=== PATIENT | female | born 1935 | race Caucasian/White ===

== ENCOUNTER 2017-04-06 21:21 | Observation (INO) ==
[2017-04-06] MEDS ORDERED: *HR* HYDROcodone/Acet 5/325 mg TABLET PO ONE (21:41)
--- NOTE | 2017-04-06 21:45 | Emergency Department Note ---
Disposition Clinical Impression: Ankle fracture Qualifiers: Encounter type: initial encounter Fracture type: closed Laterality: left Qualified Code(s): S82.892A - Other fracture of left lower leg, initial encounter for closed fracture Disposition: Admitted As Inpatient Condition: Fair Time of Disposition: 22:38 Lower Extremity Injury HPI - General Chief Complaint: ED Extremity Injury, Lower Stated Complaint: Fall, L ankle pain Time Seen by Provider: 04/06/17 21:32 Source: patient Limitations: no limitations Nursing Notes Reviewed: Yes Vital Signs Reviewed: Yes - History of Present Illness HPI Narrative: Alert and oriented nontoxic-appearing 81-year-old female presents for evaluation of a left ankle injury sustained just prior to arrival status post fall. The patient states that he was walking to the kitchen and she went with a glass of water. She states that she turned around she "must have lost my balance and fell". She states that she is supposed to use a cane for assistance while ambulating, however she does not always, as "it really limits what I can do". The patient states that she has a left upper extremity deficit from a "stroke" from several years ago. She states that she was walking back from the kitchen with a glass of water in her right and when she lost her balance and fell. The patient states that she is unsteady on her feet at baseline. She denies any prodromal symptoms or events leading up to this fall. Specifically, she denies any dizziness, headache, lightheadedness, visual disturbances, chest pain, shortness of breath, or palpitations. Lanes of pain is well localized to the medial aspect of the left ankle. She denies hitting her head, any loss of consciousness, or any other injuries sustained from this fall. Pt Subjective Complaint: ankle injury Injury location: Left ankle Onset (ago): Just [employer] Mechanism of Injury: fall Context: walking Place: home Pain Severity: moderate Pain Scale: 6 Improves with: immobilization Worsens with: weight bearing, movement, palpation Associated symptoms: Reports: unable to bear weight - Related Data Home Medications Medication Instructions Recorded Confirmed Acetaminophen [Tylenol] 500 mg PO Q6HR 04/07/17 04/07/17 Allopurinol [Zyloprim] 300 mg PO DAILY 04/07/17 04/07/17 Atorvastatin [Lipitor] 10 mg PO DAILY 04/07/17 04/07/17 Docusate [Colace] 100 mg PO DAILY 04/07/17 04/07/17 Esomeprazole Magnesium [Nexium] 40 mg PO PRN PRN 04/07/17 04/07/17 Fluticasone Propionate Nasal 1 spray NS DAILY 04/07/17 04/07/17 [Flonase] Lisinopril-HCTZ 20-12.5 [Prinzide 1 tab PO BID 04/07/17 04/07/17 20-12.5] [place]-3/Dha/Epa/Fish Oil [Fish Oil 1,000 mg PO DAILY 04/07/17 04/07/17 1,000 mg Softgel] Oxybutynin Chloride [Ditropan Xl] 10 mg PO TID 04/07/17 04/07/17 Ropinirole HCl [Requip] 0.5 mg PO HS 04/07/17 04/07/17 metFORMIN [Glucophage] 500 mg PO BIDWM 04/07/17 04/07/17 Allergies Allergy/AdvReac Type Severity Reaction Status Date / Time Amoxicillin [From Augmentin] Allergy Rash Verified 04/06/17 21:31 cephalexin [From Keflex] Allergy Rash Verified 04/06/17 21:31 clavulanic acid Allergy Rash Verified 04/06/17 21:31 [From Augmentin] diphenhydramine Allergy unsure Verified 04/06/17 21:31 [From Benadryl] meperidine [From Demerol] Allergy unsure Verified 04/06/17 21:31 phenytoin [From Dilantin] Allergy unsure Verified 04/06/17 21:31 All systems ED: reviewed and negative except as stated. Constitutional: Denies: fever, chills, weakness, weight change Eyes: Denies: eye pain, eye discharge, vision change ENT ED: Denies: ear pain, throat pain, dental pain, hearing loss, epistaxis, congestion, dysphagia Cardiovascular: Denies: chest pain, palpitations, dyspnea on exertion, edema, syncope Respiratory: Denies: cough, dyspnea, wheezes, hemoptysis, stridor Gastrointestinal: Denies: abdominal pain, nausea, vomiting, diarrhea, constipation, hematemesis, melena, hematochezia Genitourinary: Denies: dysuria, frequency, hematuria, discharge Musculoskeletal: Reports: as per HPI, arthralgia (Left ankle pain). Denies: back pain, neck pain, myalgia Integumentary: Denies: rash, abrasion, lesions Neurological: Denies: headache, weakness, numbness, paresthesias, confusion, abnormal gait, vertigo Psychiatric: Denies: anxiety, depression, suicidal thoughts, homicidal thoughts , auditory hallucinations, visual hallucinations Endocrine: Denies: fatigue Hematological/Lymphatic: Denies: easy bleeding, easy bruising Allergic/Immunologic: Denies: facial swelling, urticaria Past Medical History - Past Medical History Attestation: Yes The following information was validated with the patient. Source: patient, nursing notes reviewed Medical history: Reports: diabetes, GERD, hyperlipidemia, hypertension, other Psychiatric history: Reports: no psych history - Social History Smoking Status: Never smoker Alcohol use: Reports: rarely Drug use: Reports: none Physical Exam - General Limitations: no limitations General appearance: alert - Head Head exam: atraumatic, normocephalic, normal inspection - Eye Eye exam: Present: normal appearance, PERRL, EOMI. Absent: nystagmus - ENT ENT exam: mucous membranes moist - Neck Neck exam: Present: normal inspection, full ROM, trachea midline - Chest Chest inspection: Present: normal inspection, symmetric chest wall rise - Respiratory Respiratory exam: Present: normal lung sounds bilaterally. Absent: respiratory distress, wheezes, stridor, accessory muscle use, prolonged expiratory phase - Cardiovascular Cardiovascular exam: Present: regular rate, normal rhythm, normal heart sounds - Abdominal Exam Abdominal exam: Present: soft, Non-Tender, normal bowel sounds. Absent: tenderness, distention, guarding, rebound, rigidity, trauma, mass - Expanded Lower Extremity Exam Hip/Pelvis exam: Present: normal inspection, full ROM, pelvis stable. Absent: external rotation, internal rotation, shortening Upper leg exam: Present: normal inspection, full ROM Knee exam: Present: normal inspection, full ROM. Absent: tenderness Lower leg exam: Present: normal inspection, full ROM. Absent: tenderness Ankle exam: Present: tenderness (Tenderness to palpation over the area of the medial malleolus, left ankle). Absent: full ROM (Range of motion limited by pain, left ankle), swelling (No appreciable swelling), abrasion, laceration, ecchymosis (No appreciable ecchymosis), deformity, crepitus, dislocation, erythema, tenderness over talofibular lig Foot/toe exam: Present: normal inspection, full ROM. Absent: tenderness, calcaneal tenderness, tenderness at base of 5th metatarsal Neurovascular/Tendon exam: Present: normal capillary refill, normal 2-point discrimination. Absent: pulse deficit, motor deficit, sensory deficit, tendon deficit, extremity cold to touch Gait: not tested/not observed - Back Exam Back exam: Present: normal inspection, full ROM. Absent: tenderness, vertebral tenderness - Neurological Exam Neurological exam: Present: alert, oriented X3 - Psychiatric Psychiatric exam: Present: normal affect, normal mood - Skin Skin exam: Present: warm, dry, intact, normal color Course Course Narrative: 1030: I spoke with Dr. Bradford, orthopedist c consultant. I have discussed with Dr. Bradford the patient's radiology results as well as her inability to bear weight on the affected extremity. The patient would be unable to ambulate with either crutches or a walker at home due to her previous left-sided deficits. Dr. Bradford is agreeable to having the patient admitted to the hospitalist service and he will consult in the morning. 1035: I spoke with Dr. Casillas of the hospitalist service who has accepted the patient for admission to the hospital. Vital Signs Temperature 98.4 F 04/06/17 21:23 Pulse Rate 75 04/06/17 21:23 Respiratory Rate 16 04/06/17 21:23 Blood Pressure 160/90 04/06/17 21:23 O2 Sat by Pulse Oximetry 97 04/06/17 21:23 Temperature 98.5 F 04/10/17 07:27 Pulse Rate 72 04/10/17 07:27 Respiratory Rate 18 04/10/17 07:27 Blood Pressure 111/67 04/10/17 07:27 O2 Sat by Pulse Oximetry 94 04/10/17 07:27 Oxygen Delivery Oxygen Delivery Room Air Extremity Injury, Lower - Medical Records Medical records reviewed: Yes I reviewed the patient's medical records. - Lab Data Result diagrams: 04/07/17 04:58 04/07/17 04:58 - Radiology Data Radiology results reviewed: Yes I reviewed the patient's radiology results. - EKG Data EKG attestation: Yes I reviewed and interpreted this EKG. EKG results narrative: EKG reviewed by Dr. Paul as well. EKG shows a sinus rhythm at a rate of 69 bpm. No ectopy noted. No STEMI. Attestation Statement - Attestation Attestation: I personally interviewed and examined this patient and my medical decision- making was reviewed with the IBETH, Eulalio Rivero. I agree with the documented findings , disposition and treatment plan as described except to the extent set forth below. Pt is a pleasant 81-year-old white female, who has chronic left-sided deficit status post CVA, who sustained a mechanical fall tonight just prior to arrival with subsequent left ankle injury. Patient having pain to the left ankle and left foot with associated soft tissue swelling. Patient's neurovascularly intact no obvious deformity. Patient denies any other injuries related to the fall. She denies any loss of consciousness no neck or back pain no chest or abdominal pain no hip or pelvic pain. Patient awake aware GCS 15 on arrival and in no acute distress. I agree with patient's physical exam findings as documented. EKG was normal sinus with no acute ST-T wave changes appreciated. Patient's plain film imaging demonstrates a minimally displaced bimalleolar left ankle fracture. Patient's neurovascularly intact and skin overlying area is closed. Splint is being placed in the left lower extremity. Patient with difficulty ambulating or performing ADLs secondary to left upper extremity weakness as well as her lower extremity injury. I feel patient would benefit from hospitalization and orthopedic consult. Case was discussed with Dr. blount who is on for orthopedics and agreed to consult to see the patient patient will be admitted to the hospitalist service. Patient remains hemodynamically stable at this time in no acute distress.
[2017-04-06 23:29] LABS: Basophils % 0.9 %; Eosinophils # 0.1 K/mcL (0.0-0.6); Hematocrit 39.9 % (35.3-44.9); Hemoglobin 13.3 g/dL (11.5-15.4); Immature Granulocytes % 0.4 % (0-4); Lymphocytes # 1.6 K/mcL (0.6-4.6); Lymphocytes % 33.7 %; Mean Corpuscular HGB Conc 33.3 g/dL (31.6-35.5); Mean Corpuscular Hemoglobin 32.4 pg (28.0-33.3); Mean Corpuscular Volume 97.3 fL (83.0-100.0); Mean Platelet Volume 9.6 fL (9.4-12.4); Monocytes # 0.6 K/mcL (0.0-1.3); Neutrophils # 2.3 K/mcL (1.6-8.9); Platelet Count 190 K/mcL (140-400); Red Cell Distribution Width 13.8 % (11.5-14.5)
[2017-04-06 23:35] LABS: INR 0.9; Prothrombin Time 9.9 Seconds (9.4-12.1)
[2017-04-06 23:37] LABS: Activated Partial Thrombo Time 28.1 Seconds (26.0-36.0); BUN/Creatinine Ratio 26 (6-26); Blood Urea Nitrogen 23 mg/dL (7-20); Calcium 9.9 mg/dL (8.6-10.8); Carbon Dioxide 26 mEq/L (19-29); Chloride 103 mEq/L (98-109); Glucose 104 mg/dL (70-99); Osmolality,Calculated 290 (280-300); Potassium 4.3 mEq/L (3.5-4.5); Sodium 138 mEq/L (136-145); eGFR For African Americans > 60 (> 60); eGFR For Non-African Americans > 60 (> 60)
[2017-04-07] MEDS ORDERED: Ondansetron 4 MG/2 ML VIAL IVP PRN (03:24)
[2017-04-07] MEDS ORDERED: Naloxone 0.4 MG/ML INJ IVP PRN (03:24)
[2017-04-07] MEDS ORDERED: *HR* Dextrose 50 % in Water (Syg) 50 ML SYRINGE IVP PRN (03:29)
[2017-04-07] MEDS ORDERED: Dextrose Gel 15 GM PO PRN ×2 (03:29)
[2017-04-07] MEDS ORDERED: D5% in Water 1,000 ML IVC PRN (03:29)
[2017-04-07] MEDS ORDERED: 0.9 % Sodium Chloride 1,000 ML IVC SCH (03:30)
--- NOTE | 2017-04-07 03:37 | Internal Med History&Physical ---
Date of Encounter: 04/07/17 Time of Encounter: 02:50 Assessment and Plan (1) Ankle fracture Current visit: Yes Status: Acute 1. Pain control. 2. Consult Orthopedics for guidance and possible surgery. 3. Patient will likely need inpatient rehab given her left sided hemiparesis. Qualifiers: Encounter type: initial encounter Fracture type: closed Laterality: left Qualified Code(s): S82.892A - Other fracture of left lower leg, initial encounter for closed fracture (2) Type 2 diabetes mellitus Current visit: Yes Status: Chronic 1. Hold Metformin. 2. Will use SSI while in the hospital. Qualifiers: Diabetes mellitus complication status: without complication Diabetes mellitus oil heaterman insulin use: without oil heaterman use Qualified Code(s): E11.9 - Type 2 diabetes mellitus without complications (3) Hypertension Current visit: Yes Status: Chronic 1. Continue home meds as appropriate. 2. Monitor BP and adjust meds as necessary. Qualifiers: Hypertension type: essential hypertension Qualified Code(s): I10 - Essential (primary) hypertension (4) DVT prophylaxis Current visit: Yes Status: Acute 1. Heparin SQ. Internal Medicine - H&P: HPI Chief complaint: s/p fall; ankle fracture Admitted From: Emergency Dept Plans for Post Hospital Care: Home History of present illness: Ms. Chong is a 81 year old female who presents to the ER tonight after sustaining an ankle fracture at home. She was walking in her kitchen, and she was obtaining a glass of water to return to her bedroom when she slipped and fell sustaining injury to her left ankle. She had no syncope or near syncope. She denies any chest pain, palpitations, lightheadedness, or dizziness. She describes a mechanical fall. She was unable to get herself up and/or bear weight on her own. She therefore came to ER with her family's help where she was diagnosed with a fracture of her left ankle. She was subsequently admitted to the hospitalist service with a consult to orthopedics. Upon my assessment of the patient, she is sleeping but easily arousable. She reiterates the above history. She has had some mild pain since then but, overall, she feels stable. 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 She can ambulate and use her left arm to some degree, however. She does have some difficulty with her foot drop and foot drag. Nonetheless, she does ambulate without the use of walker. Now with her ankle fracture, ambulation will be extremely difficult, and she will need ongoing therapy and possible surgical intervention. Past Med Surg Social Fam HX - Past Medical History Attestation: Yes The following information was validated with the patient. Source: patient Medical history: arthritis, CVA (after complications of a myelogram), diabetes, GERD, hyperlipidemia, hypertension Psychiatric history: no psych history - Past Surgical History Surgical History: cholecystectomy, FALGUNI/BSO - Social History Smoking Status: Never smoker Smokeless Tobacco Status: No Alcohol use: rarely Drug use: none Current living situation: Home, With Family Activity Level: Independent ambulation - Family History Mother Living Status: Hx Family Cardiac Disorders: No Father Living Status: Internal Medicine - H&P: Meds Acetaminophen [Tylenol] 500 mg PO Q6HR 04/07/17 [History] Allopurinol [Zyloprim] 300 mg PO DAILY 04/07/17 [History] Atorvastatin [Lipitor] 10 mg PO DAILY 04/07/17 [History] Esomeprazole Magnesium [Nexium] 40 mg PO PRN PRN 04/07/17 [History] Lisinopril-HCTZ 20-12.5 [Prinzide 20-12.5] 1 each PO BID 04/07/17 [History] Oxybutynin [Ditropan] 5 mg PO TID 04/07/17 [History] metFORMIN [Glucophage] 500 mg PO BIDWM 04/07/17 [History] Allergies Amoxicillin [From Augmentin] Allergy (Verified 04/06/17 21:31) Rash cephalexin [From Keflex] Allergy (Verified 04/06/17 21:31) Rash clavulanic acid [From Augmentin] Allergy (Verified 04/06/17 21:31) Rash diphenhydramine [From Benadryl] Allergy (Verified 04/06/17 21:31) unsure meperidine [From Demerol] Allergy (Verified 04/06/17 21:31) unsure phenytoin [From Dilantin] Allergy (Verified 04/06/17 21:31) unsure - Constitutional Constitutional: falls, no chills, no fever(s) - EENT Eyes: no blurry vision, no change in vision Ears: no ear pain, no tinnitus Nose, mouth and throat: no nasal congestion, no sinus pressure, no sore throat - Cardiovascular Cardiovascular ROS IM: no chest pain, no dyspnea, no dyspnea on exertion, no lightheadedness, no palpitations, no syncope - Respiratory Respiratory: no cough, no dyspnea, no hemoptysis, no dyspnea on exertion - Gastrointestinal Gastrointestinal: no abdominal pain, no diarrhea, no hematemesis, no hematochezia, no melena, no nausea, no vomiting - Genitourinary Genitourinary: no dysuria, no flank pain, no hematuria - Musculoskeletal Musculoskeletal ROS IM: arthralgias, back pain - Integumentary Integumentary IM: no rash - Neurological Neurological ROS: no dizziness, no focal weakness (left arm and leg since her stroke 20+ years ago), no vertigo - Psychiatric Psychiatric: no anxiety, no depression - Endocrine Endocrine IM: no polydipsia, no polyuria - Hematologic/Lymphatic Hematologic/Lymphatic: no easy bruising - Allergic/Immunologic Allergic/Immunologic: no wheezing, no GI upset with certain foods - Constitutional Vitals: Temp Pulse Resp BP Pulse Ox 99.2 F 76 18 169/80 97 04/06/17 23:55 04/06/17 23:55 04/06/17 23:55 04/06/17 23:55 04/06/17 23:55 General appearance: Present: cooperative, A&O X 3, pleasant, no acute distress - Head Head exam: Present: atraumatic, normal inspection - Eye Eye exam: Present: EOMI, normal appearance, PERRL. Absent: scleral icterus Pupils: Present: normal accommodation - ENT ENT exam: Present: mucous membranes moist, normal exam - Neck Neck exam general surgery: Present: full ROM, supple. Absent: tenderness - Respiratory Respiratory exam: Present: CTAB. Absent: chest wall tenderness, rales, rhonchi , wheezes - Cardiovascular Cardiovascular exam: Present: RRR, +S1, +S2. Absent: diastolic murmur, systolic murmur - GI/Abdominal GI/Abdominal exam: Present: normal bowel sounds, soft. Absent: hepatomegaly, mass, splenomegaly, tenderness - Extremities Exam Extremities exam: Present: full ROM, tenderness (left ankle), warm, radial pulses palpable and symetrical. Absent: calf tenderness, pedal edema - Back Exam Back exam: Absent: CVA tenderness (L), CVA tenderness (R) - Neurological Exam Neurological exam: Present: alert, CN II-XII intact, oriented X3, reflexes normal. Absent: strengths equal and symetr throughout (left side weaker than right) - Psychiatric Psychiatric exam: Present: normal affect, normal mood - Skin Skin exam: Present: dry, warm. Absent: rash Internal Med - H&P Results - Labs CBC & Chem 7: 04/06/17 23:15 04/06/17 23:15 Labs: Short CBC 04/06/17 Range/Units 23:15 WBC 4.7 (4.3-11.1) K/mcL Hgb 13.3 (11.5-15.4) g/dL Hct 39.9 (35.3-44.9) % Plt Count 190 (140-400) K/mcL Neutrophils # 2.3 (1.6-8.9) K/mcL BMP 04/06/17 23:15 Sodium 138 Potassium 4.3 Chloride 103 Carbon Dioxide 26 BUN 23 H Creatinine 0.88 Glucose 104 H Calcium 9.9 - EKG Data -: EKG Interpreted by Myself EKG shows normal: sinus rhythm - EKG Data Prior EKG available for review: no EKG comments: 04/07/17 03:44 NSR; low voltage, otherwise negative
[2017-04-07] MEDS: *HR* HYDROcodone/Acet 5/325 mg TABLET PO PRN ×2 (03:57→11:35)
[2017-04-07] MEDS: *HR* Heparin 5,000 UNIT/ML VIAL SQ SCH ×2 (05:34→19:50)
[2017-04-07 05:37] LABS: Basophils # 0.1 K/mcL (0.0-0.2); Basophils % 0.7 %; Eosinophils # 0.2 K/mcL (0.0-0.6); Hematocrit 36.3 % (35.3-44.9); Hemoglobin 12.2 g/dL (11.5-15.4); Immature Granulocytes % 0.3 % (0-4); Lymphocytes # 2.6 K/mcL (0.6-4.6); Lymphocytes % 37.4 %; Mean Corpuscular HGB Conc 33.6 g/dL (31.6-35.5); Mean Corpuscular Hemoglobin 32.4 pg (28.0-33.3); Mean Corpuscular Volume 96.5 fL (83.0-100.0); Mean Platelet Volume 9.7 fL (9.4-12.4); Monocytes # 0.8 K/mcL (0.0-1.3); Monocytes % 11.8 %; Neutrophils # 3.3 K/mcL (1.6-8.9); Platelet Count 196 K/mcL (140-400); Red Blood Count 3.76 M/mcL (3.82-4.97); Red Cell Distribution Width 13.7 % (11.5-14.5); Segmented Neutrophils % 46.8 %
[2017-04-07 05:48] LABS: Alanine Aminotransferase 10 Units/L (0-55); Albumin 3.3 g/dL (3.5-5.0); Albumin/Globulin Ratio 1.1 (1.1-2.2); Alkaline Phosphatase 57 Units/L (38-126); Aspartate Amino Transferase 12 Units/L (5-34); BUN/Creatinine Ratio 26 (6-26); Bilirubin,Total 0.4 mg/dL (0.2-1.2); Blood Urea Nitrogen 20 mg/dL (7-20); Calcium 9.4 mg/dL (8.6-10.8); Carbon Dioxide 22 mEq/L (19-29); Chloride 106 mEq/L (98-109); Globulin 2.9 g/dL (2.4-3.5); Glucose 113 mg/dL (70-99); Magnesium 1.6 mg/dL (1.6-2.6); Osmolality,Calculated 289 (280-300); Sodium 138 mEq/L (136-145); Total Protein 6.2 g/dL (6.0-8.3); eGFR For African Americans > 60 (> 60); eGFR For Non-African Americans > 60 (> 60)
[2017-04-07] MEDS: Insulin LISPRO 300 UNITS/3 ML VIAL SQ SCH ×3 (07:50→17:18)
--- NOTE | 2017-04-07 08:49 | Orthopedic Consult Note ---
Date of Encounter: 04/07/17 Time of Encounter: 08:47 Assessment and Plan (1) Ankle fracture Current Visit: Yes Status: Acute Plan is for non-operative treatment of non-displaced medial distal tibia fractures. XRAYS reviewed and plan discussed with and patient. Patient in agreement with plan. 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 Recommending PT/OT. She wishes to go home with home health, and she does have help at home. Will f/up with sports medicine in outpatient clinic. Appts faxed to [facility]. Qualifiers: Encounter type: initial encounter Fracture type: closed Laterality: left Qualified Code(s): S82.892A - Other fracture of left lower leg, initial encounter for closed fracture (2) Type 2 diabetes mellitus Current Visit: Yes Status: Chronic Qualifiers: Diabetes mellitus complication status: without complication Diabetes mellitus golf manager insulin use: without halfway use Qualified Code(s): E11.9 - Type 2 diabetes mellitus without complications (3) Hypertension Current Visit: Yes Status: Chronic Qualifiers: Hypertension type: essential hypertension Qualified Code(s): I10 - Essential (primary) hypertension History of Present Illness Chief complaint: Fall 04/06/17 HPI: Ms. Chong is a 81 year old female, presented to the ER 04/06/17, after a mechanical fall at home. She has difficulty with ambulation secondary to left sided hemiparesis, but does not use a walker. She was walking in her kitchen, and she was when she slipped and fell sustaining injury to her left ankle. She had no syncope or near syncope. She denies any chest pain, palpitations, lightheadedness, or dizziness. She was unable to get herself up and/or bear weight on her own. She therefore came to ER with her family's help where she was diagnosed with a fracture of her left ankle. Patient is A&O x 3. Pain controlled with pain medication. She does have some difficulty with her foot drop and foot drag. She is in a posterior splint and BRAYAN wrap. Pain controlled in splinting. Ankle motion increases her pain along with attempted WB. She denies N/T, that is more than her chronic hemiparesis. She admits to slight radiation to the fibular head. Pain 6/10 with rest. ROM limited, minimal swelling noted. Ankle XRAYS:FINDINGS: Osteopenia which somewhat limits evaluation. Minimally displaced medial malleolar and distal fibular fractures. Soft tissue edema. XR/XR ankle complete min 3V LT IMPRESSION: Distal tibial and fibular fractures. FOOT XRAY FINDINGS: Mild narrowing of IP joints. No erosion. Mild 1st MTP degenerative changes. Diffuse soft tissue swelling. No acute fracture within the foot. XR/XR foot 3V LT IMPRESSION: Mild soft tissue swelling. Past Med Surg Social Fam HX - Past Medical History Medical history: arthritis, CVA (after complications of a myelogram), diabetes, GERD, hyperlipidemia, hypertension Psychiatric history: no psych history - Past Surgical History Surgical History: cholecystectomy, FALGUNI/BSO - Social History Smoking Status: Never smoker Smokeless Tobacco Status: No Alcohol use: rarely Drug use: none - Family History Mother Living Status: Hx Family Cardiac Disorders: No Father Living Status: Medications and Allergies Acetaminophen [Tylenol] 500 mg PO Q6HR 04/07/17 [History] Allopurinol [Zyloprim] 300 mg PO DAILY 04/07/17 [History] Atorvastatin [Lipitor] 10 mg PO DAILY 04/07/17 [History] Docusate [Colace] 100 mg PO DAILY 04/07/17 [History] Esomeprazole Magnesium [Nexium] 40 mg PO PRN PRN 04/07/17 [History] Fluticasone Propionate Nasal [Flonase] 1 spray NS DAILY 04/07/17 [History] Lisinopril-HCTZ 20-12.5 [Prinzide 20-12.5] 1 tab PO BID 04/07/17 [History] [place]-3/Dha/Epa/Fish Oil [Fish Oil 1,000 mg Softgel] 1,000 mg PO DAILY 04/07/17 [History] Oxybutynin Chloride [Ditropan Xl] 10 mg PO TID 04/07/17 [History] Ropinirole HCl [Requip] 0.5 mg PO HS 04/07/17 [History] metFORMIN [Glucophage] 500 mg PO BIDWM 04/07/17 [History] Allergies Amoxicillin [From Augmentin] Allergy (Verified 04/06/17 21:31) Rash cephalexin [From Keflex] Allergy (Verified 04/06/17 21:31) Rash clavulanic acid [From Augmentin] Allergy (Verified 04/06/17 21:31) Rash diphenhydramine [From Benadryl] Allergy (Verified 04/06/17 21:31) unsure meperidine [From Demerol] Allergy (Verified 04/06/17 21:31) unsure phenytoin [From Dilantin] Allergy (Verified 04/06/17 21:31) unsure All Systems Reviewed: A 10-system review of systems was performed and is negative for pertinent findings except as documented above in the HPI. - Constitutional Constitutional: as per HPI - Cardiovascular Cardiovascular: as per HPI, no chest pain, no syncope - Respiratory Respiratory: as per HPI, no cough - Musculoskeletal Musculoskeletal: as per HPI, abnormal gait, limited range of motion, muscle weakness, radiating pain into limb, no joint swelling, no numbness Physical Exam - Constitutional Vitals: Temp Pulse Resp BP Pulse Ox 98.4 F 84 16 119/72 93 04/07/17 06:57 04/07/17 06:57 04/07/17 06:57 04/07/17 06:57 04/07/17 06:57 - Fracture left ankle Appearance: normal Compartments: soft Distal extremity neurovascularly intact: Yes Proximal joint involvement: No Distal joint involvement: No Other injury: nerve injury: no Results - Labs Result Diagrams: 04/07/17 04:58 04/07/17 04:58 Labs: Abnormal lab results RBC 3.76 M/mcL (3.82-4.97) L 04/07/17 04:58 Glucose 113 mg/dL (70-99) H 04/07/17 04:58 POC Glucose 112 (58-89) H 04/07/17 03:55 Albumin 3.3 g/dL (3.5-5.0) L 04/07/17 04:58 H & H 04/06/17 04/07/17 Range/Units 23:15 04:58 Hgb 13.3 12.2 (11.5-15.4) g/dL Hct 39.9 36.3 (35.3-44.9) % All other labs normal. - Diagnostic results Ankle/Foot x-ray: report reviewed, image reviewed Consult Discharge Plan - Plan Referrals: Dary Claire CNP [Primary Care Provider] -
[2017-04-07] MEDS ORDERED: Lisinopril 20 MG TABLET PO SCH (09:00)
--- NOTE | 2017-04-07 16:50 | Internal Med Progress Note ---
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 Current Visit: Yes Status: Chronic Assessment and plan: chronic left hemiparesis which may limit her ambulation with left ankle fx PT / OT working with her cont home med ASA, Statin (3) Type 2 diabetes mellitus Current Visit: Yes Status: Chronic Assessment and plan: Stable BS cont home meds + ISS Qualifiers: Diabetes mellitus complication status: without complication Diabetes mellitus petroleum terminal plant operator insulin use: without alf use Qualified Code(s): E11.9 - Type 2 diabetes mellitus without complications (4) Hypertension Current Visit: Yes Status: Chronic Assessment and plan: stable with home med Lisinopril Qualifiers: Hypertension type: essential hypertension Qualified Code(s): I10 - Essential (primary) hypertension (5) DVT prophylaxis Current Visit: Yes Status: Acute Assessment and plan: on SQ heparin - Subjective Interval history: Ms. Chong is a 81 y/o F with h/o CVA chronic left residual paralysis admitted with non dispalced left ankle fracture developed with a ground level fall. Pt stated when she was walking back from kitchen to bedroom , her egs gave up and fell on her left leg. She denied any syncope / loss of consciousness. Pt stated her pain tis tolerable with current meds, especially after wearing CAM boot - Constitutional Vitals: Temp Pulse Resp BP Pulse Ox 97.7 F 64 16 122/66 96 04/07/17 15:56 04/07/17 15:56 04/07/17 15:56 04/07/17 15:56 04/07/17 15:56 General appearance: Present: cooperative, A&O X 3, pleasant, no acute distress - Respiratory Respiratory exam: Present: CTAB. Absent: accessory muscle use, rales, rhonchi, wheezes - Cardiovascular Cardiovascular exam: Present: RRR, +S1, +S2. Absent: diastolic murmur, gallop, rubs, systolic murmur - GI/Abdominal GI/Abdominal exam: Present: soft. Absent: diminished bowel sounds, tenderness - Extremities Exam Extremities exam: Absent: calf tenderness, pedal edema, tenderness Additional comments: CAM walker boot placed on.. Mild left ankle swelling noticed. Neuro vascularly intact. Able to wiggle her Left toes - Neurological Exam Neurological exam: Present: alert, oriented X3 Additional comments: chronic stable left residual paralysis - Psychiatric Psychiatric exam: Present: normal affect, normal mood Internal Medicine: Result - Labs CBC & Chem 7: 04/07/17 04:58 04/07/17 04:58 Labs: Short CBC 04/06/17 04/07/17 Range/Units 23:15 04:58 WBC 4.7 7.0 (4.3-11.1) K/mcL Hgb 13.3 12.2 (11.5-15.4) g/dL Hct 39.9 36.3 (35.3-44.9) % Plt Count 190 196 (140-400) K/mcL Neutrophils # 2.3 3.3 (1.6-8.9) K/mcL BMP 04/06/17 04/07/17 23:15 04:58 Sodium 138 138 Potassium 4.3 4.0 Chloride 103 106 Carbon Dioxide 26 22 BUN 23 H 20 Creatinine 0.88 0.78 Glucose 104 H 113 H Calcium 9.9 9.4 Liver Function 04/07/17 Range/Units 04:58 Total Bilirubin 0.4 (0.2-1.2) mg/dL AST 12 (5-34) Units/L ALT 10 (0-55) Units/L Alkaline Phosphatase 57 (38-126) Units/L Albumin 3.3 L (3.5-5.0) g/dL - ABG Interpretation ABG results: PT/INR, D-dimer PT 9.9 Seconds (9.4-12.1) 04/06/17 23:15 - Impressions Impressions Chest X-Ray 04/07/17 03:24 IMPRESSION: No acute process, however, the lung bases are obscured by overlapping soft tissue and bone from the left arm and hand. D/ / Sp Means MD / Sp Means MD Interpreting Provider: Sp Means MD Consult Discharge Plan - Plan Referrals: Dary Claire CNP [Primary Care Provider] -
[2017-04-07] MEDS: Lisinopril 20 MG TABLET PO SCH (19:51)
[2017-04-08] MEDS: Acetaminophen 325 MG TABLET PO PRN ×2 (00:30→11:56)
[2017-04-08] MEDS: *HR* Heparin 5,000 UNIT/ML VIAL SQ SCH ×2 (06:10→18:31)
--- NOTE | 2017-04-08 06:18 | Electrocardiograph Report ---
[place] [id number] Test Date: 2017-04-06 Pat Name: China Chong Department: 102 Room: [facility] Gender: F Quality Assurance Assessor: : 1935 Requested By: Clayton Rivero Order Number: [id number] Reading MD: Manas Peck MD Measurements Intervals [place] Rate: 69 P: 49 NV: 142 QRS: -2 QRSD: 81 T: 3 QT: 364 QTc: 382 Interpretive Statements SINUS RHYTHM LOW QRS VOLTAGE IN PRECORDIAL LEADS BASELINE ARTIFACT Electronically Signed On 04-08-2017 6:16:24 EDT by Manas Peck MD
[2017-04-08] MEDS: Insulin LISPRO 300 UNITS/3 ML VIAL SQ SCH ×3 (07:50→17:30)
--- NOTE | 2017-04-08 16:20 | Internal Med Progress Note ---
Date of Encounter: 04/08/17 Time of Encounter: 08:15 - Assessment and plan (1) Ankle fracture Current Visit: Yes Status: Acute Assessment and plan: Conservative management with Cam Walker boot and physical therapy. Patient has been evaluated by physical therapy and recommended placement to skilled rehabilitation. industrial workers has been consulted to make arrangements for safe discharge plan for the patient. Qualifiers: Encounter type: initial encounter Fracture type: closed Laterality: left Qualified Code(s): S82.892A - Other fracture of left lower leg, initial encounter for closed fracture (2) Type 2 diabetes mellitus Current Visit: Yes Status: Chronic Assessment and plan: Blood sugars are well controlled. Continue sliding scale insulin. Qualifiers: Diabetes mellitus complication status: without complication Diabetes mellitus custodial insulin use: without rat exterminator use Qualified Code(s): E11.9 - Type 2 diabetes mellitus without complications (3) Hypertension Current Visit: Yes Status: Chronic Assessment and plan: Blood pressure has been well controlled. 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 Complains of pain in left ankle and restless legs. No fever chills or nausea or vomiting. Tolerating diet well. Pain in left leg is improving after the patient had Cam Walker boot placed - Constitutional Vitals: Temp Pulse Resp BP Pulse Ox 98.1 F 71 16 121/67 99 04/08/17 14:29 04/08/17 14:29 04/08/17 14:29 04/08/17 14:29 04/08/17 14:29 General appearance: Present: cooperative, A&O X 3, pleasant, no acute distress - Neck Neck exam general surgery: Present: supple, trachea midline. Absent: lymphadenopathy - Respiratory Respiratory exam: Present: CTAB. Absent: accessory muscle use, rales, rhonchi, wheezes - Cardiovascular Cardiovascular exam: Present: RRR, +S1, +S2. Absent: diastolic murmur, gallop, rubs, systolic murmur - GI/Abdominal GI/Abdominal exam: Present: normal bowel sounds, soft, no peritoneal signs. Absent: distended, tenderness - Extremities Exam Extremities exam: Present: warm, radial pulses palpable and symetrical. Absent : calf tenderness, cyanotic, pedal edema Additional comments: Left ankle in Cam Walker boot - Neurological Exam Neurological exam: Present: alert, oriented X3, no focal deficits. Absent: facial droop, speech deficit Additional comments: Left-sided hemiparesis - Skin Skin exam: Present: dry, intact Internal Medicine: Result - Labs CBC & Chem 7: 04/07/17 04:58 04/07/17 04:58 - ABG Interpretation ABG results: PT/INR, D-dimer PT 9.9 Seconds (9.4-12.1) 04/06/17 23:15 Consult Discharge Plan - Plan Referrals: Dary Claire, SECURITY COORDINATOR [Primary Care Provider] -
[2017-04-08] MEDS: rOPINIRole 0.25 MG TABLET PO SCH (20:29)
[2017-04-08] MEDS: Lisinopril 20 MG TABLET PO SCH (20:30)
[2017-04-09] MEDS: *HR* Heparin 5,000 UNIT/ML VIAL SQ SCH ×2 (06:04→18:29)
[2017-04-09] MEDS: Insulin LISPRO 300 UNITS/3 ML VIAL SQ SCH ×3 (08:05→16:42)
--- NOTE | 2017-04-09 17:27 | Internal Med Progress Note ---
Date of Encounter: 04/09/17 Time of Encounter: 08:10 - Assessment and plan (1) Ankle fracture Current Visit: Yes Status: Acute Assessment and plan: Continue supportive care and physical therapy. Patient may need placement to skilled rehabilitation per physical therapy evaluation. ornamental iron worker apprentice looking into placement for the patient. Qualifiers: Encounter type: initial encounter Fracture type: closed Laterality: left Qualified Code(s): S82.892A - Other fracture of left lower leg, initial encounter for closed fracture (2) Type 2 diabetes mellitus Current Visit: Yes Status: Chronic Assessment and plan: Blood sugars are mostly well controlled. Continue current sliding scale insulin. 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 (6) Restless leg syndrome Current Visit: Yes Status: Chronic Assessment and plan: Improved. Continue ropinirole - Subjective Interval history: Patient is doing well overall. Working with physical therapy. Has some pain in left leg after she has been sitting up for a while. Symptoms of restless legs syndrome are improving after she was placed back on ropinirole - Constitutional Vitals: Temp Pulse Resp BP Pulse Ox 98.6 F 74 16 107/68 96 04/09/17 16:09 04/09/17 16:09 04/09/17 16:09 04/09/17 16:09 04/09/17 16:09 General appearance: Present: cooperative, A&O X 3, pleasant, no acute distress, answers questions appropriately - Respiratory Respiratory exam: Present: CTAB. Absent: accessory muscle use, rales, rhonchi, wheezes - Cardiovascular Cardiovascular exam: Present: RRR, +S1, +S2. Absent: diastolic murmur, gallop, rubs, systolic murmur - Extremities Exam Extremities exam: Present: warm, radial pulses palpable and symetrical. Absent : calf tenderness, cyanotic, pedal edema Additional comments: Left lower extremity in cam walker boot Internal Medicine: Result - Labs CBC & Chem 7: 04/07/17 04:58 04/07/17 04:58 - ABG Interpretation ABG results: PT/INR, D-dimer PT 9.9 Seconds (9.4-12.1) 04/06/17 23:15 Consult Discharge Plan - Plan Referrals: Dary Claire, INFRASTRUCTURE SOFTWARE ENGINEER [Primary Care Provider] -
[2017-04-09] MEDS: Lisinopril 20 MG TABLET PO SCH (20:07)
[2017-04-09] MEDS: rOPINIRole 0.25 MG TABLET PO SCH (20:11)
[2017-04-10] MEDS: Acetaminophen 325 MG TABLET PO PRN (01:14)
[2017-04-10] MEDS: *HR* Heparin 5,000 UNIT/ML VIAL SQ SCH ×2 (06:42→17:49)
[2017-04-10] MEDS: Insulin LISPRO 300 UNITS/3 ML VIAL SQ SCH ×3 (08:13→16:23)
[2017-04-10] MEDS: hydroCHLOROthiazide 25 MG TABLET PO SCH (08:35)
--- NOTE | 2017-04-10 11:50 | Orthopedics Progress Note ---
Date of Encounter: 04/10/17 Time of Encounter: 12:30 - Assessment and Plan (1) Ankle fracture Current Visit: Yes Status: Acute Plan is for non-operative treatment of non-displaced medial distal tibia fractures. XRAYS reviewed and plan discussed with and patient. Patient in agreement with plan. CAM walker boot, WBAT, with the use of a walker or cane due to her silvia-paresis to her left side. Recommending PT/OT. ECF PLACEMENT Will f/up with sports medicine in outpatient clinic. Appts fax[facility] to [facility]. Qualifiers: Encounter type: initial encounter Fracture type: closed Laterality: left Qualified Code(s): S82.892A - Other fracture of left lower leg, initial encounter for closed fracture (2) Type 2 diabetes mellitus Current Visit: Yes Status: Chronic Qualifiers: Diabetes mellitus complication status: without complication Diabetes mellitus custodial insulin use: without petroleum terminal plant operator use Qualified Code(s): E11.9 - Type 2 diabetes mellitus without complications (3) Hypertension Current Visit: Yes Status: Chronic Qualifiers: Hypertension type: essential hypertension Qualified Code(s): I10 - Essential (primary) hypertension Subjective Principal diagnosis: LEFT ANKLE FRACTURE Interval history: Patient is doing well overall. Working with physical therapy. Has some pain in left leg after she has been sitting up for a while. Symptoms of restless legs syndrome are improving after she was placed back on ropinirol CONTINUES IN BOOT, WBAT AWAITING AUTH TO FOR FACILITY DUE TO HEMIPARALYSIS F/UP SPORTS MED NEXT WEEK Objective Vital signs: Vital Signs Temp Pulse Resp BP Pulse Ox 04/10/17 11:22 112/71 04/10/17 11:14 98.1 F 66 16 89/58 94 04/10/17 07:27 98.5 F 72 18 111/67 94 04/09/17 23:25 98.4 F 68 14 137/62 96 04/09/17 20:06 97.9 F 85 18 109/59 97 04/09/17 16:09 98.6 F 74 16 107/68 96 Intake and Output 04/09/17 04/10/17 04/10/17 23:59 07:59 15:59 Intake Total 250 / 250 500 / 500 240 / 240 Output Total 300 / 300 475 / 475 Balance -50 / -50 25 / 25 240 / 240 Intake: Oral 250 / 250 500 / 500 240 / 240 Output: Urine 300 / 300 475 / 475 Other: Meal Breakfast Percent of Meal Consumed 100% Blood Glucose* 182 109 109 - Labs CBC & BMP: 04/07/17 04:58 04/07/17 04:58 Labs: Abnormal lab results RBC 3.76 M/mcL (3.82-4.97) L 04/07/17 04:58 Glucose 113 mg/dL (70-99) H 04/07/17 04:58 POC Glucose 109 (58-89) H 04/10/17 11:16 Albumin 3.3 g/dL (3.5-5.0) L 04/07/17 04:58 Consult Discharge Plan - Plan Referrals: Dary Claire, PARK WORKER [Primary Care Provider] -
--- NOTE | 2017-04-10 13:32 | Internal Med Progress Note ---
Date of Encounter: 04/10/17 Time of Encounter: 09:50 - Assessment and plan (1) Ankle fracture Current Visit: Yes Status: Acute Assessment and plan: Continue supportive care and physical therapy. Patient still in hospital as public health social worker looking into a safe discharge plan for the patient. DVT prophylaxis with subcutaneous heparin. Qualifiers: Encounter type: initial encounter Fracture type: closed Laterality: left Qualified Code(s): S82.892A - Other fracture of left lower leg, initial encounter for closed fracture (2) Type 2 diabetes mellitus Current Visit: Yes Status: Chronic Assessment and plan: Blood sugars remained well controlled Qualifiers: Diabetes mellitus complication status: without complication Diabetes mellitus jail insulin use: without local company intermodal truck driver use Qualified Code(s): E11.9 - Type 2 diabetes mellitus without complications (3) Hypertension Current Visit: Yes Status: Chronic Assessment and plan: Well-controlled Qualifiers: Hypertension type: essential hypertension Qualified Code(s): I10 - Essential (primary) hypertension (4) DVT prophylaxis Current Visit: Yes Status: Acute (5) 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 Has some pain in left leg as she had worked with physical therapy. Pain control with Tylenol. No other complaints at this time. - Constitutional Vitals: Temp Pulse Resp BP Pulse Ox 98.1 F 66 16 112/71 94 04/10/17 11:14 04/10/17 11:14 04/10/17 11:14 04/10/17 11:22 04/10/17 11:14 General appearance: Present: cooperative, A&O X 3, pleasant, no acute distress, answers questions appropriately - Respiratory Respiratory exam: Present: CTAB. Absent: accessory muscle use, rales, rhonchi, wheezes - Cardiovascular Cardiovascular exam: Present: RRR, +S1, +S2. Absent: diastolic murmur, gallop, rubs, systolic murmur - GI/Abdominal GI/Abdominal exam: Present: normal bowel sounds, soft, no peritoneal signs. Absent: distended, tenderness - Extremities Exam Extremities exam: Present: warm, radial pulses palpable and symetrical. Absent : calf tenderness, cyanotic, pedal edema Additional comments: Left lower extremity in Cam Walker boot - Neurological Exam Neurological exam: Present: alert, oriented X3, no focal deficits. Absent: facial droop, speech deficit - Skin Skin exam: Present: dry, intact Internal Medicine: Result - Labs CBC & Chem 7: 04/07/17 04:58 04/07/17 04:58 - ABG Interpretation ABG results: PT/INR, D-dimer PT 9.9 Seconds (9.4-12.1) 04/06/17 23:15 Consult Discharge Plan - Plan Referrals: Dary Claire CNP [Primary Care Provider] -
[2017-04-10] MEDS: Lisinopril 20 MG TABLET PO SCH (20:48)
[2017-04-10] MEDS: rOPINIRole 0.25 MG TABLET PO SCH (20:54)
[2017-04-11] MEDS: *HR* Heparin 5,000 UNIT/ML VIAL SQ SCH ×2 (05:20→18:20)
[2017-04-11] MEDS: Insulin LISPRO 300 UNITS/3 ML VIAL SQ SCH ×3 (07:32→16:17)
[2017-04-11] MEDS: hydroCHLOROthiazide 25 MG TABLET PO SCH (10:03)
[2017-04-11] MEDS: Acetaminophen 325 MG TABLET PO PRN ×2 (10:06→23:44)
--- NOTE | 2017-04-11 17:20 | Internal Med Progress Note ---
Date of Encounter: 04/11/17 Time of Encounter: 07:50 - Assessment and plan (1) Ankle fracture Current Visit: Yes Status: Acute Assessment and plan: Continue conservative management. Continue physical therapy. Patient will most likely be discharged tomorrow with home health as patient is going [place] live with her family. Qualifiers: Encounter type: initial encounter Fracture type: closed Laterality: left Qualified Code(s): S82.892A - Other fracture of left lower leg, initial encounter for closed fracture (2) Type 2 diabetes mellitus Current Visit: Yes Status: Chronic Assessment and plan: Continue monitoring blood sugars. 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 Plan to discharge patient on aspirin 325 mg twice daily for 2 weeks. - Subjective Interval history: Patient is awake and alert. No new complaints at this time. Continues to work with physical therapy. Pain well controlled and left lower extremity. - Constitutional Vitals: Temp Pulse Resp BP Pulse Ox 98.5 F 77 14 119/72 95 04/11/17 11:30 04/11/17 11:30 04/11/17 11:30 04/11/17 11:30 04/11/17 11:30 General appearance: Present: cooperative, A&O X 3, pleasant, no acute distress, answers questions appropriately - Neck Neck exam general surgery: Present: supple, trachea midline. Absent: lymphadenopathy - Respiratory Respiratory exam: Present: CTAB. Absent: accessory muscle use, rales, rhonchi, wheezes - Cardiovascular Cardiovascular exam: Present: RRR, +S1, +S2. Absent: diastolic murmur, gallop, rubs, systolic murmur - GI/Abdominal GI/Abdominal exam: Present: normal bowel sounds, soft, no peritoneal signs. Absent: distended, tenderness - Extremities Exam Extremities exam: Present: warm, radial pulses palpable and symetrical. Absent : calf tenderness, cyanotic, pedal edema Additional comments: Left lower extremity in CAM walker boot Internal Medicine: Result - Labs CBC & Chem 7: 04/07/17 04:58 04/07/17 04:58 - ABG Interpretation ABG results: PT/INR, D-dimer PT 9.9 Seconds (9.4-12.1) 04/06/17 23:15 Consult Discharge Plan - Plan Referrals: Dary Claire, MICHELLE [Primary Care Provider] - Elvis Reddy MD [Non-Partnered Physician] - 04/15/17 10:40 am
[2017-04-11] MEDS: Lisinopril 20 MG TABLET PO SCH (20:45)
[2017-04-11] MEDS: rOPINIRole 0.25 MG TABLET PO SCH (20:46)
[2017-04-12] MEDS: *HR* Heparin 5,000 UNIT/ML VIAL SQ SCH (06:10)
[2017-04-12] MEDS: Insulin LISPRO 300 UNITS/3 ML VIAL SQ SCH ×2 (07:44→12:01)
[2017-04-12] MEDS: hydroCHLOROthiazide 25 MG TABLET PO SCH (07:48)
--- NOTE | 2017-04-12 14:41 | Discharge Summary ---
Date of Encounter: 04/12/17 Time of Encounter: 14:36 - Discharge Diagnosis (1) Ankle fracture Priority: Primary Status: Acute Qualifiers: Encounter type: initial encounter Fracture type: closed Laterality: left Qualified Code(s): S82.892A - Other fracture of left lower leg, initial encounter for closed fracture (2) Type 2 diabetes mellitus Priority: Secondary Status: Chronic Qualifiers: Diabetes mellitus complication status: without complication Diabetes mellitus termite technician insulin use: without termite technician use Qualified Code(s): E11.9 - Type 2 diabetes mellitus without complications (3) Hypertension Priority: Secondary Status: Chronic Qualifiers: Hypertension type: essential hypertension Qualified Code(s): I10 - Essential (primary) hypertension (4) DVT prophylaxis Priority: Secondary Status: Acute - Discharge Medications Prescriptions: HYDROcodone/Acet 5/325 mg [[place] 5-325 mg] 1 tab PO Q8HR PRN #12 tab PRN Reason: Moderate Pain (4-6) Home Medications: Acetaminophen [Tylenol] 500 mg PO Q6HR 04/07/17 [History] Allopurinol [Zyloprim] 300 mg PO DAILY 04/07/17 [History] Atorvastatin [Lipitor] 10 mg PO DAILY 04/07/17 [History] Docusate [Colace] 100 mg PO DAILY 04/07/17 [History] Esomeprazole Magnesium [Nexium] 40 mg PO PRN PRN 04/07/17 [History] Fluticasone Propionate Nasal [Flonase] 1 spray NS DAILY 04/07/17 [History] Lisinopril-HCTZ 20-12.5 [Prinzide 20-12.5] 1 tab PO BID 04/07/17 [History] [place]-3/Dha/Epa/Fish Oil [Fish Oil 1,000 mg Softgel] 1,000 mg PO DAILY 04/07/17 [History] Oxybutynin Chloride [Ditropan Xl] 10 mg PO TID 04/07/17 [History] Ropinirole HCl [Requip] 0.5 mg PO HS 04/07/17 [History] metFORMIN [Glucophage] 500 mg PO BIDWM 04/07/17 [History] Acetaminophen [Tylenol] 650 mg PO Q6HR PRN tab 04/12/17 [Rx] Docusate [Colace] 100 mg PO BID PRN 04/12/17 [Rx] HYDROcodone/Acet 5/325 mg [[place] 5-325 mg] 1 tab PO Q8HR PRN #12 tab 04/12/17 [ Rx] Allergies/Adverse Reactions: Allergies Amoxicillin [From Augmentin] Allergy (Verified 04/06/17 21:31) Rash cephalexin [From Keflex] Allergy (Verified 04/06/17 21:31) Rash clavulanic acid [From Augmentin] Allergy (Verified 04/06/17 21:31) Rash diphenhydramine [From Benadryl] Allergy (Verified 04/06/17 21:31) unsure meperidine [From Demerol] Allergy (Verified 04/06/17 21:31) unsure phenytoin [From Dilantin] Allergy (Verified 04/06/17 21:31) unsure Date of admission: 04/06/17 22:46 Primary care physician: Dary Claire Consults: 04/07/17 03:27 Consult to Physician [CONS] Routine Consulting Provider: Balbir Bradford Reason for Consult: ankle fracture Call Completed: No 04/07/17 09:09 Consult to Physical Therapy [CONS] Routine Comment: Evaluate, develop and implement POC Reason for Consult: nonweight bearing left leg walking boot OT [Consult to Occupational Therapy] [CONS] Routine Comment: Evaluate, develop and implement POC Reason for Consult: nonweight bearing left leg walking boot 04/07/17 09:10 Consult to Account Executive Metalworking [CONS] Routine Reason for SW Consult: home health Discharging clinician: Tiffany Parra Anticipated date of discharge: 04/12/17 - Patient Status Disposition: Home, Self-Care Condition: Fair Overall status at discharge: patient is progressing back to baseline - Discharge Instructions Follow Up With: Dary Claire CNP [Primary Care Provider] - Elvis Reddy MD [Non-Partnered Physician] - 04/15/17 10:40 am - Diet and Activity Activity: ambulate only with your walker Diet: advance to your usual diet Hospital course: Ms. Chong is a 81 year old female who presents to the ER tonight after sustaining an ankle fracture at home. She was walking in her kitchen, and she was obtaining a glass of water to return to her bedroom when she slipped and fell sustaining injury to her left ankle. She had no syncope or near syncope. She denies any chest pain, palpitations, lightheadedness, or dizziness. She describes a mechanical fall. She was seen by Dr. Tam for orthopedic consult. She is suggested to have nonoperative conservative treatment and a boot has been provided as well as a walker and some medication. She can be discharged home and follow with her family doctor and orthopedic surgery as outpatient. - Time Spent with Patient Total time spent providing and/or coordinating discharge services: - Constitutional Vitals: Temp Pulse Resp BP Pulse Ox 98.0 F 89 16 126/64 97 04/12/17 10:47 04/12/17 10:47 04/12/17 10:47 04/12/17 10:47 04/12/17 10:47 General appearance: Present: cooperative, A&O X 3, pleasant, no acute distress, answers questions appropriately - Head Head exam: Present: atraumatic, normocephalic - Eye Eye exam: Present: PERRL, conjuntiva pink, sclera anicteric Pupils: Present: PERRL - Neck Neck exam general surgery: Present: supple, trachea midline. Absent: lymphadenopathy - Respiratory Respiratory exam: Present: CTAB. Absent: accessory muscle use, rales, rhonchi, wheezes - Cardiovascular Cardiovascular exam: Present: RRR, +S1, +S2. Absent: diastolic murmur, gallop, rubs, systolic murmur - GI/Abdominal GI/Abdominal exam: Present: normal bowel sounds, soft, no peritoneal signs. Absent: distended, tenderness - Extremities Exam Extremities exam: Present: warm, radial pulses palpable and symetrical. Absent : calf tenderness, cyanotic, pedal edema - Neurological Exam Neurological exam: Present: CN II-XII intact, oriented X3, no focal deficits. Absent: pronater drift, facial droop, speech deficit - Skin Skin exam: Present: dry, intact
[2017-04-12 16:41] VITALS: BP 129/68
== END 2017-04-12 17:00 | disposition home or self-care (01) ==
LOC: EMEROO 21:21 → 3NENU 21:21 → SUATTDRO 22:46 → 3NENU 23:32
PROVIDERS: ADMIT Internal Medicine; ATTEND Internal Medicine

== ENCOUNTER 2017-09-22 10:43 | Inpatient (IN) ==
--- NOTE | 2017-09-22 11:19 | Emergency Department Note ---
Disposition Clinical Impression: UTI (urinary tract infection) Qualifiers: Urinary tract infection type: acute cystitis Hematuria presence: without hematuria Qualified Code(s): N30.00 - Acute cystitis without hematuria Nausea & vomiting Qualifiers: Vomiting type: unspecified Vomiting Intractability: non-intractable Qualified Code(s): R11.2 - Nausea with vomiting, unspecified Disposition: Admitted As Inpatient Condition: Fair Referrals: Dary Claire CNP [Primary Care Provider] - Forms: ED Satisfaction Letter Time of Disposition: 14:11 Nausea/Vomiting/Diarrhea HPI - General Chief complaint: ED Nausea/Vomiting/Diarrhea Stated complaint: Fever N/V/D Time Seen by Provider: 09/22/17 11:01 Source: patient, family Mode of arrival: ambulatory Limitations: no limitations Nursing Notes Reviewed: Yes Vital Signs Reviewed: Yes - History of Present Illness HPI Narrative: 82-year-old female who's had a cough congestion chills vomiting and diarrhea for the last couple of days. 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 Description of emesis: food contents Description of Diarrhea: water Associated Abdominal Pain: No Improves with: nothing Worsens with: nonthing Associated symptoms: Reports: cough, fever/chills - Related Data Home Medications Medication Instructions Recorded Confirmed Acetaminophen [Tylenol] 500 mg PO Q6HR 04/07/17 04/07/17 Allopurinol [Zyloprim] 300 mg PO DAILY 04/07/17 04/07/17 Atorvastatin [Lipitor] 10 mg PO DAILY 04/07/17 04/07/17 Docusate [Colace] 100 mg PO DAILY 04/07/17 04/07/17 Esomeprazole Magnesium [Nexium] 40 mg PO PRN PRN 04/07/17 04/07/17 Fluticasone Propionate Nasal 1 spray NS DAILY 04/07/17 04/07/17 [Flonase] Lisinopril-HCTZ 20-12.5 [Prinzide 1 tab PO BID 04/07/17 04/07/17 20-12.5] [place]-3/Dha/Epa/Fish Oil [Fish Oil 1,000 mg PO DAILY 04/07/17 04/07/17 1,000 mg Softgel] Oxybutynin Chloride [Ditropan Xl] 10 mg PO TID 04/07/17 04/07/17 Ropinirole HCl [Requip] 0.5 mg PO HS 04/07/17 04/07/17 metFORMIN [Glucophage] 500 mg PO BIDWM 04/07/17 04/07/17 Previous Rx's Medication Instructions Recorded Acetaminophen [Tylenol] 650 mg PO Q6HR PRN tab 04/12/17 Docusate [Colace] 100 mg PO BID PRN 04/12/17 HYDROcodone/Acet 5/325 mg [[place] 1 tab PO Q8HR PRN #12 tab 04/12/17 5-325 mg] Allergies Allergy/AdvReac Type Severity Reaction Status Date / Time Amoxicillin [From Augmentin] Allergy Rash Verified 09/22/17 10:44 cephalexin [From Keflex] Allergy Rash Verified 09/22/17 10:44 clavulanic acid Allergy Rash Verified 09/22/17 10:44 [From Augmentin] diphenhydramine Allergy unsure Verified 09/22/17 10:44 [From Benadryl] meperidine [From Demerol] Allergy unsure Verified 09/22/17 10:44 phenytoin [From Dilantin] Allergy unsure Verified 09/22/17 10:44 All systems ED: reviewed and negative except as stated. Constitutional: Reports: fever, chills. Denies: weakness, weight change Eyes: Denies: eye pain, eye discharge, vision change ENT ED: Denies: ear pain, throat pain, dental pain, hearing loss, epistaxis, congestion, dysphagia Cardiovascular: Denies: chest pain, palpitations, dyspnea on exertion, edema, syncope Respiratory: Denies: cough, dyspnea, wheezes, hemoptysis, stridor Gastrointestinal: Reports: nausea, vomiting, diarrhea. Denies: abdominal pain, constipation, hematemesis, melena, hematochezia Genitourinary: Denies: dysuria, frequency, hematuria, discharge Musculoskeletal: Denies: back pain, neck pain, arthralgia, myalgia Integumentary: Denies: rash, abrasion, lesions Neurological: Denies: headache, weakness, numbness, paresthesias, confusion, abnormal gait, vertigo Psychiatric: Denies: anxiety, depression, suicidal thoughts, homicidal thoughts , auditory hallucinations, visual hallucinations Endocrine: Denies: fatigue Hematological/Lymphatic: Denies: easy bleeding, easy bruising Allergic/Immunologic: Denies: facial swelling, urticaria Past Medical History - Past Medical History Medical history: Reports: diabetes, GERD, hyperlipidemia, hypertension, other Surgical history: Reports: cholecystectomy, FALGUNI/BSO Psychiatric history: Reports: no psych history BIOFUELS RESEARCH SCIENTIST history: Reports: no BIOFUELS RESEARCH SCIENTIST history - Social History Smoking Status: Never smoker Smokeless Tobacco Status: No Alcohol use: Reports: rarely Drug use: Reports: none Physical Exam - General Limitations: no limitations General appearance: alert, in no apparent distress - Head Head exam: atraumatic, normocephalic, normal inspection - Eye Eye exam: Present: normal appearance, PERRL, EOMI - ENT ENT exam: normal exam, normal oropharynx, mucous membranes moist - Neck Neck exam: Present: normal inspection, full ROM, trachea midline - Chest Chest inspection: Present: normal inspection, symmetric chest wall rise - Respiratory Respiratory exam: Present: normal lung sounds bilaterally - Cardiovascular Cardiovascular exam: Present: regular rate, normal rhythm, normal heart sounds - Abdominal Exam Abdominal exam: Present: soft, Non-Tender. Absent: tenderness, distention, guarding, rebound, rigidity - Extremities Exam Extremities exam: Present: normal inspection, full ROM. Absent: tenderness, pedal edema - Expanded Lower Extremity Exam Neurovascular/Tendon exam: Absent: motor deficit, sensory deficit, tendon deficit Gait: observed and normal - Back Exam Back exam: Present: normal inspection, full ROM. Absent: tenderness - Neurological Exam Neurological exam: Present: alert, oriented X3 - Psychiatric Psychiatric exam: Present: normal affect, normal mood - Skin Skin exam: Present: warm, dry, intact, normal color Course - Reevaluation(s) Reevaluation #1: *2 year old with N,V. Found to have UTI, admit. Time: 14:10 - Consultations Consultation #1: Discussed with Dr. Mtz, admit. Time: 14:10 Vital Signs Temperature 98.3 F 09/22/17 10:44 Pulse Rate 81 09/22/17 10:44 Respiratory Rate 14 09/22/17 10:44 Blood Pressure 204/94 09/22/17 10:44 O2 Sat by Pulse Oximetry 97 09/22/17 10:44 Temperature 98.3 F 09/22/17 10:44 Pulse Rate 67 09/22/17 13:56 Respiratory Rate 18 09/22/17 13:56 Blood Pressure 154/80 09/22/17 13:56 O2 Sat by Pulse Oximetry 97 09/22/17 13:56 Oxygen Delivery Oxygen Delivery Nasal Cannula Nausea/Vomiting/Diarrhea - Lab Data Result diagrams: 09/22/17 11:21 09/22/17 11:21 Lab Results 09/22/17 09/22/17 09/22/17 Range/Units 11:21 11:21 11:21 WBC 9.2 (4.3-11.1) K/mcL RBC 3.98 (3.82-4.97) M/mcL Hgb 13.2 (11.5-15.4) g/dL Hct 40.4 (35.3-44.9) % MCV 101.5 H (83.0-100.0) fL MCH 33.2 (28.0-33.3) pg MCHC 32.7 (31.6-35.5) g/dL RDW 13.6 (11.5-14.5) % Plt Count 263 (140-400) K/mcL MPV 9.1 L (9.4-12.4) fL Immature Gran % 0.4 (0-4) % Seg Neutrophils % 72.0 % Lymphocytes % 18.4 % Monocytes % 7.1 % Eosinophils % 1.6 % Basophils % 0.5 % Neutrophils # 6.6 (1.6-8.9) K/mcL Lymphocytes # 1.7 (0.6-4.6) K/mcL Monocytes # 0.7 (0.0-1.3) K/mcL Eosinophils # 0.2 (0.0-0.6) K/mcL Basophils # 0.1 (0.0-0.2) K/mcL Immature Plt Fraction 1.4 (1.1-6.1) % Sodium 133 L (136-145) mEq/L Potassium 4.1 (3.5-5.1) mEq/L Chloride 102 (98-107) mEq/L Carbon Dioxide 24 (23-29) mEq/L BUN 13 (8-23) mg/dL Creatinine 0.72 (0.60-1.20) mg/dL Est GFR ( Amer) > 60 (> 60) Est GFR (Non-Af Amer) > 60 (> 60) BUN/Creatinine Ratio 18 (6-26) Glucose 109 H (70-105) mg/dL Calculated Osmolality 277 L (280-300) Lactic Acid 2.0 (0.5-2.2) mmol/L Calcium 10.1 (8.6-10.3) mg/dL Urine Color (Yellow) Urine Clarity (Clear) Urine pH (5.0-8.0) pH Units Ur Specific [place] (1.010-1.025) Urine Protein (Neg-Trace) mg/dL Urine Glucose (UA) (Normal) mg/dL Urine Ketones (Negative) mg/dL Urine Blood (Negative) Urine Nitrite (Negative) Urine Bilirubin (Negative) Urine Urobilinogen (Normal) mg/dL Ur Leukocyte Esterase (Negative) Urine Microscopic RBC (0-3) per hpf Urine Microscopic WBC (0-3) per hpf Ur Squamous Epith Cells (None-Few) per lpf Urine Bacteria (None-Few) per hpf Hyaline Casts (None-Few) per lpf Ur Culture Indicated? (NO) 09/22/17 Range/Units 11:50 WBC (4.3-11.1) K/mcL RBC (3.82-4.97) M/mcL Hgb (11.5-15.4) g/dL Hct (35.3-44.9) % MCV (83.0-100.0) fL MCH (28.0-33.3) pg MCHC (31.6-35.5) g/dL RDW (11.5-14.5) % Plt Count (140-400) K/mcL MPV (9.4-12.4) fL Immature Gran % (0-4) % Seg Neutrophils % % Lymphocytes % % Monocytes % % Eosinophils % % Basophils % % Neutrophils # (1.6-8.9) K/mcL Lymphocytes # (0.6-4.6) K/mcL Monocytes # (0.0-1.3) K/mcL Eosinophils # (0.0-0.6) K/mcL Basophils # (0.0-0.2) K/mcL Immature Plt Fraction (1.1-6.1) % Sodium (136-145) mEq/L Potassium (3.5-5.1) mEq/L Chloride (98-107) mEq/L Carbon Dioxide (23-29) mEq/L BUN (8-23) mg/dL Creatinine (0.60-1.20) mg/dL Est GFR ( Amer) (> 60) Est GFR (Non-Af Amer) (> 60) BUN/Creatinine Ratio (6-26) Glucose (70-105) mg/dL Calculated Osmolality (280-300) Lactic Acid (0.5-2.2) mmol/L Calcium (8.6-10.3) mg/dL Urine Color Yellow (Yellow) Urine Clarity Cloudy A (Clear) Urine pH 7.0 (5.0-8.0) pH Units Ur Specific [place] 1.016 (1.010-1.025) Urine Protein Negative (Neg-Trace) mg/dL Urine Glucose (UA) Normal (Normal) mg/dL Urine Ketones Negative (Negative) mg/dL Urine Blood Small H (Negative) Urine Nitrite Negative (Negative) Urine Bilirubin Negative (Negative) Urine Urobilinogen Normal (Normal) mg/dL Ur Leukocyte Esterase Large H (Negative) Urine Microscopic RBC 3-5 H (0-3) per hpf Urine Microscopic WBC TNTC H (0-3) per hpf Ur Squamous Epith Cells None Seen (None-Few) per lpf Urine Bacteria None Seen (None-Few) per hpf Hyaline Casts None Seen (None-Few) per lpf Ur Culture Indicated? YES A (NO)
[2017-09-22 11:31] LABS: Basophils # 0.1 K/mcL (0.0-0.2); Basophils % 0.5 %; Eosinophils # 0.2 K/mcL (0.0-0.6); Eosinophils % 1.6 %; Hematocrit 40.4 % (35.3-44.9); Hemoglobin 13.2 g/dL (11.5-15.4); Immature Granulocytes % 0.4 % (0-4); Immature Platelets 1.4 % (1.1-6.1); Lymphocytes # 1.7 K/mcL (0.6-4.6); Lymphocytes % 18.4 %; Mean Corpuscular HGB Conc 32.7 g/dL (31.6-35.5); Mean Corpuscular Hemoglobin 33.2 pg (28.0-33.3); Mean Corpuscular Volume 101.5 fL (83.0-100.0); Mean Platelet Volume 9.1 fL (9.4-12.4); Monocytes # 0.7 K/mcL (0.0-1.3); Monocytes % 7.1 %; Neutrophils # 6.6 K/mcL (1.6-8.9); Platelet Count 263 K/mcL (140-400); Red Blood Count 3.98 M/mcL (3.82-4.97); Red Cell Distribution Width 13.6 % (11.5-14.5)
[2017-09-22 11:45] LABS: BUN/Creatinine Ratio 18 (6-26); Blood Urea Nitrogen 13 mg/dL (8-23); Calcium 10.1 mg/dL (8.6-10.3); Carbon Dioxide 24 mEq/L (23-29); Chloride 102 mEq/L (98-107); Glucose 109 mg/dL (70-105); Osmolality,Calculated 277 (280-300); Potassium 4.1 mEq/L (3.5-5.1); Sodium 133 mEq/L (136-145); eGFR For African Americans > 60 (> 60); eGFR For Non-African Americans > 60 (> 60)
[2017-09-22 11:57] LABS: Bilirubin,Urine Negative (Negative); Blood,Urine Small (Negative); Clarity,Urine Cloudy (Clear); Color,Urine Yellow (Yellow); Glucose,Urine (UA) Normal (Normal); Ketones,Urine Negative (Negative); Leukocyte Esterase,Urine Large (Negative); Nitrite,Urine Negative (Negative); Protein,Urine Negative (Neg-Trace); Specific Gravity,Urine 1.016 (1.010-1.025); Urobilinogen,Urine Normal (Normal)
[2017-09-22 11:59] LABS: Bacteria,Urine None Seen per hpf (None-Few); Hyaline Casts,Urine None Seen per lpf (None-Few); Squamous Epithelial Cell,Urine None Seen per lpf (None-Few); WBC,Urine TNTC per hpf (0-3)
[2017-09-22] MEDS ORDERED: Levofloxacin 500 MG/100 ML 500 MG/100 ML BAG IVPB ONE (12:19)
--- NOTE | 2017-09-22 14:47 | Internal Med History&Physical ---
Date of Encounter: 10/17/17 Time of Encounter: 14:45 Assessment and Plan (1) Nausea & vomiting Status: Resolved Most likely 2/2 UTI, starting antiemetic, pain meds and hydration with isotonic fluids Qualifiers: Vomiting type: unspecified Vomiting Intractability: non-intractable Qualified Code(s): R11.2 - Nausea with vomiting, unspecified (2) UTI (urinary tract infection) Status: Acute UA is suggestive of UTI, we will start emperic Abs, obtain Urine Cx adjust Abs accordingly. Qualifiers: Urinary tract infection type: acute cystitis Hematuria presence: without hematuria Qualified Code(s): N30.00 - Acute cystitis without hematuria (3) Type 2 diabetes mellitus Status: Chronic Home meds, accu- check with coverage Qualifiers: Diabetes mellitus complication status: without complication Diabetes mellitus longterm insulin use: with longterm use Qualified Code(s): E11.9 - Type 2 diabetes mellitus without complications; Z79.4 - terminologist (current) use of insulin; Z79.4 - terminologist (current) use of insulin; Z79.4 - terminologist ( current) use of insulin; Z79.4 - terminologist (current) use of insulin (4) Hypertension Status: Chronic We will cont home meds Qualifiers: Hypertension type: essential hypertension Qualified Code(s): I10 - Essential (primary) hypertension (5) Restless leg syndrome Status: Chronic Cont meds (6) 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 Chong is a 82 year old female who presented with persistent Nausea with vomiting, and subjective fevers the patient was evaluated by the ER staff and her workup revealed a urinalysis suggestive of UTI, the patient was admitted for further evaluation and management. Past Med Surg Social Fam HX - Past Medical History Medical history: diabetes, GERD, hyperlipidemia, hypertension, other Psychiatric history: no psych history - Past Surgical History Surgical History: cholecystectomy, FALGUNI/BSO - Social History Smoking Status: Never smoker Smokeless Tobacco Status: No Alcohol use: rarely Drug use: none - Family History Mother Living Status: Hx Family Cardiac Disorders: No Father Living Status: Internal Medicine - H&P: Meds Acetaminophen [Tylenol] 500 mg PO Q6HR PRN 04/07/17 [History] Allopurinol [Zyloprim] 300 mg PO DAILY 04/07/17 [History] Atorvastatin [Lipitor] 10 mg PO HS 04/07/17 [History] Esomeprazole Magnesium [Nexium] 40 mg PO DAILY 04/07/17 [History] Ropinirole HCl [Requip] 1 mg PO HS 04/07/17 [History] metFORMIN [Glucophage] 500 mg PO BIDWM 04/07/17 [History] Lisinopril [Zestril] 20 mg PO DAILY 09/22/17 [History] Oxybutynin [Ditropan] 5 mg PO TID 09/22/17 [History] Phenazopyridine [Pyridium] 100 mg PO TID #12 tablet 09/24/17 [Rx] levoFLOXacin [Levaquin] 250 mg PO DAILY #2 tablet 09/24/17 [Rx] 3 Allergy/AdvReac Type Severity Reaction Status Date / Time Amoxicillin [From Augmentin] Allergy Rash Verified 09/22/17 10:44 cephalexin [From Keflex] Allergy Rash Verified 09/22/17 10:44 clavulanic acid Allergy Rash Verified 09/22/17 10:44 [From Augmentin] diphenhydramine Allergy unsure Verified 09/22/17 10:44 [From Benadryl] meperidine [From Demerol] Allergy unsure Verified 09/22/17 10:44 phenytoin [From Dilantin] Allergy unsure Verified 09/22/17 10:44 All Systems PM: A 10-system review of systems was performed and is negative for pertinent findings except as documented above in the HPI. - Constitutional Constitutional: no chills, no fever(s), no night sweats - Cardiovascular Cardiovascular ROS IM: no chest pain, no diaphoresis, no dyspnea, no lightheadedness, no palpitations, no syncope - Respiratory Respiratory: no cough, no dyspnea, no wheezing, no excessive phlegm production - Gastrointestinal Gastrointestinal: diarrhea, nausea, vomiting, no abdominal pain, no hematemesis , no hematochezia, no melena - Genitourinary Genitourinary: no change in urinary stream, no dysuria, no flank pain, no hematuria - Neurological Neurological ROS: no confusion, no convulsions, no focal weakness, no numbness, no tingling, no tremor(s) - Constitutional Vitals: Temp Pulse Resp BP Pulse Ox 98.3 F 67 16 154/80 97 09/22/17 10:44 09/22/17 13:56 09/22/17 14:36 09/22/17 14:36 09/22/17 13:56 General appearance: Present: no acute distress - Head Head exam: Present: atraumatic, normocephalic - Neck Neck exam general surgery: Present: supple, trachea midline. Absent: lymphadenopathy - Respiratory Respiratory exam: Present: CTAB. Absent: accessory muscle use, rales, rhonchi, wheezes - Cardiovascular Cardiovascular exam: Present: RRR, +S1, +S2. Absent: diastolic murmur, gallop, rubs, systolic murmur - GI/Abdominal GI/Abdominal exam: Present: normal bowel sounds, soft, no peritoneal signs. Absent: distended, tenderness - Extremities Exam Extremities exam: Present: warm, radial pulses palpable and symmetrical. Absent : calf tenderness, cyanotic, pedal edema Internal Med - H&P Results - Labs CBC & Chem 7: 09/23/17 01:17 09/23/17 01:17
[2017-09-22] MEDS ORDERED: Ondansetron ODT 4 MG TAB.RAPDIS SL PRN (15:48)
[2017-09-22] MEDS ORDERED: Naloxone 0.4 MG/ML INJ IVP PRN (15:48)
[2017-09-22] MEDS ORDERED: Ondansetron 4 MG/2 ML VIAL IVP PRN (15:48)
[2017-09-22] MEDS ORDERED: Mag Hydrox/Al Hydrox/Simeth 30 ML UDC PO PRN (15:48)
[2017-09-22] MEDS: *HR* Heparin 5,000 UNIT/ML VIAL SQ SCH (16:57)
[2017-09-22] MEDS: 0.9 % Sodium Chloride 1,000 ML IVC SCH (16:58)
[2017-09-22] MEDS: *HR* Metformin 500 MG TABLET PO SCH (16:58)
[2017-09-22] MEDS: rOPINIRole 1 MG TABLET PO SCH (20:39)
[2017-09-22] MEDS: Acetaminophen 325 MG TABLET PO PRN (20:50)
[2017-09-23] MEDS: 0.9 % Sodium Chloride 1,000 ML IVC SCH (01:30)
[2017-09-23 01:42] LABS: Basophils % 0.6 %; Eosinophils # 0.2 K/mcL (0.0-0.6); Eosinophils % 2.5 %; Immature Granulocytes % 0.4 % (0-4); Lymphocytes # 1.9 K/mcL (0.6-4.6); Lymphocytes % 27.9 %; Mean Corpuscular HGB Conc 32.3 g/dL (31.6-35.5); Mean Corpuscular Hemoglobin 32.7 pg (28.0-33.3); Mean Corpuscular Volume 101.2 fL (83.0-100.0); Mean Platelet Volume 9.6 fL (9.4-12.4); Monocytes # 0.7 K/mcL (0.0-1.3); Monocytes % 10.6 %; Platelet Count 213 K/mcL (140-400); Red Blood Count 3.46 M/mcL (3.82-4.97); Red Cell Distribution Width 13.5 % (11.5-14.5)
[2017-09-23 01:44] LABS: Hemoglobin 11.3 g/dL (11.5-15.4)
[2017-09-23 01:55] LABS: INR 1.1; Prothrombin Time 11.3 Seconds (9.4-12.1)
[2017-09-23 01:58] LABS: Activated Partial Thrombo Time 29.8 Seconds (26.0-36.0); Alanine Aminotransferase 8 Units/L (7-52); Albumin 3.4 g/dL (3.5-5.7); Albumin/Globulin Ratio 1.4 (1.1-2.2); Alkaline Phosphatase 64 Units/L (34-104); Aspartate Amino Transferase 10 Units/L (13-39); BUN/Creatinine Ratio 15 (6-26); Bilirubin,Total 0.4 mg/dL (0.3-1.0); Blood Urea Nitrogen 12 mg/dL (8-23); Calcium 8.9 mg/dL (8.6-10.3); Carbon Dioxide 24 mEq/L (23-29); Chloride 106 mEq/L (98-107); Chol/HDL Ratio 2.5 (0-4.9); Cholesterol 116 mg/dL (< 200); Globulin 2.4 g/dL (2.4-3.5); Glucose 122 mg/dL (70-105); HDL Cholesterol 47 mg/dL (40-59); LDL Cholesterol,Calculated 34 mg/dL (0-99); Magnesium 1.5 mg/dL (1.6-2.6); Osmolality,Calculated 283 (280-300); Potassium 4.1 mEq/L (3.5-5.1); Sodium 136 mEq/L (136-145); Total Protein 5.8 g/dL (6.4-8.9); Triglycerides 177 mg/dL (< 150); eGFR For African Americans > 60 (> 60); eGFR For Non-African Americans > 60 (> 60)
[2017-09-23] MEDS: *HR* Morphine 2 MG/ML SYRINGE IVP PRN (02:08)
[2017-09-23] MEDS: *HR* Heparin 5,000 UNIT/ML VIAL SQ SCH ×2 (05:47→17:27)
[2017-09-23] MEDS: Acetaminophen 325 MG TABLET PO PRN ×2 (05:52→13:19)
[2017-09-23] MEDS: *HR* Metformin 500 MG TABLET PO SCH ×2 (08:42→17:27)
[2017-09-23] MEDS: Lisinopril 20 MG TABLET PO SCH (08:42)
[2017-09-23] MEDS ORDERED: Levofloxacin 250 MG/50 ML 250 MG/50 ML BAG IVPB SCH (09:00)
--- NOTE | 2017-09-23 15:53 | Internal Med Progress Note ---
Date of Encounter: 09/23/17 Time of Encounter: 15:51 - Assessment and plan (1) Nausea & vomiting Current Visit: Yes Status: Resolved Assessment and plan: Resolved for now. Continue to monitor closely for recurrence. Gradual advancement of diet also patient is feeling weak and lethargic. Consult physical therapy and occupational therapy Qualifiers: Vomiting type: unspecified Vomiting Intractability: non-intractable Qualified Code(s): R11.2 - Nausea with vomiting, unspecified (2) UTI (urinary tract infection) Current Visit: Yes Status: Acute Assessment and plan: Continue antibiotics. Await for cultures Qualifiers: Urinary tract infection type: acute cystitis Hematuria presence: without hematuria Qualified Code(s): N30.00 - Acute cystitis without hematuria (3) Type 2 diabetes mellitus Current Visit: No Status: Chronic Assessment and plan: Stable continue to monitor. 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 Denies any new fevers or chills. She does state that her nausea has improved since she came to the hospital - Constitutional Vitals: Temp Pulse Resp BP Pulse Ox 98.0 F 68 16 133/83 97 09/23/17 10:58 09/23/17 10:58 09/23/17 10:58 09/23/17 10:58 09/23/17 10:58 General appearance: Present: A&O X 3, no acute distress, answers questions appropriately Exam: General-feeling lethargic and weak - Eye Eye exam: Present: PERRL, conjuntiva pink, sclera anicteric Pupils: Present: PERRL - Respiratory Respiratory exam: Present: CTAB. Absent: accessory muscle use, rales, rhonchi, wheezes - Cardiovascular Cardiovascular exam: Present: RRR, +S1, +S2. Absent: diastolic murmur, gallop, rubs, systolic murmur - GI/Abdominal GI/Abdominal exam: Present: normal bowel sounds, soft, no peritoneal signs. Absent: distended, tenderness Internal Medicine: Result - Labs CBC & Chem 7: 09/23/17 01:17 09/23/17 01:17 Labs: Short CBC 09/23/17 Range/Units 01:17 WBC 6.8 (4.3-11.1) K/mcL Hgb 11.3 L D (11.5-15.4) g/dL Hct 35.0 L (35.3-44.9) % Plt Count 213 (140-400) K/mcL Neutrophils # 4.0 (1.6-8.9) K/mcL BMP 09/23/17 01:17 Sodium 136 Potassium 4.1 Chloride 106 Carbon Dioxide 24 BUN 12 Creatinine 0.80 Glucose 122 H Calcium 8.9 Cardiac Enzymes 09/22/1718 09/23/17 Range/Units 17:12 01:17 08:23 Troponin I < 0.03 < 0.03 < 0.03 (< 0.04) ng/mL Liver Function 09/23/17 Range/Units 01:17 Total Bilirubin 0.4 (0.3-1.0) mg/dL AST 10 L (13-39) Units/L ALT 8 (7-52) Units/L Alkaline Phosphatase 64 (34-104) Units/L Albumin 3.4 L (3.5-5.7) g/dL - ABG Interpretation ABG results: PT/INR, D-dimer PT 11.3 Seconds (9.4-12.1) 09/23/17 01:17 - VTE Documentation of Mechanical Device: Intermittent pneumatic compression device Consult Discharge Plan - Plan Referrals: Dary Claire CNP [Primary Care Provider] -
[2017-09-23] MEDS: rOPINIRole 1 MG TABLET PO SCH (20:28)
[2017-09-24] MEDS: *HR* Heparin 5,000 UNIT/ML VIAL SQ SCH ×2 (04:28→17:37)
[2017-09-24] MEDS: Acetaminophen 325 MG TABLET PO PRN (04:28)
[2017-09-24] MEDS: *HR* Morphine 2 MG/ML SYRINGE IVP PRN (08:04)
[2017-09-24] MEDS: Lisinopril 20 MG TABLET PO SCH (08:44)
[2017-09-24] MEDS: *HR* Metformin 500 MG TABLET PO SCH ×2 (08:44→17:37)
[2017-09-24] MEDS ORDERED: levoFLOXacin 250 MG TABLET PO SCH (09:15)
--- NOTE | 2017-09-24 09:37 | Discharge Summary ---
<León See - Last Filed: 09/24/17 15:20> Date of Encounter: 09/24/17 Time of Encounter: 09:35 - Discharge Diagnosis (1) UTI (urinary tract infection) Priority: Primary Status: Acute Qualifiers: Urinary tract infection type: acute cystitis Hematuria presence: without hematuria Qualified Code(s): N30.00 - Acute cystitis without hematuria (2) Nausea & vomiting Priority: Secondary Status: Resolved Qualifiers: Vomiting type: unspecified Vomiting Intractability: non-intractable Qualified Code(s): R11.2 - Nausea with vomiting, unspecified (3) Hypertension Priority: Secondary Status: Chronic Qualifiers: Hypertension type: essential hypertension Qualified Code(s): I10 - Essential (primary) hypertension (4) DVT prophylaxis Priority: Secondary Status: Acute (5) Type 2 diabetes mellitus Priority: Secondary Status: Chronic Qualifiers: Diabetes mellitus complication status: without complication Diabetes mellitus [facility] insulin use: with bed bug exterminator use Qualified Code(s): E11.9 - Type 2 diabetes mellitus without complications; Z79.4 - manager terminal (current) use of insulin; Z79.4 - half-way (current) use of insulin; Z79.4 - manager terminal ( current) use of insulin; Z79.4 - manager terminal (current) use of insulin - Discharge Medications Prescriptions: levoFLOXacin [Levaquin] 250 mg PO DAILY #2 tablet Phenazopyridine [Pyridium] 100 mg PO TID #12 tablet Home Medications: Acetaminophen [Tylenol] 500 mg PO Q6HR PRN 04/07/17 [History] Allopurinol [Zyloprim] 300 mg PO DAILY 04/07/17 [History] Atorvastatin [Lipitor] 10 mg PO HS 04/07/17 [History] Esomeprazole Magnesium [Nexium] 40 mg PO DAILY 04/07/17 [History] Ropinirole HCl [Requip] 1 mg PO HS 04/07/17 [History] metFORMIN [Glucophage] 500 mg PO BIDWM 04/07/17 [History] Lisinopril [Zestril] 20 mg PO DAILY 09/22/17 [History] Oxybutynin [Ditropan] 5 mg PO TID 09/22/17 [History] Phenazopyridine [Pyridium] 100 mg PO TID #12 tablet 09/24/17 [Rx] levoFLOXacin [Levaquin] 250 mg PO DAILY #2 tablet 09/24/17 [Rx] Allergies/Adverse Reactions: 3 Allergy/AdvReac Type Severity Reaction Status Date / Time Amoxicillin [From Augmentin] Allergy Rash Verified 09/22/17 10:44 cephalexin [From Keflex] Allergy Rash Verified 09/22/17 10:44 clavulanic acid Allergy Rash Verified 09/22/17 10:44 [From Augmentin] diphenhydramine Allergy unsure Verified 09/22/17 10:44 [From Benadryl] meperidine [From Demerol] Allergy unsure Verified 09/22/17 10:44 phenytoin [From Dilantin] Allergy unsure Verified 09/22/17 10:44 Date of admission: 09/22/17 15:48 Primary care physician: Dary Claire Consults: 09/23/17 14:41 Consult to Occupational Therapy [CONS] Routine Comment: Evaluate, develop and implement POC Reason for Consult: weakness 09/23/17 14:42 Consult to Physical Therapy [CONS] Routine Comment: Evaluate, develop and implement POC Reason for Consult: weakness Discharging clinician: León See Anticipated date of discharge: 09/24/17 - Patient Status Disposition: Transfer Inpatient Rehab Fac Condition: Fair Functional capacity at discharge: uses cane/walker Overall status at discharge: patient is progressing back to baseline - Discharge Instructions Follow Up With: Chaz Harris MD [Partnered Physician] - 10/06/17 8:30 am Dary Claire CNP [Primary Care Provider] - Robert aH MD [Partnered Physician] - 10/03/17 11:30 am (New patient appointment. Office will send packet for patient to fill out and bring to appointment along with prescriptions and insurance card.) - Diet and Activity Activity: as per physical therapy Diet: diabetic diet, low fat, low cholesterol, low salt diet Hospital course: Ms. Chong is a 82 year old female presented with cc of N/V. Patient also had one bout of diarrea. She reported urinary frequency and dysuira. Had urinalysis done which showed evidence of uti. Did not have leukocysotis, fever, tachycardia on presentation. Patient was started on levofloxacin. CT Abdomen/ Pelvis did not show any acute abnormalaties. Patients nasuea resolved with zofran. She was tolerating a diabetic cardiac solid diet. Urine culture results were negative. Patient has good urine output. Wears a diaper due to urinary incontinence. SHe continued to have dysuria despite treatment. With her age, hx of wearing diaper she is susceptible to vaginal candidiasis infection. She did not have any recent anti biotic use. Patient was empirically treated with diflucan. She was given azo for relief of dysuria. Patient is tolerating her diet well. She is ready for discharge. - Time Spent with Patient Total time spent providing and/or coordinating discharge services: - Constitutional Vitals: Temp Pulse Resp BP Pulse Ox 98.4 F 78 16 141/85 94 09/24/17 08:50 09/24/17 08:50 09/24/17 08:50 09/24/17 08:50 09/24/17 08:50 General appearance: Present: A&O X 3, no acute distress, answers questions appropriately - Head Head exam: Present: atraumatic, normocephalic - Eye Eye exam: Present: PERRL, conjuntiva pink, sclera anicteric - Neck Neck exam general surgery: Present: supple, trachea midline. Absent: lymphadenopathy - Respiratory Respiratory exam: Present: CTAB. Absent: accessory muscle use, rales, rhonchi, wheezes - Cardiovascular Cardiovascular exam: Present: RRR, +S1, +S2. Absent: diastolic murmur, gallop, rubs, systolic murmur - GI/Abdominal GI/Abdominal exam: Present: normal bowel sounds, soft, no peritoneal signs. Absent: distended, tenderness - Extremities Exam Extremities exam: Present: warm, radial pulses palpable and symmetrical. Absent : calf tenderness, cyanotic, pedal edema - Neurological Exam Neurological exam: Present: alert, CN II-XII intact, oriented X3, no focal deficits. Absent: pronater drift, facial droop, speech deficit - Skin Skin exam: Present: dry, intact - VTE Documentation of Mechanical Device: Graduated compression elastic hosiery <Jaylyn Vargas - Last Filed: 09/25/17 14:51> Date of Encounter: 09/25/17 - Discharge Diagnosis (1) UTI (urinary tract infection) Status: Acute Qualifiers: Urinary tract infection type: acute cystitis Hematuria presence: without hematuria Qualified Code(s): N30.00 - Acute cystitis without hematuria (2) Type 2 diabetes mellitus Status: Chronic Qualifiers: Diabetes mellitus complication status: without complication Diabetes mellitus bed bug exterminator insulin use: with [facility] use Qualified Code(s): E11.9 - Type 2 diabetes mellitus without complications; Z79.4 - half-way (current) use of insulin; Z79.4 - manager terminal (current) use of insulin; Z79.4 - manager terminal ( current) use of insulin; Z79.4 - manager terminal (current) use of insulin (3) Hypertension Status: Chronic Qualifiers: Hypertension type: essential hypertension Qualified Code(s): I10 - Essential (primary) hypertension (4) DVT prophylaxis Status: Acute Date of admission: 09/22/17 15:48 Primary care physician: Dary Claire Consults: 09/23/17 14:41 Consult to Occupational Therapy [CONS] Routine Comment: Evaluate, develop and implement POC Reason for Consult: weakness 09/23/17 14:42 Consult to Physical Therapy [CONS] Routine Comment: Evaluate, develop and implement POC Reason for Consult: weakness Hospital course: Ms. Chong is a 82 year old female - Time Spent with Patient Total time spent providing and/or coordinating discharge services: - Constitutional Vitals: Temp Pulse Resp BP Pulse Ox 98.4 F 74 16 149/85 95 09/25/17 08:11 09/25/17 08:11 09/25/17 08:11 09/25/17 08:11 09/25/17 08:11 - Attending Attestation I saw and evaluated the patient at bedside. I have reviewed the DC note obtained and documented by the resident and personally participated in the ray components. I have discussed the case and management of the patient's care. I agree with the findings and plan of care.
--- NOTE | 2017-09-24 09:46 | Physician Discharge Referral ---
ExtendedCare Referral Info Provider in Charge: jaret Provider in Charge after Transfer: PCP Institutional Level of Care: Intermediate - Diagnosis (1) UTI (urinary tract infection) Priority: Primary Status: Acute (2) Nausea & vomiting Priority: Secondary Status: Resolved (3) Hypertension Priority: Secondary Status: Chronic (4) DVT prophylaxis Priority: Secondary Status: Acute (5) Type 2 diabetes mellitus Priority: Secondary Status: Chronic (6) Physical deconditioning Status: Acute - Transfer Medications Prescriptions: levoFLOXacin [Levaquin] 250 mg PO DAILY #4 Phenazopyridine [Pyridium] 100 mg PO TID #12 tablet Home Medications: Acetaminophen [Tylenol] 500 mg PO Q6HR PRN 04/07/17 [History] Allopurinol [Zyloprim] 300 mg PO DAILY 04/07/17 [History] Atorvastatin [Lipitor] 10 mg PO HS 04/07/17 [History] Esomeprazole Magnesium [Nexium] 40 mg PO DAILY 04/07/17 [History] Ropinirole HCl [Requip] 1 mg PO HS 04/07/17 [History] metFORMIN [Glucophage] 500 mg PO BIDWM 04/07/17 [History] Lisinopril [Zestril] 20 mg PO DAILY 09/22/17 [History] Oxybutynin [Ditropan] 5 mg PO TID 09/22/17 [History] Phenazopyridine [Pyridium] 100 mg PO TID #12 tablet 09/24/17 [Rx] levoFLOXacin [Levaquin] 250 mg PO DAILY #4 09/24/17 [Rx] Allergies/Adverse Reactions: 3 Allergy/AdvReac Type Severity Reaction Status Date / Time Amoxicillin [From Augmentin] Allergy Rash Verified 09/22/17 10:44 cephalexin [From Keflex] Allergy Rash Verified 09/22/17 10:44 clavulanic acid Allergy Rash Verified 09/22/17 10:44 [From Augmentin] diphenhydramine Allergy unsure Verified 09/22/17 10:44 [From Benadryl] meperidine [From Demerol] Allergy unsure Verified 09/22/17 10:44 phenytoin [From Dilantin] Allergy unsure Verified 09/22/17 10:44 - Respiratory Orders None Smoking Cessation: Smoking cessation has been advised. For more information, call the [employer] Tobacco Quit Line at 0-998-KESJ-NOW. - Ancillary Orders May use pressure relief devices daily prn - Advance Directives Code Status: Full Code - Mobility Orders Ambulate (with assistance) - Rehabiliation Orders Rehab Potential: Fair Rehab Orders: ROM Exercises, Evaluation for Physical Therapy, Evaluation for Occupational Therapy - Treatments Skin tear care topically daily PRN per policy - Diet Orders Cardiac (diabetic diet.) CERTIFICATION: I certify that the transfer of the above named patient to an Extended Care Facility is necessary for the continuing treatment of the diagnosis listed. The above information is true and accurate reflection of patient's current condition. Confidential - Redisclosure prohibited without a patient's written consent.
[2017-09-24] MEDS ORDERED: Fluconazole 100 MG TABLET PO ONE (10:45)
--- NOTE | 2017-09-24 10:59 | Physician Discharge Referral ---
ExtendedCare Referral Info Provider in Charge: Sam Provider in Charge after Transfer: PCP Institutional Level of Care: Intermediate - Diagnosis (1) UTI (urinary tract infection) Priority: Primary Status: Acute (2) Nausea & vomiting Priority: Secondary Status: Resolved (3) Hypertension Priority: Secondary Status: Chronic (4) DVT prophylaxis Priority: Secondary Status: Acute (5) Type 2 diabetes mellitus Priority: Secondary Status: Chronic - Transfer Medications Prescriptions: levoFLOXacin [Levaquin] 250 mg PO DAILY #2 tablet Phenazopyridine [Pyridium] 100 mg PO TID #12 tablet Home Medications: Acetaminophen [Tylenol] 500 mg PO Q6HR PRN 04/07/17 [History] Allopurinol [Zyloprim] 300 mg PO DAILY 04/07/17 [History] Atorvastatin [Lipitor] 10 mg PO HS 04/07/17 [History] Esomeprazole Magnesium [Nexium] 40 mg PO DAILY 04/07/17 [History] Ropinirole HCl [Requip] 1 mg PO HS 04/07/17 [History] metFORMIN [Glucophage] 500 mg PO BIDWM 04/07/17 [History] Lisinopril [Zestril] 20 mg PO DAILY 09/22/17 [History] Oxybutynin [Ditropan] 5 mg PO TID 09/22/17 [History] Phenazopyridine [Pyridium] 100 mg PO TID #12 tablet 09/24/17 [Rx] levoFLOXacin [Levaquin] 250 mg PO DAILY #2 tablet 09/24/17 [Rx] Allergies/Adverse Reactions: 3 Allergy/AdvReac Type Severity Reaction Status Date / Time Amoxicillin [From Augmentin] Allergy Rash Verified 09/22/17 10:44 cephalexin [From Keflex] Allergy Rash Verified 09/22/17 10:44 clavulanic acid Allergy Rash Verified 09/22/17 10:44 [From Augmentin] diphenhydramine Allergy unsure Verified 09/22/17 10:44 [From Benadryl] meperidine [From Demerol] Allergy unsure Verified 09/22/17 10:44 phenytoin [From Dilantin] Allergy unsure Verified 09/22/17 10:44 - Respiratory Orders None Smoking Cessation: Smoking cessation has been advised. For more information, call the [employer] Tobacco Quit Line at 6-055-KINP-NOW. - Ancillary Orders May use pressure relief devices daily prn - Advance Directives Code Status: Full Code - Mobility Orders Ambulate (with assist) - Rehabiliation Orders Rehab Potential: Fair Rehab Orders: Evaluation for Physical Therapy, Evaluation for Occupational Therapy - Treatments Skin tear care topically daily PRN per policy - Diet Orders No Concentrated Sweets, Cardiac CERTIFICATION: I certify that the transfer of the above named patient to an Extended Care Facility is necessary for the continuing treatment of the diagnosis listed. The above information is true and accurate reflection of patient's current condition. Confidential - Redisclosure prohibited without a patient's written consent.
[2017-09-24] MEDS: Acetaminophen 325 MG TABLET PO SCH ×2 (13:33→17:41)
--- NOTE | 2017-09-24 16:15 | Internal Med Progress Note ---
<Homer Sinclair - Last Filed: 09/24/17 16:11> Date of Encounter: 09/24/17 Time of Encounter: 14:30 - Assessment and plan (1) UTI (urinary tract infection) Current Visit: Yes Status: Acute Assessment and plan: Patient still symptomatic with dysuria and polyuria Continue IV Levaquin Await for cultures Qualifiers: Urinary tract infection type: acute cystitis Hematuria presence: without hematuria Qualified Code(s): N30.00 - Acute cystitis without hematuria (2) Nausea & vomiting Current Visit: Yes Status: Resolved Assessment and plan: Resolved for now. Continue to monitor closely for recurrence. Gradual advancement of diet also patient is feeling weak and lethargic, physical therapy recommended inpatient rehabilitation/SNF placement. Patient will require upon discharge Qualifiers: Vomiting type: unspecified Vomiting Intractability: non-intractable Qualified Code(s): R11.2 - Nausea with vomiting, unspecified (3) Hypertension Current Visit: Yes Status: Chronic Assessment and plan: Continue home regimen of medications and monitor closely Qualifiers: Hypertension type: essential hypertension Qualified Code(s): I10 - Essential (primary) hypertension (4) Type 2 diabetes mellitus Current Visit: No Status: Chronic Assessment and plan: Stable continue to monitor. Qualifiers: Diabetes mellitus complication status: without complication Diabetes mellitus snf insulin use: with long distance operator use Qualified Code(s): E11.9 - Type 2 diabetes mellitus without complications; Z79.4 - penitentiary (current) use of insulin; Z79.4 - local intermodal truck driver (current) use of insulin; Z79.4 - penitentiary ( current) use of insulin; Z79.4 - penitentiary (current) use of insulin (5) DVT prophylaxis Current Visit: No Status: Acute Assessment and plan: 5000 units heparin subcutaneous twice a day - Subjective Interval history: Patient continues to report having incontinence as well as dysuria. She also is having some difficulty taking oral medications, concerning for the need of outpatient antibiotics. With some of her continued symptoms as well as concerns for taking by mouth antibiotics, and is best that she stays for an additional day for continued treatment for discussion of disposition. - Constitutional Vitals: Temp Pulse Resp BP Pulse Ox 98.9 F 117 16 146/79 96 09/24/17 11:30 09/24/17 11:30 09/24/17 11:30 09/24/17 11:30 09/24/17 11:30 General appearance: Present: A&O X 3, no acute distress, answers questions appropriately Exam: General: Cooperative, pleasant, no acute distress, alert and oriented 3, answers questions appropriately HEENT: Normocephalic, atraumatic, Conjunctiva pink, sclera anicteric, oral mucosa moist, no orophargeal erythema or exudates Respiratory: No accessory muscle usage, clear to auscultation bilaterally, no wheezes/rhonchi/rales appreciated Cardiovascular: Regular rate and rhythm, S1 and S2 present, no murmurs/rubs/ gallops/clicks appreciated GI/abdominal: Nondistended, nontender, soft, normal bowel sounds, no peritoneal signs, mild tenderness in Extremities: No calf tenderness, noncyanotic, no pedal edema appreciated, warm, lower extremity pulses palpable and symmetrical Neurological: Alert and oriented 3, no facial droop, no focal deficits Skin: Dry, intact, normal color Internal Medicine: Result - Labs CBC & Chem 7: 09/23/17 01:17 09/23/17 01:17 - ABG Interpretation ABG results: PT/INR, D-dimer PT 11.3 Seconds (9.4-12.1) 09/23/17 01:17 - VTE Documentation of Mechanical Device: Graduated compression elastic hosiery Consult Discharge Plan - Plan Referrals: Dary Claire CNP [Primary Care Provider] - Robert Ha MD [Partnered Physician] - 10/03/17 11:30 am (New patient appointment. Office will send packet for patient to fill out and bring to appointment along with prescriptions and insurance card.) Prescriptions: levoFLOXacin [Levaquin] 250 mg PO DAILY #2 tablet Phenazopyridine [Pyridium] 100 mg PO TID #12 tablet <Jaylyn Vargas G - Last Filed: 09/24/17 16:30> Date of Encounter: 09/24/17 - Assessment and plan (1) Nausea & vomiting Current Visit: Yes Status: Resolved Qualifiers: Vomiting type: unspecified Vomiting Intractability: non-intractable Qualified Code(s): R11.2 - Nausea with vomiting, unspecified (2) UTI (urinary tract infection) Current Visit: Yes Status: Acute Qualifiers: Urinary tract infection type: acute cystitis Hematuria presence: without hematuria Qualified Code(s): N30.00 - Acute cystitis without hematuria (3) Type 2 diabetes mellitus Current Visit: No Status: Chronic Qualifiers: Diabetes mellitus complication status: without complication Diabetes mellitus snf insulin use: with snf use Qualified Code(s): E11.9 - Type 2 diabetes mellitus without complications; Z79.4 - local intermodal truck driver (current) use of insulin; Z79.4 - penitentiary (current) use of insulin; Z79.4 - penitentiary ( current) use of insulin; Z79.4 - local intermodal truck driver (current) use of insulin (4) Hypertension Current Visit: Yes Status: Chronic Qualifiers: Hypertension type: essential hypertension Qualified Code(s): I10 - Essential (primary) hypertension (5) DVT prophylaxis Current Visit: No Status: Acute - Constitutional Vitals: Temp Pulse Resp BP Pulse Ox 97.7 F 99 16 149/87 94 09/24/17 16:11 09/24/17 16:11 09/24/17 16:11 09/24/17 16:11 09/24/17 16:11 Internal Medicine: Result - Labs CBC & Chem 7: 09/23/17 01:17 09/23/17 01:17 - ABG Interpretation ABG results: PT/INR, D-dimer PT 11.3 Seconds (9.4-12.1) 09/23/17 01:17 - Attending Attestation I saw and evaluated the patient at bedside. I have reviewed the progress note obtained and documented by the resident and personally participated in the ray components. I have discussed the case and management of the patient's care. I agree with the findings and plan of care.
[2017-09-24] MEDS: rOPINIRole 1 MG TABLET PO SCH (20:23)
[2017-09-25] MEDS: Acetaminophen 325 MG TABLET PO SCH ×3 (00:03→11:58)
[2017-09-25] MEDS: *HR* Heparin 5,000 UNIT/ML VIAL SQ SCH (05:59)
[2017-09-25 08:11] VITALS: BP 149/85
[2017-09-25] MEDS: Lisinopril 20 MG TABLET PO SCH (08:25)
[2017-09-25] MEDS: *HR* Metformin 500 MG TABLET PO SCH (08:25)
[2017-09-25] MEDS ORDERED: Levofloxacin 250 MG/50 ML 250 MG/50 ML BAG IVPB SCH (09:00)
--- NOTE | 2017-09-25 09:03 | Internal Med Progress Note ---
Date of Encounter: 09/25/17 Time of Encounter: 09:01 - Assessment and plan (1) UTI (urinary tract infection) Current Visit: Yes Status: Acute Assessment and plan: on levaquin day 4. Continue IV Levaquin Urine culture negative. Preliminary blood cultures negative. She will be discharged to [facility] today. Qualifiers: Urinary tract infection type: acute cystitis Hematuria presence: without hematuria Qualified Code(s): N30.00 - Acute cystitis without hematuria (2) Nausea & vomiting Current Visit: Yes Status: Resolved Assessment and plan: Resolved for now. Tolerating solid diet. Qualifiers: Vomiting type: unspecified Vomiting Intractability: non-intractable Qualified Code(s): R11.2 - Nausea with vomiting, unspecified (3) Hypertension Current Visit: Yes Status: Chronic Assessment and plan: Continue home regimen of medications and monitor closely Qualifiers: Hypertension type: essential hypertension Qualified Code(s): I10 - Essential (primary) hypertension (4) DVT prophylaxis Current Visit: Yes Status: Acute Assessment and plan: 5000 units heparin subcutaneous twice a day (5) Type 2 diabetes mellitus Current Visit: Yes Status: Chronic Assessment and plan: Stable continue to monitor. 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 Reports improved dysuria. - Constitutional Vitals: Temp Pulse Resp BP Pulse Ox 98.4 F 74 16 149/85 95 09/25/17 08:11 09/25/17 08:11 09/25/17 08:11 09/25/17 08:11 09/25/17 08:11 General appearance: Present: A&O X 3, no acute distress, answers questions appropriately - Other Additional findings: General: Pleasant without distress HEENT: Head atraumatic, normocephalic, EOMI, PERRL, neck nontender to palpation , absent lymphadenopathy, Moist Mucous Membranes, Heart: Regular rate and rhythm with no murmur Lungs: Clear to auscultation bilaterally Abdomen: Soft nontender, nondistended positive bowel sounds Skin: warm and dry Extremities: Absent pedal edema, Neuro: Alert oriented 3 Vascular: Pedal and radial pulses 2 out of 4 Internal Medicine: Result - Labs CBC & Chem 7: 09/23/17 01:17 09/23/17 01:17 - ABG Interpretation ABG results: PT/INR, D-dimer PT 11.3 Seconds (9.4-12.1) 09/23/17 01:17 - VTE Documentation of Mechanical Device: Graduated compression elastic hosiery Consult Discharge Plan - Plan Referrals: Dary Claire CNP [Primary Care Provider] - Robert Ha MD [Partnered Physician] - 10/03/17 11:30 am (New patient appointment. Office will send packet for patient to fill out and bring to appointment along with prescriptions and insurance card.) Prescriptions: levoFLOXacin [Levaquin] 250 mg PO DAILY #2 tablet Phenazopyridine [Pyridium] 100 mg PO TID #12 tablet
[2017-09-25] MEDS ORDERED: FLUARIX QUAD 2017-18 36MOS UP/PF 0.5 ML SYRINGE IM ONE (11:05)
== END 2017-09-25 13:37 | DRG 690 ==
LOC: 3NENU 10:43 → EMEROO 10:43 → 3NENU 14:38 → SUATTDRO 15:48
PROVIDERS: ADMIT Internal Medicine Nephrology; ATTEND Internal Medicine

== ENCOUNTER 2017-11-22 18:00 | Inpatient (IN) ==
[2017-11-22 19:35] LABS: Prothrombin Time 10.6 Seconds (9.4-12.1)
[2017-11-22 19:38] LABS: Activated Partial Thrombo Time 29.8 Seconds (26.0-36.0); Basophils # 0.1 K/mcL (0.0-0.2); Basophils % 0.9 %; Eosinophils # 0.1 K/mcL (0.0-0.6); Eosinophils % 1.3 %; Hematocrit 38.4 % (35.3-44.9); Hemoglobin 12.5 g/dL (11.5-15.4); Immature Granulocytes % 0.5 % (0-4); Lymphocytes # 1.2 K/mcL (0.6-4.6); Lymphocytes % 15.5 %; Mean Corpuscular HGB Conc 32.6 g/dL (31.6-35.5); Mean Corpuscular Hemoglobin 31.6 pg (28.0-33.3); Mean Corpuscular Volume 97.2 fL (83.0-100.0); Mean Platelet Volume 8.8 fL (9.4-12.4); Monocytes # 0.7 K/mcL (0.0-1.3); Monocytes % 8.5 %; Neutrophils # 5.8 K/mcL (1.6-8.9); Platelet Count 284 K/mcL (140-400); Red Blood Count 3.95 M/mcL (3.82-4.97); Red Cell Distribution Width 13.6 % (11.5-14.5); Segmented Neutrophils % 73.3 %
--- NOTE | 2017-11-22 19:38 | Emergency Department Note ---
Disposition Clinical Impression: Lower GI bleed Disposition: Admitted As Inpatient Condition: Good Referrals: NONE,PCP [Primary Care Provider] - Forms: ED Satisfaction Letter Time of Disposition: 21:33 GI Bleed HPI - General Chief complaint: ED GI Bleed Stated complaint: Rectal Bleeding Time Seen by Provider: 11/22/17 18:08 Source: EMS Limitations: no limitations Nursing Notes Reviewed: Yes Vital Signs Reviewed: Yes - History of Present Illness HPI Narrative: 82-year-old female presents to the emergency room for GI bleed. She states she noted a bright red blood in her stool today. She states she has a history of internal hemorrhoid banding years ago. She has had no problems other than she has had increasing diarrhea over the past couple weeks. She states sugar up to 3-4 times a day and most of her stool seems to be very loose. She denies any abdominal pain. No vomiting. She does not take any blood thinners. She has a history of a hysterectomy as well as an appendectomy. She denies any clots in her stool today. The bleeding started today. She has had again the diarrhea for the past few weeks up to 4 times a day. - Related Data Home Medications Medication Instructions Recorded Confirmed Acetaminophen [Tylenol] 500 mg PO Q6HR PRN 04/07/17 09/22/17 Allopurinol [Zyloprim] 300 mg PO DAILY 04/07/17 09/22/17 Atorvastatin [Lipitor] 10 mg PO HS 04/07/17 09/22/17 Esomeprazole Magnesium [Nexium] 40 mg PO DAILY 04/07/17 09/22/17 Ropinirole HCl [Requip] 1 mg PO HS 04/07/17 09/22/17 metFORMIN [Glucophage] 500 mg PO BIDWM 04/07/17 09/22/17 Lisinopril [Zestril] 20 mg PO DAILY 09/22/17 09/22/17 Oxybutynin [Ditropan] 5 mg PO TID 09/22/17 09/22/17 Previous Rx's Medication Instructions Recorded Phenazopyridine [Pyridium] 100 mg PO TID #12 tablet 09/24/17 levoFLOXacin [Levaquin] 250 mg PO DAILY #2 tablet 09/24/17 Allergies Allergy/AdvReac Type Severity Reaction Status Date / Time Amoxicillin [From Augmentin] Allergy Rash Verified 09/22/17 10:44 cephalexin [From Keflex] Allergy Rash Verified 09/22/17 10:44 clavulanic acid Allergy Rash Verified 09/22/17 10:44 [From Augmentin] diphenhydramine Allergy unsure Verified 09/22/17 10:44 [From Benadryl] meperidine [From Demerol] Allergy unsure Verified 09/22/17 10:44 phenytoin [From Dilantin] Allergy unsure Verified 09/22/17 10:44 Review of Systems: HEENT: Head atraumatic normocephalic. Pharynx clear with no exudates. Oral mucosa moist. Uvula midline. TMs clear bilaterally. Trachea midline. No lymphadenopathy. Heart: Regular rate and rhythm. Normal S1 and S2. No gallops, rubs, or murmurs. Lungs: Clear to auscultation bilaterally. No evidence of any rhonchi wheezing or rales. Abdomen: Soft nontender nondistended. Positive bowel sounds. No peritoneal signs. Extremities: No evidence of cyanosis clubbing or edema. Neuro: Cranial nerves II through XII grossly intact. No focal motor or sensory deficits. Speech is clear. Skin: Normal color. dry. Psych: normal mentation. Past Medical History - Past Medical History Medical history: Reports: diabetes, GERD, hyperlipidemia, hypertension, other Surgical history: Reports: cholecystectomy, FALGUNI/BSO Psychiatric history: Reports: no psych history CRISIS CLINICIAN history: Reports: no CRISIS CLINICIAN history - Social History Smoking Status: Never smoker Smokeless Tobacco Status: No Alcohol use: Reports: rarely Drug use: Reports: none Physical Exam - General Limitations: no limitations General appearance: alert, in no apparent distress - Head Head exam: atraumatic, normocephalic - Eye Eye exam: Present: normal appearance - ENT ENT exam: normal exam - Chest Chest inspection: Present: normal inspection - Respiratory Respiratory exam: Present: normal lung sounds bilaterally - Cardiovascular Cardiovascular exam: Present: regular rate, normal rhythm - Abdominal Exam Abdominal exam: Present: soft, Non-Tender, normal bowel sounds. Absent: tenderness - Rectal Exam Power Engineer present during exam: Yes (Positive for gross blood noted in stool) - Extremities Exam Extremities exam: Present: normal inspection - Expanded Lower Extremity Exam Hip/Pelvis exam: Present: normal inspection - Neurological Exam Neurological exam: Present: alert, oriented X3 - Psychiatric Psychiatric exam: Present: normal affect, normal mood - Skin Skin exam: Present: warm, dry, intact Course Vital Signs Temperature 98.3 F 11/22/17 18:02 Pulse Rate 87 11/22/17 18:02 Respiratory Rate 18 11/22/17 18:02 Blood Pressure 143/67 11/22/17 18:02 O2 Sat by Pulse Oximetry 98 11/22/17 18:02 Temperature 98.3 F 11/22/17 18:02 Pulse Rate 66 11/22/17 19:57 Respiratory Rate 16 11/22/17 19:57 Blood Pressure 147/68 11/22/17 19:57 O2 Sat by Pulse Oximetry 98 11/22/17 19:57 Oxygen Delivery Oxygen Delivery Room Air GI Bleed - MDM Narrative Medical decision making narrative: CT abdomen and pelvis with IV contrast did not show any significant abnormalities. Patient will be admitted to the hospitalist and consult surgery. Hemodynamically stable at this time. She has a normal H&H. Her blood pressures have been stable. He did speak with the hospitalist and I spoke with the OR team - Medical Records Medical records reviewed: Yes I reviewed the patient's medical records. - Lab Data Lab results reviewed: Yes I reviewed the patient's lab results. Result diagrams: 11/22/17 19:20 11/22/17 19:20 Lab Results 11/22/17 11/22/17 11/22/17 Range/Units 19:20 19:20 19:20 WBC 7.9 (4.3-11.1) K/mcL RBC 3.95 (3.82-4.97) M/mcL Hgb 12.5 (11.5-15.4) g/dL Hct 38.4 (35.3-44.9) % MCV 97.2 (83.0-100.0) fL MCH 31.6 (28.0-33.3) pg MCHC 32.6 (31.6-35.5) g/dL RDW 13.6 (11.5-14.5) % Plt Count 284 (140-400) K/mcL MPV 8.8 L (9.4-12.4) fL Immature Gran % 0.5 (0-4) % Seg Neutrophils % 73.3 % Lymphocytes % 15.5 % Monocytes % 8.5 % Eosinophils % 1.3 % Basophils % 0.9 % Neutrophils # 5.8 (1.6-8.9) K/mcL Lymphocytes # 1.2 (0.6-4.6) K/mcL Monocytes # 0.7 (0.0-1.3) K/mcL Eosinophils # 0.1 (0.0-0.6) K/mcL Basophils # 0.1 (0.0-0.2) K/mcL PT 10.6 (9.4-12.1) Seconds INR 1.0 APTT 29.8 (26.0-36.0) Seconds Sodium 133 L (136-145) mEq/L Potassium 4.2 (3.5-5.1) mEq/L Chloride 102 (98-107) mEq/L Carbon Dioxide 24 (23-29) mEq/L BUN 13 (8-23) mg/dL Creatinine 0.56 L (0.60-1.20) mg/dL Est GFR ( Amer) > 60 (> 60) Est GFR (Non-Af Amer) > 60 (> 60) BUN/Creatinine Ratio 23 (6-26) Glucose 103 (70-105) mg/dL Calculated Osmolality 276 L (280-300) Lactic Acid (0.5-2.2) mmol/L Calcium 9.5 (8.6-10.3) mg/dL 11/22/17 Range/Units 19:20 WBC (4.3-11.1) K/mcL RBC (3.82-4.97) M/mcL Hgb (11.5-15.4) g/dL Hct (35.3-44.9) % MCV (83.0-100.0) fL MCH (28.0-33.3) pg MCHC (31.6-35.5) g/dL RDW (11.5-14.5) % Plt Count (140-400) K/mcL MPV (9.4-12.4) fL Immature Gran % (0-4) % Seg Neutrophils % % Lymphocytes % % Monocytes % % Eosinophils % % Basophils % % Neutrophils # (1.6-8.9) K/mcL Lymphocytes # (0.6-4.6) K/mcL Monocytes # (0.0-1.3) K/mcL Eosinophils # (0.0-0.6) K/mcL Basophils # (0.0-0.2) K/mcL PT (9.4-12.1) Seconds INR APTT (26.0-36.0) Seconds Sodium (136-145) mEq/L Potassium (3.5-5.1) mEq/L Chloride (98-107) mEq/L Carbon Dioxide (23-29) mEq/L BUN (8-23) mg/dL Creatinine (0.60-1.20) mg/dL Est GFR ( Amer) (> 60) Est GFR (Non-Af Amer) (> 60) BUN/Creatinine Ratio (6-26) Glucose (70-105) mg/dL Calculated Osmolality (280-300) Lactic Acid 1.4 (0.5-2.2) mmol/L Calcium (8.6-10.3) mg/dL - Radiology Data Radiology results reviewed: Yes I reviewed the patient's radiology results. - EKG Data EKG attestation: Yes I reviewed and interpreted this EKG. EKG results narrative: EKG shows a rate of 72. Normal sinus rhythm. Normal axis. NJ interval 149. QRS 75. QTC 371. No signs of acute ischemia. Critical Care Time Critical Care Time: Yes Total Critical Care Time: 30 Attestation: Total critical care time spent in medical management and potential complications of a lower GI bleed in consultation with the hospitalist and with general surgery
[2017-11-22 19:45] LABS: BUN/Creatinine Ratio 23 (6-26); Blood Urea Nitrogen 13 mg/dL (8-23); Calcium 9.5 mg/dL (8.6-10.3); Carbon Dioxide 24 mEq/L (23-29); Chloride 102 mEq/L (98-107); Glucose 103 mg/dL (70-105); Osmolality,Calculated 276 (280-300); Potassium 4.2 mEq/L (3.5-5.1); Sodium 133 mEq/L (136-145); eGFR For African Americans > 60 (> 60); eGFR For Non-African Americans > 60 (> 60)
[2017-11-22] MEDS ORDERED: 0.9 % Sodium Chloride 1,000 ML IVC SCH (19:45)
[2017-11-22] MEDS ORDERED: *HR* HYDROcodone/Acet 5/325 mg TABLET PO ONE (21:37)
[2017-11-23] MEDS ORDERED: Naloxone 0.4 MG/ML INJ IVP PRN (00:04)
[2017-11-23] MEDS ORDERED: D5% in Water 1,000 ML IVC PRN (00:19)
[2017-11-23] MEDS ORDERED: Dextrose Gel 15 GM/37.5 ML TUBE PO PRN ×2 (00:19)
[2017-11-23] MEDS ORDERED: *HR* Dextrose 50 % in Water (Syg) 50 ML SYRINGE IVP PRN (00:19)
--- NOTE | 2017-11-23 00:24 | Internal Med History&Physical ---
Date of Encounter: 11/22/17 Time of Encounter: 23:00 Assessment and Plan (1) Ankle fracture Current visit: No Status: Acute Pt has old b/l ankle fracture per pt. 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 Qualifiers: Hypertension type: essential hypertension Qualified Code(s): I10 - Essential (primary) hypertension (4) DVT prophylaxis Current visit: No Status: Acute EPCD, no AC b/o rectal bleed. (5) Lower GI bleed Current visit: Yes Status: Acute Pt has dark red blood per rectum, etiology is undetermined. Pt is not on any anticoagulation. - Hgb 12.5, about at baseline. - Vitals are stable, no dizziness - Place pt on NPO, IVF, IV PPI - Closely monitor vitals and H/H - Surgery was consulted by ER. Internal Medicine - H&P: HPI Chief complaint: Recatal bleed Admitted From: Home Plans for Post Hospital Care: Home History of present illness: Ms. 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 Pt said she noticed dark red blood from rectum x 1 today. Pt denies dizziness, abd pain, nausea. Pt has chronic diarrhea for years. Pt was admitted for rectal bleed. Past Med Surg Social Fam HX - Past Medical History Medical history: diabetes, GERD, hyperlipidemia, hypertension, other Psychiatric history: no psych history - Past Surgical History Surgical History: cholecystectomy, FALGUNI/BSO - Social History Smoking Status: Never smoker Smokeless Tobacco Status: No Alcohol use: rarely Drug use: none - Family History Mother Living Status: Hx Family Cardiac Disorders: No Hx Family Endocrine Disorder: Yes (DM) Father Living Status: Hx Family Cardiac Disorders: Yes ([place]) Internal Medicine - H&P: Meds Acetaminophen [Tylenol] 500 mg PO Q6HR PRN 04/07/17 [History] Allopurinol [Zyloprim] 300 mg PO DAILY 04/07/17 [History] Atorvastatin [Lipitor] 10 mg PO HS 04/07/17 [History] Esomeprazole Magnesium [Nexium] 40 mg PO DAILY 04/07/17 [History] Ropinirole HCl [Requip] 1 mg PO HS 04/07/17 [History] metFORMIN [Glucophage] 500 mg PO BIDWM 04/07/17 [History] Lisinopril [Zestril] 20 mg PO DAILY 09/22/17 [History] Oxybutynin [Ditropan] 5 mg PO TID 09/22/17 [History] Phenazopyridine [Pyridium] 100 mg PO TID #12 tablet 09/24/17 [Rx] levoFLOXacin [Levaquin] 250 mg PO DAILY #2 tablet 09/24/17 [Rx] 3 Allergy/AdvReac Type Severity Reaction Status Date / Time Amoxicillin [From Augmentin] Allergy Rash Verified 09/22/17 10:44 cephalexin [From Keflex] Allergy Rash Verified 09/22/17 10:44 clavulanic acid Allergy Rash Verified 09/22/17 10:44 [From Augmentin] diphenhydramine Allergy unsure Verified 09/22/17 10:44 [From Benadryl] meperidine [From Demerol] Allergy unsure Verified 09/22/17 10:44 phenytoin [From Dilantin] Allergy unsure Verified 09/22/17 10:44 All Systems PM: A 10-system review of systems was performed and is negative for pertinent findings except as documented above in the HPI. - Constitutional Vitals: Temp Pulse Resp BP Pulse Ox 98.0 F 82 16 111/68 96 11/22/17 23:00 11/22/17 23:00 11/22/17 23:00 11/22/17 23:00 11/22/17 23:00 General appearance: Present: A&O X 3, no acute distress, answers questions appropriately - Head Head exam: Present: atraumatic, normocephalic - Eye Eye exam: Present: PERRL, conjuntiva pink, sclera anicteric Pupils: Present: PERRL - Neck Neck exam general surgery: Present: supple, trachea midline. Absent: lymphadenopathy - Respiratory Respiratory exam: Present: CTAB. Absent: accessory muscle use, rales, rhonchi, wheezes - Cardiovascular Cardiovascular exam: Present: RRR, +S1, +S2. Absent: diastolic murmur, gallop, rubs, systolic murmur - GI/Abdominal GI/Abdominal exam: Present: normal bowel sounds, soft, no peritoneal signs. Absent: distended, tenderness - Extremities Exam Extremities exam: Present: warm, radial pulses palpable and symmetrical. Absent : calf tenderness, cyanotic, pedal edema - Neurological Exam Neurological exam: Present: CN II-XII intact, motor sensory deficit (Motor 3-4/ 5 left UE, 4/5 Lt LE), oriented X3, no focal deficits. Absent: pronater drift, facial droop, speech deficit - Skin Skin exam: Present: dry, intact Internal Med - H&P Results - Labs CBC & Chem 7: 11/22/17 19:20 11/22/17 19:20 - EKG Data -: EKG Interpreted by Myself EKG shows normal: sinus rhythm Rate: normal
[2017-11-23] MEDS: 0.9 % Sodium Chloride 1,000 ML IVC SCH ×2 (02:00→15:30)
[2017-11-23] MEDS: Insulin LISPRO 300 UNITS/3 ML VIAL SQ SCH ×3 (05:43→17:46)
[2017-11-23] MEDS: Pantoprazole 40 MG VIAL IVP SCH ×2 (05:51→17:47)
[2017-11-23 08:04] LABS: Basophils # 0.1 K/mcL (0.0-0.2); Basophils % 1.2 %; Eosinophils # 0.2 K/mcL (0.0-0.6); Hematocrit 33.8 % (35.3-44.9); Immature Granulocytes % 0.4 % (0-4); Immature Platelets 0.8 % (1.1-6.1); Lymphocytes # 1.6 K/mcL (0.6-4.6); Mean Corpuscular HGB Conc 32.2 g/dL (31.6-35.5); Mean Corpuscular Hemoglobin 31.3 pg (28.0-33.3); Mean Corpuscular Volume 97.1 fL (83.0-100.0); Mean Platelet Volume 8.9 fL (9.4-12.4); Monocytes # 0.7 K/mcL (0.0-1.3); Monocytes % 13.9 %; Neutrophils # 2.2 K/mcL (1.6-8.9); Platelet Count 282 K/mcL (140-400); Red Blood Count 3.48 M/mcL (3.82-4.97); Red Cell Distribution Width 13.6 % (11.5-14.5); Segmented Neutrophils % 45.5 %
[2017-11-23 08:05] LABS: Hemoglobin 10.9 g/dL (11.5-15.4)
[2017-11-23 08:44] LABS: BUN/Creatinine Ratio 12 (6-26); Blood Urea Nitrogen 8 mg/dL (8-23); Calcium 8.9 mg/dL (8.6-10.3); Carbon Dioxide 22 mEq/L (23-29); Chloride 108 mEq/L (98-107); Glucose 100 mg/dL (70-105); Magnesium 1.6 mg/dL (1.6-2.6); Osmolality,Calculated 284 (280-300); Potassium 3.9 mEq/L (3.5-5.1); Sodium 138 mEq/L (136-145); eGFR For African Americans > 60 (> 60); eGFR For Non-African Americans > 60 (> 60)
[2017-11-23] MEDS: OXYCODONE Oral CONC 10 MG/0.5 ML ORAL.SYG SL PRN (12:24)
--- NOTE | 2017-11-23 14:51 | General Surgery Consult Note ---
<OmarjulioDeann quach H - Last Filed: 11/23/17 14:47> Date of Encounter: 11/23/17 Time of Encounter: 10:00 Assessment and Plan (1) Lower GI bleed Current Visit: Yes Status: Acute 82-year-old female with dark red blood per rectum. Patient is not on anticoagulation. -No active bleeding currently. -Hemoglobin 10.9 down from 12.5. -Recommend serial H&H. -Recommend starting a clear liquid diet. -Recommend advancing diet as tolerated. -Recommend patient to follow-up in clinic with Dr. Vaughn in 2 weeks. We will likely schedule colonoscopy at that point. (2) Ankle fracture Current Visit: No Status: Acute Management per primary team. Qualifiers: Encounter type: subsequent encounter Fracture type: closed Laterality: unspecified laterality Qualified Code(s): S82.899D - Other fracture of unspecified lower leg, subsequent encounter for closed fracture with routine healing (3) Type 2 diabetes mellitus Current Visit: No Status: Chronic Management per primary team. 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 goldman is an 82-year-old female with past medical history of diabetes, hypertension, left-sided paraplegia secondary to a complication of back surgery resulting in chronic Luevano catheter usage, and a history of internal hemorrhoid status post bandage 4 years ago. Ms. Chong presented to [facility] on 11/22/2017 with complaints of rectal bleeding. She stated she noticed dark red blood per rectum earlier in the day. Patient currently denying continued bleeding. She denies dizziness, lightheadedness, and weakness. She denies abdominal pain, nausea, or vomiting. Patient does report chronic diarrhea, however, she denies melena or hematochezia. Past Med Surg Social Fam HX - Past Medical History Attestation: Yes The following information was validated with the patient. Source: patient Medical history: diabetes, GERD, hyperlipidemia, hypertension, other Psychiatric history: no psych history - Past Surgical History Surgical History: cholecystectomy, FALGUNI/BSO - Social History Smoking Status: Never smoker Smokeless Tobacco Status: No Alcohol use: rarely Drug use: none - Family History Mother Living Status: Hx Family Cardiac Disorders: No Hx Family Endocrine Disorder: Yes (DM) Father Living Status: Hx Family Cardiac Disorders: Yes ([place]) Medications and Allergies Acetaminophen [Tylenol] 500 mg PO Q6HR PRN 04/07/17 [History] Allopurinol [Zyloprim] 300 mg PO DAILY 04/07/17 [History] Atorvastatin [Lipitor] 10 mg PO HS 04/07/17 [History] Esomeprazole Magnesium [Nexium] 40 mg PO DAILY 04/07/17 [History] Ropinirole HCl [Requip] 1 mg PO HS 04/07/17 [History] metFORMIN [Glucophage] 500 mg PO BIDWM 04/07/17 [History] Lisinopril [Zestril] 20 mg PO BID 09/22/17 [History] Oxybutynin [Ditropan] 5 mg PO TID 09/22/17 [History] Tramadol HCl [Ultram] 50 mg PO TID PRN 11/23/17 [History] 3 Allergy/AdvReac Type Severity Reaction Status Date / Time Amoxicillin [From Augmentin] Allergy Rash Verified 09/22/17 10:44 cephalexin [From Keflex] Allergy Rash Verified 09/22/17 10:44 clavulanic acid Allergy Rash Verified 09/22/17 10:44 [From Augmentin] diphenhydramine Allergy unsure Verified 09/22/17 10:44 [From Benadryl] meperidine [From Demerol] Allergy unsure Verified 09/22/17 10:44 phenytoin [From Dilantin] Allergy unsure Verified 09/22/17 10:44 Review of Systems All systems PM: The remainder of the systems were reviewed and are negative - Constitutional no chills, no fever(s), no lethargy, no night sweats - Cardiovascular no chest pain, no chest pain at rest, no dyspnea on exertion, no edema, no irregular heart rhythm, no orthopnea, no palpitations - Respiratory no cough, no dyspnea - Gastrointestinal diarrhea, no abdominal pain, no change in bowel habits, no change in stool character, no coffee ground emesis, no constipation, no cramping, no hematochezia, no melena, no vomiting - Musculoskeletal other (Patient with recent bilateral ankle fractures. Reports ankle pain and tenderness) - Neurological other (Left-sided paraplegia) General Surgery Exam Initial Vital Signs Temp Pulse Resp BP Pulse Ox 98.3 F 87 18 143/67 98 11/22/17 18:02 11/22/17 18:02 11/22/17 18:02 11/22/17 18:02 11/22/17 18:02 - General physical appearance well developed, no distress - Eyes normal ocular movement - Neck trachea midline - Cardiovascular Cardiovascular exam: Present: RRR, no murmurs/rubs/gallops - Abdomen Abdomen general surgery: Present: bowel sounds present, soft, non tender Hernia: Present: none - Integumentary Integumentary general surgery: Present: warm and dry - Neurologic Present: CN 2-12 grossly intact - Psychiatric Psychiatric general surgery: Present: A&Ox3, speech is normal, memory intact Exam Initial Vital Signs Temp Pulse Resp BP Pulse Ox 98.3 F 87 18 143/67 98 11/22/17 18:02 11/22/17 18:02 11/22/17 18:02 11/22/17 18:02 11/22/17 18:02 Results - Labs 11/23/17 07:16 11/23/17 07:16 Abnormal lab results RBC 3.48 M/mcL (3.82-4.97) L 11/23/17 07:16 Hgb 10.9 g/dL (11.5-15.4) L D 11/23/17 07:16 Hct 33.8 % (35.3-44.9) L 11/23/17 07:16 MPV 8.9 fL (9.4-12.4) L 11/23/17 07:16 Immature Plt Fraction 0.8 % (1.1-6.1) L 11/23/17 07:16 Chloride 108 mEq/L (98-107) H 11/23/17 07:16 Carbon Dioxide 22 mEq/L (23-29) L 11/23/17 07:16 POC Glucose 108 (58-89) H 11/23/17 11:48 Diabetes panel 11/23/17 Range/Units 07:16 Sodium 138 (136-145) mEq/L Potassium 3.9 (3.5-5.1) mEq/L Chloride 108 H (98-107) mEq/L Carbon Dioxide 22 L (23-29) mEq/L BUN 8 (8-23) mg/dL Creatinine 0.65 (0.60-1.20) mg/dL Glucose 100 (70-105) mg/dL Calcium 8.9 (8.6-10.3) mg/dL Calcium panel 11/23/17 Range/Units 07:16 Calcium 8.9 (8.6-10.3) mg/dL Pituitary panel 11/23/17 Range/Units 07:16 Sodium 138 (136-145) mEq/L Potassium 3.9 (3.5-5.1) mEq/L Chloride 108 H (98-107) mEq/L Carbon Dioxide 22 L (23-29) mEq/L BUN 8 (8-23) mg/dL Creatinine 0.65 (0.60-1.20) mg/dL Glucose 100 (70-105) mg/dL Calcium 8.9 (8.6-10.3) mg/dL Adrenal panel 11/23/17 Range/Units 07:16 Sodium 138 (136-145) mEq/L Potassium 3.9 (3.5-5.1) mEq/L Chloride 108 H (98-107) mEq/L Carbon Dioxide 22 L (23-29) mEq/L BUN 8 (8-23) mg/dL Creatinine 0.65 (0.60-1.20) mg/dL Glucose 100 (70-105) mg/dL Calcium 8.9 (8.6-10.3) mg/dL All other labs normal. Consult Discharge Plan - Plan Referrals: NONE,PCP [Primary Care Provider] - <Shahriar Vaughn - Last Filed: 11/23/17 16:33> Date of Encounter: 11/23/17 Review of Systems All systems PM: The remainder of the systems were reviewed and are negative General Surgery Exam Initial Vital Signs Temp Pulse Resp BP Pulse Ox 98.3 F 87 18 143/67 98 11/22/17 18:02 11/22/17 18:02 11/22/17 18:02 11/22/17 18:02 11/22/17 18:02 Exam Initial Vital Signs Temp Pulse Resp BP Pulse Ox 98.3 F 87 18 143/67 98 11/22/17 18:02 11/22/17 18:02 11/22/17 18:02 11/22/17 18:02 11/22/17 18:02 Results - Labs 11/23/17 07:16 11/23/17 07:16 Abnormal lab results RBC 3.48 M/mcL (3.82-4.97) L 11/23/17 07:16 Hgb 10.9 g/dL (11.5-15.4) L D 11/23/17 07:16 Hct 33.8 % (35.3-44.9) L 11/23/17 07:16 MPV 8.9 fL (9.4-12.4) L 11/23/17 07:16 Immature Plt Fraction 0.8 % (1.1-6.1) L 11/23/17 07:16 Chloride 108 mEq/L (98-107) H 11/23/17 07:16 Carbon Dioxide 22 mEq/L (23-29) L 11/23/17 07:16 POC Glucose 108 (58-89) H 11/23/17 11:48 Diabetes panel 11/23/17 Range/Units 07:16 Sodium 138 (136-145) mEq/L Potassium 3.9 (3.5-5.1) mEq/L Chloride 108 H (98-107) mEq/L Carbon Dioxide 22 L (23-29) mEq/L BUN 8 (8-23) mg/dL Creatinine 0.65 (0.60-1.20) mg/dL Glucose 100 (70-105) mg/dL Calcium 8.9 (8.6-10.3) mg/dL Calcium panel 11/23/17 Range/Units 07:16 Calcium 8.9 (8.6-10.3) mg/dL Pituitary panel 11/23/17 Range/Units 07:16 Sodium 138 (136-145) mEq/L Potassium 3.9 (3.5-5.1) mEq/L Chloride 108 H (98-107) mEq/L Carbon Dioxide 22 L (23-29) mEq/L BUN 8 (8-23) mg/dL Creatinine 0.65 (0.60-1.20) mg/dL Glucose 100 (70-105) mg/dL Calcium 8.9 (8.6-10.3) mg/dL Adrenal panel 11/23/17 Range/Units 07:16 Sodium 138 (136-145) mEq/L Potassium 3.9 (3.5-5.1) mEq/L Chloride 108 H (98-107) mEq/L Carbon Dioxide 22 L (23-29) mEq/L BUN 8 (8-23) mg/dL Creatinine 0.65 (0.60-1.20) mg/dL Glucose 100 (70-105) mg/dL Calcium 8.9 (8.6-10.3) mg/dL All other labs normal. - Attending Attestation I have personally seen and examined the patient. I have reviewed pertinent labs , imaging, progress notes, including this one. I agree with the above assessment and plan and wish to include the following... 82-year-old female with past medical history of diabetes, hypertension, history of internal hemorrhoid s/p likely rubber band ligation who now presents with rectal bleeding; She noticed dark red blood per rectum yesterday, no associated dizziness, lightheadedness, or weakness. She denies abdominal pain, nausea, or vomiting. Patient does report chronic diarrhea, however, she denies melena or hematochezia. At present she is not having any blood stools. h/h stable; will cont to trend h/h; okay to start diet; if she remains stable without further GI bleeding episode then will plan for follow up in my clinic and schedule her for a colonoscopy and EGD.
--- NOTE | 2017-11-23 16:35 | Internal Med Progress Note ---
Date of Encounter: 11/23/17 Time of Encounter: 11:00 - Assessment and plan (1) Lower GI bleed Current Visit: Yes Status: Acute Assessment and plan: 1 patient has been experiencing dark red blood per rectum she is not on any anticoagulation presently no active bleeding at this time in the globin is down 10.9 from 12.5 we will perform serial H&H every 6 hours Patient was nothing by mouth we will make clear liquid diet per surgery recommendation and advance as tolerated Surgery has been consulted and has seen the patient per surgery note- if patient has no more bleeding she can follow-up with Dr. Vaughn as an outpatient for colonoscopy/EGD (2) Ankle fracture Current Visit: No Status: Acute Assessment and plan: Patient has history of old bilateral ankle fractures-we will consult PT and OT as well as social director for possible home health Qualifiers: Encounter type: subsequent encounter Fracture type: closed Laterality: unspecified laterality Fracture healing: with routine healing Qualified Code (s): S82.899D - Other fracture of unspecified lower leg, subsequent encounter for closed fracture with routine healing (3) Type 2 diabetes mellitus Current Visit: No Status: Chronic Assessment and plan: Accu-Cheks before meals at bedtime with sliding scale insulin Qualifiers: Diabetes mellitus complication status: without complication 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 No active bleeding noted at this time. - Constitutional Vitals: Temp Pulse Resp BP Pulse Ox 97.9 F 83 18 127/77 94 11/23/17 15:38 11/23/17 15:38 11/23/17 15:38 11/23/17 15:38 11/23/17 15:38 General appearance: Present: A&O X 3, no acute distress, answers questions appropriately - Head Head exam: Present: atraumatic, normocephalic - Eye Eye exam: Present: PERRL, conjuntiva pink, sclera anicteric Pupils: Present: PERRL - Neck Neck exam general surgery: Present: supple, trachea midline. Absent: lymphadenopathy - Respiratory Respiratory exam: Present: CTAB. Absent: accessory muscle use, rales, rhonchi, wheezes - Cardiovascular Cardiovascular exam: Present: RRR, +S1, +S2. Absent: diastolic murmur, gallop, rubs, systolic murmur - GI/Abdominal GI/Abdominal exam: Present: normal bowel sounds, soft, no peritoneal signs. Absent: distended, tenderness - Extremities Exam Extremities exam: Present: warm, radial pulses palpable and symmetrical. Absent : calf tenderness, cyanotic, pedal edema - Neurological Exam Neurological exam: Present: CN II-XII intact, oriented X3, no focal deficits. Absent: pronater drift, facial droop, speech deficit - Skin Skin exam: Present: dry, intact Internal Medicine: Result - Labs CBC & Chem 7: 11/23/17 07:16 11/23/17 07:16 Labs: Short CBC 11/23/17 Range/Units 07:16 WBC 4.8 (4.3-11.1) K/mcL Hgb 10.9 L D (11.5-15.4) g/dL Hct 33.8 L (35.3-44.9) % Plt Count 282 (140-400) K/mcL Neutrophils # 2.2 (1.6-8.9) K/mcL BMP 11/23/17 07:16 Sodium 138 Potassium 3.9 Chloride 108 H Carbon Dioxide 22 L BUN 8 Creatinine 0.65 Glucose 100 Calcium 8.9 - ABG Interpretation ABG results: PT/INR, D-dimer PT 10.6 Seconds (9.4-12.1) 11/22/17 19:20 Consult Discharge Plan - Plan Referrals: NONE,PCP [Primary Care Provider] -
[2017-11-23 18:30] LABS: Hemoglobin 11.3 g/dL (11.5-15.4)
[2017-11-23 23:01] LABS: Hemoglobin 11.1 g/dL (11.5-15.4)
[2017-11-24] MEDS: Insulin LISPRO 300 UNITS/3 ML VIAL SQ SCH ×5 (00:59→22:39)
[2017-11-24] MEDS: 0.9 % Sodium Chloride 1,000 ML IVC SCH ×2 (02:46→17:36)
[2017-11-24] MEDS: Nystatin POWDER 30 GM BOTTLE TP SCH ×3 (06:23→22:40)
[2017-11-24] MEDS: Pantoprazole 40 MG VIAL IVP SCH ×2 (06:23→17:36)
[2017-11-24] MEDS: OXYCODONE Oral CONC 10 MG/0.5 ML ORAL.SYG SL PRN (06:23)
[2017-11-24 08:14] LABS: Basophils % 0.7 %; Eosinophils # 0.2 K/mcL (0.0-0.6); Eosinophils % 4.3 %; Hematocrit 32.6 % (35.3-44.9); Hemoglobin 10.6 g/dL (11.5-15.4); Immature Granulocytes % 0.2 % (0-4); Lymphocytes # 1.8 K/mcL (0.6-4.6); Lymphocytes % 33.2 %; Mean Corpuscular HGB Conc 32.5 g/dL (31.6-35.5); Mean Corpuscular Hemoglobin 31.6 pg (28.0-33.3); Mean Corpuscular Volume 97.3 fL (83.0-100.0); Mean Platelet Volume 9.1 fL (9.4-12.4); Monocytes # 0.6 K/mcL (0.0-1.3); Neutrophils # 2.8 K/mcL (1.6-8.9); Platelet Count 230 K/mcL (140-400); Red Blood Count 3.35 M/mcL (3.82-4.97); Red Cell Distribution Width 13.6 % (11.5-14.5); Segmented Neutrophils % 50.6 %
--- NOTE | 2017-11-24 10:32 | Event Note ---
<Deann Garcia Yonatan - Last Filed: 11/24/17 10:29> Date of Encounter: 11/24/17 Time of Encounter: 10:29 Follow-up scheduled with Dr. Vaughn in the office on 12/25/2017 with plans to schedule endoscopy at that point. - Patient Status Disposition: Still a Patient Condition: Good - Discharge Instructions Follow Up With: NONE,PCP [Primary Care Provider] - Shahriar Vaughn MD [Non-Partnered Physician] - 12/25/17 9:00 am <Shahriar Vaughn - Last Filed: 11/24/17 12:30> Date of Encounter: 11/24/17 I have personally seen and examined the patient. I have reviewed pertinent labs , imaging, progress notes, including this one. I agree with the above assessment and plan and wish to include the following... H/H stable; no bloody stools. patient is not symptomatic from acute blood loss anemia. Okay to follow up in my clinic.
[2017-11-24 13:08] LABS: Hematocrit 34.2 % (35.3-44.9); Hemoglobin 11.2 g/dL (11.5-15.4)
--- NOTE | 2017-11-24 13:10 | Internal Med Progress Note ---
Date of Encounter: 11/24/17 Time of Encounter: 13:07 - Assessment and plan (1) Lower GI bleed Current Visit: Yes Status: Acute Assessment and plan: occult stool positive. Reportedly had bright red blood via rectum today after bowel movement. Repeat Hgb remained stable in the 11's. Evaluated by general surgery who recommended outpatient follow-up for colonoscopy/EGD as long as she has no further bleeding. Will monitor H&H. Advance dist as tolerated. Follow-up with General Surgery outpatient (2) Loose stools Current Visit: Yes Status: Acute Assessment and plan: patient re[orts loose stool for the last week. Was recently treated with ATB for UTI. Stool for C. 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 Stable. Supportive care (4) Type 2 diabetes mellitus Current Visit: No Status: Chronic Assessment and plan: per hx. Blood sugars variable but acceptable. Cont to monitor Qualifiers: Diabetes mellitus complication status: without complication Diabetes mellitus detention insulin use: without buttermaker helper use Qualified Code(s): E11.9 - Type 2 diabetes mellitus without complications (5) DVT prophylaxis Current Visit: No Status: Acute Assessment and plan: SCDs with anemia - Subjective Interval history: Seen and examined at bedside. Patient is to to me, information obtained from chart review and patient report. She is complaining of lower abdominal pain and loose stool. Says she was recently on an antibiotic for UTI. No history of C. difficile. Student nurses report large amount of bright red blood in stool. - Constitutional Vitals: Temp Pulse Resp BP Pulse Ox 97.8 F 78 16 143/79 97 11/24/17 11:41 11/24/17 11:41 11/24/17 11:41 11/24/17 11:41 11/24/17 11:41 General appearance: Present: A&O X 3, no acute distress, answers questions appropriately - Head Head exam: Present: atraumatic, normocephalic - Eye Eye exam: Present: PERRL, conjuntiva pink, sclera anicteric Pupils: Present: PERRL - Neck Neck exam general surgery: Present: supple, trachea midline. Absent: lymphadenopathy - Respiratory Respiratory exam: Present: CTAB. Absent: accessory muscle use, rales, rhonchi, wheezes - Cardiovascular Cardiovascular exam: Present: RRR, +S1, +S2. Absent: diastolic murmur, gallop, rubs, systolic murmur - GI/Abdominal GI/Abdominal exam: Present: normal bowel sounds, soft, no peritoneal signs. Absent: distended, tenderness - Extremities Exam Extremities exam: Present: pedal edema, warm, radial pulses palpable and symmetrical. Absent: calf tenderness, cyanotic Additional comments: right upper and lower extremity paralysis - Neurological Exam Neurological exam: Present: CN II-XII intact, oriented X3, no focal deficits. Absent: pronater drift, facial droop, speech deficit - Skin Skin exam: Present: dry, intact Internal Medicine: Result - Labs CBC & Chem 7: 11/24/17 05:16 11/23/17 07:16 Labs: Short CBC 11/23/17 11/23/17 11/24/17 Range/Units 17:06 22:31 05:16 WBC 5.6 (4.3-11.1) K/mcL Hgb 11.3 L 11.1 L 10.6 L (11.5-15.4) g/dL Hct 36.0 35.0 L 32.6 L (35.3-44.9) % Plt Count 230 (140-400) K/mcL Neutrophils # 2.8 (1.6-8.9) K/mcL - ABG Interpretation ABG results: PT/INR, D-dimer PT 10.6 Seconds (9.4-12.1) 11/22/17 19:20 Consult Discharge Plan - Plan Referrals: Shahriar Vaughn MD [Non-Partnered Physician] - 12/25/17 9:00 am NONE,PCP [Primary Care Provider] -
[2017-11-24] MEDS: Acetaminophen 325 MG TABLET PO PRN (22:38)
[2017-11-25] MEDS: 0.9 % Sodium Chloride 1,000 ML IVC SCH ×3 (04:54→16:24)
[2017-11-25] MEDS: Pantoprazole 40 MG VIAL IVP SCH ×2 (05:48→17:41)
[2017-11-25] MEDS: Acetaminophen 325 MG TABLET PO PRN (05:48)
[2017-11-25 06:54] LABS: Hematocrit 34.5 % (35.3-44.9); Hemoglobin 11.1 g/dL (11.5-15.4); Mean Corpuscular HGB Conc 32.2 g/dL (31.6-35.5); Mean Corpuscular Hemoglobin 30.8 pg (28.0-33.3); Mean Corpuscular Volume 95.8 fL (83.0-100.0); Mean Platelet Volume 9.1 fL (9.4-12.4); Platelet Count 240 K/mcL (140-400); Red Cell Distribution Width 13.5 % (11.5-14.5)
[2017-11-25] MEDS: Insulin LISPRO 300 UNITS/3 ML VIAL SQ SCH ×4 (07:54→22:27)
[2017-11-25] MEDS ORDERED: Polyethylene Glycol 3350 255 GM POWDER PO ONE (11:18)
--- NOTE | 2017-11-25 12:23 | Internal Med Progress Note ---
Date of Encounter: 11/25/17 Time of Encounter: 12:15 - Assessment and plan (1) Lower GI bleed Current Visit: Yes Status: Acute Assessment and plan: occult stool positive. Had an episode of bright red blood via rectum after bowel movement on 11/24/17. Occult stool positive. Repeat Hgb remained stable in the 's. Discussed with Dr. Vaughn and will plan on bowel prep tonight with C scope in the morning. 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 Stable. Supportive care (3) Type 2 diabetes mellitus Current Visit: No Status: Chronic Assessment and plan: per hx. Blood sugars variable but acceptable. 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 She has multiple complaints including not being on home medications, not having hair washed, sore toes, and she is upset that her appointments were canceled. She denies abdominal pain, no further bleeding or loose stool overnight. Advised her that I discussed with Dr. Vaughn and he is willing to do scope tomorrow if she is agreeable to stay overnight. Patient prefers to stay overnight and have scope done in the morning. - Constitutional Vitals: Temp Pulse Resp BP Pulse Ox 98.0 F 67 14 154/82 97 11/25/17 11:46 11/25/17 11:46 11/25/17 11:46 11/25/17 11:46 11/25/17 11:46 General appearance: Present: A&O X 3, no acute distress, answers questions appropriately - Head Head exam: Present: atraumatic, normocephalic - Eye Eye exam: Present: PERRL, conjuntiva pink, sclera anicteric Pupils: Present: PERRL - Neck Neck exam general surgery: Present: supple, trachea midline. Absent: lymphadenopathy - Respiratory Respiratory exam: Present: CTAB. Absent: accessory muscle use, rales, rhonchi, wheezes - Cardiovascular Cardiovascular exam: Present: RRR, +S1, +S2. Absent: diastolic murmur, gallop, rubs, systolic murmur - GI/Abdominal GI/Abdominal exam: Present: normal bowel sounds, soft, no peritoneal signs. Absent: distended, tenderness - Extremities Exam Extremities exam: Present: warm, radial pulses palpable and symmetrical. Absent : calf tenderness, cyanotic, pedal edema - Neurological Exam Neurological exam: Present: CN II-XII intact, oriented X3, no focal deficits. Absent: pronater drift, facial droop, speech deficit - Skin Skin exam: Present: dry, intact Internal Medicine: Result - Labs CBC & Chem 7: 11/25/17 06:01 11/23/17 07:16 Labs: Short CBC 11/24/17 11/25/17 Range/Units 12:14 06:01 WBC 6.4 (4.3-11.1) K/mcL Hgb 11.2 L 11.1 L (11.5-15.4) g/dL Hct 34.2 L 34.5 L (35.3-44.9) % Plt Count 240 (140-400) K/mcL - ABG Interpretation ABG results: PT/INR, D-dimer PT 10.6 Seconds (9.4-12.1) 11/22/17 19:20 Consult Discharge Plan - Plan Referrals: Shahriar Vaughn MD [Non-Partnered Physician] - 12/25/17 9:00 am
[2017-11-25] MEDS ORDERED: traMADol 50 MG TABLET PO PRN (12:28)
[2017-11-25 13:46] LABS: Hemoglobin A1C 6.6 %
[2017-11-25] MEDS: Nystatin POWDER 30 GM BOTTLE TP SCH ×2 (15:13→22:34)
[2017-11-25] MEDS ORDERED: SODIUM CHLORIDE/NAHCO3/KCL/PEG 4,000 ML SOLN.RECON PO ONE (17:00)
--- NOTE | 2017-11-25 19:53 | Electrocardiograph Report ---
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
[2017-11-25] MEDS: rOPINIRole 1 MG TABLET PO SCH (22:24)
[2017-11-25] MEDS: Lisinopril 20 MG TABLET PO SCH (22:24)
[2017-11-26] MEDS ORDERED: Ondansetron 4 MG/2 ML VIAL IVP PRN (00:08)
[2017-11-26] MEDS: 0.9 % Sodium Chloride 1,000 ML IVC SCH ×2 (03:33→18:04)
[2017-11-26] MEDS: Pantoprazole 40 MG VIAL IVP SCH ×2 (05:20→18:06)
[2017-11-26 05:29] LABS: Hematocrit 36.2 % (35.3-44.9); Hemoglobin 11.7 g/dL (11.5-15.4); Mean Corpuscular HGB Conc 32.3 g/dL (31.6-35.5); Mean Corpuscular Hemoglobin 31.6 pg (28.0-33.3); Mean Corpuscular Volume 97.8 fL (83.0-100.0); Mean Platelet Volume 9.2 fL (9.4-12.4); Platelet Count 228 K/mcL (140-400); Red Cell Distribution Width 13.6 % (11.5-14.5)
[2017-11-26] MEDS: Insulin LISPRO 300 UNITS/3 ML VIAL SQ SCH ×3 (07:53→18:00)
[2017-11-26] MEDS: Lisinopril 20 MG TABLET PO SCH ×2 (09:38→22:26)
[2017-11-26] MEDS: Nystatin POWDER 30 GM BOTTLE TP SCH (09:39)
--- NOTE | 2017-11-26 09:53 | Internal Med Progress Note ---
Date of Encounter: 11/26/17 Time of Encounter: 09:53 - Assessment and plan (1) Lower GI bleed Current Visit: Yes Status: Acute Assessment and plan: suspected. Reported bright red blood via rectum prior to arrival. Also with an episode of bright red blood via rectum after bowel movement on 11/24/17. Occult stool positive. Repeat Hgb remained stable in the 11's. Bowel prep completed. NPO for C-scope. 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 Stable. Supportive care. Concern for safe disposition as patient lives alone and PT/OT recommending SNF. Discussed with son on 11/26/17 and son agrees with SNF placement as well. factory worker assisting with safe disposition. (3) Type 2 diabetes mellitus Current Visit: No Status: Chronic Assessment and plan: per hx. Blood sugars variable but acceptable. 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 Follows with urology. Follow up outpatient as previously scheduled (5) Hypertension Current Visit: No Status: Chronic Assessment and plan: per hx. BP variable but acceptable. Continue home BP medication. Monitor BP and titrate PRN Qualifiers: Hypertension type: essential hypertension Qualified Code(s): I10 - Essential (primary) hypertension (6) Ankle fracture Current Visit: No Status: Acute Assessment and plan: hx bilateral ankle fx. PT/OT recommending SNF however patient refusing Qualifiers: Encounter type: subsequent encounter Fracture type: closed Laterality: unspecified laterality Fracture healing: with routine healing Qualified Code (s): S82.899D - Other fracture of unspecified lower leg, subsequent encounter for closed fracture with routine healing (7) DVT prophylaxis Current Visit: No Status: Acute Assessment and plan: SCDs with anemia - Subjective Interval history: Seen and examined at bedside; says she does not feel well and continues to have multiple complaints regarding overall care. Attempted to understand exact concerns she has however she frequently switches to different topics during conversation and is difficult to keep on task. She has no complaints other than wanting to get colonoscopy done and be able to eat and go home. Discussed with her PT/OT recommendations of SNF and patient is adamantly refusing. I discussed with son at length as well. Son would prefer patient go to SNF as she will be home most the day by herself and he is concerned for her safety. He also expressed concern over medication compliance. - Constitutional Vitals: Temp Pulse Resp BP Pulse Ox 98.2 F 65 15 125/69 96 11/26/17 06:57 11/26/17 06:57 11/26/17 06:57 11/26/17 06:57 11/26/17 06:57 General appearance: Present: A&O X 3, no acute distress, answers questions appropriately - Head Head exam: Present: atraumatic, normocephalic - Eye Eye exam: Present: PERRL, conjuntiva pink, sclera anicteric Pupils: Present: PERRL - Neck Neck exam general surgery: Present: supple, trachea midline. Absent: lymphadenopathy - Respiratory Respiratory exam: Present: CTAB. Absent: accessory muscle use, rales, rhonchi, wheezes - Cardiovascular Cardiovascular exam: Present: RRR, +S1, +S2. Absent: diastolic murmur, gallop, rubs, systolic murmur - GI/Abdominal GI/Abdominal exam: Present: normal bowel sounds, soft, no peritoneal signs. Absent: distended, tenderness - Additional comments: + estrella - Extremities Exam Extremities exam: Present: warm, radial pulses palpable and symmetrical. Absent : calf tenderness, cyanotic, pedal edema Additional comments: Right sided paralysis. - Neurological Exam Neurological exam: Present: CN II-XII intact, oriented X3, no focal deficits. Absent: pronater drift, facial droop, speech deficit - Skin Skin exam: Present: dry, intact Internal Medicine: Result - Labs CBC & Chem 7: 11/26/17 04:30 11/23/17 07:16 Labs: Short CBC 11/26/17 Range/Units 04:30 WBC 6.8 (4.3-11.1) K/mcL Hgb 11.7 (11.5-15.4) g/dL Hct 36.2 (35.3-44.9) % Plt Count 228 (140-400) K/mcL - ABG Interpretation ABG results: PT/INR, D-dimer PT 10.6 Seconds (9.4-12.1) 11/22/17 19:20 Consult Discharge Plan - Plan Referrals: Dary Claire CNP [Advanced Practice Nurse] - Shahriar Vaughn MD [Non-Partnered Physician] - 12/25/17 9:00 am
--- NOTE | 2017-11-26 13:56 | General Surgery Progress Note ---
Date of Encounter: 11/26/17 Time of Encounter: 13:55 - Assessment and Plan (1) Lower GI bleed Current Visit: Yes Status: Acute 82F with LGIB; currently resolved; will plan for colonoscopy today; Subjective Patient reports: no new complaints Objective Vital Signs - Last 8 Hours Temp Pulse Resp BP Pulse Ox 11/26/17 12:24 98.7 F 71 16 101/61 97 11/26/17 06:57 98.2 F 65 15 125/69 96 Intake and Output 11/25/17 11/26/17 11/26/17 23:59 07:59 15:59 Intake Total 1240 / 1240 1120 / 1120 553 / 553 Output Total 650 / 650 1450 / 1450 Balance 590 / 590 -330 / -330 553 / 553 Intake: IV Fluids 1000 / 1000 1000 / 1000 553 / 553 0.9 % Sodium Chloride 1,000 ML 1000 / 1000 1000 / 1000 553 / 553 @ 90 mls/hr IVC .[id number] CHANDRAKANT Rx# :[id number] Oral 240 / 240 120 / 120 Output: Urine 1250 / 1250 Catheter 650 / 650 200 / 200 Other: Meal NPO Stool Size Moderate Stool Consistency liquid Stool Characteristics Mucoid Stool Color Green Pale # Bowel Movement Diapers 1 Blood Glucose* 136 137 131 - General physical appearance no distress - Respiratory normal expansion, normal respiratory effort - Cardiovascular Cardiovascular exam: Present: RRR - Integumentary no rash - Neurologic CN 2-12 grossly intact - Labs 11/26/17 04:30 11/23/17 07:16 Diabetes panel 11/24/17 Range/Units 12:14 Hemoglobin A1c 6.6 H ( - 5.6) % Consult Discharge Plan - Plan Referrals: Dary Claire CNP [Advanced Practice Nurse] - Shahriar Vaughn MD [Non-Partnered Physician] - 12/25/17 9:00 am
[2017-11-26] MEDS ORDERED: *HR* FentaNYL (PF) 100 MCG/2 ML VIAL ONE (15:53)
[2017-11-26] MEDS ORDERED: *HR* Midazolam HCl 2 MG/2 ML VIAL IVP ONE (15:59)
[2017-11-26] MEDS ORDERED: *HR* Promethazine 25 MG/ML VIAL IVP ONE (15:59)
[2017-11-26] MEDS ORDERED: *HR* FentaNYL (PF) 100 MCG/2 ML VIAL IVP ONE (15:59)
--- NOTE | 2017-11-26 15:59 | Pre-Sedation Evaluation ---
Pre-sedation evaluation - Pre-sedation checklist Date of procedure: 11/26/17 Procedure: EGD, colonoscopy Recent Vitals: Last Vital Signs Temp 98.2 F 11/26/17 15:53 Pulse 77 11/26/17 15:53 Resp 18 11/26/17 15:53 BP 194/93 11/26/17 15:53 Pulse Ox 95 11/26/17 15:53 H&P (including ROS) documented in medical record: Yes Dietary Status: NPO after Midnight ASA Classification *see protocol: CLASS II-Mild systemic disease Plan of Care: Pt appropriate candidate for procedure/moderate/conscious sedation , Risks/benefits of procedure/sedation discussed w/ patient/family
[2017-11-26] MEDS: *HR* Midazolam HCl 5 MG/5 ML VIAL IVP ONE ×3 (16:10→16:32)
[2017-11-26] MEDS: rOPINIRole 1 MG TABLET PO SCH (22:26)
[2017-11-26] MEDS: Acetaminophen 325 MG TABLET PO PRN (22:26)
[2017-11-27] MEDS: Insulin LISPRO 300 UNITS/3 ML VIAL SQ SCH ×3 (05:24→13:30)
[2017-11-27] MEDS: Nystatin POWDER 30 GM BOTTLE TP SCH ×2 (05:25→08:41)
[2017-11-27] MEDS: 0.9 % Sodium Chloride 1,000 ML IVC SCH (05:27)
[2017-11-27] MEDS: Pantoprazole 40 MG VIAL IVP SCH (07:52)
[2017-11-27] MEDS: Lisinopril 20 MG TABLET PO SCH (08:36)
[2017-11-27] MEDS: Acetaminophen 325 MG TABLET PO PRN (08:46)
[2017-11-27 11:28] VITALS: BP 108/67
--- NOTE | 2017-11-27 11:54 | Discharge Summary ---
Orders not resulted at time of discharge: Pending orders 11/26/17 16:59 Surgical Pathology [PTH] Routine Date of Encounter: 11/27/17 Time of Encounter: 11:46 - Discharge Diagnosis (1) Lower GI bleed Priority: Primary Status: Acute Comments: suspected. Reported bright red blood via rectum prior to arrival with recurrent episode while inpatient. Occult stool positive. Underwent an EGD and C-scope on 11/26/2017 which showed normal esophagus, stomach and entire colon (biopsies taken from colon). Hgb stabilized in the 11's. She was discharged home with outpatient follow-up. 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 Stable. Supportive care. Concern for safe disposition as patient lives alone and PT/OT recommending SNF. Discussed with son on 11/26/17 who also agrees with SNF placement however patient adamantly refused. The conversation was revisited multiple times and patient refused to go to SNF. She was discharged home with [facility]. She is a high risk for further morbidity due to advanced age and multiple comorbidities. (3) Type 2 diabetes mellitus Priority: Secondary Status: Chronic Comments: per hx. Cont home diabetes medication regimen. Qualifiers: Diabetes mellitus complication status: without complication Diabetes mellitus rat exterminator insulin use: without rat exterminator use Qualified Code(s): E11.9 - Type 2 diabetes mellitus without complications (4) History of urinary retention Priority: Secondary Status: Acute Comments: has known urinary retention with chronic Luevano catheter. ABD CT showed urinary bladder wall thickening with resultant proximal hydronephrosis. Luevano catheter was changed on 11/26/2017 with adequate urinary output. Renal function stable. No complaints of dysuria or catheter discomfort. Follow-up with urology within 1-2 weeks (5) Hypertension Priority: Secondary Status: Chronic Comments: per hx. BP variable but acceptable. Continue home BP medication. Qualifiers: Hypertension type: essential hypertension Qualified Code(s): I10 - Essential (primary) hypertension (6) Ankle fracture Priority: Secondary Status: Acute Comments: hx bilateral ankle fx. PT/OT recommending SNF however patient refused as noted above Qualifiers: Encounter type: subsequent encounter Fracture type: closed Laterality: unspecified laterality Fracture healing: with routine healing Qualified Code (s): S82.899D - Other fracture of unspecified lower leg, subsequent encounter for closed fracture with routine healing Hospital course: Ms. Chong is a 82 year old female with PMH old CVA with left-sided paralysis, diabetes, chronic urinary retention and bilateral ankle fractures presented to [facility] on 11/22/2017 with complaints of bright red blood via rectum. She had an occult positive stool and underwent and EGD/C scope both of which were completely normal. Her hemoglobin stabilized in the 11's and she was discharged home in stable condition. Of note PT/OT recommended SNF discharge however patient adamantly refused spite multiple conversations. Please see assessment and plan for further details. Discharge discussed with: patient, family, nurse - Time Spent with Patient Total time spent providing and/or coordinating discharge services: - Discharge Medications Home Medications: Acetaminophen [Tylenol] 500 mg PO Q6HR PRN 04/07/17 [History] Allopurinol [Zyloprim] 300 mg PO DAILY 04/07/17 [History] Atorvastatin [Lipitor] 10 mg PO HS 04/07/17 [History] Esomeprazole Magnesium [Nexium] 40 mg PO DAILY 04/07/17 [History] Ropinirole HCl [Requip] 1 mg PO HS 04/07/17 [History] metFORMIN [Glucophage] 500 mg PO BIDWM 04/07/17 [History] Lisinopril [Zestril] 20 mg PO BID 09/22/17 [History] Oxybutynin [Ditropan] 5 mg PO TID 09/22/17 [History] Tramadol HCl [Ultram] 50 mg PO TID PRN 11/23/17 [History] Allergies/Adverse Reactions: 3 Allergy/AdvReac Type Severity Reaction Status Date / Time Amoxicillin [From Augmentin] Allergy Rash Verified 09/22/17 10:44 cephalexin [From Keflex] Allergy Rash Verified 09/22/17 10:44 clavulanic acid Allergy Rash Verified 09/22/17 10:44 [From Augmentin] diphenhydramine Allergy unsure Verified 09/22/17 10:44 [From Benadryl] meperidine [From Demerol] Allergy unsure Verified 09/22/17 10:44 phenytoin [From Dilantin] Allergy unsure Verified 09/22/17 10:44 Date of admission: 11/23/17 00:04 Primary care physician: PCP NONE Consults: 11/23/17 13:48 Consult to Occupational Therapy [CONS] Routine Comment: Evaluate, develop and implement POC Reason for Consult: Patient unwilling/unable to ambulate without silvia cane. Patient currently has [facility]. May need additional services/placement. Consult to Physical Therapy [CONS] Routine Comment: Evaluate, develop and implement POC Reason for Consult: Patient states unable to ambulate without silvia cane and refuses to get up with staff. Patient currently has [facility]. May need placement. Consult to Automotive Engineering Technician [CONS] Routine Reason for SW Consult: Patient currently has [facility]. May need placement due to weakness and unwilling to ambulate with staff. Discharging clinician: Elisha Hampton Anticipated date of discharge: 11/27/17 - Constitutional Vitals: Temp Pulse Resp BP Pulse Ox 98.3 F 67 16 108/67 97 11/27/17 11:22 11/27/17 11:22 11/27/17 11:22 11/27/17 11:22 11/27/17 11:22 General appearance: Present: A&O X 3, no acute distress, answers questions appropriately - Head Head exam: Present: atraumatic, normocephalic - Eye Eye exam: Present: PERRL, conjuntiva pink, sclera anicteric Pupils: Present: PERRL - Neck Neck exam general surgery: Present: supple, trachea midline. Absent: lymphadenopathy - Respiratory Respiratory exam: Present: CTAB. Absent: accessory muscle use, rales, rhonchi, wheezes - Cardiovascular Cardiovascular exam: Present: RRR, +S1, +S2. Absent: diastolic murmur, gallop, rubs, systolic murmur - GI/Abdominal GI/Abdominal exam: Present: normal bowel sounds, soft, no peritoneal signs. Absent: distended, tenderness - Extremities Exam Extremities exam: Present: warm, radial pulses palpable and symmetrical. Absent : calf tenderness, cyanotic, pedal edema Additional comments: left sided paralysis - Neurological Exam Neurological exam: Present: CN II-XII intact, oriented X3, no focal deficits. Absent: pronater drift, facial droop, speech deficit - Skin Skin exam: Present: dry, intact - Patient Status Disposition: Home Health Service Condition: Good Functional capacity at discharge: uses cane/walker Overall status at discharge: patient is progressing back to baseline - Discharge Instructions Follow Up With: Shahriar Vaughn MD [Non-Partnered Physician] - 12/25/17 9:00 am Robert Ha MD [Partnered Physician] - 12/04/17 2:45 pm - Diet and Activity Activity: ambulate only with your walker, as per physical therapy Diet: diabetic diet
--- NOTE | 2017-11-27 12:11 | Physician Discharge Referral ---
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 For more information, call the [place] Tobacco Quit Line at 0-411-AYDT-NOW. - Diet/Nutrition Diet/Nutrition Orders: Cardiac, No Concentrated Sweets - Activity Activity Orders: Ambulate, Walker - Services Needed Following services are medically necessary services: Nursing, Home Health Aide, Physical Therapy, Occupational Therapy, Med Social Work - Transfer Medications Home Medications: Acetaminophen [Tylenol] 500 mg PO Q6HR PRN 04/07/17 [History] Allopurinol [Zyloprim] 300 mg PO DAILY 04/07/17 [History] Atorvastatin [Lipitor] 10 mg PO HS 04/07/17 [History] Esomeprazole Magnesium [Nexium] 40 mg PO DAILY 04/07/17 [History] Ropinirole HCl [Requip] 1 mg PO HS 04/07/17 [History] metFORMIN [Glucophage] 500 mg PO BIDWM 04/07/17 [History] Lisinopril [Zestril] 20 mg PO BID 09/22/17 [History] Oxybutynin [Ditropan] 5 mg PO TID 09/22/17 [History] Tramadol HCl [Ultram] 50 mg PO TID PRN 11/23/17 [History] Allergies/Adverse Reactions: 3 Allergy/AdvReac Type Severity Reaction Status Date / Time Amoxicillin [From Augmentin] Allergy Rash Verified 09/22/17 10:44 cephalexin [From Keflex] Allergy Rash Verified 09/22/17 10:44 clavulanic acid Allergy Rash Verified 09/22/17 10:44 [From Augmentin] diphenhydramine Allergy unsure Verified 09/22/17 10:44 [From Benadryl] meperidine [From Demerol] Allergy unsure Verified 09/22/17 10:44 phenytoin [From Dilantin] Allergy unsure Verified 09/22/17 10:44 Certification: Further, I certify that my clinical findings support that this patient is homebound (i.e. absences from home require considerable and taxing effort and are for medical reasons or spiritism services or infrequently or short duration when for other reasons) because: Homebound Reason: Patient requires assistance of a person or device to safely leave home Attestation: My signature below is to certify that this patient is under my care and that I, or nurse practitioner, or a physician's assistant distribution manager working with me, has a face-to -face encounter with this patient.
--- NOTE | 2017-11-27 17:46 | Event Note ---
Date of Encounter: 11/27/17 Time of Encounter: 17:46 okay for discharge from surgery standpoint; okay to follow up in clinic for further consultation and discussion about hemorrhoids
== END 2017-11-27 18:43 | disposition home health service (06) | DRG 378 ==
LOC: 3BNU 18:00 → EMEROO 18:00 → 3BNU 22:20 → SUATTDRO 11-23 00:04 → 3ANU 11-24 03:28
PROVIDERS: ADMIT Internal Medicine; ATTEND Registered Nurse
PROC: ENDOCBX (2017-11-26 17:30)

== ENCOUNTER 2017-12-17 12:53 | Observation (INO) ==
[2017-12-17] MEDS ORDERED: Hyoscyamine SL 0.125 MG TAB.SUBL SL ONE (14:30)
[2017-12-17 14:55] LABS: Basophils % 0.5 %; Eosinophils % 0.5 %; Hematocrit 35.7 % (35.3-44.9); Hemoglobin 11.9 g/dL (11.5-15.4); Immature Granulocytes % 0.4 % (0-4); Lymphocytes # 1.1 K/mcL (0.6-4.6); Lymphocytes % 13.9 %; Mean Corpuscular HGB Conc 33.3 g/dL (31.6-35.5); Mean Corpuscular Hemoglobin 31.4 pg (28.0-33.3); Mean Corpuscular Volume 94.2 fL (83.0-100.0); Mean Platelet Volume 9.1 fL (9.4-12.4); Monocytes # 0.7 K/mcL (0.0-1.3); Neutrophils # 6.3 K/mcL (1.6-8.9); Platelet Count 280 K/mcL (140-400); Red Blood Count 3.79 M/mcL (3.82-4.97); Segmented Neutrophils % 76.7 %
[2017-12-17 15:20] LABS: Alanine Aminotransferase 8 Units/L (7-52); Albumin 3.6 g/dL (3.5-5.7); Albumin/Globulin Ratio 1.4 (1.1-2.2); Alkaline Phosphatase 68 Units/L (34-104); Aspartate Amino Transferase 11 Units/L (13-39); BUN/Creatinine Ratio 16 (6-26); Bilirubin,Direct 0.2 mg/dL (0.0-0.2); Bilirubin,Indirect 0.3 mg/dL (0.0-1.2); Bilirubin,Total 0.5 mg/dL (0.3-1.0); Blood Urea Nitrogen 9 mg/dL (8-23); Carbon Dioxide 25 mEq/L (23-29); Chloride 103 mEq/L (98-107); Globulin 2.6 g/dL (2.4-3.5); Glucose 113 mg/dL (70-105); Osmolality,Calculated 285 (280-300); Potassium 2.9 mEq/L (3.5-5.1); Sodium 138 mEq/L (136-145); Total Protein 6.2 g/dL (6.4-8.9); eGFR For African Americans > 60 (> 60); eGFR For Non-African Americans > 60 (> 60)
[2017-12-17 16:12] LABS: Bilirubin,Urine Negative (Negative); Blood,Urine Moderate (Negative); Clarity,Urine Turbid (Clear); Color,Urine Yellow (Yellow); Glucose,Urine (UA) Normal (Normal); Ketones,Urine Trace mg/dL (Negative); Leukocyte Esterase,Urine Large (Negative); Nitrite,Urine Positive (Negative); PH,Urine 6.5 pH Units (5.0-8.0); Protein,Urine >=1000 mg/dL (Neg-Trace); Specific Gravity,Urine 1.024 (1.010-1.025); Urobilinogen,Urine Normal (Normal)
[2017-12-17 16:14] LABS: Bacteria,Urine Few per hpf (None-Few); Hyaline Casts,Urine Few per lpf (None-Few); RBC,Urine 30-50 per hpf (0-3); Squamous Epithelial Cell,Urine Many per lpf (None-Few); WBC,Urine TNTC per hpf (0-3)
[2017-12-17] MEDS ORDERED: Potassium Chloride Elixir 20 MEQ/15 ML UDC PO ONE (17:06)
[2017-12-17 17:43] LABS: Adenovirus F 40/41 PCR Not detected (Not detect); Astrovirus PCR Not detected (Not detect); C.difficile Toxin A/B by PCR Not detected (Not detect); Campylobacter by PCR Not detected (Not detect); Cryptosporidium by PCR Not detected (Not detect); Cyclospora cayetanensis PCR Not detected (Not detect); E. coli O157 by PCR Not detected (Not detect); Entamoeba histolytica PCR Not detected (Not detect); Enteroaggregative E.coli(EAEC) Not detected (Not detect); Enteropathogenic E.coli(EPEC) Not detected (Not detect); Enterotoxigenic E.coli (ETEC) Not detected (Not detect); Giardia lamblia PCR Not detected (Not detect); Norovirus GI/GII PCR Not detected (Not detect); Plesiomonas shigelloides PCR Not detected (Not detect); Rotavirus A PCR Not detected (Not detect); Salmonella PCR Not detected (Not detect); Sapovirus PCR Not detected (Not detect); Shig/EnteroinvasiveE coli EIEC Not detected (Not detect); Shigalike tox-prod E coli STEC Not detected (Not detect); Vibrio PCR Not detected (Not detect); Vibrio cholerae PCR Not detected (Not detect); Yersinia enterocolitica PCR Not detected (Not detect)
--- NOTE | 2017-12-17 18:23 | Emergency Department Note ---
START Narrative - START START: I examined this patient and my medical decision-making was reviewed with the Resident Physician. I agree with the documented findings, disposition and treatment plan as described except to the extent set forth below. 82-year-old female presented to the emergency room for concerns for urinary tract infection as well as persistent diarrhea for the past couple weeks. She states she has had lots of uncontrollable diarrhea. She has been on some antibiotics for previous UTI. Concerns obviously for possible C. difficile colitis however her GI panel was negative. She was nitrite positive again on her urine. She does have a chronic indwelling Luevano catheter secondary to bladder dysfunction. Patient's potassium was also low at 2.9. Her last urine culture was susceptible to ampicillin and vancomycin. They grew out MRSA. We will treat her with some IV antibiotics as well as potassium supplementation and admit for observation.
--- NOTE | 2017-12-17 19:11 | Emergency Department Note ---
Disposition Clinical Impression: Hypokalemia UTI (urinary tract infection) Qualifiers: Urinary tract infection type: catheter-associated UTI Indwelling urinary catheter type: indwelling urethral catheter Encounter type: initial encounter Qualified Code(s): T83.511A - Infection and inflammatory reaction due to indwelling urethral catheter, initial encounter; N39.0 - Urinary tract infection , site not specified; N39.0 - Urinary tract infection, site not specified Disposition: Admitted As Inpatient Condition: Fair Referrals: Robert Ha MD [Primary Care Provider] - Time of Disposition: 19:16 General Adult HPI - General Chief complaint: ED General Medical Stated complaint: UTI/diarrhea Time Seen by Provider: 12/17/17 14:08 Source: patient, family Limitations: no limitations Nursing Notes Reviewed: Yes Vital Signs Reviewed: Yes - History of Present Illness HPI Narrative: Patient is an 82-year-old female who presents to [facility] ED with a chief complaint of suprapubic abdominal pain concerning for urinary tract infection. Patient states she has had these in the past and most recently was treated in the hospital with IV antibiotics. States the pain has been worsening over the last couple days. She has an indwelling Luevano catheter. This was just changed out this morning by her nursing staff. States she has felt hot and broken out in a sweat and her temperature has been 99. Denies any chest pain, difficulty breathing. Has had diarrhea ever since she left the hospital last time. States she had a colonoscopy when she was in the hospital and she has not had diarrhea stopped since then. Onset (ago): day(s) Location: abdomen Radiation: abdomen Pain Severity: severe Pain Scale: 10 Quality: aching Consistency: constant Improves with: nothing Worsens with: nothing Associated symptoms: Reports: fever/chills. Denies: chest pain, cough, nausea/ vomiting, shortness of breath, weakness Treatments Prior to Arrival: none - Related Data Home Medications Medication Instructions Recorded Confirmed Acetaminophen [Tylenol] 500 mg PO Q6HR PRN 04/07/17 11/23/17 Allopurinol [Zyloprim] 300 mg PO DAILY 04/07/17 11/23/17 Atorvastatin [Lipitor] 10 mg PO HS 04/07/17 11/23/17 Esomeprazole Magnesium [Nexium] 40 mg PO DAILY 04/07/17 11/23/17 Ropinirole HCl [Requip] 1 mg PO HS 04/07/17 11/23/17 metFORMIN [Glucophage] 500 mg PO BIDWM 04/07/17 11/23/17 Lisinopril [Zestril] 20 mg PO BID 09/22/17 11/23/17 Oxybutynin [Ditropan] 5 mg PO TID 09/22/17 11/23/17 Tramadol HCl [Ultram] 50 mg PO TID PRN 11/23/17 11/23/17 Allergies Allergy/AdvReac Type Severity Reaction Status Date / Time Amoxicillin [From Augmentin] Allergy Rash Verified 09/22/17 10:44 cephalexin [From Keflex] Allergy Rash Verified 09/22/17 10:44 clavulanic acid Allergy Rash Verified 09/22/17 10:44 [From Augmentin] diphenhydramine Allergy unsure Verified 09/22/17 10:44 [From Benadryl] meperidine [From Demerol] Allergy unsure Verified 09/22/17 10:44 phenytoin [From Dilantin] Allergy unsure Verified 09/22/17 10:44 All systems ED: reviewed and negative except as stated. Past Medical History - Past Medical History Attestation: Yes The following information was validated with the patient. Source: patient Medical history: Reports: CVA, diabetes, GERD, hyperlipidemia, hypertension, other Surgical history: Reports: cholecystectomy, FALGUNI/BSO Psychiatric history: Reports: no psych history LOLLYPOP MACHINE OPERATOR history: Reports: no LOLLYPOP MACHINE OPERATOR history - Social History Smoking Status: Never smoker Smokeless Tobacco Status: No Alcohol use: Reports: rarely Drug use: Reports: none Physical Exam - General Limitations: no limitations General appearance: alert - Head Head exam: atraumatic, normocephalic, normal inspection - Eye Eye exam: Present: normal appearance, EOMI - ENT ENT exam: normal exam, normal oropharynx, mucous membranes moist - Neck Neck exam: Present: normal inspection, full ROM, trachea midline - Chest Chest inspection: Present: normal inspection, symmetric chest wall rise - Respiratory Respiratory exam: Present: normal lung sounds bilaterally - Cardiovascular Cardiovascular exam: Present: normal rhythm, tachycardia - Abdominal Exam Abdominal exam: Present: soft, tenderness, normal bowel sounds. Absent: distention, guarding, rebound, rigidity Abdominal tenderness: Present: suprapubic, diffuse, moderate - Extremities Exam Extremities exam: Present: normal inspection, full ROM. Absent: tenderness, pedal edema - Back Exam Back exam: Present: normal inspection, full ROM. Absent: tenderness - Neurological Exam Neurological exam: Present: alert, oriented X3 - Psychiatric Psychiatric exam: Present: normal affect, normal mood - Skin Skin exam: Present: warm, dry, intact, normal color Course Course Narrative: Patient seen and examined. Patient complaining of urinary tract infection. Basic lab work, UA, and CT of the abdomen and pelvis ordered due to her severe pain. Levsin ordered to help with bladder spasm pain. GI panel ordered to evaluate her diarrhea since it has been going on for multiple weeks. - Reevaluation(s) Reevaluation #1: GI panel negative for any infectious pathology. Urinalysis did show signs of urinary tract infection. CT scan also shows worsening cystitis. We will place her on vancomycin due to her prior resistance to other antibiotics and her penicillin allergy. Her potassium was noted to be low at 2.9 to she was given oral 40 mEq replacement. I discussed with hospitalist and patient has been accepted for admission. Time: 19:15 Vital Signs Temperature 99.3 F 12/17/17 13:10 Pulse Rate 103 12/17/17 13:10 Respiratory Rate 18 12/17/17 13:10 Blood Pressure 148/82 12/17/17 13:10 O2 Sat by Pulse Oximetry 99 12/17/17 13:10 Temperature 99.3 F 12/17/17 13:10 Pulse Rate 104 12/17/17 16:49 Respiratory Rate 18 12/17/17 16:49 Blood Pressure 157/83 12/17/17 16:49 O2 Sat by Pulse Oximetry 95 12/17/17 16:49 Oxygen Delivery Oxygen Delivery Room Air Medical Decision Making - Medical Records Medical records reviewed: Yes I reviewed the patient's medical records. - Lab Data Lab results reviewed: Yes I reviewed the patient's lab results. Result diagrams: 12/17/17 14:38 12/17/17 14:38 Lab Results 12/17/17 12/17/17 12/17/17 Range/Units 14:38 14:38 14:38 WBC 8.2 (4.3-11.1) K/mcL RBC 3.79 L (3.82-4.97) M/mcL Hgb 11.9 (11.5-15.4) g/dL Hct 35.7 (35.3-44.9) % MCV 94.2 (83.0-100.0) fL MCH 31.4 (28.0-33.3) pg MCHC 33.3 (31.6-35.5) g/dL RDW 14.0 (11.5-14.5) % Plt Count 280 (140-400) K/mcL MPV 9.1 L (9.4-12.4) fL Immature Gran % 0.4 (0-4) % Seg Neutrophils % 76.7 % Lymphocytes % 13.9 % Monocytes % 8.0 % Eosinophils % 0.5 % Basophils % 0.5 % Neutrophils # 6.3 (1.6-8.9) K/mcL Lymphocytes # 1.1 (0.6-4.6) K/mcL Monocytes # 0.7 (0.0-1.3) K/mcL Eosinophils # 0.0 (0.0-0.6) K/mcL Basophils # 0.0 (0.0-0.2) K/mcL Sodium 138 (136-145) mEq/L Potassium 2.9 L (3.5-5.1) mEq/L Chloride 103 (98-107) mEq/L Carbon Dioxide 25 (23-29) mEq/L BUN 9 (8-23) mg/dL Creatinine 0.57 L (0.60-1.20) mg/dL Est GFR ( Amer) > 60 (> 60) Est GFR (Non-Af Amer) > 60 (> 60) BUN/Creatinine Ratio 16 (6-26) Glucose 113 H (70-105) mg/dL Calculated Osmolality 285 (280-300) Lactic Acid 1.1 (0.5-2.2) mmol/L Calcium 9.0 (8.6-10.3) mg/dL Total Bilirubin 0.5 (0.3-1.0) mg/dL Direct Bilirubin 0.2 (0.0-0.2) mg/dL Indirect Bilirubin 0.3 (0.0-1.2) mg/dL AST 11 L (13-39) Units/L ALT 8 (7-52) Units/L Alkaline Phosphatase 68 (34-104) Units/L Serum Total Protein 6.2 L (6.4-8.9) g/dL Albumin 3.6 (3.5-5.7) g/dL Globulin 2.6 (2.4-3.5) g/dL Albumin/Globulin Ratio 1.4 (1.1-2.2) Urine Color (Yellow) Urine Clarity (Clear) Urine pH (5.0-8.0) pH Units Ur Specific [place] (1.010-1.025) Urine Protein (Neg-Trace) mg/dL Urine Glucose (UA) (Normal) mg/dL Urine Ketones (Negative) mg/dL Urine Blood (Negative) Urine Nitrite (Negative) Urine Bilirubin (Negative) Urine Urobilinogen (Normal) mg/dL Ur Leukocyte Esterase (Negative) Urine Microscopic RBC (0-3) per hpf Urine Microscopic WBC (0-3) per hpf Ur Squamous Epith Cells (None-Few) per lpf Urine Bacteria (None-Few) per hpf Hyaline Casts (None-Few) per lpf Ur Culture Indicated? (NO) Stl C. cayetanensis PCR (Not detect) Stool Rotavirus A PCR (Not detect) Stl Adenov F 40/41 PCR (Not detect) Stool Astrovirus (PCR) (Not detect) Stool Campylobacter PCR (Not detect) Stl C. diff Tox A/B PCR (Not detect) Stool Cryptosporidium PCR (Not detect) Stl Sh Tox Pr E STEC PCR (Not detect) Stool E coli O157 PCR (Not detect) Stl Enterotoxigenic E PCR (Not detect) Stool EPEC (PCR) (Not detect) Stool EAEC (PCR) (Not detect) Stl E. histolytica PCR (Not detect) Stool Giardia Lamblia PCR (Not detect) Stool Salmonella PCR (Not detect) Stool Sapovirus (PCR) (Not detect) Stl P. shigelloides PCR (Not detect) Stl Shigella/EIEC PCR (Not detect) St Y.enterocolitica PCR (Not detect) Stool Vibrio (PCR) (Not detect) Stl Vibrio cholerae PCR (Not detect) Stl Norovirus GI/GII PCR (Not detect) Stl GI Panel (PCR) Com 12/17/17 12/17/17 Range/Units 15:50 16:10 WBC (4.3-11.1) K/mcL RBC (3.82-4.97) M/mcL Hgb (11.5-15.4) g/dL Hct (35.3-44.9) % MCV (83.0-100.0) fL MCH (28.0-33.3) pg MCHC (31.6-35.5) g/dL RDW (11.5-14.5) % Plt Count (140-400) K/mcL MPV (9.4-12.4) fL Immature Gran % (0-4) % Seg Neutrophils % % Lymphocytes % % Monocytes % % Eosinophils % % Basophils % % Neutrophils # (1.6-8.9) K/mcL Lymphocytes # (0.6-4.6) K/mcL Monocytes # (0.0-1.3) K/mcL Eosinophils # (0.0-0.6) K/mcL Basophils # (0.0-0.2) K/mcL Sodium (136-145) mEq/L Potassium (3.5-5.1) mEq/L Chloride (98-107) mEq/L Carbon Dioxide (23-29) mEq/L BUN (8-23) mg/dL Creatinine (0.60-1.20) mg/dL Est GFR ( Amer) (> 60) Est GFR (Non-Af Amer) (> 60) BUN/Creatinine Ratio (6-26) Glucose (70-105) mg/dL Calculated Osmolality (280-300) Lactic Acid (0.5-2.2) mmol/L Calcium (8.6-10.3) mg/dL Total Bilirubin (0.3-1.0) mg/dL Direct Bilirubin (0.0-0.2) mg/dL Indirect Bilirubin (0.0-1.2) mg/dL AST (13-39) Units/L ALT (7-52) Units/L Alkaline Phosphatase (34-104) Units/L Serum Total Protein (6.4-8.9) g/dL Albumin (3.5-5.7) g/dL Globulin (2.4-3.5) g/dL Albumin/Globulin Ratio (1.1-2.2) Urine Color Yellow (Yellow) Urine Clarity Turbid A (Clear) Urine pH 6.5 (5.0-8.0) pH Units Ur Specific [place] 1.024 (1.010-1.025) Urine Protein >=1000 H (Neg-Trace) mg/dL Urine Glucose (UA) Normal (Normal) mg/dL Urine Ketones Trace H (Negative) mg/dL Urine Blood Moderate H (Negative) Urine Nitrite Positive A (Negative) Urine Bilirubin Negative (Negative) Urine Urobilinogen Normal (Normal) mg/dL Ur Leukocyte Esterase Large H (Negative) Urine Microscopic RBC 30-50 H (0-3) per hpf Urine Microscopic WBC TNTC H (0-3) per hpf Ur Squamous Epith Cells Many H (None-Few) per lpf Urine Bacteria Few (None-Few) per hpf Hyaline Casts Few (None-Few) per lpf Ur Culture Indicated? NO. (NO) Stl C. cayetanensis PCR Not detected (Not detect) Stool Rotavirus A PCR Not detected (Not detect) Stl Adenov F 40/41 PCR Not detected (Not detect) Stool Astrovirus (PCR) Not detected (Not detect) Stool Campylobacter PCR Not detected (Not detect) Stl C. diff Tox A/B PCR Not detected (Not detect) Stool Cryptosporidium PCR Not detected (Not detect) Stl Sh Tox Pr E STEC PCR Not detected (Not detect) Stool E coli O157 PCR Not detected (Not detect) Stl Enterotoxigenic E PCR Not detected (Not detect) Stool EPEC (PCR) Not detected (Not detect) Stool EAEC (PCR) Not detected (Not detect) Stl E. histolytica PCR Not detected (Not detect) Stool Giardia Lamblia PCR Not detected (Not detect) Stool Salmonella PCR Not detected (Not detect) Stool Sapovirus (PCR) Not detected (Not detect) Stl P. shigelloides PCR Not detected (Not detect) Stl Shigella/EIEC PCR Not detected (Not detect) St Y.enterocolitica PCR Not detected (Not detect) Stool Vibrio (PCR) Not detected (Not detect) Stl Vibrio cholerae PCR Not detected (Not detect) Stl Norovirus GI/GII PCR Not detected (Not detect) Stl GI Panel (PCR) Com See below - Radiology Data Radiology results reviewed: Yes I reviewed the patient's radiology results. Abdomen/Pelvis CT 12/17/17 14:29 IMPRESSION: Worsened severe cystitis. D/ / 12/17/2017 15:59:53 Kavin Zuniga MD / [facility] Interpreting Provider: Kavin Zuniga MD
--- NOTE | 2017-12-17 20:02 | Internal Med History&Physical ---
<Todd Lorenz Sandra - Last Filed: 12/18/17 05:16> Date of Encounter: 12/18/17 Time of Encounter: 19:25 Assessment and Plan (1) Hypokalemia Status: Acute Potassium 2.9. Likely secondary to diarrhea. Otherwise BMP unremarkable Given 40 mEq of potassium by mouth in the emergency department, will give 40 more IV Mag 1.5. 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 No leukocytosis UA shows positive nitrites, leuk esterase, bacteria, and WBCs Urine culture pending Continue vancomycin and routine urinary catheter care Qualifiers: Urinary tract infection type: catheter-associated UTI Indwelling urinary catheter type: indwelling urethral catheter Encounter type: initial encounter Qualified Code(s): T83.511A - Infection and inflammatory reaction due to indwelling urethral catheter, initial encounter; N39.0 - Urinary tract infection , site not specified; N39.0 - Urinary tract infection, site not specified (3) Diarrhea Status: Acute GI panel negative. No hematochezia, melena, or N/V. 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 Will resume home meds and monitor Qualifiers: Hypertension type: essential hypertension Qualified Code(s): I10 - Essential (primary) hypertension (6) Type 2 diabetes mellitus Status: Chronic Hold metformin. Sliding scale insulin with accuchecks ACHS. Last A1c 5.6% on Qualifiers: Diabetes mellitus prison insulin use: without prison use Diabetes mellitus complication status: without complication Qualified Code(s): E11.9 - Type 2 diabetes mellitus without complications (7) DVT prophylaxis Status: Acute [facility] Internal Medicine - H&P: HPI Chief complaint: Abdominal Pain/UTI Admitted From: Emergency Dept History of present illness: Ms. Chong is a 82 year old female with PMH of CVA with residual left-sided weakness, bladder dysfunction with chronic indwelling catheter, HTN, HLD, and DM , presented to the emergency department with severe, constant, suprapubic abdominal pain that has been increasing for the past several days. She does have a chronic indwelling urinary catheter due to bladder dysfunction, and this was changed this morning by home health nursing staff. She reports that there is no aggravating or alleviating factors to her pain. She was recently discharged from the hospital on 11/27/17 for GI bleed and UTI on IV antibiotics. Associated symptoms include diaphoresis and chills (temp 99). She reports that she has had frequent diarrhea since she was last discharged from the hospital, described as loose and sometimes watery. She denies other complaints. Denies fevers, syncope, light-headedness, falls, headache, dyspnea, cough, chest pain, palpitations, nausea, vomiting, hematochezia, melena, hematuria, or leg pain/ swelling. Past Med Surg Social Fam HX - Past Medical History Medical history: CVA, diabetes, GERD, hyperlipidemia, hypertension, other Psychiatric history: no psych history - Past Surgical History Surgical History: cholecystectomy, FALGUNI/BSO - Social History Smoking Status: Never smoker Smokeless Tobacco Status: No Alcohol use: rarely Drug use: none - Family History Mother Living Status: Hx Family Cardiac Disorders: No Hx Family Endocrine Disorder: Yes (DM) Father Living Status: Hx Family Cardiac Disorders: Yes ([place]) Internal Medicine - H&P: Meds Acetaminophen [Tylenol] 500 mg PO Q6HR PRN 04/07/17 [History] Allopurinol [Zyloprim] 300 mg PO DAILY 04/07/17 [History] Atorvastatin [Lipitor] 10 mg PO HS 04/07/17 [History] Esomeprazole Magnesium [Nexium] 40 mg PO DAILY 04/07/17 [History] metFORMIN [Glucophage] 500 mg PO BIDWM 04/07/17 [History] Lisinopril [Zestril] 20 mg PO BID 09/22/17 [History] Melatonin 10 - 15 mg PO HS 12/17/17 [History] Loperamide [Imodium] 2 mg PO Q4HR PRN #30 capsule 12/20/17 [Rx] levoFLOXacin [Levaquin] 500 mg PO DAILY #7 tablet 12/20/17 [Rx] 3 Allergy/AdvReac Type Severity Reaction Status Date / Time Amoxicillin [From Augmentin] Allergy Rash Verified 09/22/17 10:44 cephalexin [From Keflex] Allergy Rash Verified 09/22/17 10:44 clavulanic acid Allergy Rash Verified 09/22/17 10:44 [From Augmentin] diphenhydramine Allergy unsure Verified 09/22/17 10:44 [From Benadryl] meperidine [From Demerol] Allergy unsure Verified 09/22/17 10:44 phenytoin [From Dilantin] Allergy unsure Verified 09/22/17 10:44 All Systems PM: A 10-system review of systems was performed and is negative for pertinent findings except as documented above in the HPI. - Constitutional Vitals: Temp Pulse Resp BP Pulse Ox 99.3 F 104 18 157/83 95 12/17/17 13:10 12/17/17 16:49 12/17/17 16:49 12/17/17 16:49 12/17/17 16:49 General appearance: Present: A&O X 3, no acute distress, answers questions appropriately - Head Head exam: Present: atraumatic, normocephalic - Eye Eye exam: Present: EOMI, PERRL, conjuntiva pink, sclera anicteric - Neck Neck exam general surgery: Present: supple, trachea midline. Absent: lymphadenopathy - Respiratory Respiratory exam: Present: CTAB. Absent: accessory muscle use, rales, rhonchi, wheezes - Cardiovascular Cardiovascular exam: Present: RRR, +S1, +S2. Absent: diastolic murmur, systolic murmur - GI/Abdominal GI/Abdominal exam: Present: normal bowel sounds, soft, tenderness (lower abdominal, suprapubic), no peritoneal signs. Absent: distended, firm, guarding , rebound, rigid - Extremities Exam Extremities exam: Present: pedal edema (mild bilaterally), warm, radial pulses palpable and symmetrical. Absent: calf tenderness, cyanotic - Neurological Exam Neurological exam: Present: CN II-XII intact, oriented X3, no focal deficits. Absent: pronater drift, facial droop, speech deficit - Skin Skin exam: Present: dry, intact Internal Med - H&P Results - Labs CBC & Chem 7: 12/18/17 03:15 12/18/17 03:15 <Becki Nicole - Last Filed: 01/09/18 08:27> Date of Encounter: 12/17/17 Internal Medicine - H&P: HPI History of present illness: Ms. Chong is a 82 year old female All Systems PM: A 10-system review of systems was performed and is negative for pertinent findings except as documented above in the HPI. - Constitutional Vitals: Temp Pulse Resp BP Pulse Ox 97.6 F 71 18 131/81 98 12/20/17 07:32 12/20/17 07:32 12/20/17 07:32 12/20/17 07:32 12/20/17 07:32 Internal Med - H&P Results - Labs CBC & Chem 7: 12/19/17 04:46 12/19/17 04:46 - Impressions ITS Impressions Ankle X-Ray 12/18/17 12:27 IMPRESSION: No acute osseous abnormalities. Severe osteopenia. D/ / Brayan López MD / Brayan López MD Interpreting Provider: Brayan López MD - Attending Attestation I personally and independently interviewed and examined the patient, and I reviewed the patient's medical record . I am in agreement with the resident's assessment and proposed treatment plan. I discussed my findings and recommendation with the patient and answer all questions. The patient's medical records were edited to accurately reflect this encounter.
[2017-12-17] MEDS ORDERED: Acetaminophen 325 MG TABLET PO PRN (20:46)
[2017-12-17] MEDS ORDERED: Naloxone 0.4 MG/ML INJ IVP PRN (20:46)
[2017-12-17] MEDS ORDERED: D5% in Water 1,000 ML IVC PRN (20:57)
[2017-12-17] MEDS ORDERED: *HR* Dextrose 50 % in Water (Syg) 50 ML SYRINGE IVP PRN (20:57)
[2017-12-17] MEDS ORDERED: Dextrose Gel 15 GM/37.5 ML TUBE PO PRN ×2 (20:57)
[2017-12-17 21:09] LABS: Magnesium 1.5 mg/dL (1.6-2.6)
[2017-12-17] MEDS ORDERED: Potassium Chloride 40 MEQ, Lidocaine 1% 2 ML in D5% in Water 500 ML IVPB ONE (21:10)
[2017-12-17] MEDS: Insulin LISPRO 300 UNITS/3 ML VIAL SQ SCH (21:36)
[2017-12-17] MEDS: Melatonin 3 MG TABLET PO SCH (21:37)
[2017-12-17] MEDS: Lisinopril 20 MG TABLET PO SCH (21:37)
[2017-12-18] MEDS: *HR* HYDROcodone/Acet 5/325 mg TABLET PO PRN ×4 (01:10→23:37)
[2017-12-18 03:48] LABS: Basophils % 0.1 %; Eosinophils # 0.2 K/mcL (0.0-0.6); Eosinophils % 1.9 %; Hematocrit 33.6 % (35.3-44.9); Hemoglobin 11.1 g/dL (11.5-15.4); Immature Granulocytes % 0.4 % (0-4); Lymphocytes # 0.6 K/mcL (0.6-4.6); Lymphocytes % 6.3 %; Mean Corpuscular Hemoglobin 31.2 pg (28.0-33.3); Mean Corpuscular Volume 94.4 fL (83.0-100.0); Mean Platelet Volume 9.2 fL (9.4-12.4); Monocytes # 0.7 K/mcL (0.0-1.3); Monocytes % 7.5 %; Neutrophils # 7.5 K/mcL (1.6-8.9); Platelet Count 267 K/mcL (140-400); Red Blood Count 3.56 M/mcL (3.82-4.97); Segmented Neutrophils % 83.8 %
[2017-12-18 04:47] LABS: BUN/Creatinine Ratio 12 (6-26); Blood Urea Nitrogen 8 mg/dL (8-23); Calcium 8.3 mg/dL (8.6-10.3); Carbon Dioxide 23 mEq/L (23-29); Chloride 109 mEq/L (98-107); Glucose 184 mg/dL (70-105); Osmolality,Calculated 289 (280-300); Sodium 138 mEq/L (136-145); eGFR For African Americans > 60 (> 60); eGFR For Non-African Americans > 60 (> 60)
[2017-12-18] MEDS: *HR* Enoxaparin 40 MG/0.4 ML SYRINGE SQ SCH (06:08)
[2017-12-18] MEDS: Insulin LISPRO 300 UNITS/3 ML VIAL SQ SCH ×4 (08:53→21:26)
[2017-12-18] MEDS: Lisinopril 20 MG TABLET PO SCH ×2 (08:55→21:25)
--- NOTE | 2017-12-18 12:33 | Event Note ---
Date of Encounter: 12/18/17 Time of Encounter: 12:28 Patient seen and examined. Admitted overnight by one of my colleagues and is being treated for acute cystitis. She also has been having loose stools for the last few days. Up to 10 of Coumadin today. They are watery. Tested negative for C. difficile. Patient has positive nitrites from her urine. Was started on vancomycin based on previous cultures of enterococcus. She does have nitrites and if we are going to treat the urinary tract infection she will need to be on gram-negative coverage. Given the fact that the patient has a chronic Luevano and her Luevano was changed yesterday, I will repeat a UA before I add any antibiotics. Of note the patient has no urinary symptoms however she has left-sided paralysis. She is been afebrile. She has no white count. I am reluctant continue antibiotics. Will decide based on repeat UA. Patient had a left ankle fracture back in March and does not she continues to have pain. At the time she was seen by orthopedics recommended nonoperative management. We will repeat ankle x-rays.
[2017-12-18 14:43] LABS: Bilirubin,Urine Negative (Negative); Blood,Urine Negative (Negative); Color,Urine Yellow (Yellow); Glucose,Urine (UA) Normal (Normal); Ketones,Urine Negative (Negative); Leukocyte Esterase,Urine Large (Negative); Nitrite,Urine Negative (Negative); Protein,Urine Negative (Neg-Trace); Specific Gravity,Urine 1.023 (1.010-1.025); Urobilinogen,Urine Normal (Normal)
[2017-12-18 14:45] LABS: Bacteria,Urine None Seen per hpf (None-Few); Clarity,Urine Slightly Cloudy (Clear); Hyaline Casts,Urine Few per lpf (None-Few); Squamous Epithelial Cell,Urine Few per lpf (None-Few); WBC,Urine TNTC per hpf (0-3)
[2017-12-18] MEDS: Melatonin 3 MG TABLET PO SCH (21:25)
[2017-12-19 05:04] LABS: Basophils % 0.4 %; Eosinophils # 0.3 K/mcL (0.0-0.6); Eosinophils % 5.7 %; Hematocrit 35.5 % (35.3-44.9); Hemoglobin 11.5 g/dL (11.5-15.4); Immature Granulocytes % 0.5 % (0-4); Lymphocytes # 1.4 K/mcL (0.6-4.6); Lymphocytes % 24.2 %; Mean Corpuscular HGB Conc 32.4 g/dL (31.6-35.5); Mean Corpuscular Hemoglobin 31.3 pg (28.0-33.3); Mean Corpuscular Volume 96.7 fL (83.0-100.0); Mean Platelet Volume 9.4 fL (9.4-12.4); Monocytes # 0.4 K/mcL (0.0-1.3); Monocytes % 6.4 %; Neutrophils # 3.5 K/mcL (1.6-8.9); Platelet Count 218 K/mcL (140-400); Red Blood Count 3.67 M/mcL (3.82-4.97); Red Cell Distribution Width 14.3 % (11.5-14.5); Segmented Neutrophils % 62.8 %
[2017-12-19 05:16] LABS: BUN/Creatinine Ratio 10 (6-26); Blood Urea Nitrogen 7 mg/dL (8-23); Calcium 8.5 mg/dL (8.6-10.3); Carbon Dioxide 23 mEq/L (23-29); Chloride 106 mEq/L (98-107); Glucose 114 mg/dL (70-105); Magnesium 1.9 mg/dL (1.6-2.6); Osmolality,Calculated 277 (280-300); Potassium 4.2 mEq/L (3.5-5.1); Sodium 134 mEq/L (136-145); eGFR For African Americans > 60 (> 60); eGFR For Non-African Americans > 60 (> 60)
[2017-12-19] MEDS: *HR* Enoxaparin 40 MG/0.4 ML SYRINGE SQ SCH (06:03)
[2017-12-19] MEDS: Insulin LISPRO 300 UNITS/3 ML VIAL SQ SCH ×4 (07:50→21:09)
[2017-12-19] MEDS: Lisinopril 20 MG TABLET PO SCH ×2 (08:17→21:09)
[2017-12-19] MEDS: *HR* HYDROcodone/Acet 5/325 mg TABLET PO PRN ×2 (08:34→19:28)
--- NOTE | 2017-12-19 11:30 | Internal Med Progress Note ---
Date of Encounter: 12/19/17 Time of Encounter: 11:28 - Assessment and plan (1) Diarrhea Current Visit: Yes Status: Acute Assessment and plan: This is likely viral gastroenteritis. Negative C. difficile. Symptomatically treatment with Imodium. Qualifiers: Diarrhea type: unspecified type Qualified Code(s): R19.7 - Diarrhea, unspecified (2) UTI (urinary tract infection) Current Visit: Yes Status: Acute Assessment and plan: Repeat UA showed no nitrites. Continue vancomycin for now. Will not add gram- negative coverage. Follow up on cultures from repeat UA. Qualifiers: Urinary tract infection type: catheter-associated UTI Indwelling urinary catheter type: indwelling urethral catheter Encounter type: initial encounter Qualified Code(s): T83.511A - Infection and inflammatory reaction due to indwelling urethral catheter, initial encounter; N39.0 - Urinary tract infection , site not specified; N39.0 - Urinary tract infection, site not specified (3) Hypertension Current Visit: Yes Status: Chronic Assessment and plan: Continue lisinopril. Qualifiers: Hypertension type: essential hypertension Qualified Code(s): I10 - Essential (primary) hypertension (4) Type 2 diabetes mellitus Current Visit: Yes Status: Chronic Assessment and plan: Continue insulin sliding scale. Continue Accu-Cheks. 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 - Subjective Interval history: Patient seen and examined. No acute events. Feels well. MAXIMUM TEMPERATURE of 99.0. Admitted is being treated for acute cystitis. She also has been having loose stools for the last few days. Up to 10 of over the midday. They are watery. Tested negative for C. difficile. Patient has positive nitrites from her urine but that was from the urinary catheter. A repeat UA was done when the Luevano catheter was changed and showed no nitrites. Still showed large leuk esterase. Was started on vancomycin based on previous cultures of enterococcus. Of note the patient has no urinary symptoms however she has left- sided paralysis. She has no white count. Patient had a left ankle fracture and repeat x-rays were unremarkable. - Constitutional Vitals: Temp Pulse Resp BP Pulse Ox 98.7 F 74 18 120/75 96 12/19/17 07:48 12/19/17 07:48 12/19/17 07:48 12/19/17 07:48 12/19/17 07:48 General appearance: Present: A&O X 3, no acute distress, answers questions appropriately Exam: GEN: NAD CVS: RRR. S1, S2, No m/r/g RESP: CTAB ABD: Soft, NT, ND, +BS EXT: No edema. 2+ DP. No rashes NEURO: Nonfocal Internal Medicine: Result - Labs CBC & Chem 7: 12/19/17 04:46 12/19/17 04:46 Labs: Short CBC 12/19/17 Range/Units 04:46 WBC 5.6 (4.3-11.1) K/mcL Hgb 11.5 (11.5-15.4) g/dL Hct 35.5 (35.3-44.9) % Plt Count 218 (140-400) K/mcL Neutrophils # 3.5 (1.6-8.9) K/mcL BMP 12/19/17 04:46 Sodium 134 L Potassium 4.2 Chloride 106 Carbon Dioxide 23 BUN 7 L Creatinine 0.69 Glucose 114 H Calcium 8.5 L Urine 12/18/17 Range/Units 14:30 Urine Color Yellow (Yellow) Urine Clarity Slightly Cloudy A (Clear) Urine pH 7.0 (5.0-8.0) pH Units Ur Specific Percy 1.023 (1.010-1.025) Urine Protein Negative (Neg-Trace) mg/dL Urine Glucose (UA) Normal (Normal) mg/dL - Impressions Impressions Ankle X-Ray 12/18/17 12:27 IMPRESSION: No acute osseous abnormalities. Severe osteopenia. D/ / Brayan López MD / Brayan López MD Interpreting Provider: Brayan López MD Consult Discharge Plan - Plan Referrals: Robert Ha MD [Primary Care Provider] -
[2017-12-19] MEDS ORDERED: Aminoglycoside Consult 1 EACH MC ONE (14:49)
[2017-12-19] MEDS: cefTRIAXone 1,000 MG in Water for inj. (sterile) 20 ML 10 ML IVP SCH (15:49)
[2017-12-19] MEDS: Melatonin 3 MG TABLET PO SCH (21:09)
[2017-12-20] MEDS: *HR* HYDROcodone/Acet 5/325 mg TABLET PO PRN ×2 (02:15→09:01)
[2017-12-20] MEDS: *HR* Enoxaparin 40 MG/0.4 ML SYRINGE SQ SCH (06:29)
[2017-12-20 07:42] VITALS: BP 131/81
[2017-12-20] MEDS: Insulin LISPRO 300 UNITS/3 ML VIAL SQ SCH ×2 (07:52→11:22)
[2017-12-20] MEDS: Lisinopril 20 MG TABLET PO SCH (09:00)
[2017-12-20] MEDS: cefTRIAXone 1,000 MG in Water for inj. (sterile) 20 ML 10 ML IVP SCH (09:02)
--- NOTE | 2017-12-20 09:50 | Physician Discharge Referral ---
Home Health/Hosp Referral Info Transfer to: Home Health - Diagnosis (1) Diarrhea Priority: Primary Status: Acute (2) UTI (urinary tract infection) Priority: Primary Status: Acute (3) Hypertension Priority: Secondary Status: Chronic (4) Type 2 diabetes mellitus Priority: Secondary Status: Chronic - Respiratory Orders Smoking Cessation: Smoking cessation has been advised. For more information, call the [place] Tobacco Quit Line at 2-019-ICRT-NOW. - Services Needed Following services are medically necessary services: Nursing, Home Health Aide - Transfer Medications Prescriptions: levoFLOXacin [Levaquin] 500 mg PO DAILY #7 tablet Home Medications: Acetaminophen [Tylenol] 500 mg PO Q6HR PRN 04/07/17 [History] Allopurinol [Zyloprim] 300 mg PO DAILY 04/07/17 [History] Atorvastatin [Lipitor] 10 mg PO HS 04/07/17 [History] Esomeprazole Magnesium [Nexium] 40 mg PO DAILY 04/07/17 [History] metFORMIN [Glucophage] 500 mg PO BIDWM 04/07/17 [History] Lisinopril [Zestril] 20 mg PO BID 09/22/17 [History] Melatonin 10 - 15 mg PO HS 12/17/17 [History] levoFLOXacin [Levaquin] 500 mg PO DAILY #7 tablet 12/20/17 [Rx] Allergies/Adverse Reactions: 3 Allergy/AdvReac Type Severity Reaction Status Date / Time Amoxicillin [From Augmentin] Allergy Rash Verified 09/22/17 10:44 cephalexin [From Keflex] Allergy Rash Verified 09/22/17 10:44 clavulanic acid Allergy Rash Verified 09/22/17 10:44 [From Augmentin] diphenhydramine Allergy unsure Verified 09/22/17 10:44 [From Benadryl] meperidine [From Demerol] Allergy unsure Verified 09/22/17 10:44 phenytoin [From Dilantin] Allergy unsure Verified 09/22/17 10:44 Certification: Further, I certify that my clinical findings support that this patient is homebound (i.e. absences from home require considerable and taxing effort and are for medical reasons or anabaptism services or infrequently or short duration when for other reasons) because: Homebound Reason: Patient requires assistance of a person or device to safely leave home Attestation: My signature below is to certify that this patient is under my care and that I, or nurse practitioner, or a physician's assistant superintendent working with me, has a face-to -face encounter with this patient.
--- NOTE | 2017-12-20 09:50 | Discharge Summary ---
Orders not resulted at time of discharge: Pending orders 12/17/17 15:30 Culture,Urine [RM] Routine 12/20/17 08:01 Vancomycin,Trough Timed Date of Encounter: 12/20/17 Time of Encounter: 09:49 - Discharge Diagnosis (1) Diarrhea Priority: Primary Status: Acute Qualifiers: Diarrhea type: unspecified type Qualified Code(s): R19.7 - Diarrhea, unspecified (2) UTI (urinary tract infection) Priority: Primary Status: Acute Qualifiers: Urinary tract infection type: catheter-associated UTI Indwelling urinary catheter type: indwelling urethral catheter Encounter type: initial encounter Qualified Code(s): T83.511A - Infection and inflammatory reaction due to indwelling urethral catheter, initial encounter; N39.0 - Urinary tract infection , site not specified; N39.0 - Urinary tract infection, site not specified (3) Hypertension Priority: Secondary Status: Chronic Qualifiers: Hypertension type: essential hypertension Qualified Code(s): I10 - Essential (primary) hypertension (4) Type 2 diabetes mellitus Priority: Secondary Status: Chronic Qualifiers: 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 Chong is a 82 year old female - Time Spent with Patient Total time spent providing and/or coordinating discharge services: Greater than 30 minutes - Discharge Medications Prescriptions: levoFLOXacin [Levaquin] 500 mg PO DAILY #7 tablet Home Medications: Acetaminophen [Tylenol] 500 mg PO Q6HR PRN 04/07/17 [History] Allopurinol [Zyloprim] 300 mg PO DAILY 04/07/17 [History] Atorvastatin [Lipitor] 10 mg PO HS 04/07/17 [History] Esomeprazole Magnesium [Nexium] 40 mg PO DAILY 04/07/17 [History] metFORMIN [Glucophage] 500 mg PO BIDWM 04/07/17 [History] Lisinopril [Zestril] 20 mg PO BID 09/22/17 [History] Melatonin 10 - 15 mg PO HS 12/17/17 [History] levoFLOXacin [Levaquin] 500 mg PO DAILY #7 tablet 12/20/17 [Rx] Allergies/Adverse Reactions: 3 Allergy/AdvReac Type Severity Reaction Status Date / Time Amoxicillin [From Augmentin] Allergy Rash Verified 09/22/17 10:44 cephalexin [From Keflex] Allergy Rash Verified 09/22/17 10:44 clavulanic acid Allergy Rash Verified 09/22/17 10:44 [From Augmentin] diphenhydramine Allergy unsure Verified 09/22/17 10:44 [From Benadryl] meperidine [From Demerol] Allergy unsure Verified 09/22/17 10:44 phenytoin [From Dilantin] Allergy unsure Verified 09/22/17 10:44 Date of admission: 12/17/17 19:03 Primary care physician: Robert Ha MD Consults: 12/17/17 20:49 Consult to [employer] [CONS] Routine Reason for SW Consult: Lives alone at home. Previous admission PT/OT recommended ECF but she refused. She does have HH. Please reevaluate discharge/placement needs. 12/19/17 14:06 Consult to Occupational Therapy [CONS] Routine Comment: Evaluate, develop and implement POC Reason for Consult: therapy/placement needs Does patient have active BEDREST order?: No Is patient medically & hemodynamically stable?: Yes Consult to Physical Therapy [CONS] Routine Comment: Evaluate, develop and implement POC Reason for Consult: PT eval Does patient have active BEDREST order?: No Is patient medically & hemodynamically stable?: Yes - Constitutional Vitals: Temp Pulse Resp BP Pulse Ox 97.6 F 71 18 131/81 98 12/20/17 07:32 12/20/17 07:32 12/20/17 07:32 12/20/17 07:32 12/20/17 07:32 General appearance: Present: A&O X 3, no acute distress, answers questions appropriately Exam: GEN: NAD CVS: RRR. S1, S2, No m/r/g RESP: CTAB ABD: Soft, NT, ND, +BS EXT: No edema. 2+ DP. No rashes NEURO: Nonfocal - Patient Status Disposition: Home, Self-Care Condition: Fair Overall status at discharge: patient is progressing back to baseline - Discharge Instructions Follow Up With: Robert Ha MD [Primary Care Provider] - Forms: ED Satisfaction Letter, Work/School Release - Diet and Activity Activity: increase activity as tolerated Diet: diabetic diet
== END 2017-12-20 14:50 | disposition home or self-care (01) ==
LOC: 2ANU 12:53 → EMEROO 12:53 → 2ANU 19:04
PROVIDERS: ADMIT Internal Medicine; ATTEND Internal Medicine

== ENCOUNTER 2018-06-10 22:30 | Inpatient (IN) ==
--- NOTE | 2018-06-11 01:08 | Emergency Department Note ---
Disposition Clinical Impression: UTI (urinary tract infection) Qualifiers: Urinary tract infection type: site unspecified Hematuria presence: with hematuria Qualified Code(s): N39.0 - Urinary tract infection, site not specified Disposition: Admitted As Inpatient Condition: Good Time of Disposition: 05:36 General Adult HPI - General Chief complaint: ED General Medical Stated complaint: back pain, feeling bugs all over/ bladder spasms. Time Seen by Provider: 06/11/18 00:03 Source: patient Limitations: no limitations Nursing Notes Reviewed: Yes Vital Signs Reviewed: Yes - History of Present Illness HPI Narrative: 82-year-old female diabetic accompanied by her granddaughters with multiple complaints. 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 Patient does mention that uses a Luevano catheter at home, for crhonic bladder issues, she mentions she seen Dr. Harris the past. She states she has been having more recent discomfort with the catheter. Pt has chronic back pain, reported from a injury years ago when she worked at the [employer]. She also mentions chronic back pain has been bothering her lately as well. Patient also mentions she has had bugs crawling over her and her clothes. Granddaughters had also provided some history stating that patient had been developing more concerns for seeing insects crawling in her home, including coming out of her mouth, and that they have seen her attempting to take these out of her skin. They were concerned when they saw patient with tweezers and paring knife. They mention patient has not been sick lately, they deny confusion, fever, new medications, anxiety or pain medications, substance abuse , or h/o of psychiatric illness. Patient states that she lives in a cabin, and she describes her son assisting with some care. Granddaughters to mention the patient had a visit with a survey workers supervisor earlier today, and apparently there was some discussion about getting her placed in a facility. Patient also states that she does not feel comfortable in her home, she is concerned insects. She mentions that she does get home nursing once a month, and recently her temperature was measured during when his visits is 99 which she states was high for her. Granddaughters to mention that patient had a fractured ankle recently, had been utilizing a boot at times. Pt denies any extremity pain. The mention a stay at [facility] earlier in the year, possibly for PT for her chronic weakness or rehab from left ankle fracture. She denies any chest pain, shortness of breath, abdominal pain, confusion, headache, injury or trauma. Pain Scale: 7 - Related Data Home Medications Medication Instructions Recorded Confirmed Acetaminophen [Tylenol] 500 mg PO Q6HR PRN 04/07/17 12/17/17 Allopurinol [Zyloprim] 300 mg PO DAILY 04/07/17 12/17/17 Atorvastatin [Lipitor] 10 mg PO HS 04/07/17 12/17/17 Esomeprazole Magnesium [Nexium] 40 mg PO DAILY 04/07/17 12/17/17 metFORMIN [Glucophage] 500 mg PO BIDWM 04/07/17 12/17/17 Lisinopril [Zestril] 20 mg PO BID 09/22/17 12/17/17 Melatonin 10 - 15 mg PO HS 12/17/17 12/17/17 Previous Rx's Medication Instructions Recorded Loperamide [Imodium] 2 mg PO Q4HR PRN #30 capsule 12/20/17 levoFLOXacin [Levaquin] 500 mg PO DAILY #7 tablet 12/20/17 Allergies Allergy/AdvReac Type Severity Reaction Status Date / Time Amoxicillin [From Augmentin] Allergy Rash Verified 09/22/17 10:44 cephalexin [From Keflex] Allergy Rash Verified 09/22/17 10:44 clavulanic acid Allergy Rash Verified 09/22/17 10:44 [From Augmentin] diphenhydramine Allergy unsure Verified 09/22/17 10:44 [From Benadryl] meperidine [From Demerol] Allergy unsure Verified 09/22/17 10:44 phenytoin [From Dilantin] Allergy unsure Verified 09/22/17 10:44 All systems ED: reviewed and negative except as stated. Review of Systems: As Per HPI Constitutional: Reports: as per HPI. Denies: fever, chills, weakness Eyes: Denies: vision change ENT ED: Denies: throat pain Cardiovascular: Denies: chest pain, palpitations Respiratory: Denies: dyspnea, wheezes Gastrointestinal: Denies: abdominal pain, nausea, vomiting Genitourinary: Denies: dysuria Musculoskeletal: Reports: as per HPI. Denies: neck pain Integumentary: Denies: rash Neurological: Denies: headache, weakness Endocrine: Denies: fatigue Hematological/Lymphatic: Denies: easy bleeding Allergic/Immunologic: Denies: facial swelling Past Medical History - Past Medical History Medical history: Reports: CVA, diabetes, GERD, hyperlipidemia, hypertension, other Surgical history: Reports: cholecystectomy, FALGUNI/BSO Psychiatric history: Reports: no psych history PCA history: Reports: no PCA history - Social History Smoking Status: Never smoker Smokeless Tobacco Status: No Alcohol use: Reports: rarely Drug use: Reports: none Physical Exam - General Limitations: no limitations General appearance: alert, in no apparent distress - Head Head exam: atraumatic, normocephalic - Eye Eye exam: Present: EOMI. Absent: conjunctival injection, periorbital swelling, periorbital tenderness - ENT ENT exam: normal oropharynx, mucous membranes moist, normal external ear exam - Neck Neck exam: Present: normal inspection, full ROM. Absent: meningismus, lymphadenopathy - Chest Chest inspection: Present: normal inspection, symmetric chest wall rise - Respiratory Respiratory exam: Present: normal lung sounds bilaterally. Absent: respiratory distress, wheezes, stridor, accessory muscle use - Cardiovascular Cardiovascular exam: Present: regular rate, normal rhythm - Abdominal Exam Abdominal exam: Present: soft, Non-Tender - Extremities Exam Extremities exam: Present: normal inspection, full ROM, normal capillary refill - Back Exam Back exam: Present: normal inspection, full ROM. Absent: CVA tenderness (R), CVA tenderness (L) - Neurological Exam Neurological exam: Present: alert, oriented X3 - Psychiatric Psychiatric exam: Present: normal affect, normal mood - Skin Skin exam: Present: warm, dry, intact, normal color. Absent: rash, cyanosis, diaphoresis Course Course Narrative: Patient seen and examined. patient is alert and oriented 3 in no acute distress. She is quite talkative, however she is accompanied by 3 granddaughters who states that she is mentating at her baseline. There is no reported injury or trauma, or recent illness. Patient does have a chronic Leuvano , has seen Dr. Harris the past. Patient and her family describe a cabin that has limited plumbing and sewage sinc it is unfinished, but well maintained. Dariana lives by herself, her son does visit at times, home nursing once a month for Luevano change. Family deny any concern for AMS, confusion, weakness, fever Pt does have a babydoll with her. Apparently per family this is for emotional support. 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 Bloodwork unremarkable. However, UA appears consistent with UTI. Will plan to discuss with hospitalist. Social work was also contacted by nursing and have agreed to see patient as well. Time: 04:53 Reevaluation #2: Pt has evidence of UTI, and will be admitted for UTI. She also has cephalexin allergies. Previous culture and sensitivity shows resistance to ciprofloxacin and levofloxacin. We will order meropenem here. Patient was discussed with and accepted by hospitalist Dr. Marks. Additionally patient does have some social issues as welll, with concern for unsafe home environment. Nursing had talked with social work tonight and a consult has been ordered. Family has also mentioning patient has been complaining of bug infestation on her skin, her clothing in her house. I did have a discussion with patient's grand daughter who had this in the patient's home describe it is clean and well maintained and no evidence of any infestations. Additionally he had also had exterminators who have been able to find any evidence. Patient's family has described patient has digging at her skin, and attempting to remove these "bugs " form her nose and eye as well. Pt has been discussing using tweezers and knives as well. Pt is A&Ox3 and no history of any psychiatric medications. I have discussed this with hospitalist Dr. Marks as well, for possible psych eval if needed. Time: 05:31 Vital Signs Temperature 97.9 F 06/10/18 22:45 Pulse Rate 93 06/10/18 22:45 Respiratory Rate 16 06/10/18 22:45 Blood Pressure 125/85 06/10/18 22:45 O2 Sat by Pulse Oximetry 97 06/10/18 22:45 Temperature 97.9 F 06/10/18 22:45 Pulse Rate 80 06/11/18 00:14 Respiratory Rate 18 06/11/18 00:14 Blood Pressure 148/74 06/11/18 00:14 O2 Sat by Pulse Oximetry 97 06/11/18 00:14 Oxygen Delivery Oxygen Delivery Room Air Medical Decision Making - MDM Narrative Medical decision making narrative: Patient presented with reported chronic back pain, discomfort from her Luevano catheter, and concern for a safe environment and her home. Workup tonight was consistent for urinary tract infection, for which she was discussed with and admitted by hospitalist. Meropenem was ordered since patient has history of amoxicillin cephalexin allergy, and previous sensitivities were resistant to fluoroquinolones. Patient was alert and oriented 3, responding to questions appropriately, and showed no evidence of any altered mental status or systemic infection. Initially family mention that she is mentating at her baseline. Patient's home, and social work was discussed and consulted as well and agreed to help with evaluation and disposition of patient. Also, patient had been complaining of possible insect infestations. Family feels that there is currently no active infestations of the patient's home, with this patient complaining is actual, psychiatric, medical, or drug related is not known. Patient was discussed with Dr. Chaparro also placed on patient, agreed with workup and disposition. Chest X-Ray 06/11/18 01:03 IMPRESSION: No acute cardiopulmonary disease. D/ / Spike Collazo MD / Spiek Collazo MD Interpreting Provider: Spike Collazo MD Laboratory Tests 06/11/18 06/11/18 06/11/18 01:52 01:52 01:52 WBC 5.9 RBC 4.42 Hgb 14.3 Hct 43.0 MCV 97.3 MCH 32.4 MCHC 33.3 RDW 15.0 H Plt Count 245 MPV 8.9 L Immature Gran % 0.5 Seg Neutrophils % 46.5 Lymphocytes % 32.7 Monocytes % 12.7 Eosinophils % 6.8 Basophils % 0.8 Neutrophils # 2.8 Lymphocytes # 1.9 Monocytes # 0.8 Eosinophils # 0.4 Basophils # 0.1 PT 10.9 INR 1.0 APTT 24.6 L Sodium Cancelled Potassium Cancelled Chloride Cancelled Carbon Dioxide Cancelled BUN Cancelled Creatinine Cancelled Est GFR ( Amer) Cancelled Est GFR (Non-Af Amer) Cancelled BUN/Creatinine Ratio Cancelled Glucose Cancelled Calculated Osmolality Cancelled Lactic Acid Calcium Cancelled Total Bilirubin Cancelled Direct Bilirubin Cancelled Indirect Bilirubin Cancelled AST Cancelled ALT Cancelled Alkaline Phosphatase Cancelled Creatine Kinase Troponin I < 0.03 Serum Total Protein Cancelled Albumin Cancelled Globulin Cancelled Albumin/Globulin Ratio Cancelled Urine Color Urine Clarity Urine pH Ur Specific [place] Urine Protein Urine Glucose (UA) Urine Ketones Urine Blood Urine Nitrite Urine Bilirubin Urine Urobilinogen Ur Leukocyte Esterase Urine Microscopic RBC Urine Microscopic WBC Ur Squamous Epith Cells Urine Bacteria Hyaline Casts Ur Culture Indicated? Specimen Rejected 06/11/18 06/11/18 06/11/18 01:52 01:52 01:58 WBC RBC Hgb Hct MCV MCH MCHC RDW Plt Count MPV Immature Gran % Seg Neutrophils % Lymphocytes % Monocytes % Eosinophils % Basophils % Neutrophils # Lymphocytes # Monocytes # Eosinophils # Basophils # PT INR APTT Sodium Potassium Chloride Carbon Dioxide BUN Creatinine Est GFR ( Amer) Est GFR (Non-Af Amer) BUN/Creatinine Ratio Glucose Calculated Osmolality Lactic Acid 1.6 Calcium Total Bilirubin Direct Bilirubin Indirect Bilirubin AST ALT Alkaline Phosphatase Creatine Kinase 98 Troponin I Serum Total Protein Albumin Globulin Albumin/Globulin Ratio Urine Color Urine Clarity Urine pH Ur Specific [place] Urine Protein Urine Glucose (UA) Urine Ketones Urine Blood Urine Nitrite Urine Bilirubin Urine Urobilinogen Ur Leukocyte Esterase Urine Microscopic RBC Urine Microscopic WBC Ur Squamous Epith Cells Urine Bacteria Hyaline Casts Ur Culture Indicated? Specimen Rejected Hemolyzed 06/11/18 06/11/18 03:26 04:30 WBC RBC Hgb Hct MCV MCH MCHC RDW Plt Count MPV Immature Gran % Seg Neutrophils % Lymphocytes % Monocytes % Eosinophils % Basophils % Neutrophils # Lymphocytes # Monocytes # Eosinophils # Basophils # PT INR APTT Sodium 137 Potassium 4.2 Chloride 104 Carbon Dioxide 24 BUN 17 Creatinine 0.72 Est GFR ( Amer) > 60 Est GFR (Non-Af Amer) > 60 BUN/Creatinine Ratio 24 Glucose 163 H Calculated Osmolality 289 Lactic Acid Calcium 9.5 Total Bilirubin 0.3 Direct Bilirubin 0.0 Indirect Bilirubin 0.3 AST 12 L ALT 9 Alkaline Phosphatase 68 Creatine Kinase Troponin I Serum Total Protein 6.6 Albumin 3.7 Globulin 2.9 Albumin/Globulin Ratio 1.3 Urine Color Yellow Urine Clarity Turbid A Urine pH 6.5 Ur Specific [place] 1.014 Urine Protein 100 H Urine Glucose (UA) Normal Urine Ketones Negative Urine Blood Moderate H Urine Nitrite Positive A Urine Bilirubin Negative Urine Urobilinogen Normal Ur Leukocyte Esterase Large H Urine Microscopic RBC 5-15 H Urine Microscopic WBC TNTC H Ur Squamous Epith Cells Few Urine Bacteria Many H Hyaline Casts None Seen Ur Culture Indicated? YES A Specimen Rejected - Lab Data Lab results reviewed: Yes I reviewed the patient's lab results. Result diagrams: 06/11/18 01:52 06/11/18 03:26 Lab Results 06/11/18 06/11/18 06/11/18 Range/Units 01:52 01:52 01:52 WBC 5.9 (4.3-11.1) K/mcL RBC 4.42 (3.82-4.97) M/mcL Hgb 14.3 (11.5-15.4) g/dL Hct 43.0 (35.3-44.9) % MCV 97.3 (83.0-100.0) fL MCH 32.4 (28.0-33.3) pg MCHC 33.3 (31.6-35.5) g/dL RDW 15.0 H (11.5-14.5) % Plt Count 245 (140-400) K/mcL MPV 8.9 L (9.4-12.4) fL Immature Gran % 0.5 (0-4) % Seg Neutrophils % 46.5 % Lymphocytes % 32.7 % Monocytes % 12.7 % Eosinophils % 6.8 % Basophils % 0.8 % Neutrophils # 2.8 (1.6-8.9) K/mcL Lymphocytes # 1.9 (0.6-4.6) K/mcL Monocytes # 0.8 (0.0-1.3) K/mcL Eosinophils # 0.4 (0.0-0.6) K/mcL Basophils # 0.1 (0.0-0.2) K/mcL PT 10.9 (9.4-12.1) Seconds INR 1.0 APTT 24.6 L (26.0-36.0) Seconds Sodium Cancelled Potassium Cancelled Chloride Cancelled Carbon Dioxide Cancelled BUN Cancelled Creatinine Cancelled Est GFR ( Amer) Cancelled Est GFR (Non-Af Amer) Cancelled BUN/Creatinine Ratio Cancelled Glucose Cancelled Calculated Osmolality Cancelled Lactic Acid (0.5-2.2) mmol/L Calcium Cancelled Total Bilirubin Cancelled Direct Bilirubin Cancelled Indirect Bilirubin Cancelled AST Cancelled ALT Cancelled Alkaline Phosphatase Cancelled Creatine Kinase (30-223) Units/L Troponin I < 0.03 (< 0.04) ng/mL Serum Total Protein Cancelled Albumin Cancelled Globulin Cancelled Albumin/Globulin Ratio Cancelled Urine Color (Yellow) Urine Clarity (Clear) Urine pH (5.0-8.0) pH Units Ur Specific [place] (1.010-1.025) Urine Protein (Neg-Trace) mg/dL Urine Glucose (UA) (Normal) mg/dL Urine Ketones (Negative) mg/dL Urine Blood (Negative) Urine Nitrite (Negative) Urine Bilirubin (Negative) Urine Urobilinogen (Normal) mg/dL Ur Leukocyte Esterase (Negative) Urine Microscopic RBC (0-3) per hpf Urine Microscopic WBC (0-3) per hpf Ur Squamous Epith Cells (None-Few) per lpf Urine Bacteria (None-Few) per hpf Hyaline Casts (None-Few) per lpf Ur Culture Indicated? (NO) Specimen Rejected 06/11/18 06/11/18 06/11/18 Range/Units 01:52 01:52 01:58 WBC (4.3-11.1) K/mcL RBC (3.82-4.97) M/mcL Hgb (11.5-15.4) g/dL Hct (35.3-44.9) % MCV (83.0-100.0) fL MCH (28.0-33.3) pg MCHC (31.6-35.5) g/dL RDW (11.5-14.5) % Plt Count (140-400) K/mcL MPV (9.4-12.4) fL Immature Gran % (0-4) % Seg Neutrophils % % Lymphocytes % % Monocytes % % Eosinophils % % Basophils % % Neutrophils # (1.6-8.9) K/mcL Lymphocytes # (0.6-4.6) K/mcL Monocytes # (0.0-1.3) K/mcL Eosinophils # (0.0-0.6) K/mcL Basophils # (0.0-0.2) K/mcL PT (9.4-12.1) Seconds INR APTT (26.0-36.0) Seconds Sodium Potassium Chloride Carbon Dioxide BUN Creatinine Est GFR ( Amer) Est GFR (Non-Af Amer) BUN/Creatinine Ratio Glucose Calculated Osmolality Lactic Acid 1.6 (0.5-2.2) mmol/L Calcium Total Bilirubin Direct Bilirubin Indirect Bilirubin AST ALT Alkaline Phosphatase Creatine Kinase 98 (30-223) Units/L Troponin I (< 0.04) ng/mL Serum Total Protein Albumin Globulin Albumin/Globulin Ratio Urine Color (Yellow) Urine Clarity (Clear) Urine pH (5.0-8.0) pH Units Ur Specific [place] (1.010-1.025) Urine Protein (Neg-Trace) mg/dL Urine Glucose (UA) (Normal) mg/dL Urine Ketones (Negative) mg/dL Urine Blood (Negative) Urine Nitrite (Negative) Urine Bilirubin (Negative) Urine Urobilinogen (Normal) mg/dL Ur Leukocyte Esterase (Negative) Urine Microscopic RBC (0-3) per hpf Urine Microscopic WBC (0-3) per hpf Ur Squamous Epith Cells (None-Few) per lpf Urine Bacteria (None-Few) per hpf Hyaline Casts (None-Few) per lpf Ur Culture Indicated? (NO) Specimen Rejected Hemolyzed 06/11/18 06/11/18 Range/Units 03:26 04:30 WBC (4.3-11.1) K/mcL RBC (3.82-4.97) M/mcL Hgb (11.5-15.4) g/dL Hct (35.3-44.9) % MCV (83.0-100.0) fL MCH (28.0-33.3) pg MCHC (31.6-35.5) g/dL RDW (11.5-14.5) % Plt Count (140-400) K/mcL MPV (9.4-12.4) fL Immature Gran % (0-4) % Seg Neutrophils % % Lymphocytes % % Monocytes % % Eosinophils % % Basophils % % Neutrophils # (1.6-8.9) K/mcL Lymphocytes # (0.6-4.6) K/mcL Monocytes # (0.0-1.3) K/mcL Eosinophils # (0.0-0.6) K/mcL Basophils # (0.0-0.2) K/mcL PT (9.4-12.1) Seconds INR APTT (26.0-36.0) Seconds Sodium 137 Potassium 4.2 Chloride 104 Carbon Dioxide 24 BUN 17 Creatinine 0.72 Est GFR ( Amer) > 60 Est GFR (Non-Af Amer) > 60 BUN/Creatinine Ratio 24 Glucose 163 H Calculated Osmolality 289 Lactic Acid (0.5-2.2) mmol/L Calcium 9.5 Total Bilirubin 0.3 Direct Bilirubin 0.0 Indirect Bilirubin 0.3 AST 12 L ALT 9 Alkaline Phosphatase 68 Creatine Kinase (30-223) Units/L Troponin I (< 0.04) ng/mL Serum Total Protein 6.6 Albumin 3.7 Globulin 2.9 Albumin/Globulin Ratio 1.3 Urine Color Yellow (Yellow) Urine Clarity Turbid A (Clear) Urine pH 6.5 (5.0-8.0) pH Units Ur Specific [place] 1.014 (1.010-1.025) Urine Protein 100 H (Neg-Trace) mg/dL Urine Glucose (UA) Normal (Normal) mg/dL Urine Ketones Negative (Negative) mg/dL Urine Blood Moderate H (Negative) Urine Nitrite Positive A (Negative) Urine Bilirubin Negative (Negative) Urine Urobilinogen Normal (Normal) mg/dL Ur Leukocyte Esterase Large H (Negative) Urine Microscopic RBC 5-15 H (0-3) per hpf Urine Microscopic WBC TNTC H (0-3) per hpf Ur Squamous Epith Cells Few (None-Few) per lpf Urine Bacteria Many H (None-Few) per hpf Hyaline Casts None Seen (None-Few) per lpf Ur Culture Indicated? YES A (NO) Specimen Rejected - Radiology Data Radiology results reviewed: Yes I reviewed the patient's radiology results. Attestation Statement - Attestation Attestation: I examined this patient and my medical decision-making was reviewed with the Resident Physician. I agree with the documented findings, disposition and treatment plan as described except to the extent set forth below. Findings consistent with urinary tract infection. We will proceed with admission. The patient has an unsafe home environment. Plan to admit and obtain social work consult.
[2018-06-11 02:05] LABS: Basophils # 0.1 K/mcL (0.0-0.2); Basophils % 0.8 %; Eosinophils # 0.4 K/mcL (0.0-0.6); Eosinophils % 6.8 %; Hemoglobin 14.3 g/dL (11.5-15.4); Immature Granulocytes % 0.5 % (0-4); Lymphocytes # 1.9 K/mcL (0.6-4.6); Lymphocytes % 32.7 %; Mean Corpuscular HGB Conc 33.3 g/dL (31.6-35.5); Mean Corpuscular Hemoglobin 32.4 pg (28.0-33.3); Mean Corpuscular Volume 97.3 fL (83.0-100.0); Mean Platelet Volume 8.9 fL (9.4-12.4); Monocytes # 0.8 K/mcL (0.0-1.3); Monocytes % 12.7 %; Neutrophils # 2.8 K/mcL (1.6-8.9); Platelet Count 245 K/mcL (140-400); Red Blood Count 4.42 M/mcL (3.82-4.97); Segmented Neutrophils % 46.5 %
[2018-06-11 02:15] LABS: Prothrombin Time 10.9 Seconds (9.4-12.1)
[2018-06-11 02:18] LABS: Activated Partial Thrombo Time 24.6 Seconds (26.0-36.0)
[2018-06-11] MEDS ORDERED: Acetaminophen 325 MG TABLET PO ONE (03:05)
[2018-06-11 03:57] LABS: Alanine Aminotransferase 9 Units/L (7-52); Albumin 3.7 g/dL (3.5-5.7); Albumin/Globulin Ratio 1.3 (1.1-2.2); Alkaline Phosphatase 68 Units/L (34-104); Aspartate Amino Transferase 12 Units/L (13-39); BUN/Creatinine Ratio 24 (6-26); Bilirubin,Indirect 0.3 mg/dL (0.0-1.2); Bilirubin,Total 0.3 mg/dL (0.3-1.0); Blood Urea Nitrogen 17 mg/dL (8-23); Calcium 9.5 mg/dL (8.6-10.3); Carbon Dioxide 24 mEq/L (23-29); Chloride 104 mEq/L (98-107); Globulin 2.9 g/dL (2.4-3.5); Glucose 163 mg/dL (70-105); Osmolality,Calculated 289 (280-300); Potassium 4.2 mEq/L (3.5-5.1); Sodium 137 mEq/L (136-145); Total Protein 6.6 g/dL (6.4-8.9); eGFR For Non-African Americans > 60 (> 60)
[2018-06-11 04:37] LABS: Bilirubin,Urine Negative (Negative); Blood,Urine Moderate (Negative); Clarity,Urine Turbid (Clear); Color,Urine Yellow (Yellow); Glucose,Urine (UA) Normal (Normal); Ketones,Urine Negative (Negative); Leukocyte Esterase,Urine Large (Negative); Nitrite,Urine Positive (Negative); PH,Urine 6.5 pH Units (5.0-8.0); Protein,Urine 100 mg/dL (Neg-Trace); Specific Gravity,Urine 1.014 (1.010-1.025); Urobilinogen,Urine Normal (Normal)
[2018-06-11 04:40] LABS: Bacteria,Urine Many per hpf (None-Few); Hyaline Casts,Urine None Seen per lpf (None-Few); Squamous Epithelial Cell,Urine Few per lpf (None-Few); WBC,Urine TNTC per hpf (0-3)
[2018-06-11] MEDS ORDERED: Meropenem 1,000 MG in 0.9 % Sodium Chloride Mini Bag 100 ML IVPB ONE (05:29)
[2018-06-11] MEDS ORDERED: Naloxone 0.4 MG/ML INJ IVP PRN (09:37)
[2018-06-11] MEDS: cefTRIAXone 2,000 MG in Water for inj. (sterile) 20 ML 20 ML IVP SCH (10:45)
[2018-06-11] MEDS ORDERED: D5% in Water 1,000 ML IVC PRN (12:41)
[2018-06-11] MEDS ORDERED: Dextrose Gel 15 GM/37.5 ML TUBE PO PRN ×2 (12:41)
[2018-06-11] MEDS ORDERED: *HR* Dextrose 50 % in Water (Syg) 50 ML SYRINGE IVP PRN (12:41)
[2018-06-11] MEDS ORDERED: Meropenem 1,000 MG in Water for inj. (sterile) 20 ML 10 ML IVP SCH (16:00)
--- NOTE | 2018-06-11 16:28 | Internal Med History&Physical ---
Date of Encounter: 06/11/18 Time of Encounter: 16:23 Internal Medicine - H&P: HPI Chief complaint: Suprapubic pain. Admitted From: Home Plans for Post Hospital Care: Home History of present illness: Ms. Chong is a 82 year old female past medical history significant for CVA with receivable left-sided weakness, diabetes, GERD, hyperlipidemia, hypertension and bladder dysfunction with indwelling Luevano catheter. Patient was brought to the emergency room from home due to a day duration of severe bladder spasms associated with suprapubic abdominal pain. Patient reports subjective fever on Friday, denies chills. Denies nausea, or vomiting. But reports nonproductive cough. Patient also reports that last month she was treated for a urinary tract infection. In the emergency room patient was found to have a urinary tract infection for which the medicine team was called for further management. Past Med Surg Social Fam HX - Past Medical History Medical history: CVA, diabetes, hyperlipidemia, hypertension, other Additional medical history: RLS Psychiatric history: no psych history - Past Surgical History Surgical History: cholecystectomy, FALGUNI/BSO Additional surgical history: carpel tunnel surgery. rectocel surgery - Social History Smoking Status: Never smoker Smokeless Tobacco Status: No Alcohol use: rarely Drug use: none - Family History Mother Living Status: Hx Family Cardiac Disorders: No Hx Family Endocrine Disorder: Yes (DM) Father Living Status: Hx Family Cardiac Disorders: Yes (NH) Internal Medicine - H&P: Meds Acetaminophen [Tylenol] 500 mg PO Q6HR PRN 04/07/17 [History] Allopurinol [Zyloprim] 300 mg PO DAILY 04/07/17 [History] Atorvastatin [Lipitor] 10 mg PO HS 04/07/17 [History] Esomeprazole Magnesium [Nexium] 40 mg PO DAILY 04/07/17 [History] metFORMIN [Glucophage] 500 mg PO BIDWM 04/07/17 [History] Lisinopril [Zestril] 20 mg PO BID 09/22/17 [History] Melatonin 10 - 15 mg PO HS 12/17/17 [History] Loperamide [Imodium] 2 mg PO Q4HR PRN #30 capsule 12/20/17 [Rx] levoFLOXacin [Levaquin] 500 mg PO DAILY #7 tablet 12/20/17 [Rx] 3 Allergy/AdvReac Type Severity Reaction Status Date / Time Amoxicillin [From Augmentin] Allergy Rash Verified 09/22/17 10:44 cephalexin [From Keflex] Allergy Rash Verified 09/22/17 10:44 clavulanic acid Allergy Rash Verified 09/22/17 10:44 [From Augmentin] diphenhydramine Allergy unsure Verified 09/22/17 10:44 [From Benadryl] meperidine [From Demerol] Allergy unsure Verified 09/22/17 10:44 phenytoin [From Dilantin] Allergy unsure Verified 09/22/17 10:44 All Systems PM: A 10-system review of systems was performed and is negative for pertinent findings except as documented above in the HPI. - Constitutional Constitutional: no anorexia, no chills, no lethargy, no weakness - EENT Eyes: no blurry vision Nose, mouth and throat: no dysphagia, no hoarseness, no mouth pain, no sinus pressure - Cardiovascular Cardiovascular ROS IM: no diaphoresis, no irregular heart rhythm, no palpitations - Respiratory Respiratory: cough (nonproductive), no wheezing, no snoring, no pain on inspiration, no pain with cough - Gastrointestinal Gastrointestinal: abdominal pain, cramping (in the suprapubic area. ), loose stools, no diarrhea, no hematochezia, no nausea, no tenesmus, no vomiting - Musculoskeletal Musculoskeletal ROS IM: no back pain, no muscle cramps - Neurological Neurological ROS: no abnormal gait, no abnormal hearing, no abnormal speech, no vertigo, no weakness - Endocrine Endocrine IM: no cold intolerance - Constitutional Vitals: Temp Pulse Resp BP Pulse Ox 97.7 F 67 18 125/72 99 06/11/18 16:11 06/11/18 16:11 06/11/18 16:11 06/11/18 16:11 06/11/18 16:11 Exam: General: Alert and oriented 4. In no acute distress. HEENT: EOM, pupils equal, round and reactive. Cardiovascular: RRR, Normal S1 & S2, no rubs, murmurs or gallops. JVD about 6cm. Lungs: Clear to auscultation bilaterally, no wheezes or crackles. Abdomen: Soft, tenderness to superficial palpation in the suprapubic area, no rigidity or guarding.. Extremities: no edema, strength is 5 out of 5 in the right upper extremity, 1 out of 5 in the left upper extremity and to out of 5 in the left lower extremity. Contracture of the left upper extremity. Neurological: CN II-XII intact. Rest of the physical exam is non contributory Internal Med - H&P Results - Labs CBC & Chem 7: 06/11/18 01:52 06/11/18 03:26 - Assessment and plan (1) Urinary tract infection Current Visit: Yes Status: Acute Assessment and plan: Recommended an episode of urinary tract infection secondary to including Luevano catheter. Plan Urine culture Started on ceftriaxone 2 g daily Gentle hydration with normal saline Pain controlled with acetaminophen 750 mg by mouth every 4 hours when necessary. Qualifiers: Urinary tract infection type: catheter-associated UTI Indwelling urinary catheter type: indwelling urethral catheter Encounter type: sequela Qualified Code(s): T83.511S - Infection and inflammatory reaction due to indwelling urethral catheter, sequela; N39.0 - Urinary tract infection, site not specified (2) History of urinary retention Current Visit: No Status: Acute Assessment and plan: Patient with the Luevano catheter. Recently changed on Friday as per the patient. 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 (4) Hypertension Current Visit: No Status: Chronic Assessment and plan: Plan We will restart home antihypertensive medication. Qualifiers: Hypertension type: essential hypertension Qualified Code(s): I10 - Essential (primary) hypertension (5) Type 2 diabetes mellitus Current Visit: No Status: Chronic Assessment and plan: Plan Blood sugar controlled with Levemir 5 units at bedtime, and lispro 3 units before meals and sliding scale. Qualifiers: Diabetes mellitus retirement insulin use: without oysterman use Diabetes mellitus complication status: without complication Qualified Code(s): E11.9 - Type 2 diabetes mellitus without complications - Time Spent With Patient Total time spent is greater than 50% in coordination of care (as documented) at patient's floor/unit and/or counseling patient: Greater than 35 minutes
[2018-06-11] MEDS: Insulin LISPRO 300 UNITS/3 ML VIAL SQ SCH ×2 (18:08→18:09)
[2018-06-11] MEDS: 0.9 % Sodium Chloride 1,000 ML IVC SCH (18:09)
[2018-06-11] MEDS: Acetaminophen 325 MG TABLET PO PRN (18:21)
[2018-06-11] MEDS: Melatonin 3 MG TABLET PO SCH (20:29)
[2018-06-11] MEDS: Insulin DETEMIR 100 UNIT/ML X5UNITS SQ SCH (20:31)
[2018-06-12] MEDS: Acetaminophen 325 MG TABLET PO PRN ×2 (02:16→20:52)
[2018-06-12] MEDS ORDERED: [UNRECOGNIZED DRUG - OTHER] TP PRN (02:38)
[2018-06-12] MEDS: 0.9 % Sodium Chloride 1,000 ML IVC SCH (03:56)
[2018-06-12 05:35] LABS: Basophils # 0.1 K/mcL (0.0-0.2); Basophils % 0.8 %; Eosinophils # 0.4 K/mcL (0.0-0.6); Eosinophils % 7.3 %; Hematocrit 37.8 % (35.3-44.9); Immature Granulocytes % 0.7 % (0-4); Lymphocytes # 1.7 K/mcL (0.6-4.6); Lymphocytes % 28.7 %; Mean Corpuscular HGB Conc 33.6 g/dL (31.6-35.5); Mean Corpuscular Hemoglobin 32.7 pg (28.0-33.3); Mean Corpuscular Volume 97.4 fL (83.0-100.0); Mean Platelet Volume 8.9 fL (9.4-12.4); Monocytes # 0.7 K/mcL (0.0-1.3); Monocytes % 12.4 %; Platelet Count 210 K/mcL (140-400); Red Blood Count 3.88 M/mcL (3.82-4.97); Red Cell Distribution Width 14.9 % (11.5-14.5); Segmented Neutrophils % 50.1 %
[2018-06-12 05:41] LABS: Hemoglobin 12.7 g/dL (11.5-15.4)
[2018-06-12 06:08] LABS: BUN/Creatinine Ratio 21 (6-26); Blood Urea Nitrogen 15 mg/dL (8-23); Calcium 8.8 mg/dL (8.6-10.3); Carbon Dioxide 19 mEq/L (23-29); Chloride 112 mEq/L (98-107); Glucose 131 mg/dL (70-105); Osmolality,Calculated 293 (280-300); Potassium 4.6 mEq/L (3.5-5.1); Sodium 140 mEq/L (136-145); eGFR For Non-African Americans > 60 (> 60)
[2018-06-12] MEDS: cefTRIAXone 2,000 MG in Water for inj. (sterile) 20 ML 20 ML IVP SCH (08:55)
[2018-06-12] MEDS: Insulin LISPRO 300 UNITS/3 ML VIAL SQ SCH ×6 (09:05→17:07)
[2018-06-12] MEDS: Fluorometholone OPTH 5 ML BOTTLE BOTH EYES SCH ×2 (09:06→20:53)
--- NOTE | 2018-06-12 10:55 | Internal Med Progress Note ---
Hospitalist Progress Note - Encounter Date of Encounter: 06/12/18 Time of Encounter: 10:53 - Subjective Interval History: Patient evaluated at bedside, reports feeling better but states that she feels that her Luevano catheter is pulling out. Denies abdominal pain, nausea or vomiting. - Exam Vitals: Temp Pulse Resp BP Pulse Ox 97 F L 63 18 140/79 96 06/12/18 07:32 06/12/18 07:32 06/12/18 07:32 06/12/18 07:32 06/12/18 07:32 Exam: General: Alert and oriented 4. In no acute distress. Cardiovascular: RRR, Normal S1 & S2, no rubs, murmurs or gallops. JVD about 6cm. Lungs: Clear to auscultation bilaterally, no wheezes or crackles. Abdomen: Soft, tenderness to superficial palpation in the suprapubic area, no rigidity or guarding.. Extremities: no edema, strength is 5 out of 5 in the right upper extremity, 1 out of 5 in the left upper extremity and to out of 5 in the left lower extremity. Contracture of the left upper extremity. Neurological: CN II-XII intact. Rest of the physical exam is non contributory - Assessment and Plan (1) Urinary tract infection Current Visit: Yes Status: Acute Assessment and Plan: Patient has an indwelling Luevano catheter. Secondary to atonic bladder. Plan Continue IV antibiotics Urine culture growing gram-negative negro, we will continue to follow for antibiotic adjustment. Follow blood cultures (2) History of urinary retention Current Visit: No Status: Acute Assessment and Plan: Continue Luevano catheter. Luevano catheter was replaced on Friday as per the patient. 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 Continue patient home medication. On lisinopril 10 mg by mouth daily. Discontinue IV fluid. (5) Type 2 diabetes mellitus Current Visit: No Status: Chronic Assessment and Plan: Blood sugar well controlled. Levemir 5 units at bedtime, and lispro 3 units before meals and sliding scale. DVT Prophylaxis: Started on heparin 5000 units subcutaneous twice a day for DVT prophylaxis - Summary of Assessment and Plan Summary of Assessment and Plan: Patient requested to be placed on ECF upon discharge. Patient is to remain in the hospital until urine culture and sensitivities resulted. - Time Spent with Patient Total time spent is greater than 50% in coordination of care (as documented) at patient's floor/unit and/or counseling patient: Greater than 35 minutes Plan of Care Discussed with: patient Internal Medicine: Result - Labs CBC & Chem 7: 06/12/18 05:20 06/12/18 05:20 Labs: Short CBC 06/12/18 Range/Units 05:20 WBC 5.9 (4.3-11.1) K/mcL Hgb 12.7 D (11.5-15.4) g/dL Hct 37.8 (35.3-44.9) % Plt Count 210 (140-400) K/mcL Neutrophils # 3.0 (1.6-8.9) K/mcL BMP 06/12/18 05:20 Sodium 140 Potassium 4.6 Chloride 112 H Carbon Dioxide 19 L BUN 15 Creatinine 0.71 Glucose 131 H Calcium 8.8 - ABG Interpretation ABG results: PT/INR, D-dimer PT 10.9 Seconds (9.4-12.1) 06/11/18 01:52 Consult Discharge Plan - Plan Referrals: Robert Ha MD [Primary Care Provider] - (1) Urinary tract infection Qualifiers: Urinary tract infection type: catheter-associated UTI Indwelling urinary catheter type: indwelling urethral catheter Encounter type: sequela Qualified Code(s): T83.511S - Infection and inflammatory reaction due to indwelling urethral catheter, sequela; N39.0 - Urinary tract infection, site not specified (4) Hypertension Qualifiers: Hypertension type: essential hypertension Qualified Code(s): I10 - Essential (primary) hypertension (5) Type 2 diabetes mellitus Qualifiers: Diabetes mellitus assistant spa director insulin use: without detention use Diabetes mellitus complication status: without complication Qualified Code(s): E11.9 - Type 2 diabetes mellitus without complications
[2018-06-12] MEDS: *HR* Heparin 5,000 UNIT/ML VIAL SQ SCH (18:21)
[2018-06-12] MEDS: Melatonin 3 MG TABLET PO SCH (20:54)
[2018-06-12] MEDS: Insulin DETEMIR 100 UNIT/ML X5UNITS SQ SCH (21:35)
[2018-06-13] MEDS: Insulin LISPRO 300 UNITS/3 ML VIAL SQ SCH ×6 (07:59→16:54)
[2018-06-13] MEDS: cefTRIAXone 2,000 MG in Water for inj. (sterile) 20 ML 20 ML IVP SCH (08:53)
[2018-06-13] MEDS: Fluorometholone OPTH 5 ML BOTTLE BOTH EYES SCH ×2 (08:53→21:28)
[2018-06-13] MEDS: Acetaminophen 325 MG TABLET PO PRN ×2 (08:54→15:26)
[2018-06-13] MEDS: *HR* Heparin 5,000 UNIT/ML VIAL SQ SCH ×2 (08:54→17:28)
--- NOTE | 2018-06-13 12:36 | Discharge Summary ---
- NOTES TO OUTPATIENT PROVIDER Notes to Outpatient Provider: follow up with primary care physician within a week of hospital discharge. 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 Chong is a 82 year old female ast medical history significant for CVA with receivable left-sided weakness, diabetes, GERD, hyperlipidemia, hypertension and bladder dysfunction with indwelling Luevano catheter. Patient was brought to the emergency room from home due to a day duration of severe bladder spasms associated with suprapubic abdominal pain. Patient diagnosed with a urinary tract infection, treated with IV antibiotic. Urine culture and sensitivity reported Escherichia coli. Patient patient discharged on nitrofurantoin 100 mg twice a day for 5 days. Patient is hemodynamically stable to be discharged. - Time Spent with Patient Total time spent providing and/or coordinating discharge services: Less than 30 minutes - Discharge Medications Prescriptions: Nitrofurantoin (BID) [Macrobid] 100 mg PO Q12H 5 Days #10 capsule Home Medications: Acetaminophen [Tylenol] 500 mg PO Q6HR PRN 04/07/17 [History] Allopurinol [Zyloprim] 300 mg PO DAILY 04/07/17 [History] Atorvastatin [Lipitor] 10 mg PO HS 04/07/17 [History] Esomeprazole Magnesium [Nexium] 40 mg PO DAILY PRN 04/07/17 [History] Lisinopril [Zestril] 20 mg PO DAILY 01/01/18 [History] Fluorometholone [Fml] 1 drop BOTH EYES BID 06/12/18 [History] Nitrofurantoin (BID) [Macrobid] 100 mg PO Q12H 5 Days #10 capsule 06/13/18 [Rx] Patient Taking Own Medication 1 each TP DAILY PRN each 06/13/18 [Rx] Allergies/Adverse Reactions: 3 Allergy/AdvReac Type Severity Reaction Status Date / Time Amoxicillin [From Augmentin] Allergy Rash Verified 06/12/18 08:34 cephalexin [From Keflex] Allergy Rash Verified 06/12/18 08:34 clavulanic acid Allergy Rash Verified 06/12/18 08:34 [From Augmentin] diphenhydramine Allergy See Verified 06/12/18 08:34 [From Benadryl] Comments meperidine [From Demerol] Allergy See Verified 06/12/18 08:34 Comments phenytoin [From Dilantin] Allergy See Verified 06/12/18 08:34 Comments Date of admission: 06/11/18 05:47 Primary care physician: Robert Ha MD Consults: 06/11/18 16:37 PT [Consult to Physical Therapy] [CONS] Routine Comment: Evaluate, develop and implement POC Reason for Consult: left sided hemiparesis. Hx of CVA Does patient have active BEDREST order?: No Is patient medically & hemodynamically stable?: No - Constitutional Vitals: Temp Pulse Resp BP Pulse Ox 98.2 F 75 16 117/66 99 06/13/18 10:21 06/13/18 10:21 06/13/18 10:21 06/13/18 10:21 06/13/18 10:21 Exam: General: Alert and oriented 4. In no acute distress. Cardiovascular: RRR, Normal S1 & S2, no rubs, murmurs or gallops. JVD about 6cm. Lungs: Clear to auscultation bilaterally, no wheezes or crackles. Abdomen: Soft, decreased tenderness to palpation in the suprapubic area, no rigidity or guarding.. Extremities: no edema, strength is 5 out of 5 in the right upper extremity, 1 out of 5 in the left upper extremity and to out of 5 in the left lower extremity. Contracture of the left upper extremity. Neurological: CN II-XII intact. Rest of the physical exam is non contributory - Patient Status Disposition: Home Health Service Condition: Good Functional capacity at discharge: independent ambulation Overall status at discharge: patient is back to baseline - Discharge Instructions Follow Up With: Robert Ha MD [Primary Care Provider] - - Diet and Activity Activity: resume usual activities as tolerated Diet: advance to your usual diet
--- NOTE | 2018-06-13 14:04 | Event Note ---
Date of Encounter: 06/13/18 Time of Encounter: 14:03 Hold patient's discharge. As discharge home is not safe. As per patient's granddaughter patient does not have support over the weekend, no one to assist her at home.
[2018-06-13] MEDS: Insulin DETEMIR 100 UNIT/ML X5UNITS SQ SCH (21:29)
[2018-06-14] MEDS: Fluorometholone OPTH 5 ML BOTTLE BOTH EYES SCH ×2 (08:37→22:49)
[2018-06-14] MEDS: cefTRIAXone 2,000 MG in Water for inj. (sterile) 20 ML 20 ML IVP SCH (08:37)
[2018-06-14] MEDS: Insulin LISPRO 300 UNITS/3 ML VIAL SQ SCH ×6 (08:39→23:06)
[2018-06-14] MEDS: Acetaminophen 325 MG TABLET PO PRN (08:44)
[2018-06-14] MEDS: *HR* Heparin 5,000 UNIT/ML VIAL SQ SCH ×2 (08:46→22:51)
--- NOTE | 2018-06-14 10:54 | Event Note ---
Date of Encounter: 06/14/18 Time of Encounter: 10:49 Patient seen and evaluated at bedside, denies shortness of breath, nausea or vomiting. But reports pain in the suprapubic area, and her lower back. Physical exam: General: Alert and oriented 4. In no acute distress. Cardiovascular: RRR, Normal S1 & S2, no rubs, murmurs or gallops. JVD about 6cm. Lungs: Clear to auscultation bilaterally, no wheezes or crackles. Abdomen: Soft, decreased tenderness to palpation in the suprapubic area, no rigidity or guarding.. Extremities: no edema, strength is 5 out of 5 in the right upper extremity, 1 out of 5 in the left upper extremity and to out of 5 in the left lower extremity. Contracture of the left upper extremity. Neurological: CN II-XII intact. Rest of the physical exam is non contributory Assessment 1. Urinary tract infection associated with an indwelling Luevano catheter 2. Diabetes 4. Hemiparesis due to old CVA 5. Hx of urinary retention 6. Hypertension 7. DVT prophylaxis Plan: continue current plan of care. On IV antibiotics, on insulin long and short acting. On lisinopril for BP control. Patient remains in the hospital due to being an unsafe discharge. Patient lives alone and as per family members patient does not have enough support Patient's family and social services designee will meet tomorrow.
[2018-06-14] MEDS: Melatonin 3 MG TABLET PO SCH ×2 (22:47→23:07)
[2018-06-14] MEDS: Insulin DETEMIR 100 UNIT/ML X5UNITS SQ SCH (22:47)
[2018-06-15] MEDS: *HR* Heparin 5,000 UNIT/ML VIAL SQ SCH ×2 (05:48→17:52)
[2018-06-15] MEDS: Insulin LISPRO 300 UNITS/3 ML VIAL SQ SCH ×6 (09:52→17:52)
[2018-06-15] MEDS: Fluorometholone OPTH 5 ML BOTTLE BOTH EYES SCH ×2 (09:54→20:31)
[2018-06-15] MEDS: cefTRIAXone 2,000 MG in Water for inj. (sterile) 20 ML 20 ML IVP SCH (09:55)
--- NOTE | 2018-06-15 13:00 | Event Note ---
Date of Encounter: 06/15/18 Time of Encounter: 12:57 Seen and evaluated at bedside, she reports doing well today, but reports that she had a bad night due to neck and back pain. Denies SOB, nausea or vomiting. No fever, chills. Physical exam: General: Alert and oriented 4. In no acute distress. Cardiovascular: RRR, Normal S1 & S2, no rubs, murmurs or gallops. Lungs: Clear to auscultation bilaterally, no wheezes or crackles. Abdomen: Soft, no tenderness to deep or superficial palpation, no rigidity or guarding. Hyperactive Bowel sounds. Extremities: no edema, strength is 5 out of 5 in the right upper extremity, 1 out of 5 in the left upper extremity and to out of 5 in the left lower extremity. Contracture of the left upper extremity. Neurological: CN II-XII intact. Rest of the physical exam is non contributory Assessment 1. Urinary tract infection associated with an indwelling Luevano catheter 2. Diabetes 4. Hemiparesis due to old CVA 5. Hx of urinary retention 6. Hypertension 7. DVT prophylaxis Plan: Continue current management. Patient DC, pending placement as patient is not a safe discharge home.
[2018-06-15] MEDS: Melatonin 3 MG TABLET PO SCH (20:31)
[2018-06-15] MEDS: Insulin DETEMIR 100 UNIT/ML X5UNITS SQ SCH (20:31)
[2018-06-16] MEDS: Acetaminophen 325 MG TABLET PO PRN ×2 (05:01→23:38)
[2018-06-16] MEDS: *HR* Heparin 5,000 UNIT/ML VIAL SQ SCH ×2 (05:02→17:05)
[2018-06-16] MEDS: Insulin LISPRO 300 UNITS/3 ML VIAL SQ SCH ×6 (07:41→17:05)
[2018-06-16] MEDS: cefTRIAXone 2,000 MG in Water for inj. (sterile) 20 ML 20 ML IVP SCH (09:14)
[2018-06-16] MEDS: Fluorometholone OPTH 5 ML BOTTLE BOTH EYES SCH ×2 (09:15→20:24)
--- NOTE | 2018-06-16 19:31 | Internal Med Progress Note ---
Hospitalist Progress Note - Encounter Date of Encounter: 06/16/18 Time of Encounter: 11:00 - Subjective Interval History: Patient medically cleared for discharge but awaiting placement - Exam Vitals: Temp Pulse Resp BP Pulse Ox 98.1 F 67 19 108/62 98 06/16/18 16:03 06/16/18 16:03 06/16/18 16:03 06/16/18 16:03 06/16/18 16:03 Exam: Gen.: Nonacute distress, alert and oriented 3 - Assessment and Plan (1) Hypertension Current Visit: No Status: Chronic (2) History of urinary retention Current Visit: No Status: Chronic Assessment and Plan: Continue Luevano catheter. Luevano catheter was replaced on Friday as per the patient. (3) Urinary tract infection Current Visit: Yes Status: Acute Assessment and Plan: Patient has an indwelling Luevano catheter. Secondary to atonic bladder. Continue IV antibiotics Urine culture growing gram-negative negro, we will continue to follow for antibiotic adjustment. Follow blood cultures - Time Spent with Patient Total time spent is greater than 50% in coordination of care (as documented) at patient's floor/unit and/or counseling patient: Internal Medicine: Result - Labs CBC & Chem 7: 06/12/18 05:20 06/12/18 05:20 - ABG Interpretation ABG results: PT/INR, D-dimer PT 10.9 Seconds (9.4-12.1) 06/11/18 01:52 Consult Discharge Plan - Plan Instructions: Nitrofurantoin Combination (By mouth) Referrals: Robert Ha MD [Primary Care Provider] - Prescriptions: Nitrofurantoin (BID) [Macrobid] 100 mg PO Q12H 5 Days #10 capsule (1) Hypertension Qualifiers: Hypertension type: essential hypertension Qualified Code(s): I10 - Essential (primary) hypertension (3) Urinary tract infection Qualifiers: Urinary tract infection type: catheter-associated UTI Indwelling urinary catheter type: indwelling urethral catheter Encounter type: sequela Qualified Code(s): T83.511S - Infection and inflammatory reaction due to indwelling urethral catheter, sequela; N39.0 - Urinary tract infection, site not specified
[2018-06-16] MEDS: Melatonin 3 MG TABLET PO SCH (20:22)
[2018-06-16] MEDS: Insulin DETEMIR 100 UNIT/ML X5UNITS SQ SCH (20:22)
[2018-06-17] MEDS: Acetaminophen 325 MG TABLET PO PRN ×3 (05:39→21:45)
[2018-06-17] MEDS: *HR* Heparin 5,000 UNIT/ML VIAL SQ SCH ×2 (05:39→16:39)
[2018-06-17] MEDS: Insulin LISPRO 300 UNITS/3 ML VIAL SQ SCH ×6 (07:27→16:40)
[2018-06-17] MEDS: Cefdinir 300 MG CAPSULE PO SCH ×2 (07:38→20:20)
[2018-06-17] MEDS: Fluorometholone OPTH 5 ML BOTTLE BOTH EYES SCH ×2 (07:38→20:20)
--- NOTE | 2018-06-17 15:14 | Consult Note ---
Date of Encounter: 06/17/18 Time of Encounter: 14:02 Assessment & Recommendation (1) Visual hallucination Current visit: Yes Status: Chronic Assessment & Recommendation: no treatment required , can be secondary to medical condition. History of Present Illness Patient: new to practice Requesting Physician: Adelso Ware Reason for consult: other/agitation History of present illness: Ms. Chong is a 82 year old female was consulted for agitation. CC I am better than i was patient was seen at her bedside , she was verbal and cooperative, no agitation noted thru out the interview. She was admitted for UTI and has multiple medical problems. 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 She deniea any depressive s/s, states gets lonely as by herself and misses her grand children as no one comes to visit as often, but here she has seen them and not depress, she has a doll next to her states my daughter gave me this in remembrance of my son , states she lost her dogs and her 3 sons and is lonely , i talk to it as i have no one to talk to and it sometimes helps me feel not lonely. she has circumstantial thought process and denies any paranoia, auditory hallucinations but agrees she has visual hallucinations, she sees bugs on her wall she has not seen any here in hospital but feels she has in her body and now feels like it may get better as was given antibiotics. she was alert and oriented x 3 , able to give history , able to tell me what she ate. 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 MEDICAL Multiple , recent UTI family hx : states her mother was in [facility]. A/P r/o delerium/psychosis secondary to medical condition, she does not have any other psychosis except visual hallucinations . she is 82 yrs old will not recommend any antipsychotic at present , she is no harm to others or self. will need placement as per plan as cannot take take care of herself. Thank you for consult , will sign off. CC: Adelso Ware Past Med Surg Social Fam HX - Past Medical History Medical history: CVA, diabetes, hyperlipidemia, hypertension, other - Past Surgical History Surgical History: cholecystectomy, FALGUNI/BSO - Social History Smoking Status: Never smoker Smokeless Tobacco Status: No Alcohol use: rarely Drug use: none - Family History Mother Living Status: Hx Family Cardiac Disorders: No Hx Family Endocrine Disorder: Yes (DM) Father Living Status: Hx Family Cardiac Disorders: Yes (ND) Medications & Allergies Acetaminophen [Tylenol] 500 mg PO Q6HR PRN 04/07/17 [History] Allopurinol [Zyloprim] 300 mg PO DAILY 04/07/17 [History] Atorvastatin [Lipitor] 10 mg PO HS 04/07/17 [History] Esomeprazole Magnesium [Nexium] 40 mg PO DAILY PRN 04/07/17 [History] Lisinopril [Zestril] 20 mg PO DAILY 09/22/17 [History] Fluorometholone [Fml] 1 drop BOTH EYES BID 06/12/18 [History] Nitrofurantoin (BID) [Macrobid] 100 mg PO Q12H 5 Days #10 capsule 06/13/18 [Rx] Patient Taking Own Medication 1 each TP DAILY PRN each 06/13/18 [Rx] 3 Allergy/AdvReac Type Severity Reaction Status Date / Time Amoxicillin [From Augmentin] Allergy Rash Verified 06/12/18 08:34 cephalexin [From Keflex] Allergy Rash Verified 06/12/18 08:34 clavulanic acid Allergy Rash Verified 06/12/18 08:34 [From Augmentin] diphenhydramine Allergy See Verified 06/12/18 08:34 [From Benadryl] Comments meperidine [From Demerol] Allergy See Verified 06/12/18 08:34 Comments phenytoin [From Dilantin] Allergy See Verified 06/12/18 08:34 Comments Review of Systems Psychiatric: Reports: visual hallucinations Psychiatry Exam - Constitutional Vitals: Temp Pulse Resp BP Pulse Ox 97.9 F 70 16 134/72 97 06/17/18 11:13 06/17/18 11:13 06/17/18 11:13 06/17/18 11:13 06/17/18 11:13 General appearance: average - Psychiatric Patient Orientation: Yes Person, Yes Time, Yes Place Level of alertness: Alert Behavior: talkative Eye Contact: Maintains Eye Contact Mood Description: Euthymic/stable Affect description: euthymic Speech Volume: Normal Speech pattern: excessive Thought Process: Circumstantial Thought Content: Yes Intact Perceptual Disturbances: Yes Visual hallucinations (improving now .) Patient Reliability: Reliable Historian Judgment: Good Insight: Full Results - Labs Labs: Laboratory Last Values WBC 5.9 K/mcL (4.3-11.1) 06/12/18 05:20 RBC 3.88 M/mcL (3.82-4.97) 06/12/18 05:20 Hgb 12.7 g/dL (11.5-15.4) D 06/12/18 05:20 Hct 37.8 % (35.3-44.9) 06/12/18 05:20 MCV 97.4 fL (83.0-100.0) 06/12/18 05:20 MCH 32.7 pg (28.0-33.3) 06/12/18 05:20 MCHC 33.6 g/dL (31.6-35.5) 06/12/18 05:20 RDW 14.9 % (11.5-14.5) H 06/12/18 05:20 Plt Count 210 K/mcL (140-400) 06/12/18 05:20 MPV 8.9 fL (9.4-12.4) L 06/12/18 05:20 Immature Gran % 0.7 % (0-4) 06/12/18 05:20 Seg Neutrophils % 50.1 % 06/12/18 05:20 Lymphocytes % 28.7 % 06/12/18 05:20 Monocytes % 12.4 % 06/12/18 05:20 Eosinophils % 7.3 % 06/12/18 05:20 Basophils % 0.8 % 06/12/18 05:20 Neutrophils # 3.0 K/mcL (1.6-8.9) 06/12/18 05:20 Lymphocytes # 1.7 K/mcL (0.6-4.6) 06/12/18 05:20 Monocytes # 0.7 K/mcL (0.0-1.3) 06/12/18 05:20 Eosinophils # 0.4 K/mcL (0.0-0.6) 06/12/18 05:20 Basophils # 0.1 K/mcL (0.0-0.2) 06/12/18 05:20 PT 10.9 Seconds (9.4-12.1) 06/11/18 01:52 INR 1.0 06/11/18 01:52 APTT 24.6 Seconds (26.0-36.0) L 06/11/18 01:52 Sodium 140 mEq/L (136-145) 06/12/18 05:20 Potassium 4.6 mEq/L (3.5-5.1) 06/12/18 05:20 Chloride 112 mEq/L (98-107) H 06/12/18 05:20 Carbon Dioxide 19 mEq/L (23-29) L 06/12/18 05:20 BUN 15 mg/dL (8-23) 06/12/18 05:20 Creatinine 0.71 mg/dL (0.60-1.20) 06/12/18 05:20 Est GFR ( Amer) > 60 (> 60) 06/12/18 05:20 Est GFR (Non-Af Amer) > 60 (> 60) 06/12/18 05:20 BUN/Creatinine Ratio 21 (6-26) 06/12/18 05:20 Glucose 131 mg/dL (70-105) H 06/12/18 05:20 POC Glucose 132 mg/dL (70-99) H 06/17/18 11:12 Calculated Osmolality 293 (280-300) 06/12/18 05:20 Lactic Acid 1.6 mmol/L (0.5-2.2) 06/11/18 01:58 Calcium 8.8 mg/dL (8.6-10.3) 06/12/18 05:20 Magnesium 2.0 mg/dL (1.6-2.6) 06/12/18 05:20 Total Bilirubin 0.3 mg/dL (0.3-1.0) 06/11/18 03:26 Direct Bilirubin 0.0 mg/dL (0.0-0.2) 06/11/18 03:26 Indirect Bilirubin 0.3 mg/dL (0.0-1.2) 06/11/18 03:26 AST 12 Units/L (13-39) L 06/11/18 03:26 ALT 9 Units/L (7-52) 06/11/18 03:26 Alkaline Phosphatase 68 Units/L (34-104) 06/11/18 03:26 Creatine Kinase 98 Units/L (30-223) 06/11/18 01:52 Troponin I < 0.03 ng/mL (< 0.04) 06/11/18 01:52 Serum Total Protein 6.6 g/dL (6.4-8.9) 06/11/18 03:26 Albumin 3.7 g/dL (3.5-5.7) 06/11/18 03:26 Globulin 2.9 g/dL (2.4-3.5) 06/11/18 03:26 Albumin/Globulin Ratio 1.3 (1.1-2.2) 06/11/18 03:26 Urine Color Yellow (Yellow) 06/11/18 04:30 Urine Clarity Turbid (Clear) A 06/11/18 04:30 Urine pH 6.5 pH Units (5.0-8.0) 06/11/18 04:30 Ur Specific [place] 1.014 (1.010-1.025) 06/11/18 04:30 Urine Protein 100 mg/dL (Neg-Trace) H 06/11/18 04:30 Urine Glucose (UA) Normal mg/dL (Normal) 06/11/18 04:30 Urine Ketones Negative mg/dL (Negative) 06/11/18 04:30 Urine Blood Moderate (Negative) H 06/11/18 04:30 Urine Nitrite Positive (Negative) A 06/11/18 04:30 Urine Bilirubin Negative (Negative) 06/11/18 04:30 Urine Urobilinogen Normal mg/dL (Normal) 06/11/18 04:30 Ur Leukocyte Esterase Large (Negative) H 06/11/18 04:30 Urine Microscopic RBC 5-15 per hpf (0-3) H 06/11/18 04:30 Urine Microscopic WBC TNTC per hpf (0-3) H 06/11/18 04:30 Ur Squamous Epith Cells Few per lpf (None-Few) 06/11/18 04:30 Urine Bacteria Many per hpf (None-Few) H 06/11/18 04:30 Hyaline Casts None Seen per lpf (None-Few) 06/11/18 04:30 Ur Culture Indicated? YES (NO) A 06/11/18 04:30 Specimen Rejected Hemolyzed 09/20/18 01:52 Consult Discharge Plan - Plan Instructions: Nitrofurantoin Combination (By mouth) Referrals: Robert Ha MD [Primary Care Provider] -
[2018-06-17] MEDS: Melatonin 3 MG TABLET PO SCH (20:19)
[2018-06-17] MEDS: Insulin DETEMIR 100 UNIT/ML X5UNITS SQ SCH (20:20)
--- NOTE | 2018-06-17 20:56 | Internal Med Progress Note ---
Hospitalist Progress Note - Encounter Date of Encounter: 06/17/18 Time of Encounter: 11:00 - Subjective Interval History: Patient medically cleared for discharge but awaiting placement - Exam Vitals: Temp Pulse Resp BP Pulse Ox 99.1 F 95 16 98/55 96 06/17/18 19:00 06/17/18 19:00 06/17/18 19:00 06/17/18 19:00 06/17/18 19:00 Exam: Gen.: Nonacute distress, alert and oriented 3 - Assessment and Plan (1) Hypertension Current Visit: No Status: Chronic Assessment and Plan: Blood pressure well controlled. Continue patient home medication. On lisinopril 10 mg by mouth daily. Discontinue IV fluid. (2) History of urinary retention Current Visit: No Status: Chronic Assessment and Plan: Continue Luevano catheter. Luevano catheter was replaced on Friday as per the patient. (3) Urinary tract infection Current Visit: Yes Status: Acute Assessment and Plan: Patient has an indwelling Luevano catheter. Secondary to atonic bladder. Continue IV antibiotics Urine culture growing gram-negative negro, we will continue to follow for antibiotic adjustment. Follow blood cultures DVT Prophylaxis: Started on heparin 5000 units subcutaneous twice a day for DVT prophylaxis - Time Spent with Patient Total time spent is greater than 50% in coordination of care (as documented) at patient's floor/unit and/or counseling patient: Internal Medicine: Result - Labs CBC & Chem 7: 06/12/18 05:20 06/12/18 05:20 - ABG Interpretation ABG results: PT/INR, D-dimer PT 10.9 Seconds (9.4-12.1) 06/11/18 01:52 Consult Discharge Plan - Plan Instructions: Nitrofurantoin Combination (By mouth) Referrals: Robert Ha MD [Primary Care Provider] - (1) Hypertension Qualifiers: Hypertension type: essential hypertension Qualified Code(s): I10 - Essential (primary) hypertension (3) Urinary tract infection Qualifiers: Urinary tract infection type: catheter-associated UTI Indwelling urinary catheter type: indwelling urethral catheter Encounter type: sequela Qualified Code(s): T83.511S - Infection and inflammatory reaction due to indwelling urethral catheter, sequela; N39.0 - Urinary tract infection, site not specified
[2018-06-18] MEDS: *HR* Heparin 5,000 UNIT/ML VIAL SQ SCH ×2 (04:59→17:06)
[2018-06-18] MEDS: Fluorometholone OPTH 5 ML BOTTLE BOTH EYES SCH ×2 (08:00→20:31)
[2018-06-18] MEDS: Insulin LISPRO 300 UNITS/3 ML VIAL SQ SCH ×6 (08:00→17:06)
[2018-06-18] MEDS: Cefdinir 300 MG CAPSULE PO SCH ×2 (08:00→20:31)
--- NOTE | 2018-06-18 19:01 | Internal Med Progress Note ---
Hospitalist Progress Note - Encounter Date of Encounter: 06/18/18 Time of Encounter: 11:00 - Subjective Interval History: Patient medically cleared for discharge but awaiting placement Per case resolution specialist plan for ECF placement on 06/20/18 - Exam Vitals: Temp Pulse Resp BP Pulse Ox 98.4 F 63 18 106/62 96 06/18/18 16:03 06/18/18 16:03 06/18/18 16:03 06/18/18 16:03 06/18/18 16:03 Exam: Gen.: Nonacute distress, alert and oriented 3 - Assessment and Plan (1) Hypertension Current Visit: No Status: Chronic Assessment and Plan: Blood pressure well controlled. Continue patient home medication. On lisinopril 10 mg by mouth daily. Discontinue IV fluid. (2) History of urinary retention Current Visit: No Status: Chronic Assessment and Plan: Continue Luevano catheter. Luevano catheter was replaced on Friday as per the patient. (3) Urinary tract infection Current Visit: Yes Status: Acute Assessment and Plan: Patient has an indwelling Luevano catheter. Secondary to atonic bladder. Continue IV antibiotics Urine culture growing gram-negative negro, we will continue to follow for antibiotic adjustment. Follow blood cultures DVT Prophylaxis: Started on heparin 5000 units subcutaneous twice a day for DVT prophylaxis - Time Spent with Patient Total time spent is greater than 50% in coordination of care (as documented) at patient's floor/unit and/or counseling patient: Internal Medicine: Result - Labs CBC & Chem 7: 06/12/18 05:20 06/12/18 05:20 - ABG Interpretation ABG results: PT/INR, D-dimer PT 10.9 Seconds (9.4-12.1) 06/11/18 01:52 Consult Discharge Plan - Plan Instructions: Nitrofurantoin Combination (By mouth) Referrals: Robert Ha MD [Primary Care Provider] - (1) Hypertension Qualifiers: Hypertension type: essential hypertension Qualified Code(s): I10 - Essential (primary) hypertension (3) Urinary tract infection Qualifiers: Urinary tract infection type: catheter-associated UTI Indwelling urinary catheter type: indwelling urethral catheter Encounter type: sequela Qualified Code(s): T83.511S - Infection and inflammatory reaction due to indwelling urethral catheter, sequela; N39.0 - Urinary tract infection, site not specified
[2018-06-18] MEDS: Acetaminophen 325 MG TABLET PO PRN (19:11)
[2018-06-18] MEDS: Melatonin 3 MG TABLET PO SCH (20:31)
[2018-06-18] MEDS: Insulin DETEMIR 100 UNIT/ML X5UNITS SQ SCH (20:33)
[2018-06-19] MEDS: Acetaminophen 325 MG TABLET PO PRN (03:29)
[2018-06-19] MEDS: *HR* Heparin 5,000 UNIT/ML VIAL SQ SCH ×2 (05:09→17:38)
[2018-06-19] MEDS: Insulin LISPRO 300 UNITS/3 ML VIAL SQ SCH ×6 (08:27→17:38)
[2018-06-19] MEDS: Cefdinir 300 MG CAPSULE PO SCH ×2 (08:30→20:37)
[2018-06-19] MEDS: Fluorometholone OPTH 5 ML BOTTLE BOTH EYES SCH ×2 (08:31→20:38)
--- NOTE | 2018-06-19 19:56 | Internal Med Progress Note ---
Hospitalist Progress Note - Encounter Date of Encounter: 06/19/18 Time of Encounter: 11:00 - Subjective Interval History: Patient medically cleared for discharge but awaiting placement Per case loader operator plan for ECF placement on 06/20/18 - Exam Vitals: Temp Pulse Resp BP Pulse Ox 98.8 F 66 18 117/67 95 06/19/18 16:44 06/19/18 16:44 06/19/18 16:44 06/19/18 16:44 06/19/18 16:44 Exam: Gen.: Nonacute distress, alert and oriented 3 - Assessment and Plan (1) Hypertension Current Visit: No Status: Chronic Assessment and Plan: Blood pressure well controlled. Continue patient home medication. On lisinopril 10 mg by mouth daily. Discontinue IV fluid. (2) History of urinary retention Current Visit: No Status: Chronic Assessment and Plan: Continue Luevano catheter. Luevano catheter was replaced on Friday as per the patient. (3) Urinary tract infection Current Visit: Yes Status: Acute Assessment and Plan: Patient has an indwelling Luevano catheter. Secondary to atonic bladder. Continue IV antibiotics Urine culture growing gram-negative negro, we will continue to follow for antibiotic adjustment. Follow blood cultures - Time Spent with Patient Total time spent is greater than 50% in coordination of care (as documented) at patient's floor/unit and/or counseling patient: Internal Medicine: Result - Labs CBC & Chem 7: 06/12/18 05:20 06/12/18 05:20 - ABG Interpretation ABG results: PT/INR, D-dimer PT 10.9 Seconds (9.4-12.1) 06/11/18 01:52 Consult Discharge Plan - Plan Instructions: Nitrofurantoin Combination (By mouth) Referrals: Robert Ha MD [Primary Care Provider] - (Web-request completed 06/20/2018) (1) Hypertension Qualifiers: Hypertension type: essential hypertension Qualified Code(s): I10 - Essential (primary) hypertension (3) Urinary tract infection Qualifiers: Urinary tract infection type: catheter-associated UTI Indwelling urinary catheter type: indwelling urethral catheter Encounter type: sequela Qualified Code(s): T83.511S - Infection and inflammatory reaction due to indwelling urethral catheter, sequela; N39.0 - Urinary tract infection, site not specified
[2018-06-19] MEDS: Melatonin 3 MG TABLET PO SCH (20:38)
[2018-06-19] MEDS: Insulin DETEMIR 100 UNIT/ML X5UNITS SQ SCH (22:12)
[2018-06-20] MEDS: Acetaminophen 325 MG TABLET PO PRN (02:07)
[2018-06-20] MEDS: *HR* Heparin 5,000 UNIT/ML VIAL SQ SCH (05:38)
[2018-06-20] MEDS: Insulin LISPRO 300 UNITS/3 ML VIAL SQ SCH ×4 (08:31→13:05)
[2018-06-20] MEDS: Fluorometholone OPTH 5 ML BOTTLE BOTH EYES SCH (08:35)
[2018-06-20] MEDS: Cefdinir 300 MG CAPSULE PO SCH (08:35)
[2018-06-20 11:13] VITALS: BP 141/64
--- NOTE | 2018-06-20 13:37 | Physician Discharge Referral ---
ExtendedCare Referral Info Institutional Level of Care: Skilled - Diagnosis (1) Hypertension Status: Chronic (2) History of urinary retention Status: Chronic (3) Urinary tract infection Status: Acute - Transfer Medications Home Medications: Acetaminophen [Tylenol] 500 mg PO Q6HR PRN 04/07/17 [History] Allopurinol [Zyloprim] 300 mg PO DAILY 04/07/17 [History] Atorvastatin [Lipitor] 10 mg PO HS 04/07/17 [History] Esomeprazole Magnesium [Nexium] 40 mg PO DAILY PRN 04/07/17 [History] Lisinopril [Zestril] 20 mg PO DAILY 09/22/17 [History] Fluorometholone [Fml] 1 drop BOTH EYES BID 06/12/18 [History] Nitrofurantoin (BID) [Macrobid] 100 mg PO Q12H 5 Days #10 capsule 06/13/18 [Rx] Patient Taking Own Medication 1 each TP DAILY PRN each 06/13/18 [Rx] Cefdinir [Omnicef] 300 mg PO BID 3 Days capsule 06/20/18 [Rx] Allergies/Adverse Reactions: 3 Allergy/AdvReac Type Severity Reaction Status Date / Time Amoxicillin [From Augmentin] Allergy Rash Verified 06/12/18 08:34 cephalexin [From Keflex] Allergy Rash Verified 06/12/18 08:34 clavulanic acid Allergy Rash Verified 06/12/18 08:34 [From Augmentin] diphenhydramine Allergy See Verified 06/12/18 08:34 [From Benadryl] Comments meperidine [From Demerol] Allergy See Verified 06/12/18 08:34 Comments phenytoin [From Dilantin] Allergy See Verified 06/12/18 08:34 Comments - Respiratory Orders Smoking Cessation: Smoking cessation has been advised. For more information, call the [place] Tobacco Quit Line at 3-454-RPOS-NOW. CERTIFICATION: I certify that the transfer of the above named patient to an Extended Care Facility is necessary for the continuing treatment of the diagnosis listed. The above information is true and accurate reflection of patient's current condition. Confidential - Redisclosure prohibited without a patient's written consent.
--- NOTE | 2018-06-20 17:51 | Event Note ---
Date of Encounter: 06/20/18 Time of Encounter: 11:00 Patient was discharged today to ECF. No acute events overnight On exam patient was in no acute distress and alert and oriented She will continue a 3 day course of Omnicef for UTI
== END 2018-06-20 15:45 | DRG 699 ==
LOC: EMEROOARM 22:30 → 2ANU 22:30 → SUATTDRO 06-11 05:47 → 2ANU 06-11 06:51
PROVIDERS: ADMIT Family Medicine; ATTEND Hospitalist

== ENCOUNTER 2019-01-22 16:39 | Inpatient (IN) ==
[2019-01-22] MEDS ORDERED: 0.9 % Sodium Chloride 1,000 ML IVC ONE ×2 (17:08→21:13)
[2019-01-22] MEDS ORDERED: *HR* Morphine 2 MG/ML SYRINGE IVP ONE (17:08)
[2019-01-22] MEDS ORDERED: Ondansetron 4 MG/2 ML VIAL IVP ONE (17:08)
[2019-01-22] MEDS ORDERED: Isovue-370 500 ML BOTTLE IVP ONE (17:10)
[2019-01-22 17:51] LABS: Basophils % 0.2 %; Eosinophils # 0.1 K/mcL (0.0-0.6); Eosinophils % 0.5 %; Hematocrit 29.1 % (35.3-44.9); Hemoglobin 9.7 g/dL (11.5-15.4); Immature Granulocytes % 1.3 % (0-4); Lymphocytes # 1.3 K/mcL (0.6-4.6); Lymphocytes % 7.4 %; Mean Corpuscular HGB Conc 33.3 g/dL (31.6-35.5); Mean Corpuscular Hemoglobin 30.3 pg (28.0-33.3); Mean Corpuscular Volume 90.9 fL (83.0-100.0); Monocytes # 1.4 K/mcL (0.0-1.3); Monocytes % 8.1 %; Neutrophils # 14.5 K/mcL (1.6-8.9); Platelet Count 452 K/mcL (140-400); Red Cell Distribution Width 15.3 % (11.5-14.5); Segmented Neutrophils % 82.5 %
[2019-01-22 18:25] LABS: INR 1.2; Prothrombin Time 13.9 Seconds (9.4-12.1)
[2019-01-22 18:27] LABS: Activated Partial Thrombo Time 26.9 Seconds (26.0-36.0)
[2019-01-22 18:29] LABS: Alanine Aminotransferase 8 Units/L (7-52); Albumin 2.7 g/dL (3.5-5.7); Albumin/Globulin Ratio 0.9 (1.1-2.2); Alkaline Phosphatase 88 Units/L (34-104); Amylase < 10 Units/L (29-103); Aspartate Amino Transferase 9 Units/L (13-39); BUN/Creatinine Ratio 31 (6-26); Bilirubin,Direct 0.1 mg/dL (0.0-0.2); Bilirubin,Indirect 0.3 mg/dL (0.0-1.2); Bilirubin,Total 0.4 mg/dL (0.3-1.0); Blood Urea Nitrogen 40 mg/dL (8-23); Calcium 8.6 mg/dL (8.6-10.3); Carbon Dioxide 20 mEq/L (23-29); Chloride 101 mEq/L (98-107); Globulin 3.1 g/dL (2.4-3.5); Glucose 125 mg/dL (70-105); Lipase < 3 Units/L (11-82); Osmolality,Calculated 285 (280-300); Potassium 3.5 mEq/L (3.5-5.1); Sodium 132 mEq/L (136-145); Total Protein 5.8 g/dL (6.4-8.9); Troponin I < 0.03 ng/mL (< 0.04); eGFR For Non-African Americans 40 (> 60)
[2019-01-22 19:54] LABS: Bilirubin,Urine Small (Negative); Blood,Urine Negative (Negative); Clarity,Urine Clear (Clear); Color,Urine Yellow (Yellow); Glucose,Urine (UA) Normal (Normal); Ketones,Urine Negative (Negative); Leukocyte Esterase,Urine Trace (Negative); Nitrite,Urine Negative (Negative); PH,Urine 5.5 pH Units (5.0-8.0); Protein,Urine Negative (Neg-Trace); Specific Gravity,Urine 1.013 (1.010-1.025); Urobilinogen,Urine Normal (Normal)
[2019-01-22 19:56] LABS: Bacteria,Urine Moderate per hpf (None-Few); Hyaline Casts,Urine None Seen per lpf (None-Few); Squamous Epithelial Cell,Urine Many per lpf (None-Few)
[2019-01-22 20:16] LABS: RBC,Urine 0-3 per hpf (0-3); Yeast,Urine Moderate per hpf (None Seen)
--- NOTE | 2019-01-22 20:47 | Emergency Department Note ---
Disposition Clinical Impression: Colitis, Leukocytosis, Gastroenteritis Disposition: Admitted As Inpatient Condition: Good Referrals: Robert Ha MD [Primary Care Provider] - Time of Disposition: 20:47 Abdominal Pain HPI - General Chief Complaint: ED Abdominal Pain Stated Complaint: N/V, diarrhea Time Seen by Provider: 01/22/19 17:03 Source: patient - History of Present Illness HPI Narrative: Patient is an 83-year-old female who presents to the emergency department with chief complaint of abdominal pain and vomiting and diarrhea. The patient reports her last several days been having nausea and vomiting and has had multiple bouts of diarrhea. Patient reports it is having watery stool coming out of her rear-ended. Patient reports she has been on oral anabolic recently and possibly has been exposed to c [place]. Patient denies fever states she has had multiple episodes of nausea and vomiting with this as well Pt Subjective Complaint: abdominal pain Pain Scale: 10 - Related Data Home Medications Medication Instructions Recorded Confirmed Acetaminophen [Tylenol] 500 mg PO Q6HR PRN 04/07/17 06/12/18 Allopurinol [Zyloprim] 300 mg PO DAILY 04/07/17 06/12/18 Atorvastatin [Lipitor] 10 mg PO HS 04/07/17 06/12/18 Esomeprazole Magnesium [Nexium] 40 mg PO DAILY PRN 04/07/17 06/12/18 Lisinopril [Zestril] 20 mg PO DAILY 09/22/17 06/12/18 Fluorometholone [Fml] 1 drop BOTH EYES BID 06/12/18 06/12/18 Previous Rx's Medication Instructions Recorded Nitrofurantoin (BID) [Macrobid] 100 mg PO Q12H 5 Days #10 capsule 06/13/18 Patient Taking Own Medication 1 each TP DAILY PRN each 06/13/18 Cefdinir [Omnicef] 300 mg PO BID 3 Days capsule 06/20/18 Allergies Allergy/AdvReac Type Severity Reaction Status Date / Time Amoxicillin [From Augmentin] Allergy Rash Verified 06/12/18 08:34 cephalexin [From Keflex] Allergy Rash Verified 06/12/18 08:34 clavulanic acid Allergy Rash Verified 06/12/18 08:34 [From Augmentin] diphenhydramine Allergy See Verified 06/12/18 08:34 [From Benadryl] Comments meperidine [From Demerol] Allergy See Verified 06/12/18 08:34 Comments phenytoin [From Dilantin] Allergy See Verified 06/12/18 08:34 Comments All systems ED: reviewed and negative except as stated. Abdominal Pain PMH - Past Medical History Medical history: Reports: CVA, diabetes, hyperlipidemia, hypertension, other Female Surgical History: Reports: other [employer] history: Reports: no [employer] history Psychiatric history: Reports: no psych history - Social History Smoking status: Never smoker Alcohol use: Reports: rarely Drug use: Reports: none Physical Exam General: Conversant and pleasant interactive and nontoxic. Head: Normocephalic/atraumatic Eyes:PERRLA, EOMI, no conjunctivitis Nares: Without d/c. Ears: No erythema or d/c noted. Oralpharnyx: P&MMM noted, Neck: Supple, no JVD or NEGATIVE TURNER noted. Cardovascular: regular rate and rhythm without murmur, brisk capillary refill, no peripheral edema. Lungs: Clear to ascultation bilaterally, non-labored Abd: Soft diffuse tenderness Non Distended, no guarding, no rebound. : Defered Extremities: moves all extremities equally Neuro: AOx3, no obvious gross neuro deficit Psych: Normal Affect Derm: No rash noted - General Limitations: no limitations General appearance: alert, in no apparent distress Course Vital Signs Temperature 98.9 F 01/22/19 16:48 Pulse Rate 98 01/22/19 16:48 Respiratory Rate 20 01/22/19 16:48 Blood Pressure 101/60 01/22/19 16:48 O2 Sat by Pulse Oximetry 93 01/22/19 16:48 Temperature 98.9 F 01/22/19 16:48 Pulse Rate 92 01/22/19 20:28 Respiratory Rate 15 01/22/19 20:28 Blood Pressure 98/40 01/22/19 20:28 O2 Sat by Pulse Oximetry 96 01/22/19 20:28 Oxygen Delivery Oxygen Delivery Room Air Abdominal Pain - Lab Data Result diagrams: 01/22/19 17:37 01/22/19 17:37 Lab Results 01/22/19 01/22/19 01/22/19 Range/Units 17:37 17:37 17:37 WBC 17.6 H (4.3-11.1) K/mcL RBC 3.20 L (3.82-4.97) M/mcL Hgb 9.7 L (11.5-15.4) g/dL Hct 29.1 L (35.3-44.9) % MCV 90.9 (83.0-100.0) fL MCH 30.3 (28.0-33.3) pg MCHC 33.3 (31.6-35.5) g/dL RDW 15.3 H (11.5-14.5) % Plt Count 452 H (140-400) K/mcL MPV 9.0 L (9.4-12.4) fL Immature Gran % 1.3 (0-4) % Seg Neutrophils % 82.5 % Lymphocytes % 7.4 % Monocytes % 8.1 % Eosinophils % 0.5 % Basophils % 0.2 % Neutrophils # 14.5 H (1.6-8.9) K/mcL Lymphocytes # 1.3 (0.6-4.6) K/mcL Monocytes # 1.4 H (0.0-1.3) K/mcL Eosinophils # 0.1 (0.0-0.6) K/mcL Basophils # 0.0 (0.0-0.2) K/mcL PT 13.9 H (9.4-12.1) Seconds INR 1.2 APTT 26.9 (26.0-36.0) Seconds Sodium 132 L (136-145) mEq/L Potassium 3.5 (3.5-5.1) mEq/L Chloride 101 (98-107) mEq/L Carbon Dioxide 20 L (23-29) mEq/L BUN 40 H (8-23) mg/dL Creatinine 1.27 H (0.60-1.20) mg/dL Est GFR ( Amer) 49 L (> 60) Est GFR (Non-Af Amer) 40 L (> 60) BUN/Creatinine Ratio 31 H (6-26) Glucose 125 H (70-105) mg/dL Calculated Osmolality 285 (280-300) Lactic Acid (0.5-2.2) mmol/L Calcium 8.6 (8.6-10.3) mg/dL Total Bilirubin 0.4 (0.3-1.0) mg/dL Direct Bilirubin 0.1 (0.0-0.2) mg/dL Indirect Bilirubin 0.3 (0.0-1.2) mg/dL AST 9 L (13-39) Units/L ALT 8 (7-52) Units/L Alkaline Phosphatase 88 (34-104) Units/L Troponin I < 0.03 (< 0.04) ng/mL Serum Total Protein 5.8 L (6.4-8.9) g/dL Albumin 2.7 L (3.5-5.7) g/dL Globulin 3.1 (2.4-3.5) g/dL Albumin/Globulin Ratio 0.9 L (1.1-2.2) Amylase < 10 L (29-103) Units/L Lipase < 3 L (11-82) Units/L Urine Color (Yellow) Urine Clarity (Clear) Urine pH (5.0-8.0) pH Units Ur Specific [place] (1.010-1.025) Urine Protein (Neg-Trace) mg/dL Urine Glucose (UA) (Normal) mg/dL Urine Ketones (Negative) mg/dL Urine Blood (Negative) Urine Nitrite (Negative) Urine Bilirubin (Negative) Urine Urobilinogen (Normal) mg/dL Ur Leukocyte Esterase (Negative) Urine Microscopic RBC (0-3) per hpf Urine Microscopic WBC (0-3) per hpf Ur Squamous Epith Cells (None-Few) per lpf Urine Bacteria (None-Few) per hpf Hyaline Casts (None-Few) per lpf Urine Yeast (None Seen) per hpf Ur Culture Indicated? (NO) 01/22/19 01/22/19 Range/Units 17:37 19:45 WBC (4.3-11.1) K/mcL RBC (3.82-4.97) M/mcL Hgb (11.5-15.4) g/dL Hct (35.3-44.9) % MCV (83.0-100.0) fL MCH (28.0-33.3) pg MCHC (31.6-35.5) g/dL RDW (11.5-14.5) % Plt Count (140-400) K/mcL MPV (9.4-12.4) fL Immature Gran % (0-4) % Seg Neutrophils % % Lymphocytes % % Monocytes % % Eosinophils % % Basophils % % Neutrophils # (1.6-8.9) K/mcL Lymphocytes # (0.6-4.6) K/mcL Monocytes # (0.0-1.3) K/mcL Eosinophils # (0.0-0.6) K/mcL Basophils # (0.0-0.2) K/mcL PT (9.4-12.1) Seconds INR APTT (26.0-36.0) Seconds Sodium (136-145) mEq/L Potassium (3.5-5.1) mEq/L Chloride (98-107) mEq/L Carbon Dioxide (23-29) mEq/L BUN (8-23) mg/dL Creatinine (0.60-1.20) mg/dL Est GFR ( Amer) (> 60) Est GFR (Non-Af Amer) (> 60) BUN/Creatinine Ratio (6-26) Glucose (70-105) mg/dL Calculated Osmolality (280-300) Lactic Acid 1.2 (0.5-2.2) mmol/L Calcium (8.6-10.3) mg/dL Total Bilirubin (0.3-1.0) mg/dL Direct Bilirubin (0.0-0.2) mg/dL Indirect Bilirubin (0.0-1.2) mg/dL AST (13-39) Units/L ALT (7-52) Units/L Alkaline Phosphatase (34-104) Units/L Troponin I (< 0.04) ng/mL Serum Total Protein (6.4-8.9) g/dL Albumin (3.5-5.7) g/dL Globulin (2.4-3.5) g/dL Albumin/Globulin Ratio (1.1-2.2) Amylase (29-103) Units/L Lipase (11-82) Units/L Urine Color Yellow (Yellow) Urine Clarity Clear (Clear) Urine pH 5.5 (5.0-8.0) pH Units Ur Specific [place] 1.013 (1.010-1.025) Urine Protein Negative (Neg-Trace) mg/dL Urine Glucose (UA) Normal (Normal) mg/dL Urine Ketones Negative (Negative) mg/dL Urine Blood Negative (Negative) Urine Nitrite Negative (Negative) Urine Bilirubin Small H (Negative) Urine Urobilinogen Normal (Normal) mg/dL Ur Leukocyte Esterase Trace H (Negative) Urine Microscopic RBC 0-3 (0-3) per hpf Urine Microscopic WBC 5-15 H (0-3) per hpf Ur Squamous Epith Cells Many H (None-Few) per lpf Urine Bacteria Moderate H (None-Few) per hpf Hyaline Casts None Seen (None-Few) per lpf Urine Yeast Moderate H (None Seen) per hpf Ur Culture Indicated? YES A (NO)
[2019-01-22] MEDS ORDERED: Naloxone 0.4 MG/ML INJ IVP PRN (21:56)
[2019-01-22] MEDS ORDERED: Acetaminophen 325 MG TABLET PO PRN (23:07)
[2019-01-22] MEDS ORDERED: traMADol 50 MG TABLET PO PRN (23:07)
[2019-01-22] MEDS ORDERED: Dextrose Gel 15 GM/37.5 ML TUBE PO PRN ×2 (23:09)
[2019-01-22] MEDS ORDERED: *HR* Dextrose 50 % in Water (Syg) 50 ML SYRINGE IVP PRN (23:09)
[2019-01-22] MEDS ORDERED: D5% in Water 1,000 ML IVC PRN (23:09)
[2019-01-22] MEDS: *HR* HYDROcodone/Acet 5/325 mg TABLET PO PRN (23:18)
--- NOTE | 2019-01-22 23:24 | Event Note ---
Date of Encounter: 01/22/19 Time of Encounter: 22:00 Ms. Chong is a 83 year old female with past medical history of CVA, diabetes, hypertension, hyperlipidemia and gout was presented to the ED from outside facility complaining of diffuse abdominal pain and bouts of diarrhea. Family is at bedside and they report for the past 3 weeks she has been complaining of abdominal pain. She does have history of frequent UTIs and was recently treated with antibiotics. She complained of Macrobid 2 weeks ago and previously was on Levaquin for 7 days 1 month ago. On 01/21/19 she had episodes of emesis after oral intake. Her family and she is unsure if there was any hematemesis. She is unsure of hematochezia but does complain of pain around her buttocks due to frequent bowel movements. Her buttocks appears red and inflamed but no decubitus ulcers are noted. She is denying shortness of breath or chest pain. She does complain of left lower extremity foot pain due to a healing ulcer. She is also complaining of being thirsty. Denies dysphagia or odynophagia. In the ED her blood pressure was noted to be 101/60 at presentation and her heart rate was 98. She was afebrile and oxygen saturation was 96% on room air. Her labs showed white blood cell count of 17.6 with hemoglobin of 9.7. She was also noted to have sodium of 132 with creatinine of 1.27. She had a CT of the abdomen and pelvis which shows wall thickening and soft tissue stranding of descending and sigmoid colon as well as the rectum.
--- NOTE | 2019-01-22 23:28 | Internal Med History&Physical ---
<Trice Chandra - Last Filed: 01/23/19 01:04> Date of Encounter: 01/23/19 Time of Encounter: 22:00 Internal Medicine - H&P: HPI Chief complaint: abdominal pain History of present illness: Ms. Chong is a 83 year old female with past medical history of CVA with left upper extremity weakness, diabetes, hypertension, diabetes mellitus, hyperlipidemia and gout was presented to the ED from outside facility complaining of diffuse abdominal pain and bouts of diarrhea. Family is at bedside and they report for the past 3 weeks she has been complaining of abdominal pain. She does have history of frequent UTIs and was recently treated with antibiotics. She completed Macrobid 2 weeks ago and previously was on Levaquin for 7 days 1 month ago. Additionally completed Bactrim yesterday. On 01/21/19 she had episodes of emesis after oral intake. Her family and she is unsure if there was any hematemesis. She is unsure of hematochezia but does complain of pain around her buttocks due to frequent bowel movements. Her buttocks appears red and inflamed but no decubitus ulcers are noted. She is denying shortness of breath or chest pain. She does complain of left lower extremity foot pain due to an ulcer. She is also complaining of being thirsty. Denies dysphagia or odynophagia. In the ED her blood pressure was noted to be 101/60 at presentation and her hea rt rate was 98. She was afebrile and oxygen saturation was 96% on room air. Her labs showed white blood cell count of 17.6 with hemoglobin of 9.7. She was also noted to have sodium of 132 with creatinine of 1.27. She had a CT of the abdomen and pelvis which shows wall thickening and soft tissue stranding of descending and sigmoid colon as well as the rectum. Past Med Surg Social Fam HX - Past Medical History Medical history: CVA, diabetes, hyperlipidemia, hypertension, other Additional medical history: RLS Psychiatric history: no psych history - Past Surgical History Surgical History: cholecystectomy, FALGUNI/BSO Additional surgical history: carpel tunnel surgery. rectocel surgery - Social History Smoking Status: Never smoker Smokeless Tobacco Status: No Alcohol use: rarely Drug use: none - Family History Mother Living Status: Hx Family Cardiac Disorders: No Hx Family Endocrine Disorder: Yes (DM) Father Living Status: Hx Family Cardiac Disorders: Yes (DE) Internal Medicine - H&P: Meds Acetaminophen [Tylenol] 500 mg PO Q6HR PRN 04/07/17 [History] Allopurinol [Zyloprim] 300 mg PO DAILY 04/07/17 [History] Atorvastatin [Lipitor] 10 mg PO HS 04/07/17 [History] Lisinopril [Zestril] 20 mg PO DAILY 09/22/17 [History] Patient Taking Own Medication 1 each TP DAILY PRN each 06/13/18 [Rx] Esomeprazole Magnesium [Nexium] 20 mg PO DAILY 01/22/19 [History] Fluticasone Propionate Nasal [Flonase] 1 puff .ROUTE DAILY 01/22/19 [History] Melatonin 6 mg PO HS PRN 01/22/19 [History] Nystatin POWDER [Nystop] 1 appl .ROUTE BID 01/22/19 [History] Oxybutynin Chloride [Ditropan Xl] 5 mg PO TID 01/22/19 [History] Potassium Chloride [Klor-Con 10] 10 meq PO DAILY 01/22/19 [History] Sulfamethoxazole/Trimeth DS [Bactrim DS] 1 each PO BID 01/22/19 [History] risperiDONE [RisperDAL] 1 tab PO AD 01/22/19 [History] Allergy/AdvReac Type Severity Reaction Status Date / Time Amoxicillin [From Augmentin] Allergy Rash Verified 06/12/18 08:34 cephalexin [From Keflex] Allergy Rash Verified 06/12/18 08:34 clavulanic acid Allergy Rash Verified 06/12/18 08:34 [From Augmentin] diphenhydramine Allergy See Verified 06/12/18 08:34 [From Benadryl] Comments meperidine [From Demerol] Allergy See Verified 06/12/18 08:34 Comments phenytoin [From Dilantin] Allergy See Verified 06/12/18 08:34 Comments All Systems PM: A 10-system review of systems was performed and is negative for pertinent findi ngs except as documented above in the HPI. - Constitutional Constitutional: no chills, no fever(s), no weakness - EENT Eyes: no blurry vision, no loss of vision, no pain Nose, mouth and throat: dry mouth, no dysphagia, no mouth pain, no odynophagia, no sore throat - Cardiovascular Cardiovascular ROS IM: no chest pain, no diaphoresis, no dyspnea, no dyspnea on exertion, no palpitations - Respiratory Respiratory: no cough, no dyspnea, no dyspnea on exertion, no chest congestion - Gastrointestinal Gastrointestinal: abdominal pain, diarrhea, vomiting, no constipation, no dysph agia, no hematemesis - Genitourinary Genitourinary: no dysuria, no flank pain, no pelvic pain - Musculoskeletal Musculoskeletal ROS IM: other (pain in buttocks, paralysis of left upper extremity), no numbness, no stiffness - Integumentary Integumentary IM: no erythema, no pruritus, no rash - Neurological Neurological ROS: no focal weakness, no numbness, no paresthesias - Psychiatric Psychiatric: no anxiety, no depression - Constitutional Vitals: Temp Pulse Resp BP Pulse Ox 98.8 F 100 15 94/54 93 01/22/19 23:11 01/22/19 23:11 01/22/19 23:11 01/22/19 23:11 01/22/19 23:11 Exam: Gen: Vitals noted. No acute distress. Appears mildly uncomfortable Eyes: anicteric sclerae, moist conjunctivae; no lid-lag HENT: Atraumatic; oropharynx clear with moist mucous membranes and no mucosal ulcerations; normal hard and soft palate Neck: Trachea midline; supple, no thyromegaly or lymphadenopathy Cardiac: RRR, no murmur, +S1/S2. No JVD noted. Pulmonary: CTA bilaterally, no wheezes, rales or rhonchi, equal chest expansion Abdomen: Diffuse abdomen tenderness with guarding, distended abdomen MSK: ROM intact, no joint swelling noted Extremities: no edema, nontender calf Skin: Normal temperature, turgor; no rash subcutaneous nodules, black appearing ulcer on left heel Neuro: moves all extremities, no focal deficits. Psych: Appropriate mood and behavior. A&Ox3 Internal Med - H&P Results - Labs CBC & Chem 7: 01/22/19 17:37 01/22/19 17:37 Labs: Short CBC 01/22/19 Range/Units 17:37 WBC 17.6 H (4.3-11.1) K/mcL Hgb 9.7 L (11.5-15.4) g/dL Hct 29.1 L (35.3-44.9) % Plt Count 452 H (140-400) K/mcL Neutrophils # 14.5 H (1.6-8.9) K/mcL BMP 01/22/19 17:37 Sodium 132 L Potassium 3.5 Chloride 101 Carbon Dioxide 20 L BUN 40 H Creatinine 1.27 H Glucose 125 H Calcium 8.6 Cardiac Enzymes 01/22/19 Range/Units 17:37 Troponin I < 0.03 (< 0.04) ng/mL Liver Function 01/22/19 Range/Units 17:37 Total Bilirubin 0.4 (0.3-1.0) mg/dL Direct Bilirubin 0.1 (0.0-0.2) mg/dL AST 9 L (13-39) Units/L ALT 8 (7-52) Units/L Alkaline Phosphatase 88 (34-104) Units/L Albumin 2.7 L (3.5-5.7) g/dL Urine 01/22/19 Range/Units 19:45 Urine Color Yellow (Yellow) Urine Clarity Clear (Clear) Urine pH 5.5 (5.0-8.0) pH Units Ur Specific [place] 1.013 (1.010-1.025) Urine Protein Negative (Neg-Trace) mg/dL Urine Glucose (UA) Normal (Normal) mg/dL - Impressions ITS Impressions Abdomen/Pelvis CT 01/22/19 17:10 IMPRESSION: Wall thickening and pericolic soft tissue stranding of the descending and sigmoid colon and rectum, consistent with colitis, likely infectious or inflammatory in etiology. D/ / 01/22/2019 19:38:12 Maliha López MD / peter Interpreting Provider: Maliha López MD - Assessment and Plan (1) Colitis Current Visit: Yes Status: Acute Assessment and plan: Presented to the ED complaining of diffuse abdominal pain and diarrhea ongoing for the past 3 weeks. This morning also had episodes of nausea and emesis. CT of the abdomen shows thickening and pericolic soft tissue stranding of descending and sigmoid colon as well as rectum Was recently on antibiotics Concern for C. difficile colitis We will continue oral vancomycin and IV flagyl Maintenane fluids ordered Repeat lactic acid in the morning CBC and GI panel pending (2) YRN (acute kidney injury) Current Visit: Yes Status: Acute Assessment and plan: Presented to the ED due to abdominal pain and diffuse diarrhea. Creatinine is noted to be 1.27 with elevated BUN/creatinine ratio History of present illness appears prerenal Received 2 L of IV fluid Continue maintenance fluids Continue to monitor BMP (3) Type 2 diabetes mellitus Current Visit: No Status: Chronic Assessment and plan: Currently nothing by mouth continue every 6 hours sliding scale Qualifiers: Diabetes mellitus long term acute care registered nurse insulin use: without alf use Diabetes mellitus complication status: without complication Qualified Code(s): E11.9 - Type 2 diabetes mellitus without complications (4) Nausea & vomiting Current Visit: Yes Status: Acute Assessment and plan: Had episode of emesis but denies hematemesis Continues to complain of nausea, PRN zofran ordered NPO at this time Qualifiers: Vomiting type: unspecified Vomiting Intractability: non-intractable Qualified Code(s): R11.2 - Nausea with vomiting, unspecified (5) Diarrhea Current Visit: No Status: Acute Assessment and plan: Diarrhea likely secondary to infectious etiology Recently completed antibiotic 3 different times in the past month GI panel pending Continue treat with oral vancomycin and IV metronidazole Qualifiers: Diarrhea type: unspecified type Qualified Code(s): R19.7 - Diarrhea, unspecified (6) Anemia Current Visit: Yes Status: Acute Assessment and plan: Appears to have anemia with hemoglobin of 9.7, MCV is within normal limits platelets are also elevated at 452 could be secondary to current infection. Denies hematemesis or hematochezia We will continue to monitor with CBC in the morning Qualifiers: Anemia type: unspecified type Qualified Code(s): D64.9 - Anemia, unspecified (7) GERD (gastroesophageal reflux disease) Current Visit: Yes Status: Chronic Assessment and plan: History of GERD, at home takes Nexium We will continue pepcid given PPI can increase risk of c diff Qualifiers: Esophagitis presence: esophagitis presence not specified Qualified Code(s): K21.9 - Gastro-esophageal reflux disease without esophagitis (8) Ulcer Current Visit: Yes Status: Chronic Assessment and plan: Has a ulcer on her left heel, will consult would care Continue to keep it dry (9) Hypertension Current Visit: No Status: Chronic Assessment and plan: History of hypertension Currently normotensive, will hold antihypertensives Continue cardiac monitoring Qualifiers: Hypertension type: essential hypertension Qualified Code(s): I10 - Essential (primary) hypertension (10) DVT prophylaxis Current Visit: No Status: Acute Assessment and plan: Continue scd due to anemia (11) Hyponatremia Current Visit: Yes Status: Acute Assessment and plan: Sodium noted to be 132 Repleted with 2 liters of IV fluids Continue maintenance fluids - Time Spent With Patient Total time spent is greater than 50% in coordination of care (as documented) at patient's floor/unit and/or counseling patient: <Jose Carlos Lind - Last Filed: 01/23/19 02:03> Date of Encounter: 01/23/19 Time of Encounter: 00:55 - Constitutional Constitutional: fatigue, no chills, no fever(s) - EENT Nose, mouth and throat: no sinus pressure, no sore throat - Cardiovascular Cardiovascular ROS IM: no chest pain, no dyspnea - Gastrointestinal Gastrointestinal: abdominal pain, diarrhea, nausea, vomiting, no hematemesis, no hematochezia, no melena - Genitourinary Genitourinary: no dysuria, no flank pain, no hematuria - Hematologic/Lymphatic Hematologic/Lymphatic: easy bruising - Allergic/Immunologic Allergic/Immunologic: GI upset with certain foods - Constitutional Vitals: Temp Pulse Resp BP Pulse Ox 98.8 F 100 15 94/54 93 01/22/19 23:11 01/22/19 23:11 01/22/19 23:11 01/22/19 23:11 01/22/19 23:11 General appearance: Present: cooperative, mild distress, A&O X 3, pleasant Exam: looks dehydrated - Head Head exam: Present: atraumatic, normal inspection - Eye Eye exam: Present: EOMI, PERRL. Absent: scleral icterus - ENT ENT exam: Present: mucous membranes dry, normal exam, normal oropharynx - Neck Neck exam general surgery: Present: full ROM, supple, trachea midline. Absent: tenderness, nuchal rigidity, thyromegaly - Respiratory Respiratory exam: Present: CTAB. Absent: rales, rhonchi, wheezes - Cardiovascular Cardiovascular exam: Present: +S1, +S2. Absent: diastolic murmur, systolic murmur - GI/Abdominal GI/Abdominal exam: Present: distended, hypoactive bowel sounds, tenderness, no peritoneal signs. Absent: guarding, hepatomegaly, rebound, splenomegaly - Extremities Exam Extremities exam: Present: full ROM, warm, radial pulses palpable and symmetrical. Absent: calf tenderness, pedal edema, tenderness - Back Exam Back exam: Absent: CVA tenderness (L), CVA tenderness (R) - Neurological Exam Neurological exam: Present: alert, CN II-XII intact, oriented X3, no focal deficits - Psychiatric Psychiatric exam: Present: normal affect, normal mood - Skin Skin exam: Present: dry, intact, warm Internal Med - H&P Results - Labs CBC & Chem 7: 01/22/19 17:37 01/22/19 17:37 Labs: Short CBC 01/22/19 Range/Units 17:37 WBC 17.6 H (4.3-11.1) K/mcL Hgb 9.7 L (11.5-15.4) g/dL Hct 29.1 L (35.3-44.9) % Plt Count 452 H (140-400) K/mcL Neutrophils # 14.5 H (1.6-8.9) K/mcL BMP 01/22/19 17:37 Sodium 132 L Potassium 3.5 Chloride 101 Carbon Dioxide 20 L BUN 40 H Creatinine 1.27 H Glucose 125 H Calcium 8.6 Cardiac Enzymes 01/22/19 Range/Units 17:37 Troponin I < 0.03 (< 0.04) ng/mL Liver Function 01/22/19 Range/Units 17:37 Total Bilirubin 0.4 (0.3-1.0) mg/dL Direct Bilirubin 0.1 (0.0-0.2) mg/dL AST 9 L (13-39) Units/L ALT 8 (7-52) Units/L Alkaline Phosphatase 88 (34-104) Units/L Albumin 2.7 L (3.5-5.7) g/dL Urine 01/22/19 Range/Units 19:45 Urine Color Yellow (Yellow) Urine Clarity Clear (Clear) Urine pH 5.5 (5.0-8.0) pH Units Ur Specific [place] 1.013 (1.010-1.025) Urine Protein Negative (Neg-Trace) mg/dL Urine Glucose (UA) Normal (Normal) mg/dL - Impressions ITS Impressions Abdomen/Pelvis CT 01/22/19 17:10 IMPRESSION: Wall thickening and pericolic soft tissue stranding of the descending and sigmoid colon and rectum, consistent with colitis, likely infectious or inflammatory in etiology. D/ / 01/22/2019 19:38:12 Maliha López MD / peter Interpreting Provider: Maliha López MD - Assessment and Plan (1) Type 2 diabetes mellitus Current Visit: No Status: Chronic Qualifiers: Diabetes mellitus long term acute care registered nurse insulin use: without long term acute care registered nurse use Diabetes mellitus complication status: without complication Qualified Code(s): E11.9 - Type 2 diabetes mellitus without complications (2) Hypertension Current Visit: No Status: Chronic Qualifiers: Hypertension type: essential hypertension Qualified Code(s): I10 - Essential (primary) hypertension (3) Nausea & vomiting Current Visit: Yes Status: Acute Qualifiers: Vomiting type: unspecified Vomiting Intractability: non-intractable Qualified Code(s): R11.2 - Nausea with vomiting, unspecified (4) Diarrhea Current Visit: No Status: Acute Qualifiers: Diarrhea type: unspecified type Qualified Code(s): R19.7 - Diarrhea, unspecified (5) DVT prophylaxis Current Visit: No Status: Acute (6) Colitis Current Visit: Yes Status: Acute (7) YRN (acute kidney injury) Current Visit: Yes Status: Acute (8) Anemia Current Visit: Yes Status: Acute Qualifiers: Anemia type: unspecified type Qualified Code(s): D64.9 - Anemia, unspecified (9) GERD (gastroesophageal reflux disease) Current Visit: Yes Status: Chronic Qualifiers: Esophagitis presence: esophagitis presence not specified Qualified Code(s): K21.9 - Gastro-esophageal reflux disease without esophagitis (10) Ulcer Current Visit: Yes Status: Chronic (11) Hyponatremia Current Visit: Yes Status: Acute - Time Spent With Patient Total time spent is greater than 50% in coordination of care (as documented) at patient's floor/unit and/or counseling patient: - Attending Attestation I discussed the patient [place], past medical history, review of systems, lab data, exam findings and imaging data with Dr. Chandra. I then saw and examined patient independently as well. I reviewed her old records and the frequent use of antibiotics because of recurrent UTI. On exam, she is tender diffusely. However, she does not appear to have a surgical abdomen at this time. She is also distended in her abdomen. History exam does worry me for Clostridium difficile colitis. I agree with antibiotic regimen chosen by Dr. Chadnra. I told the patient's nurse to start antibiotics empirically while we wait for stool sample for C. difficile. We will also keep her on IV fluids, the above antibiotics, and monitor her closely. Should she decompensate and/or worsen, she may need surgical consultation. Other than my comments above and noted exam findings, I agree with Dr. Chandra's assessment and plan.
[2019-01-23] MEDS: Insulin LISPRO 300 UNITS/3 ML VIAL SQ SCH ×5 (00:33→23:19)
[2019-01-23] MEDS: Vancomycin Oral Soln 125 MG/2.5 ML UDC PO SCH ×5 (00:57→20:05)
[2019-01-23] MEDS: 0.9 % Sodium Chloride 1,000 ML IVC SCH ×2 (00:57→10:49)
[2019-01-23] MEDS: MetroNIDAZOLE 500 MG/100 ML 500 MG/100 ML BAG IVPB SCH ×4 (01:02→23:53)
[2019-01-23] MEDS: *HR* Heparin 5,000 UNIT/ML VIAL SQ SCH ×3 (01:07→21:45)
[2019-01-23] MEDS: Ondansetron 4 MG/2 ML VIAL IVP PRN ×2 (07:44→21:45)
[2019-01-23] MEDS: Famotidine 20 MG TABLET PO SCH ×2 (07:44→15:31)
[2019-01-23 07:55] LABS: Hematocrit 24.3 % (35.3-44.9); Mean Corpuscular HGB Conc 33.3 g/dL (31.6-35.5); Mean Corpuscular Hemoglobin 30.8 pg (28.0-33.3); Mean Corpuscular Volume 92.4 fL (83.0-100.0); Platelet Count 379 K/mcL (140-400); Red Blood Count 2.63 M/mcL (3.82-4.97); Red Cell Distribution Width 15.8 % (11.5-14.5)
[2019-01-23 07:58] LABS: Hemoglobin 8.1 g/dL (11.5-15.4)
[2019-01-23] MEDS ORDERED: MetroNIDAZOLE 500 MG/100 ML 500 MG/100 ML BAG IVPB SCH (08:00)
[2019-01-23 08:06] LABS: BUN/Creatinine Ratio 35 (6-26); Blood Urea Nitrogen 32 mg/dL (8-23); Calcium 7.4 mg/dL (8.6-10.3); Carbon Dioxide 13 mEq/L (23-29); Chloride 114 mEq/L (98-107); Glucose 93 mg/dL (70-105); Magnesium 2.1 mg/dL (1.6-2.6); Osmolality,Calculated 289 (280-300); Phosphorous 2.8 mg/dL (2.7-4.5); Potassium 3.7 mEq/L (3.5-5.1); Sodium 136 mEq/L (136-145); eGFR For Non-African Americans 59 (> 60)
[2019-01-23 08:51] LABS: Adenovirus F 40/41 PCR Not detected (Not detect); Astrovirus PCR Not detected (Not detect); C.difficile Toxin A/B Gene PCR DETECTED (Not detect); Campylobacter by PCR Not detected (Not detect); Cryptosporidium by PCR Not detected (Not detect); Cyclospora cayetanensis PCR Not detected (Not detect); E. coli O157 by PCR Not detected (Not detect); Entamoeba histolytica PCR Not detected (Not detect); Enteroaggregative E.coli(EAEC) Not detected (Not detect); Enteropathogenic E.coli(EPEC) Not detected (Not detect); Enterotoxigenic E.coli (ETEC) Not detected (Not detect); Giardia lamblia PCR Not detected (Not detect); Norovirus GI/GII PCR Not detected (Not detect); Plesiomonas shigelloides PCR Not detected (Not detect); Rotavirus A PCR Not detected (Not detect); Salmonella PCR Not detected (Not detect); Sapovirus PCR Not detected (Not detect); Shig/EnteroinvasiveE coli EIEC Not detected (Not detect); Shigalike tox-prod E coli STEC Not detected (Not detect); Vibrio PCR Not detected (Not detect); Vibrio cholerae PCR Not detected (Not detect); Yersinia enterocolitica PCR Not detected (Not detect)
--- NOTE | 2019-01-23 08:52 | Event Note ---
Date of Encounter: 01/23/19 Time of Encounter: 08:49 Patient seen and examined this morning and was apparently no acute overnight events. Denies new complaints. Had one episode of loose bowel movement. Afebrile. Mild abdominal pain on the right. General: In no acute distress. Respiratory exam: CTAB. no accessory muscle use, rales, rhonchi, wheezes Cardiovascular exam: RRR, +S1, +S2. no murmur, gallop, rubs. GI/Abdominal exam: Non-tender, Non-distended, normal bowel sounds, soft, no peritoneal signs. Extremities exam: no pedal edema, pulses palpable in b/l lower extremities. no calf tenderness Neurological exam: CN II-XII intact, AO X3, no focal deficits. Skin exam: No skin rash Assessment Cdif colitis DM HTN YRN Anemia Lt heel decubitus ulcer Plan c/w IVF fluids, vancomycin and IV flagyl can start clear start probiotics Monitor Hb. NO active bleeding YRN resolved f/u blood and urine culture
[2019-01-23] MEDS ORDERED: Pantoprazole 40 MG VIAL IVP SCH (09:00)
[2019-01-23 09:46] LABS: Lymphocytes # 1.6 K/mcL (0.6-4.6); Monocytes # 0.5 K/mcL (0.0-1.3); Neutrophils # 11.2 K/mcL (1.6-8.9); Platelet Estimate Normal (Normal)
[2019-01-23] MEDS: Lactobacillus 1 EACH CAP.SPRINK PO SCH (10:54)
--- NOTE | 2019-01-23 11:12 | Electrocardiograph Report ---
[place] [id number] Test Date: 2019-01-22 Pat Name: China Chong Department: EXAM12 Room: 3A44 Gender: F Database Admin: : [id number] Requested By: Markie Lynn Order Number: [id number] Reading MD: Cande Frazier Measurements Intervals [place] Rate: 94 P: 58 MT: 154 QRS: 12 QRSD: 89 T: 240 QT: 367 QTc: 459 Interpretive Statements Sinus rhythm Nonspecific ST-T changes Electronically Signed On 01-23-2019 11:11:03 EDT by Cande Frazier
[2019-01-23] MEDS: *HR* HYDROcodone/Acet 5/325 mg TABLET PO PRN ×3 (15:31→21:59)
[2019-01-23] MEDS: Nystatin POWDER 30 GM BOTTLE TP SCH ×2 (18:51→20:27)
[2019-01-24 03:03] LABS: Basophils # 0.1 K/mcL (0.0-0.2); Basophils % 0.4 %; Eosinophils # 0.1 K/mcL (0.0-0.6); Eosinophils % 1.2 %; Hematocrit 24.3 % (35.3-44.9); Immature Granulocytes % 1.1 % (0-4); Lymphocytes # 2.1 K/mcL (0.6-4.6); Lymphocytes % 18.5 %; Mean Corpuscular HGB Conc 32.9 g/dL (31.6-35.5); Mean Corpuscular Hemoglobin 30.4 pg (28.0-33.3); Mean Corpuscular Volume 92.4 fL (83.0-100.0); Mean Platelet Volume 9.1 fL (9.4-12.4); Monocytes # 1.4 K/mcL (0.0-1.3); Monocytes % 11.9 %; Neutrophils # 7.6 K/mcL (1.6-8.9); Platelet Count 361 K/mcL (140-400); Red Blood Count 2.63 M/mcL (3.82-4.97); Red Cell Distribution Width 15.9 % (11.5-14.5); Segmented Neutrophils % 66.9 %
[2019-01-24 03:17] LABS: BUN/Creatinine Ratio 37 (6-26); Blood Urea Nitrogen 22 mg/dL (8-23); Carbon Dioxide 13 mEq/L (23-29); Chloride 117 mEq/L (98-107); Glucose 113 mg/dL (70-105); Osmolality,Calculated 284 (280-300); Potassium 4.1 mEq/L (3.5-5.1); Sodium 135 mEq/L (136-145); eGFR For Non-African Americans > 60 (> 60)
[2019-01-24 03:29] LABS: Platelet Estimate Normal (Normal)
[2019-01-24] MEDS: 0.9 % Sodium Chloride 1,000 ML IVC SCH ×2 (03:39→19:15)
[2019-01-24] MEDS: Insulin LISPRO 300 UNITS/3 ML VIAL SQ SCH ×3 (05:32→20:12)
[2019-01-24] MEDS: *HR* Heparin 5,000 UNIT/ML VIAL SQ SCH ×3 (05:36→21:50)
[2019-01-24] MEDS: Lactobacillus 1 EACH CAP.SPRINK PO SCH (09:15)
[2019-01-24] MEDS: Famotidine 20 MG TABLET PO SCH ×2 (09:15→16:48)
[2019-01-24] MEDS: Vancomycin Oral Soln 125 MG/2.5 ML UDC PO SCH ×4 (09:15→20:13)
[2019-01-24] MEDS: MetroNIDAZOLE 500 MG/100 ML 500 MG/100 ML BAG IVPB SCH ×3 (09:15→23:55)
--- NOTE | 2019-01-24 11:11 | Internal Med Progress Note ---
Hospitalist Progress Note - Encounter Date of Encounter: 01/24/19 Time of Encounter: 09:21 - Subjective Interval History: She denied examined this morning. No acute overnight events. Tearful and says "why is it happening to me ". Complains of many episodes of diarrhea and abdominal cramping. Afebrile and hemodynamically stable. - Exam Vitals: Temp Pulse Resp BP Pulse Ox 98.9 F 76 15 139/63 95 01/24/19 10:06 01/24/19 10:06 01/24/19 10:06 01/24/19 10:06 01/24/19 10:06 Exam: General: In no acute distress. Respiratory exam: CTAB. no accessory muscle use, rales, rhonchi, wheezes Cardiovascular exam: RRR, +S1, +S2. no murmur, gallop, rubs. GI/Abdominal exam: Rt sided abdominal pain, Non-distended, soft, no peritoneal signs. Extremities exam: no pedal edema, pulses palpable in b/l lower extremities. no calf tenderness. Lt heed decubitus unstageble ulcer with bandage. Neurological exam: CN II-XII intact, AO X3, no focal deficits. Skin exam: No skin rash - Assessment and Plan (1) Type 2 diabetes mellitus Current Visit: No Status: Chronic (2) Hypertension Current Visit: No Status: Chronic (3) Nausea & vomiting Current Visit: Yes Status: Acute (4) Diarrhea Current Visit: No Status: Acute (5) DVT prophylaxis Current Visit: No Status: Acute (6) Colitis Current Visit: Yes Status: Acute (7) YRN (acute kidney injury) Current Visit: Yes Status: Acute (8) Anemia Current Visit: Yes Status: Acute (9) GERD (gastroesophageal reflux disease) Current Visit: Yes Status: Chronic (10) Ulcer Current Visit: Yes Status: Chronic (11) Hyponatremia Current Visit: Yes Status: Acute - Summary of Assessment and Plan Summary of Assessment and Plan: Assessment Cdif colitis DM HTN YRN-resolved Anemia Lt heel decubitus ulcer Plan - CT with colitis. Cdiff positive - Decrease IVF fluids to maintainence as still with decreased PO intake - c/w vancomycin and IV flagyl for Cdiff - c/w diet and probiotics - Monitor Hb. NO active bleeding - f/u blood and urine culture. NGTD. - wound care for Lt heel ulcer - hold home antihypertensive for now - Time Spent with Patient Total time spent is greater than 50% in coordination of care (as documented) at patient's floor/unit and/or counseling patient: Internal Medicine: Result - Labs CBC & Chem 7: 01/24/19 02:50 01/24/19 02:50 Labs: Short CBC 01/24/19 Range/Units 02:50 WBC 11.4 H (4.3-11.1) K/mcL Hgb 8.0 L (11.5-15.4) g/dL Hct 24.3 L (35.3-44.9) % Plt Count 361 (140-400) K/mcL Neutrophils # 7.6 (1.6-8.9) K/mcL BMP 01/24/19 02:50 Sodium 135 L Potassium 4.1 Chloride 117 H Carbon Dioxide 13 L BUN 22 Creatinine 0.59 L Glucose 113 H Calcium 7.0 L - ABG Interpretation ABG results: PT/INR, D-dimer PT 13.9 Seconds (9.4-12.1) H 01/22/19 17:37 Consult Discharge Plan - Plan Referrals: Robert Ha MD [Primary Care Provider] - (1) Type 2 diabetes mellitus Qualifiers: Diabetes mellitus tank terminal gauger insulin use: without tank terminal gauger use Diabetes mellitus complication status: without complication Qualified Code(s): E11.9 - Type 2 diabetes mellitus without complications (2) Hypertension Qualifiers: Hypertension type: essential hypertension Qualified Code(s): I10 - Essential (primary) hypertension (3) Nausea & vomiting Qualifiers: Vomiting type: unspecified Vomiting Intractability: non-intractable Qualified Code(s): R11.2 - Nausea with vomiting, unspecified (4) Diarrhea Qualifiers: Diarrhea type: unspecified type Qualified Code(s): R19.7 - Diarrhea, unspecified (8) Anemia Qualifiers: Anemia type: unspecified type Qualified Code(s): D64.9 - Anemia, unspecified (9) GERD (gastroesophageal reflux disease) Qualifiers: Esophagitis presence: esophagitis presence not specified Qualified Code(s): K21.9 - Gastro-esophageal reflux disease without esophagitis
[2019-01-24] MEDS ORDERED: Dicyclomine 20 MG/2 ML AMPUL IM PRN (11:14)
[2019-01-24] MEDS: Nystatin POWDER 30 GM BOTTLE TP SCH ×2 (15:13→20:13)
[2019-01-24] MEDS: Ondansetron 4 MG/2 ML VIAL IVP PRN (15:21)
[2019-01-24] MEDS: *HR* HYDROcodone/Acet 5/325 mg TABLET PO PRN (16:47)
[2019-01-25] MEDS: Insulin LISPRO 300 UNITS/3 ML VIAL SQ SCH ×5 (01:24→22:01)
[2019-01-25] MEDS: *HR* Heparin 5,000 UNIT/ML VIAL SQ SCH ×3 (06:06→21:34)
[2019-01-25] MEDS: *HR* HYDROcodone/Acet 5/325 mg TABLET PO PRN ×2 (06:11→12:29)
[2019-01-25] MEDS: MetroNIDAZOLE 500 MG/100 ML 500 MG/100 ML BAG IVPB SCH (07:34)
[2019-01-25] MEDS: Vancomycin Oral Soln 125 MG/2.5 ML UDC PO SCH ×4 (07:34→21:33)
[2019-01-25] MEDS: Nystatin POWDER 30 GM BOTTLE TP SCH ×2 (07:35→22:01)
[2019-01-25] MEDS: 0.9 % Sodium Chloride 1,000 ML IVC SCH (07:35)
[2019-01-25] MEDS: Lactobacillus 1 EACH CAP.SPRINK PO SCH (07:35)
[2019-01-25] MEDS: Famotidine 20 MG TABLET PO SCH ×2 (07:35→16:28)
--- NOTE | 2019-01-25 09:45 | Internal Med Progress Note ---
Hospitalist Progress Note - Encounter Date of Encounter: 01/25/19 Time of Encounter: 08:45 - Subjective Interval History: Is and examined this morning at bedside. No acute overnight events. Denies fevers chills nausea vomiting. Diarrhea improving. Abdominal pain improved. Hemodynamically stable and afebrile. - Exam Vitals: Temp Pulse Resp BP Pulse Ox 97.8 F 68 15 159/69 97 01/25/19 04:59 01/25/19 04:59 01/25/19 04:59 01/25/19 04:59 01/25/19 04:59 Exam: General: In no acute distress. Respiratory exam: CTAB. no accessory muscle use, rales, rhonchi, wheezes Cardiovascular exam: RRR, +S1, +S2. no murmur, gallop, rubs. GI/Abdominal exam: non tender, Non-distended, soft, no peritoneal signs. Extremities exam: no pedal edema, no calf tenderness. Lt heed decubitus unstageble ulcer with bandage. Neurological exam: CN II-XII intact, AO X3, no focal deficits. Skin exam: No skin rash - Assessment and Plan (1) Type 2 diabetes mellitus Current Visit: No Status: Chronic (2) Hypertension Current Visit: No Status: Chronic (3) Nausea & vomiting Current Visit: Yes Status: Acute (4) Diarrhea Current Visit: No Status: Acute (5) DVT prophylaxis Current Visit: No Status: Acute (6) Colitis Current Visit: Yes Status: Acute (7) YRN (acute kidney injury) Current Visit: Yes Status: Acute (8) Anemia Current Visit: Yes Status: Acute (9) GERD (gastroesophageal reflux disease) Current Visit: Yes Status: Chronic (10) Ulcer Current Visit: Yes Status: Chronic (11) Hyponatremia Current Visit: Yes Status: Acute - Summary of Assessment and Plan Summary of Assessment and Plan: Assessment Cdif colitis DM HTN YRN-resolved Anemia Lt heel decubitus ulcer Plan - CT with colitis. Cdiff positive - c/w IVF fluids - c/w vancomycin and IV flagyl for Cdiff - c/w diet and probiotics - Monitor Hb. NO active bleeding - f/u blood and urine culture. NGTD. - wound care for Lt heel ulcer - start iron supplementation - hold home antihypertensive for now. BP improving - If continues to improve will dc tomorrow. may get PT/OT for placement. - Time Spent with Patient Total time spent is greater than 50% in coordination of care (as documented) at patient's floor/unit and/or counseling patient: Internal Medicine: Result - Labs CBC & Chem 7: 01/24/19 02:50 01/24/19 02:50 - ABG Interpretation ABG results: PT/INR, D-dimer PT 13.9 Seconds (9.4-12.1) H 01/22/19 17:37 Consult Discharge Plan - Plan Referrals: Robert Ha MD [Primary Care Provider] - (1) Type 2 diabetes mellitus Qualifiers: Diabetes mellitus nursing home insulin use: without nursing home use Diabetes mellitus complication status: without complication Qualified Code(s): E11.9 - Type 2 diabetes mellitus without complications (2) Hypertension Qualifiers: Hypertension type: essential hypertension Qualified Code(s): I10 - Essential (primary) hypertension (3) Nausea & vomiting Qualifiers: Vomiting type: unspecified Vomiting Intractability: non-intractable Qu alified Code(s): R11.2 - Nausea with vomiting, unspecified (4) Diarrhea Qualifiers: Diarrhea type: unspecified type Qualified Code(s): R19.7 - Diarrhea, unspecified (8) Anemia Qualifiers: Anemia type: unspecified type Qualified Code(s): D64.9 - Anemia, unspecified (9) GERD (gastroesophageal reflux disease) Qualifiers: Esophagitis presence: esophagitis presence not specified Qualified Code(s): K21.9 - Gastro-esophageal reflux disease without esophagitis
[2019-01-25] MEDS: risperiDONE 0.25 MG TABLET PO SCH (21:42)
[2019-01-26] MEDS: 0.9 % Sodium Chloride 1,000 ML IVC SCH ×2 (00:38→11:05)
[2019-01-26] MEDS: *HR* Heparin 5,000 UNIT/ML VIAL SQ SCH ×3 (05:06→22:35)
[2019-01-26] MEDS: Insulin LISPRO 300 UNITS/3 ML VIAL SQ SCH ×4 (10:44→22:01)
[2019-01-26] MEDS: Famotidine 20 MG TABLET PO SCH ×2 (10:59→17:41)
[2019-01-26] MEDS: Ondansetron 4 MG/2 ML VIAL IVP PRN (10:59)
[2019-01-26] MEDS: *HR* HYDROcodone/Acet 5/325 mg TABLET PO PRN (10:59)
[2019-01-26] MEDS: Lactobacillus 1 EACH CAP.SPRINK PO SCH (10:59)
[2019-01-26] MEDS: Nystatin POWDER 30 GM BOTTLE TP SCH ×2 (11:00→22:01)
[2019-01-26] MEDS: Vancomycin Oral Soln 125 MG/2.5 ML UDC PO SCH ×4 (11:00→22:37)
[2019-01-26] MEDS ORDERED: *HR* Promethazine 25 MG/ML VIAL IVP ONE (13:51)
[2019-01-26] MEDS ORDERED: Ondansetron 4 MG/2 ML VIAL IVP ONE (13:59)
--- NOTE | 2019-01-26 15:06 | Discharge Summary ---
- NOTES TO OUTPATIENT PROVIDER Notes to Outpatient Provider: Patient transferred to rehabilitation to continue 6 more days of vancomycin for C. difficile. Orders not resulted at time of discharge: Pending orders 01/22/19 21:43 Culture,Blood [BC] Stat Date of Encounter: 01/26/19 Time of Encounter: 15:02 - Discharge Diagnosis (1) Type 2 diabetes mellitus Priority: Secondary Status: Chronic Qualifiers: Diabetes mellitus terminologist insulin use: without terminologist use Diabetes mellitus complication status: without complication Qualified Code(s): E11.9 - Type 2 diabetes mellitus without complications (2) Hypertension Priority: Secondary Status: Chronic Qualifiers: Hypertension type: essential hypertension Qualified Code(s): I10 - Essential (primary) hypertension (3) Nausea & vomiting Priority: Primary Status: Acute Qualifiers: Vomiting type: unspecified Vomiting Intractability: non-intractable Qualified Code(s): R11.2 - Nausea with vomiting, unspecified (4) Diarrhea Priority: Primary Status: Acute Qualifiers: Diarrhea type: unspecified type Qualified Code(s): R19.7 - Diarrhea, unspecified (5) DVT prophylaxis Priority: Secondary Status: Acute (6) Colitis Priority: Primary Status: Acute (7) YRN (acute kidney injury) Priority: Primary Status: Acute (8) Anemia Priority: Secondary Status: Acute Qualifiers: Anemia type: unspecified type Qualified Code(s): D64.9 - Anemia, unspecified (9) GERD (gastroesophageal reflux disease) Priority: Secondary Status: Chronic Qualifiers: Esophagitis presence: esophagitis presence not specified Qualified Code(s): K21.9 - Gastro-esophageal reflux disease without esophagitis (10) Hyponatremia Priority: Secondary Status: Acute (11) C. difficile colitis Priority: Primary Status: Acute (12) Physical deconditioning Priority: Secondary Status: Acute Hospital course: Ms. Chong is a 83 year old female past medical history of CVA, diabetes, hypertension, hyperlipidemia, gout came in with abdominal pain and diarrhea. Patient was recently treated for UTI and Levaquin and Bactrim. Patient was found to have colitis and C. difficile testing came positive. Patient was started on vancomycin and metronidazole. She was also found to have abnormal UA and YRN. She received IV fluids. Blood culture urine culture remained negative. She likely has iron deficiency anemia and her hemoglobin remained stable. YRN improved with IV fluids. Patient improved and her diarrhea resolved over 4 days of her hospital stay. She remained hemodynamically stable. She was tolerating diet well she is otherwise stable to be discharged to SNF. Patient does occasionally have paranoid symptoms switch her baseline as per her granddaughter. We will discharge today and holding NSAIDs given her YRN. She will finish 6 more days of vancomycin orally at [facility]. She will continue probiotics. Discharge discussed with: patient, family, nurse, social work, case management - Time Spent with Patient Total time spent providing and/or coordinating discharge services: Time spent: Greater than 30 minutes (42) - Discharge Medications Prescriptions: New Ferrous Sulfate 325 mg PO BIDWM tablet Lactobacillus [Culturelle] 1 each PO DAILY cap.sprink Ondansetron [Zofran] 4 mg IVP Q8HR PRN vial PRN Reason: Nausea And Vomiting Dicyclomine [Bentyl] 20 mg PO Q6H PRN capsule PRN Reason: Inflammation Vancomycin Oral Soln [Firvanq] 125 mg PO QID 6 Days #24 udc Continued Atorvastatin [Lipitor] 10 mg PO HS Allopurinol [Zyloprim] 300 mg PO DAILY Acetaminophen [Tylenol] 500 mg PO Q6HR PRN PRN Reason: Headaches/Pain Lisinopril [Zestril] 20 mg PO BID Potassium Chloride [Klor-Con 10] 10 meq PO DAILY Fluticasone Propionate Nasal [Flonase] 1 spray NS Q12H PRN PRN Reason: Congestion Nystatin POWDER [Nystop] 1 appl TP Q12H PRN PRN Reason: Itching Esomeprazole Magnesium [Nexium 24Hr] 20 mg PO Q24H PRN PRN Reason: Heartburn Melatonin 6 mg PO HS Oxybutynin [Ditropan] 5 mg PO TID risperiDONE [Risperidone Odt] 0.25 mg PO HS Discontinued Sulfamethoxazole/Trimeth DS [Bactrim DS] 1 tab PO Q12H Diclofenac Sodium [Voltaren] 1 gm TP Q6H PRN PRN Reason: Pain Ibuprofen [Ibu] 600 mg PO BID Loperamide HCl [Anti-Diarrheal] 2 mg PO Q6H PRN PRN Reason: Loose Stool Home Medications: Acetaminophen [Tylenol] 500 mg PO Q6HR PRN 04/07/17 [History] Allopurinol [Zyloprim] 300 mg PO DAILY 04/07/17 [History] Atorvastatin [Lipitor] 10 mg PO HS 04/07/17 [History] Lisinopril [Zestril] 20 mg PO BID 09/22/17 [History] Fluticasone Propionate Nasal [Flonase] 1 spray NS Q12H PRN 01/22/19 [History] Nystatin POWDER [Nystop] 1 appl TP Q12H PRN 01/22/19 [History] Potassium Chloride [Klor-Con 10] 10 meq PO DAILY 01/22/19 [History] Esomeprazole Magnesium [Nexium 24Hr] 20 mg PO Q24H PRN 01/23/19 [History] Melatonin 6 mg PO HS 01/23/19 [History] Oxybutynin [Ditropan] 5 mg PO TID 01/23/19 [History] risperiDONE [Risperidone Odt] 0.25 mg PO HS 01/23/19 [History] Dicyclomine [Bentyl] 20 mg PO Q6H PRN capsule 01/26/19 [Rx] Ferrous Sulfate 325 mg PO BIDWM tablet 01/26/19 [Rx] Lactobacillus [Culturelle] 1 each PO DAILY cap.sprink 01/26/19 [Rx] Ondansetron [Zofran] 4 mg IVP Q8HR PRN vial 01/26/19 [Rx] Vancomycin Oral Soln [Firvanq] 125 mg PO QID 6 Days #24 udc 01/26/19 [Rx] Allergies/Adverse Reactions: Allergy/AdvReac Type Severity Reaction Status Date / Time Amoxicillin [From Augmentin] Allergy Rash Verified 06/12/18 08:34 cephalexin [From Keflex] Allergy Rash Verified 06/12/18 08:34 clavulanic acid Allergy Rash Verified 06/12/18 08:34 [From Augmentin] diphenhydramine Allergy See Verified 06/12/18 08:34 [From Benadryl] Comments meperidine [From Demerol] Allergy See Verified 06/12/18 08:34 Comments phenytoin [From Dilantin] Allergy See Verified 06/12/18 08:34 Comments Date of admission: 01/23/19 01:49 Primary care physician: Robert Ha MD Consults: 01/22/19 23:11 Consult to Typewriter Aligner [CONS] Routine Reason for SW Consult: Pt and family not happy with current nursing facility. Requesting a new facility. 01/23/19 01:11 Consult to Wound Care [CONS] Routine Reason for Consult: Complaining of buttock being sore, additionally has a visible left foot (heel) ulcer) Call Completed: No Discharging clinician: Aubrie López - Constitutional Vitals: Temp Pulse Resp BP Pulse Ox 98.5 F 74 16 147/78 100 01/26/19 10:41 01/26/19 10:41 01/26/19 10:41 01/26/19 10:41 01/26/19 10:41 Exam: General: In no acute distress. Respiratory exam: CTAB. no accessory muscle use, rales, rhonchi, wheezes Cardiovascular exam: RRR, +S1, +S2. no murmur, gallop, rubs. GI/Abdominal exam: mild tenderness generalized, Non-distended, soft, no peritoneal signs. Extremities exam: no pedal edema, no calf tenderness. Lt heed decubitus ulcer with bandage. Neurological exam: AO X2, no focal deficits. Occassionally paranoid. Skin exam: No skin rash - Patient Status Disposition: Transfer SNF Condition: Good - Discharge Instructions Follow Up With: Robert Ha MD [Primary Care Provider] -
--- NOTE | 2019-01-26 15:28 | Physician Discharge Referral ---
ExtendedCare Referral Info Institutional Level of Care: Skilled - Diagnosis (1) Type 2 diabetes mellitus Status: Chronic (2) Hypertension Status: Chronic (3) Nausea & vomiting Status: Acute (4) Diarrhea Status: Acute (5) DVT prophylaxis Status: Acute (6) Colitis Status: Acute (7) YRN (acute kidney injury) Status: Acute (8) Anemia Status: Acute (9) GERD (gastroesophageal reflux disease) Status: Chronic (10) Hyponatremia Status: Acute (11) C. difficile colitis Status: Acute (12) Physical deconditioning Status: Acute - Transfer Medications Prescriptions: Vancomycin Oral Soln [Firvanq] 125 mg PO QID 6 Days #24 udc Home Medications: Acetaminophen [Tylenol] 500 mg PO Q6HR PRN 04/07/17 [History] Allopurinol [Zyloprim] 300 mg PO DAILY 04/07/17 [History] Atorvastatin [Lipitor] 10 mg PO HS 04/07/17 [History] Lisinopril [Zestril] 20 mg PO BID 09/22/17 [History] Fluticasone Propionate Nasal [Flonase] 1 spray NS Q12H PRN 01/22/19 [History] Nystatin POWDER [Nystop] 1 appl TP Q12H PRN 01/22/19 [History] Potassium Chloride [Klor-Con 10] 10 meq PO DAILY 01/22/19 [History] Esomeprazole Magnesium [Nexium 24Hr] 20 mg PO Q24H PRN 01/23/19 [History] Melatonin 6 mg PO HS 01/23/19 [History] Oxybutynin [Ditropan] 5 mg PO TID 01/23/19 [History] risperiDONE [Risperidone Odt] 0.25 mg PO HS 01/23/19 [History] Dicyclomine [Bentyl] 20 mg PO Q6H PRN capsule 01/26/19 [Rx] Ferrous Sulfate 325 mg PO BIDWM tablet 01/26/19 [Rx] Lactobacillus [Culturelle] 1 each PO DAILY cap.sprink 01/26/19 [Rx] Ondansetron [Zofran] 4 mg IVP Q8HR PRN vial 01/26/19 [Rx] Vancomycin Oral Soln [Firvanq] 125 mg PO QID 6 Days #24 udc 01/26/19 [Rx] Allergies/Adverse Reactions: Allergy/AdvReac Type Severity Reaction Status Date / Time Amoxicillin [From Augmentin] Allergy Rash Verified 06/12/18 08:34 cephalexin [From Keflex] Allergy Rash Verified 06/12/18 08:34 clavulanic acid Allergy Rash Verified 06/12/18 08:34 [From Augmentin] diphenhydramine Allergy See Verified 06/12/18 08:34 [From Benadryl] Comments meperidine [From Demerol] Allergy See Verified 06/12/18 08:34 Comments phenytoin [From Dilantin] Allergy See Verified 06/12/18 08:34 Comments - Respiratory Orders Smoking Cessation: Smoking cessation has been advised. For more information, call the [place] Tobacco Quit Line at 4-180-FHZXNOW. CERTIFICATION: I certify that the transfer of the above named patient to an Extended Care Facility is necessary for the continuing treatment of the diagnosis listed. The above information is true and accurate reflection of patient's current condition. Confidential - Redisclosure prohibited without a patient's written consent.
[2019-01-26] MEDS: risperiDONE 0.25 MG TABLET PO SCH (22:37)
[2019-01-27] MEDS: 0.9 % Sodium Chloride 1,000 ML IVC SCH ×2 (05:23→19:54)
[2019-01-27] MEDS: *HR* Heparin 5,000 UNIT/ML VIAL SQ SCH ×2 (05:27→12:41)
[2019-01-27] MEDS: Insulin LISPRO 300 UNITS/3 ML VIAL SQ SCH ×4 (09:59→20:34)
[2019-01-27] MEDS: Nystatin POWDER 30 GM BOTTLE TP SCH ×2 (10:09→21:12)
[2019-01-27] MEDS: Vancomycin Oral Soln 125 MG/2.5 ML UDC PO SCH ×4 (10:09→20:46)
[2019-01-27] MEDS: Lactobacillus 1 EACH CAP.SPRINK PO SCH (10:09)
[2019-01-27] MEDS: Famotidine 20 MG TABLET PO SCH ×2 (10:09→18:35)
[2019-01-27] MEDS: Ondansetron 4 MG/2 ML VIAL IVP PRN ×2 (12:41→20:51)
[2019-01-27] MEDS: *HR* HYDROcodone/Acet 5/325 mg TABLET PO PRN (12:41)
[2019-01-27] MEDS: Lisinopril 20 MG TABLET PO SCH (12:44)
--- NOTE | 2019-01-27 14:49 | Internal Med Progress Note ---
Hospitalist Progress Note - Encounter Date of Encounter: 01/27/19 Time of Encounter: 09:00 - Subjective Interval History: Patient has mild abdominal discomfort. Denies nausea, vomiting, fever. Has soft stool. Patient was discharged already, waiting for placement at this point. - Exam Vitals: Temp Pulse Resp BP Pulse Ox 97.8 F 75 15 158/80 99 01/27/19 10:32 01/27/19 10:32 01/27/19 10:32 01/27/19 10:32 01/27/19 10:32 Exam: General: In no acute distress. Respiratory exam: CTAB. no accessory muscle use, rales, rhonchi, wheezes Cardiovascular exam: RRR, +S1, +S2. no murmur, gallop, rubs. GI/Abdominal exam: mild tenderness generalized, no rebound or guarding, Non- distended, soft, no peritoneal signs. Extremities exam: no pedal edema, no calf tenderness. Lt heed decubitus ulcer with bandage. Neurological exam: AO X2, no focal deficits. Occassionally paranoid. Skin exam: No skin rash - Assessment and Plan (1) Type 2 diabetes mellitus Current Visit: No Status: Chronic Assessment and Plan: Continue sliding scale insulin coverage (2) Hypertension Current Visit: No Status: Chronic Assessment and Plan: History of hypertension Currently normotensive, will hold antihypertensives Continue cardiac monitoring (3) Nausea & vomiting Current Visit: Yes Status: Acute Assessment and Plan: Resolve. Continue symptomatic treatment as needed. (4) Physical deconditioning Current Visit: No Status: Acute Assessment and Plan: Patient has history of CVA with left-sided residual weakness. Need to discharge to ECF. Waiting for placement. (5) DVT prophylaxis Current Visit: No Status: Acute Assessment and Plan: EPCDs (6) YRN (acute kidney injury) Current Visit: Yes Status: Acute Assessment and Plan: Likely due to dehydration. Resolved after hydration. (7) Anemia Current Visit: Yes Status: Acute Assessment and Plan: Hemoglobin is stable. Continue home medications (8) Hyponatremia Current Visit: Yes Status: Acute Assessment and Plan: Improved (9) C. difficile colitis Current Visit: Yes Status: Acute Assessment and Plan: Patient has diarrhea, abdominal pain, CT abdomen shows colitis. Recent ant ibiotic use. Stool test shows C. difficile positive. - Continue by mouth vancomycin to finish 14 day course. - Time Spent with Patient Total time spent is greater than 50% in coordination of care (as documented) at patient's floor/unit and/or counseling patient: 30 minutes 25 - 35 minutes Plan of Care Discussed with: patient Internal Medicine: Result - Labs CBC & Chem 7: 01/24/19 02:50 01/24/19 02:50 - ABG Interpretation ABG results: PT/INR, D-dimer PT 13.9 Seconds (9.4-12.1) H 01/22/19 17:37 Consult Discharge Plan - Plan Referrals: Robert Ha MD [Primary Care Provider] - Prescriptions: Vancomycin Oral Soln [Firvanq] 125 mg PO QID 6 Days #24 udc (1) Type 2 diabetes mellitus Qualifiers: Diabetes mellitus senior living insulin use: without senior living use Diabetes mellitus complication status: without complication Qualified Code(s): E11.9 - Type 2 diabetes mellitus without complications (2) Hypertension Qualifiers: Hypertension type: essential hypertension Qualified Code(s): I10 - Essential (primary) hypertension (3) Nausea & vomiting Qualifiers: Vomiting type: unspecified Vomiting Intractability: non-intractable Qualified Code(s): R11.2 - Nausea with vomiting, unspecified (7) Anemia Qualifiers: Anemia type: unspecified type Qualified Code(s): D64.9 - Anemia, unspecified
[2019-01-27] MEDS: risperiDONE 0.25 MG TABLET PO SCH (20:46)
[2019-01-28] MEDS: Insulin LISPRO 300 UNITS/3 ML VIAL SQ SCH ×4 (08:49→22:10)
[2019-01-28] MEDS: Lisinopril 20 MG TABLET PO SCH (08:49)
[2019-01-28] MEDS: Famotidine 20 MG TABLET PO SCH ×2 (08:50→16:59)
[2019-01-28] MEDS: Nystatin POWDER 30 GM BOTTLE TP SCH ×2 (08:50→22:09)
[2019-01-28] MEDS: Vancomycin Oral Soln 125 MG/2.5 ML UDC PO SCH ×4 (08:50→19:54)
[2019-01-28] MEDS: Lactobacillus 1 EACH CAP.SPRINK PO SCH (08:50)
--- NOTE | 2019-01-28 14:38 | Internal Med Progress Note ---
Hospitalist Progress Note - Encounter Date of Encounter: 01/28/19 Time of Encounter: 09:00 - Subjective Interval History: Patient has poor intake, sometimes nausea. Patient still complaining abdominal pain with loose stool. Continue on by mouth vancomycin for C. difficile colitis. - Exam Vitals: Temp Pulse Resp BP Pulse Ox 98.1 F 89 15 108/72 94 01/28/19 11:19 01/28/19 11:19 01/28/19 11:19 01/28/19 11:19 01/28/19 11:19 Exam: General: In no acute distress. Respiratory exam: CTAB. no accessory muscle use, rales, rhonchi, wheezes Cardiovascular exam: RRR, +S1, +S2. no murmur, gallop, rubs. GI/Abdominal exam: mild tenderness generalized, no rebound or guarding, Non- distended, soft, no peritoneal signs. Extremities exam: no pedal edema, no calf tenderness. Lt heed decubitus ulcer with bandage. Neurological exam: AO X2, no focal deficits. Occassionally paranoid. Skin exam: No skin rash - Assessment and Plan (1) Type 2 diabetes mellitus Current Visit: No Status: Chronic Assessment and Plan: Continue sliding scale insulin coverage (2) Hypertension Current Visit: No Status: Chronic Assessment and Plan: History of hypertension Currently normotensive, will hold antihypertensives Continue cardiac monitoring (3) Nausea & vomiting Current Visit: Yes Status: Acute Assessment and Plan: Still has mild nausea. Continue symptomatic treatment as needed. (4) Physical deconditioning Current Visit: No Status: Acute Assessment and Plan: Patient has history of CVA with left-sided residual weakness. Need to discharge to ECF. Waiting for placement. - Eyeglass Frame Truer saw patient, diet supplement added (5) DVT prophylaxis Current Visit: No Status: Acute Assessment and Plan: EPCDs (6) YRN (acute kidney injury) Current Visit: Yes Status: Acute Assessment and Plan: Likely due to dehydration. Resolved after hydration. (7) Anemia Current Visit: Yes Status: Acute Assessment and Plan: Hemoglobin is stable. Continue home medications (8) Hyponatremia Current Visit: Yes Status: Acute Assessment and Plan: Improved (9) C. difficile colitis Current Visit: Yes Status: Acute Assessment and Plan: Patient has diarrhea, abdominal pain, CT abdomen shows colitis. Recent antibiotic use. Stool test shows C. difficile positive. - Continue by mouth vancomycin to finish 14 day course. DVT Prophylaxis: EPCDs - Time Spent with Patient Total time spent is greater than 50% in coordination of care (as documented) at patient's floor/unit and/or counseling patient: 25 - 35 minutes Plan of Care Discussed with: patient Internal Medicine: Result - Labs CBC & Chem 7: 01/24/19 02:50 01/24/19 02:50 - ABG Interpretation ABG results: PT/INR, D-dimer PT 13.9 Seconds (9.4-12.1) H 01/22/19 17:37 Consult Discharge Plan - Plan Referrals: Robert Ha MD [Primary Care Provider] - Prescriptions: Vancomycin Oral Soln [Firvanq] 125 mg PO QID 6 Days #24 udc (1) Type 2 diabetes mellitus Qualifiers: Diabetes mellitus ocean transportation intermediary insulin use: without detention use Diabetes mellitus complication status: without complication Qualified Code(s): E11.9 - Type 2 diabetes mellitus without complications (2) Hypertension Qualifiers: Hypertension type: essential hypertension Qualified Code(s): I10 - Essential (primary) hypertension (3) Nausea & vomiting Qualifiers: Vomiting type: unspecified Vomiting Intractability: non-intractable Qualified Code(s): R11.2 - Nausea with vomiting, unspecified (7) Anemia Qualifiers: Anemia type: unspecified type Qualified Code(s): D64.9 - Anemia, unspecified
[2019-01-28 15:38] LABS: Basophils % 0.2 %; Eosinophils % 0.1 %; Hematocrit 31.2 % (35.3-44.9); Immature Granulocytes % 1.4 % (0-4); Lymphocytes # 2.3 K/mcL (0.6-4.6); Lymphocytes % 17.2 %; Mean Corpuscular Hemoglobin 29.8 pg (28.0-33.3); Mean Corpuscular Volume 90.2 fL (83.0-100.0); Mean Platelet Volume 8.5 fL (9.4-12.4); Monocytes # 0.9 K/mcL (0.0-1.3); Monocytes % 6.3 %; Neutrophils # 10.2 K/mcL (1.6-8.9); Platelet Count 384 K/mcL (140-400); Red Blood Count 3.46 M/mcL (3.82-4.97); Red Cell Distribution Width 16.5 % (11.5-14.5); Segmented Neutrophils % 74.8 %
[2019-01-28 15:39] LABS: Hemoglobin 10.3 g/dL (11.5-15.4)
[2019-01-28 15:57] LABS: BUN/Creatinine Ratio 9 (6-26); Blood Urea Nitrogen 4 mg/dL (8-23); Calcium 7.4 mg/dL (8.6-10.3); Carbon Dioxide 19 mEq/L (23-29); Chloride 109 mEq/L (98-107); Glucose 139 mg/dL (70-105); Osmolality,Calculated 279 (280-300); Potassium 3.1 mEq/L (3.5-5.1); Sodium 135 mEq/L (136-145); eGFR For Non-African Americans > 60 (> 60)
[2019-01-28] MEDS: risperiDONE 0.25 MG TABLET PO SCH (19:54)
[2019-01-29] MEDS: Famotidine 20 MG TABLET PO SCH ×2 (09:03→18:43)
[2019-01-29] MEDS: Lactobacillus 1 EACH CAP.SPRINK PO SCH (09:03)
[2019-01-29] MEDS: Lisinopril 20 MG TABLET PO SCH (09:04)
[2019-01-29] MEDS: Vancomycin Oral Soln 125 MG/2.5 ML UDC PO SCH ×4 (09:04→20:41)
[2019-01-29] MEDS: Insulin LISPRO 300 UNITS/3 ML VIAL SQ SCH ×4 (09:04→22:06)
[2019-01-29] MEDS: Ondansetron 4 MG/2 ML VIAL IVP PRN ×2 (09:17→20:46)
[2019-01-29 09:57] LABS: Basophils % 0.4 %; Eosinophils # 0.1 K/mcL (0.0-0.6); Eosinophils % 0.8 %; Hematocrit 31.5 % (35.3-44.9); Hemoglobin 10.4 g/dL (11.5-15.4); Immature Granulocytes % 1.3 % (0-4); Lymphocytes % 18.5 %; Mean Corpuscular Hemoglobin 30.1 pg (28.0-33.3); Mean Corpuscular Volume 91.3 fL (83.0-100.0); Mean Platelet Volume 8.7 fL (9.4-12.4); Monocytes # 0.6 K/mcL (0.0-1.3); Monocytes % 5.8 %; Neutrophils # 7.9 K/mcL (1.6-8.9); Platelet Count 375 K/mcL (140-400); Red Blood Count 3.45 M/mcL (3.82-4.97); Red Cell Distribution Width 17.1 % (11.5-14.5); Segmented Neutrophils % 73.2 %
[2019-01-29 10:21] LABS: BUN/Creatinine Ratio 11 (6-26); Blood Urea Nitrogen 5 mg/dL (8-23); Calcium 8.1 mg/dL (8.6-10.3); Carbon Dioxide 21 mEq/L (23-29); Chloride 106 mEq/L (98-107); Glucose 120 mg/dL (70-105); Osmolality,Calculated 272 (280-300); Potassium 3.2 mEq/L (3.5-5.1); Sodium 132 mEq/L (136-145); eGFR For Non-African Americans > 60 (> 60)
[2019-01-29] MEDS ORDERED: Potassium Chloride Elixir 20 MEQ/15 ML UDC PO ONE (11:34)
--- NOTE | 2019-01-29 12:01 | Internal Med Progress Note ---
Hospitalist Progress Note - Encounter Date of Encounter: 01/29/19 Time of Encounter: 09:00 - Subjective Interval History: Pt still has abd pain and loose/watery stool. No fever, leukocytosis improved. Poor intake. Denies nausea or vomiting. - Exam Vitals: Temp Pulse Resp BP Pulse Ox 98.3 F 75 16 130/61 96 01/29/19 08:05 01/29/19 08:05 01/29/19 08:05 01/29/19 08:05 01/29/19 08:05 Exam: General: In no acute distress. Respiratory exam: CTAB. no accessory muscle use, rales, rhonchi, wheezes Cardiovascular exam: RRR, +S1, +S2. no murmur, gallop, rubs. GI/Abdominal exam: mild tenderness generalized, no rebound or guarding, Non- distended, soft, no peritoneal signs. Extremities exam: no pedal edema, no calf tenderness. Lt heed decubitus ulcer with bandage. Neurological exam: AO X2, no focal deficits. Occassionally paranoid. Skin exam: No skin rash - Assessment and Plan (1) Type 2 diabetes mellitus Current Visit: No Status: Chronic Assessment and Plan: Continue sliding scale insulin coverage (2) Hypertension Current Visit: No Status: Chronic Assessment and Plan: History of hypertension Currently normotensive, will hold antihypertensives Continue cardiac monitoring (3) Nausea & vomiting Current Visit: Yes Status: Acute Assessment and Plan: Improved. Continue symptomatic treatment as needed. (4) Physical deconditioning Current Visit: No Status: Acute Assessment and Plan: Patient has history of CVA with left-sided residual weakness. Need to discharge to ECF. Generally poor intake. - Auto Inspector saw patient, diet supplement added (5) DVT prophylaxis Current Visit: No Status: Acute Assessment and Plan: EPCDs (6) YRN (acute kidney injury) Current Visit: Yes Status: Acute Assessment and Plan: Likely due to dehydration. Resolved after hydration. (7) Anemia Current Visit: Yes Status: Acute Assessment and Plan: Hemoglobin is stable. Continue home medications (8) Hyponatremia Current Visit: Yes Status: Acute Assessment and Plan: Improved (9) C. difficile colitis Current Visit: Yes Status: Acute Assessment and Plan: Patient has diarrhea, abdominal pain, CT abdomen shows colitis. Recent antibiotic use. Stool test shows C. difficile positive. - Continue by mouth vancomycin to finish 14 day course. - Persist symptoms although on treatment, repeat CT shows worsening inflammation , no signs of toxic megacolon. - Will consult ID, hold discharge at this point. DVT Prophylaxis: EPCDs - Time Spent with Patient Total time spent is greater than 50% in coordination of care (as documented) at patient's floor/unit and/or counseling patient: 30 min 25 - 35 minutes Internal Medicine: Result - Labs CBC & Chem 7: 01/29/19 09:44 01/29/19 09:44 Labs: Short CBC 01/28/19 01/29/19 Range/Units 14:35 09:44 WBC 13.6 H 10.8 (4.3-11.1) K/mcL Hgb 10.3 L D 10.4 L (11.5-15.4) g/dL Hct 31.2 L 31.5 L (35.3-44.9) % Plt Count 384 375 (140-400) K/mcL Neutrophils # 10.2 H 7.9 (1.6-8.9) K/mcL BMP 01/28/19 01/29/19 14:35 09:44 Sodium 135 L 132 L Potassium 3.1 L 3.2 L Chloride 109 H 106 Carbon Dioxide 19 L 21 L BUN 4 L 5 L Creatinine 0.44 L 0.44 L Glucose 139 H 120 H Calcium 7.4 L 8.1 L - ABG Interpretation ABG results: PT/INR, D-dimer PT 13.9 Seconds (9.4-12.1) H 01/22/19 17:37 - Impressions Impressions Abdomen/Pelvis CT 01/29/19 10:04 IMPRESSION: Worsening inflammation involving the left colon most apparent within the rectum and sigmoid colon. These changes are compatible with infectious colitis. No abscess or perforation is identified. New mild ascites. Cholecystectomy. New small bilateral pleural effusions. Small right inguinal hernia and hiatal hernia. D/ / 01/29/2019 11:28:41 Jason Kline MD / [facility] Interpreting Provider: Jason Kline MD Consult Discharge Plan - Plan Referrals: Robert Ha MD [Primary Care Provider] - Prescriptions: Vancomycin Oral Soln [Firvanq] 125 mg PO QID 6 Days #24 udc (1) Type 2 diabetes mellitus Qualifiers: Diabetes mellitus skilled nursing insulin use: without salvage determiner use Diabetes mellitus complication status: without complication Qualified Code(s): E11.9 - Type 2 diabetes mellitus without complications (2) Hypertension Qualifiers: Hypertension type: essential hypertension Qualified Code(s): I10 - Essential (primary) hypertension (3) Nausea & vomiting Qualifiers: Vomiting type: unspecified Vomiting Intractability: non-intractable Qualified Code(s): R11.2 - Nausea with vomiting, unspecified (7) Anemia Qualifiers: Anemia type: unspecified type Qualified Code(s): D64.9 - Anemia, unspecified
--- NOTE | 2019-01-29 12:45 | Infectious Disease Consult ---
Infectious Disease-Consult - Encounter Date/Time Date of Encounter: 01/29/19 Time of Encounter: 12:45 - Data of Consult Patient: new to practice Reason for consult: C. diff colitis Consult date: 01/29/19 Requesting Physician: Aubrie López MD Primary Care Provider: Robert Ha MD - [facility] HPI: Mrs. Chong is an 83-year-old female with past medical history of CVA with residual left-sided weakness, diabetes, hyperlipidemia, hypertension, gout, restless leg syndrome, and recurrent UTIs. The patient was admitted to the hospital 01/22/19 for colitis, leukocytosis, and acute gastroenteritis. We are consulted 01/29/19 for further workup and treatment recommendations for worsening colitis. Briefly, the patient is an 83 year old female with a past medical history as stated above. The patient presented to the ER on the day of admission with a 3 week history of abdominal pain with nausea, vomiting, and diarrhea. Upon arrival, she was tachycardic, but was otherwise hemodynamically stable. She was afebrile. She had leukocytosis with neutrophilic predominance and acute kidney injury. Lactic acid, LFTs, troponin, amylase, and lipase were normal. Urinalysis was collected but appeared contaminated. The culture was negative. She was CT of the abdomen and pelvis that showed wall thickening and pericolic soft tissue stranding of the descending and sigmoid colon and rectum consistent with colitis, likely infectious or inflammatory in etiology. Blood cultures were obtained 2 sets. She was admitted to the hospital for further evaluation and treatment. On admission, she was tested for C. difficile came back positive via the PCR and EIA. GI panel was otherwise negative. She was started on oral vancomycin and IV Flagyl through 01/25/19 when the IV Flagyl was discontinued. Her leukocytosis improved. She had a repeat CT of the abdomen and pelvis this morning that showed worsening inflammation involving the left colon most apparent within the rectum and sigmoid colon. These changes are compatible with infectious colitis. No abscess or perforation identified. She remains on oral vancomycin. We have been asked to evaluate and make further recommendations. During my exam today, the patient is very tearful and somewhat of a poor historian. She tells me that she has had abdominal pain with nausea and vomiting for several weeks. She reports subjective fevers with chills. Denies headache or neck pain. Denies congestion, earache, or sore throat. Denies chest pain, shortness of breath, or cough. Reports nausea with vomiting and diarrhea. Per nursing however she has only had 1 stool so far this morning and 2 were documented yesterday. She reports generalized abdominal pain that is dull and achy in nature and sometimes crampy. She has a chronic indwelling Estrella catheter that remains patent with clear yellow urine. She denies back pain. She reports chronic pain to the left upper and left lower extremity secondary to her previous CVA. She denies any oral thrush or skin rashes. The patient lives at home with her family. She denies any tobacco, alcohol, or illicit drug use. She denies any recent travel outside the [facility]. Of note, the patient was recently prescribed several different antibiotics including Levaquin about a month ago, Macrobid about 2 weeks ago, and finished a course of oral Bactrim the day prior to admission. - ROS Review of Systems: All systems reviewed and no additional remarkable complaints except as stated. - Results CBC & Chem 7: 01/29/19 09:44 01/29/19 09:44 - Line Documentation Line Documentation: Estrella Catheter (Draining clear yellow urine) - Exam Vitals: Temp Pulse Resp BP Pulse Ox 97.8 F 75 16 129/69 97 01/29/19 11:41 01/29/19 11:41 01/29/19 11:41 01/29/19 11:41 01/29/19 11:41 Exam: Head: Atraumatic, normal inspection, normocephalic. Eye: EOMI, PERRLA, no scleral icterus noted. ENT: Mucous membranes moist. No odontogenic infection noted. Neck: Normal inspection, no meningismus. Respiratory: Clear to auscultation. No rales, respiratory distress, rhonchi, or wheezes noted. Cardiovascular: Regular rate and rhythm, S1 and S2 audible. No murmurs, rubs, or gallops. GI: Soft, nondistended, normal bowel sounds. Generalized tenderness noted with palpation. Estrella catheter noted to be draining clear yellow urine. Extremities: No joint swelling, pedal edema noted. Contractures noted to the left upper and left lower extremities. Tenderness noted with palpation of the left upper and left lower extremities. Back: Normal inspection. No vertebral tenderness noted. Neurological: Alert, oriented 3. Paralysis noted to the LUE and LLE. Psychiatric: normal affect, normal mood. Skin: Dry, intact, warm. Normal color. No rashes. Acetaminophen [Tylenol] 500 mg PO Q6HR PRN 04/07/17 [History] Allopurinol [Zyloprim] 300 mg PO DAILY 04/07/17 [History] Atorvastatin [Lipitor] 10 mg PO HS 04/07/17 [History] Lisinopril [Zestril] 20 mg PO BID 09/22/17 [History] Fluticasone Propionate Nasal [Flonase] 1 spray NS Q12H PRN 01/22/19 [History] Nystatin POWDER [Nystop] 1 appl TP Q12H PRN 01/22/19 [History] Potassium Chloride [Klor-Con 10] 10 meq PO DAILY 01/22/19 [History] Esomeprazole Magnesium [Nexium 24Hr] 20 mg PO Q24H PRN 01/23/19 [History] Melatonin 6 mg PO HS 01/23/19 [History] Oxybutynin [Ditropan] 5 mg PO TID 01/23/19 [History] risperiDONE [Risperidone Odt] 0.25 mg PO HS 01/23/19 [History] Dicyclomine [Bentyl] 20 mg PO Q6H PRN capsule 01/26/19 [Rx] Ferrous Sulfate 325 mg PO BIDWM tablet 01/26/19 [Rx] Lactobacillus [Culturelle] 1 each PO DAILY cap.sprink 01/26/19 [Rx] Ondansetron [Zofran] 4 mg IVP Q8HR PRN vial 01/26/19 [Rx] Vancomycin Oral Soln [Firvanq] 125 mg PO QID 6 Days #24 [facility] 01/26/19 [Rx] Allergy/AdvReac Type Severity Reaction Status Date / Time Amoxicillin [From Augmentin] Allergy Rash Verified 06/12/18 08:34 cephalexin [From Keflex] Allergy Rash Verified 06/12/18 08:34 clavulanic acid Allergy Rash Verified 06/12/18 08:34 [From Augmentin] diphenhydramine Allergy See Verified 06/12/18 08:34 [From Benadryl] Comments meperidine [From Demerol] Allergy See Verified 06/12/18 08:34 Comments phenytoin [From Dilantin] Allergy See Verified 06/12/18 08:34 Comments - Assessment and Plan (1) Sepsis Current Visit: Yes Status: Acute The patient had 2 sepsis criteria on admission. Likely secondary to colitis. Improved. Leukocytosis resolved. Tachycardia resolved. She has been afebrile. Blood cultures on 01/22/19 are no growth to date 2 sets. Qualifiers: Sepsis type: sepsis due to unspecified organism Qualified Code(s): A41.9 - Sepsis, unspecified organism SNOMED Code(s): 39479379 (2) C. difficile colitis Current Visit: Yes Status: Acute Likely secondary to recent antibiotic use. CT of the abdomen and pelvis completed 01/22/19 showed wall thickening and pericolic soft tissue stranding of the descending and sigmoid colon and rectum consistent with colitis, likely infectious or inflammatory in etiology. C. difficile PCR and EIA positive. Clinical picture consistent with C. difficile. Severe on admission (WBC >15,000), but no toxic megacolon or shock noted on admission. Labs and vitals improved on current treatment, but clinically patient unchanged and CT looks worse. Consider non-infectious etiologies given the progression of findings on imaging despite adequate treatment and the distribution of the colitis. Currently on Vancomycin 125mg QID. SNOMED Code(s): 832856640 (3) Nausea & vomiting Current Visit: Yes Status: Acute Likely secondary to colitis. CT abdomen and pelvis negative for obstruction. Symptomatic management per the primary team. Qualifiers: Vomiting type: unspecified Vomiting Intractability: non-intractable Qualified Code(s): R11.2 - Nausea with vomiting, unspecified SNOMED Code(s): 64222616 (4) YRN (acute kidney injury) Current Visit: Yes Status: Acute Likely pre-renal secondary to poor PO intake and sepsis. Resolved. 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 SNOMED Code(s): 345503362 (8) Hypertension Current Visit: No Status: Chronic Qualifiers: Hypertension type: essential hypertension Qualified Code(s): I10 - Essential (primary) hypertension SNOMED Code(s): 05781932 (9) Type 2 diabetes mellitus Current Visit: No Status: Chronic Qualifiers: Diabetes mellitus oil heaterman insulin use: without chcf use Diabetes mellitus complication status: without complication Qualified Code(s): E11.9 - Type 2 diabetes mellitus without complications SNOMED Code(s): 62257920 - Recommendations Recommendations: Recommend GI to evaluate for possible non-infectious etiologies of the patient's worsening colitis. Continue Vancomycin 125mg PO QID. Duration of treatment depends on the clinical picture, but likely a total of 14 days of treatment. Monitor labs and dose-adjust medications. Pain management per the primary team. C. diff precautions per hospital policy. Past Med Surg Social Fam HX - Past Medical History Medical history: CVA, diabetes, hyperlipidemia, hypertension, other Additional medical history: RLS Psychiatric history: no psych history - Past Surgical History Surgical History: cholecystectomy, FALGUNI/BSO Additional surgical history: carpel tunnel surgery. rectocel surgery - Social History Smoking Status: Never smoker Smokeless Tobacco Status: No Alcohol use: rarely Drug use: none - Family History Mother Living Status: Hx Family Cardiac Disorders: No Hx Family Endocrine Disorder: Yes (DM) Father Living Status: Hx Family Cardiac Disorders: Yes ([place]) Consult Discharge Plan - Plan Referrals: Robert Ha MD [Primary Care Provider] - Prescriptions: Vancomycin Oral Soln [Firvanq] 125 mg PO QID 6 Days #24 udc - Attending Attestation I have personally performed a face to face evaluation on this patient. I have reviewed and agree with the care plan. History and Exam by me shows: Assessment and Plan: 1. Sepsis 2. C diff colitis 3. Colitis 4. Nausea and vomiting 5. YRN Recommendations: Recommend GI to evaluate for possible non-infectious etiologies of the patient's worsening colitis. Continue Vancomycin 125mg PO QID. Duration of treatment depends on the clinical picture, but likely a total of 14 days of treatment. Monitor labs and dose-adjust medications. Pain management per the primary team. C. diff precautions per hospital policy.
[2019-01-29] MEDS: Nystatin POWDER 30 GM BOTTLE TP SCH ×2 (13:45→20:44)
[2019-01-29] MEDS: *HR* HYDROcodone/Acet 5/325 mg TABLET PO PRN (20:40)
[2019-01-29] MEDS: risperiDONE 0.25 MG TABLET PO SCH (20:40)
[2019-01-30] MEDS: Insulin LISPRO 300 UNITS/3 ML VIAL SQ SCH ×4 (07:30→21:36)
[2019-01-30] MEDS: Lactobacillus 1 EACH CAP.SPRINK PO SCH (10:30)
[2019-01-30] MEDS: Lisinopril 20 MG TABLET PO SCH (10:30)
[2019-01-30] MEDS: Vancomycin Oral Soln 125 MG/2.5 ML UDC PO SCH ×4 (10:31→21:40)
[2019-01-30] MEDS: Nystatin POWDER 30 GM BOTTLE TP SCH ×2 (10:31→21:36)
[2019-01-30] MEDS: Famotidine 20 MG TABLET PO SCH ×2 (10:31→17:11)
--- NOTE | 2019-01-30 11:56 | Internal Med Progress Note ---
Hospitalist Progress Note - Encounter Date of Encounter: 01/30/19 Time of Encounter: 09:00 - Subjective Interval History: Patient still complaining of abdominal tenderness. Has loose stool. No fever. No nausea or vomiting. Vitals are stable. - Exam Vitals: Temp Pulse Resp BP Pulse Ox 97.8 F 87 16 117/47 97 01/30/19 11:12 01/30/19 11:12 01/30/19 11:12 01/30/19 11:12 01/30/19 11:12 Exam: Pt is AAO x 3, in NAD HEENT: NC/AT, PERRL Neck: Supple, no JVD, no LAD Lungs: CTA b/l Heart: S1S2, RRR Abd: Soft, moderate tenderness, without clear rebound or guarding, bowel sounds present. 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 - Assessment and Plan (1) Type 2 diabetes mellitus Current Visit: No Status: Chronic Assessment and Plan: Continue sliding scale insulin coverage (2) Hypertension Current Visit: No Status: Chronic Assessment and Plan: History of hypertension Currently normotensive, will hold antihypertensives Continue cardiac monitoring (3) Nausea & vomiting Current Visit: Yes Status: Acute Assessment and Plan: Improved. Continue symptomatic treatment as needed. (4) Physical deconditioning Current Visit: No Status: Acute Assessment and Plan: Patient has history of CVA with left-sided residual weakness. Need to discharge to ECF. Generally poor intake. - Consumer Advocate saw patient, diet supplement added (5) DVT prophylaxis Current Visit: No Status: Acute Assessment and Plan: EPCDs (6) YRN (acute kidney injury) Current Visit: Yes Status: Acute Assessment and Plan: Likely due to dehydration. Resolved after hydration. (7) Anemia Current Visit: Yes Status: Acute Assessment and Plan: Hemoglobin is stable. Continue home medications (8) Hyponatremia Current Visit: Yes Status: Acute Assessment and Plan: Improved (9) C. difficile colitis Current Visit: Yes Status: Acute Assessment and Plan: Patient has diarrhea, abdominal pain, CT abdomen shows colitis. Recent antibiotic use. Stool test shows C. difficile positive. - Continue by mouth vancomycin to finish 14 day course. - Persist symptoms although on treatment, repeat CT shows worsening inflammation, no signs of toxic megacolon. - ID consult appreciated. Consider clinically improved. Recommend continue by mouth vancomycin to finish 14 day course. Will consider GI consult on Friday if symptoms persist. DVT Prophylaxis: EPCDs - Time Spent with Patient Total time spent is greater than 50% in coordination of care (as documented) at patient's floor/unit and/or counseling patient: 30 minutes 25 - 35 minutes Plan of Care Discussed with: patient Internal Medicine: Result - Labs CBC & Chem 7: 01/29/19 09:44 01/29/19 09:44 - ABG Interpretation ABG results: PT/INR, D-dimer PT 13.9 Seconds (9.4-12.1) H 01/22/19 17:37 - Impressions Impressions Abdomen/Pelvis CT 01/29/19 10:04 IMPRESSION: Worsening inflammation involving the left colon most apparent within the rectum and sigmoid colon. These changes are compatible with infectious colitis. No abscess or perforation is identified. New mild ascites. Cholecystectomy. New small bilateral pleural effusions. Small right inguinal hernia and hiatal hernia. D/ / 01/29/2019 11:28:41 Jason Kline MD / [facility] Interpreting Provider: Jason Kline MD Consult Discharge Plan - Plan Referrals: Robert Ha MD [Primary Care Provider] - Prescriptions: Vancomycin Oral Soln [Firvanq] 125 mg PO QID 6 Days #24 udc ____ (1) Type 2 diabetes mellitus Qualifiers: Diabetes mellitus termite helper insulin use: without termite helper use Diabetes mellitus complication status: without complication Qualified Code(s): E11.9 - Type 2 diabetes mellitus without complications (2) Hypertension Qualifiers: Hypertension type: essential hypertension Qualified Code(s): I10 - Essential (primary) hypertension (3) Nausea & vomiting Qualifiers: Vomiting type: unspecified Vomiting Intractability: non-intractable Qualified Code(s): R11.2 - Nausea with vomiting, unspecified (7) Anemia Qualifiers: Anemia type: unspecified type Qualified Code(s): D64.9 - Anemia, unspecified
[2019-01-30 14:00] LABS: Basophils # 0.1 K/mcL (0.0-0.2); Basophils % 0.6 %; Eosinophils # 0.1 K/mcL (0.0-0.6); Eosinophils % 1.2 %; Hematocrit 29.1 % (35.3-44.9); Hemoglobin 9.8 g/dL (11.5-15.4); Immature Granulocytes % 2.3 % (0-4); Lymphocytes # 2.5 K/mcL (0.6-4.6); Lymphocytes % 26.5 %; Mean Corpuscular HGB Conc 33.7 g/dL (31.6-35.5); Mean Corpuscular Hemoglobin 30.2 pg (28.0-33.3); Mean Corpuscular Volume 89.8 fL (83.0-100.0); Mean Platelet Volume 10.1 fL (9.4-12.4); Monocytes # 0.6 K/mcL (0.0-1.3); Monocytes % 5.8 %; Platelet Count 336 K/mcL (140-400); Red Blood Count 3.24 M/mcL (3.82-4.97); Red Cell Distribution Width 17.3 % (11.5-14.5); Segmented Neutrophils % 63.6 %
[2019-01-30 14:09] LABS: BUN/Creatinine Ratio 12 (6-26); Blood Urea Nitrogen 5 mg/dL (8-23); Calcium 7.4 mg/dL (8.6-10.3); Carbon Dioxide 19 mEq/L (23-29); Chloride 108 mEq/L (98-107); Glucose 113 mg/dL (70-105); Osmolality,Calculated 274 (280-300); Potassium 3.9 mEq/L (3.5-5.1); Sodium 133 mEq/L (136-145); eGFR For Non-African Americans > 60 (> 60)
[2019-01-30 14:29] LABS: Anisocytosis 1+ (Not Present); Large Platelets Present (Not Present); Platelet Estimate Normal (Normal)
[2019-01-30] MEDS: risperiDONE 0.25 MG TABLET PO SCH (21:40)
[2019-01-30] MEDS: *HR* HYDROcodone/Acet 5/325 mg TABLET PO PRN (21:46)
[2019-01-31 06:39] LABS: Basophils % 0.6 %; Eosinophils # 0.1 K/mcL (0.0-0.6); Eosinophils % 2.4 %; Hematocrit 29.6 % (35.3-44.9); Hemoglobin 9.7 g/dL (11.5-15.4); Immature Granulocytes % 2.2 % (0-4); Lymphocytes % 39.4 %; Mean Corpuscular HGB Conc 32.8 g/dL (31.6-35.5); Mean Corpuscular Hemoglobin 30.3 pg (28.0-33.3); Mean Corpuscular Volume 92.5 fL (83.0-100.0); Mean Platelet Volume 8.6 fL (9.4-12.4); Monocytes # 0.4 K/mcL (0.0-1.3); Monocytes % 8.7 %; Neutrophils # 2.4 K/mcL (1.6-8.9); Platelet Count 390 K/mcL (140-400); Red Cell Distribution Width 17.7 % (11.5-14.5); Segmented Neutrophils % 46.7 %
[2019-01-31 06:55] LABS: BUN/Creatinine Ratio 12 (6-26); Blood Urea Nitrogen 5 mg/dL (8-23); Carbon Dioxide 24 mEq/L (23-29); Chloride 104 mEq/L (98-107); Glucose 108 mg/dL (70-105); Osmolality,Calculated 276 (280-300); Potassium 3.4 mEq/L (3.5-5.1); Sodium 134 mEq/L (136-145); eGFR For Non-African Americans > 60 (> 60)
[2019-01-31] MEDS: Insulin LISPRO 300 UNITS/3 ML VIAL SQ SCH ×3 (09:13→18:29)
[2019-01-31] MEDS: Lisinopril 20 MG TABLET PO SCH (09:18)
[2019-01-31] MEDS: Famotidine 20 MG TABLET PO SCH ×2 (09:19→18:29)
[2019-01-31] MEDS: Lactobacillus 1 EACH CAP.SPRINK PO SCH (09:20)
[2019-01-31] MEDS: Nystatin POWDER 30 GM BOTTLE TP SCH (09:21)
[2019-01-31] MEDS: Vancomycin Oral Soln 125 MG/2.5 ML UDC PO SCH ×3 (09:21→18:30)
--- NOTE | 2019-01-31 11:48 | Discharge Summary ---
- NOTES TO OUTPATIENT PROVIDER Notes to Outpatient Provider: Continue by mouth vancomycin 125 mg 4 times a day to finish 14 day course (up to last day on 02/05) Date of Encounter: 01/31/19 Time of Encounter: 10:00 - Discharge Diagnosis (1) Type 2 diabetes mellitus Priority: Secondary Status: Chronic Qualifiers: Diabetes mellitus ferry terminal agent insulin use: without ferry terminal agent use Diabetes mellitus complication status: without complication Qualified Code(s): E11.9 - Type 2 diabetes mellitus without complications (2) Hypertension Priority: Secondary Status: Chronic Qualifiers: Hypertension type: essential hypertension Qualified Code(s): I10 - Essential (primary) hypertension (3) Nausea & vomiting Priority: Secondary Status: Acute Qualifiers: Vomiting type: unspecified Vomiting Intractability: non-intractable Qualified Code(s): R11.2 - Nausea with vomiting, unspecified (4) Physical deconditioning Priority: Secondary Status: Acute (5) DVT prophylaxis Priority: Secondary Status: Acute (6) YRN (acute kidney injury) Priority: Secondary Status: Acute (7) Anemia Priority: Secondary Status: Acute Qualifiers: Anemia type: unspecified type Qualified Code(s): D64.9 - Anemia, unspecified (8) Hyponatremia Priority: Secondary Status: Acute (9) C. difficile colitis Priority: Primary Status: Acute Hospital course: Ms. Chong is a 83 year old female present to ER for nausea vomiting and diarrhea. Patient has leukocytosis and fever as well. CT abdomen shows colitis. Stool test that shows positive for C. difficile. Patient was treated with by mouth vancomycin for C. difficile colitis. After treatment, patient feels better. Progression is slow and repeated abdominal CT shows worsening inflammation. ID consults was called. Consider although imaging shows a worsening inflammation but clinically patient has improved. Recommend continue vancomycin by mouth to finish 14 day course. Patient's symptoms continuous improved in last 2 days. Today abdominal tenderness has significantly improved. WBC getting down to normal level. Will DC patient back to ECF. Continue by mouth vancomycin to finish 14 day course. Continue by mouth probiotics. I have seen and examined the patient today. Patient feels fine. No nausea, no vomiting. Minimal abdominal tenderness, no rebound or guarding. Significantly improved. No diarrhea. Vitals are stable. WBC count get down to 5.0. Discharge discussed with: patient - Time Spent with Patient Total time spent providing and/or coordinating discharge services: 40 minutes Time spent: Greater than 30 minutes - Discharge Medications Prescriptions: New Ferrous Sulfate 325 mg PO BIDWM tablet Ondansetron [Zofran] 4 mg IVP Q8HR PRN vial PRN Reason: Nausea And Vomiting Continued Atorvastatin [Lipitor] 10 mg PO HS Allopurinol [Zyloprim] 300 mg PO DAILY Acetaminophen [Tylenol] 500 mg PO Q6HR PRN PRN Reason: Headaches/Pain Lisinopril [Zestril] 20 mg PO BID Potassium Chloride [Klor-Con 10] 10 meq PO DAILY Fluticasone Propionate Nasal [Flonase] 1 spray NS Q12H PRN PRN Reason: Congestion Nystatin POWDER [Nystop] 1 appl TP Q12H PRN PRN Reason: Itching Esomeprazole Magnesium [Nexium 24Hr] 20 mg PO Q24H PRN PRN Reason: Heartburn Melatonin 6 mg PO HS Oxybutynin [Ditropan] 5 mg PO TID risperiDONE [Risperidone Odt] 0.25 mg PO HS Discontinued Sulfamethoxazole/Trimeth DS [Bactrim DS] 1 tab PO Q12H Diclofenac Sodium [Voltaren] 1 gm TP Q6H PRN PRN Reason: Pain Ibuprofen [Ibu] 600 mg PO BID Loperamide HCl [Anti-Diarrheal] 2 mg PO Q6H PRN PRN Reason: Loose Stool Home Medications: Acetaminophen [Tylenol] 500 mg PO Q6HR PRN 04/07/17 [History] Allopurinol [Zyloprim] 300 mg PO DAILY 04/07/17 [History] Atorvastatin [Lipitor] 10 mg PO HS 04/07/17 [History] Lisinopril [Zestril] 20 mg PO BID 09/22/17 [History] Fluticasone Propionate Nasal [Flonase] 1 spray NS Q12H PRN 01/22/19 [History] Nystatin POWDER [Nystop] 1 appl TP Q12H PRN 01/22/19 [History] Potassium Chloride [Klor-Con 10] 10 meq PO DAILY 01/22/19 [History] Esomeprazole Magnesium [Nexium 24Hr] 20 mg PO Q24H PRN 01/23/19 [History] Melatonin 6 mg PO HS 01/23/19 [History] Oxybutynin [Ditropan] 5 mg PO TID 01/23/19 [History] risperiDONE [Risperidone Odt] 0.25 mg PO HS 01/23/19 [History] Ferrous Sulfate 325 mg PO BIDWM tablet 01/26/19 [Rx] Ondansetron [Zofran] 4 mg IVP Q8HR PRN vial 01/26/19 [Rx] Lactobacillus [Culturelle] 2 each PO DAILY 12 Days #24 cap.[email or web address] 01/31/19 [Rx] Vancomycin Oral Soln [Firvanq] 125 mg PO QID 6 Days #24 udc 01/31/19 [Rx] Allergies/Adverse Reactions: Allergy/AdvReac Type Severity Reaction Status Date / Time Amoxicillin [From Augmentin] Allergy Rash Verified 06/12/18 08:34 cephalexin [From Keflex] Allergy Rash Verified 06/12/18 08:34 clavulanic acid Allergy Rash Verified 06/12/18 08:34 [From Augmentin] diphenhydramine Allergy See Verified 06/12/18 08:34 [From Benadryl] Comments meperidine [From Demerol] Allergy See Verified 06/12/18 08:34 Comments phenytoin [From Dilantin] Allergy See Verified 06/12/18 08:34 Comments Date of admission: 01/23/19 01:49 Primary care physician: Robert Ha MD Consults: 01/22/19 23:11 Consult to Playground Director [CONS] Routine Reason for SW Consult: Pt and family not happy with current nursing facility. Requesting a new facility. 01/23/19 01:11 Consult to Wound Care [CONS] Routine Reason for Consult: Complaining of buttock being sore, additionally has a visible left foot (heel) ulcer) Call Completed: No 01/26/19 16:37 Consult to Invasive Line Access Team [CONS] Routine Reason for Consult: poor vascular access Line Type: EPIV 01/27/19 08:53 Consult to Occupational Therapy [CONS] Routine Comment: Evaluate, develop and implement POC Reason for Consult: weakness, deconditioning, would like ECF placement and insurance requires eval Does patient have active BEDREST order?: No Is patient medically & hemodynamically stable?: Yes Patient assessed for mobility or mobilized this visit?: No Consult to Physical Therapy [CONS] Routine Comment: Evaluate, develop and implement POC Reason for Consult: weakness, deconditioning, would like ECF placement and insurance requires eval Does patient have active BEDREST order?: No Is patient medically & hemodynamically stable?: Yes Patient assessed for mobility or mobilized this visit?: No 01/29/19 12:01 Consult to Infectious Diseases [CONS] Routine Consulting Provider: Infectious Disease Isabel Reason for Consult: C Diff colitis, not respond well to po vanco Call Completed: Yes Discharging clinician: Hanny Grier Anticipated date of discharge: 01/31/19 - Constitutional Vitals: Temp Pulse Resp BP Pulse Ox 98.9 F 70 15 112/56 95 01/31/19 10:55 01/31/19 10:55 01/31/19 10:55 01/31/19 10:55 01/31/19 10:55 General appearance: Present: cooperative, mild distress, A&O X 3, pleasant Exam: Pt is AAO x 3, in NAD HEENT: NC/AT, PERRL Neck: Supple, no JVD, no LAD Lungs: CTA b/l Heart: S1S2, RRR Abd: Soft, mild tenderness, without rebound or guarding, bowel sounds present. 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 - Patient Status Disposition: Transfer SNF Condition: Good - Discharge Instructions Follow Up With: Robert Ha MD [Primary Care Provider] - - Diet and Activity Activity: as per physical therapy Diet: diabetic diet
--- NOTE | 2019-01-31 11:58 | Physician Discharge Referral ---
ExtendedCare Referral Info Transfer To: [facility] Provider in Charge after Transfer: PCP, Other (ECF physician) - Diagnosis (1) Type 2 diabetes mellitus Status: Chronic (2) Hypertension Status: Chronic (3) Nausea & vomiting Status: Acute (4) Physical deconditioning Status: Acute (5) DVT prophylaxis Status: Acute (6) YRN (acute kidney injury) Status: Acute (7) Anemia Status: Acute (8) Hyponatremia Status: Acute (9) C. difficile colitis Status: Acute - Transfer Medications Prescriptions: Lactobacillus [Culturelle] 2 each PO DAILY 12 Days #24 cap.sprink Vancomycin Oral Soln [Firvanq] 125 mg PO QID 6 Days #24 udc Home Medications: Acetaminophen [Tylenol] 500 mg PO Q6HR PRN 04/07/17 [History] Allopurinol [Zyloprim] 300 mg PO DAILY 04/07/17 [History] Atorvastatin [Lipitor] 10 mg PO HS 04/07/17 [History] Lisinopril [Zestril] 20 mg PO BID 09/22/17 [History] Fluticasone Propionate Nasal [Flonase] 1 spray NS Q12H PRN 01/22/19 [History] Nystatin POWDER [Nystop] 1 appl TP Q12H PRN 01/22/19 [History] Potassium Chloride [Klor-Con 10] 10 meq PO DAILY 01/22/19 [History] Esomeprazole Magnesium [Nexium 24Hr] 20 mg PO Q24H PRN 01/23/19 [History] Melatonin 6 mg PO HS 01/23/19 [History] Oxybutynin [Ditropan] 5 mg PO TID 01/23/19 [History] risperiDONE [Risperidone Odt] 0.25 mg PO HS 01/23/19 [History] Ferrous Sulfate 325 mg PO BIDWM tablet 01/26/19 [Rx] Ondansetron [Zofran] 4 mg IVP Q8HR PRN vial 01/26/19 [Rx] Lactobacillus [Culturelle] 2 each PO DAILY 12 Days #24 cap.sprink 01/31/19 [Rx] Vancomycin Oral Soln [Firvanq] 125 mg PO QID 6 Days #24 udc 01/31/19 [Rx] Allergies/Adverse Reactions: Allergy/AdvReac Type Severity Reaction Status Date / Time Amoxicillin [From Augmentin] Allergy Rash Verified 06/12/18 08:34 cephalexin [From Keflex] Allergy Rash Verified 06/12/18 08:34 clavulanic acid Allergy Rash Verified 06/12/18 08:34 [From Augmentin] diphenhydramine Allergy See Verified 06/12/18 08:34 [From Benadryl] Comments meperidine [From Demerol] Allergy See Verified 06/12/18 08:34 Comments phenytoin [From Dilantin] Allergy See Verified 06/12/18 08:34 Comments - Respiratory Orders Oxygen / L per min Smoking Cessation: Smoking cessation has been advised. For more information, call the [place] Tobacco Quit Line at 8-524-ZNUR-NOW. - Advance Directives Code Status: Full Code - Rehabiliation Orders Rehab Orders: Evaluation for Physical Therapy, Evaluation for Occupational Therapy - Diet Orders No Concentrated Sweets CERTIFICATION: I certify that the transfer of the above named patient to an Extended Care Facility is necessary for the continuing treatment of the diagnosis listed. The above information is true and accurate reflection of patient's current condition. Confidential - Redisclosure prohibited without a patient's written consent.
[2019-01-31 19:44] VITALS: BP 144/81
== END 2019-01-31 19:40 | DRG 872 ==
LOC: 3ANU 16:39 → EMEROOARM 16:39 → 3ANU 22:32 → SUATTDRO 01-23 01:49
PROVIDERS: ADMIT Family Medicine; ATTEND Internal Medicine

== ENCOUNTER 2019-06-08 16:22 | Inpatient (IN) ==
[2019-06-08] MEDS ORDERED: 0.9 % Sodium Chloride 1,000 ML IVC ONE ×2 (17:12→17:13)
[2019-06-08] MEDS ORDERED: Morphine Sulfate 2 MG/ML SYRINGE IVP ONE (17:29)
--- NOTE | 2019-06-08 17:38 | Emergency Department Note ---
Disposition Clinical Impression: C. difficile colitis, Pseudomembranous colitis Sepsis Qualifiers: Sepsis type: sepsis due to unspecified organism Sepsis acute organ dysfunction status: unspecified Qualified Code(s): A41.9 - Sepsis, unspecified organism Diarrhea Qualifiers: Diarrhea type: unspecified type Qualified Code(s): R19.7 - Diarrhea, unspecified Abdominal pain Qualifiers: Abdominal location: unspecified location Qualified Code(s): R10.9 - Unspecified abdominal pain Disposition: Admitted As Inpatient Condition: Serious Referrals: NONE,PCP [Primary Care Provider] - Forms: ED Satisfaction Letter, Work/School Release Time of Disposition: 19:07 General Adult HPI - General Chief complaint: ED Abdominal Pain Stated complaint: abdominal/vaginal pain Time Seen by Provider: 06/08/19 16:57 Source: EMS Limitations: altered mental status Nursing Notes Reviewed: Yes Vital Signs Reviewed: Yes - History of Present Illness Pain Scale: 10 - Related Data Home Medications Medication Instructions Recorded Confirmed Acetaminophen [Tylenol] 500 mg PO Q6HR PRN 04/07/17 01/23/19 Allopurinol [Zyloprim] 300 mg PO DAILY 04/07/17 01/23/19 Atorvastatin [Lipitor] 10 mg PO HS 04/07/17 01/23/19 Lisinopril [Zestril] 20 mg PO BID 09/22/17 01/23/19 Fluticasone Propionate Nasal 1 spray NS Q12H PRN 01/22/19 01/23/19 [Flonase] Nystatin POWDER [Nystop] 1 appl TP Q12H PRN 01/22/19 01/23/19 Potassium Chloride [Klor-Con 10] 10 meq PO DAILY 01/22/19 01/23/19 Esomeprazole Magnesium [Nexium 20 mg PO Q24H PRN 01/23/19 01/23/19 24Hr] Melatonin 6 mg PO HS 01/23/19 01/23/19 Oxybutynin [Ditropan] 5 mg PO TID 01/23/19 01/23/19 risperiDONE [Risperidone Odt] 0.25 mg PO HS 01/23/19 01/23/19 Previous Rx's Medication Instructions Recorded Ferrous Sulfate 325 mg PO BIDWM tablet 01/26/19 Ondansetron [Zofran] 4 mg IVP Q8HR PRN vial 01/26/19 Allergies Allergy/AdvReac Type Severity Reaction Status Date / Time Amoxicillin [From Augmentin] Allergy Rash Verified 06/12/18 08:34 cephalexin [From Keflex] Allergy Rash Verified 06/12/18 08:34 clavulanic acid Allergy Rash Verified 06/12/18 08:34 [From Augmentin] diphenhydramine Allergy See Verified 06/12/18 08:34 [From Benadryl] Comments meperidine [From Demerol] Allergy See Verified 06/12/18 08:34 Comments phenytoin [From Dilantin] Allergy See Verified 06/12/18 08:34 Comments Past Medical History - Past Medical History Medical history: Reports: CVA, diabetes, hyperlipidemia, hypertension, other Surgical history: Reports: cholecystectomy, FALGUNI/BSO Psychiatric history: Reports: no psych history MORTGAGE LOAN ASSISTANT history: Reports: no MORTGAGE LOAN ASSISTANT history - Social History Smoking Status: Never smoker Smokeless Tobacco Status: No Alcohol use: Reports: none Drug use: Reports: none Physical Exam - General Limitations: altered mental status Course Vital Signs Temperature 98.4 F 06/08/19 16:26 Pulse Rate 127 06/08/19 16:26 Respiratory Rate 16 06/08/19 16:26 Blood Pressure 145/73 06/08/19 16:26 O2 Sat by Pulse Oximetry 97 06/08/19 16:26 Temperature 98.4 F 06/08/19 16:26 Pulse Rate 121 06/08/19 18:30 Respiratory Rate 16 06/08/19 18:30 Blood Pressure 115/91 06/08/19 18:30 O2 Sat by Pulse Oximetry 98 06/08/19 18:30 Oxygen Delivery Oxygen Delivery Room Air Medical Decision Making - Lab Data Result diagrams: 06/08/19 17:36 06/08/19 17:36 Lab Results 06/08/19 06/08/19 06/08/19 Range/Units 17:36 17:36 17:36 WBC 19.5 H (4.3-11.1) K/mcL RBC 4.16 (3.82-4.97) M/mcL Hgb 12.5 (11.5-15.4) g/dL Hct 38.0 (35.3-44.9) % MCV 91.3 (83.0-100.0) fL MCH 30.0 (28.0-33.3) pg MCHC 32.9 (31.6-35.5) g/dL RDW 18.3 H (11.5-14.5) % Plt Count 344 (140-400) K/mcL MPV 9.1 L (9.4-12.4) fL Immature Gran % 2.0 (0-4) % Seg Neutrophils % 77.0 % Lymphocytes % 6.9 % Monocytes % 13.5 % Eosinophils % 0.1 % Basophils % 0.5 % Neutrophils # 15.0 H (1.6-8.9) K/mcL Lymphocytes # 1.4 (0.6-4.6) K/mcL Monocytes # 2.6 H (0.0-1.3) K/mcL Eosinophils # 0.0 (0.0-0.6) K/mcL Basophils # 0.1 (0.0-0.2) K/mcL Platelet Estimate Normal (Normal) Anisocytosis 1+ A (Not Present) VBG pH (7.32-7.42) pH Units VBG pCO2 (41-51) mmHg VBG pO2 (25-50) mmHg VBG HCO3 (21-27) mEq/L Sodium 131 L (136-145) mEq/L Potassium 4.1 (3.5-5.1) mEq/L Chloride 101 (98-107) mEq/L Carbon Dioxide 22 L (23-29) mEq/L BUN 37 H (8-23) mg/dL Creatinine 0.65 (0.60-1.20) mg/dL Est GFR ( Amer) > 60 (> 60) Est GFR (Non-Af Amer) > 60 (> 60) BUN/Creatinine Ratio 57 H (6-26) Glucose 290 H (70-105) mg/dL Calculated Osmolality 291 (280-300) Lactic Acid 1.8 (0.5-2.2) mmol/L Calcium 8.4 L (8.6-10.3) mg/dL Magnesium 2.1 (1.6-2.6) mg/dL Total Bilirubin 0.3 (0.3-1.0) mg/dL Direct Bilirubin 0.1 (0.0-0.2) mg/dL Indirect Bilirubin 0.2 (0.0-1.2) mg/dL AST 7 L (13-39) Units/L ALT 5 L (7-52) Units/L Alkaline Phosphatase 68 (34-104) Units/L Ammonia (16-53) mcmol/L Troponin I < 0.03 (< 0.04) ng/mL Serum Total Protein 5.7 L (6.4-8.9) g/dL Albumin 2.7 L (3.5-5.7) g/dL Globulin 3.0 (2.4-3.5) g/dL Albumin/Globulin Ratio 0.9 L (1.1-2.2) Lipase < 3 L (11-82) Units/L 06/08/19 06/08/19 Range/Units 17:36 17:48 WBC (4.3-11.1) K/mcL RBC (3.82-4.97) M/mcL Hgb (11.5-15.4) g/dL Hct (35.3-44.9) % MCV (83.0-100.0) fL MCH (28.0-33.3) pg MCHC (31.6-35.5) g/dL RDW (11.5-14.5) % Plt Count (140-400) K/mcL MPV (9.4-12.4) fL Immature Gran % (0-4) % Seg Neutrophils % % Lymphocytes % % Monocytes % % Eosinophils % % Basophils % % Neutrophils # (1.6-8.9) K/mcL Lymphocytes # (0.6-4.6) K/mcL Monocytes # (0.0-1.3) K/mcL Eosinophils # (0.0-0.6) K/mcL Basophils # (0.0-0.2) K/mcL Platelet Estimate (Normal) Anisocytosis (Not Present) VBG pH 7.51 H (7.32-7.42) pH Units VBG pCO2 24 L (41-51) mmHg VBG pO2 146 H (25-50) mmHg VBG HCO3 19 L (21-27) mEq/L Sodium (136-145) mEq/L Potassium (3.5-5.1) mEq/L Chloride (98-107) mEq/L Carbon Dioxide (23-29) mEq/L BUN (8-23) mg/dL Creatinine (0.60-1.20) mg/dL Est GFR ( Amer) (> 60) Est GFR (Non-Af Amer) (> 60) BUN/Creatinine Ratio (6-26) Glucose (70-105) mg/dL Calculated Osmolality (280-300) Lactic Acid (0.5-2.2) mmol/L Calcium (8.6-10.3) mg/dL Magnesium (1.6-2.6) mg/dL Total Bilirubin (0.3-1.0) mg/dL Direct Bilirubin (0.0-0.2) mg/dL Indirect Bilirubin (0.0-1.2) mg/dL AST (13-39) Units/L ALT (7-52) Units/L Alkaline Phosphatase (34-104) Units/L Ammonia 39 (16-53) mcmol/L Troponin I (< 0.04) ng/mL Serum Total Protein (6.4-8.9) g/dL Albumin (3.5-5.7) g/dL Globulin (2.4-3.5) g/dL Albumin/Globulin Ratio (1.1-2.2) Lipase (11-82) Units/L Critical Care Time Critical Care Time: Yes Total Critical Care Time: 30 Attestation: Excluding procedures Attestation Statement - Attestation Attestation: I have seen this patient with the resident physician, I have personally evaluated this patient. I had reviewed the chart and document dictation by the resident physician and aM in agreement with the information documented by the resident physician. Please see documentation by the resident physician for complete chart including past medical history, family medical history, review of systems, current history and physical and laboratory and imaging studies. I was present for all procedures, provided direct supervision for all proc edures, was present for the entirety of all procedures and provided direct guidance during the procedures. Please see documentation by the resident physician for any procedures performed. I have reviewed all interpretations of EKGs, and reviewed all EKGs performed on patient's as well. I have also reviewed reports of imaging as provided by radiology. Patient presented emergency department with chief complaint of abdominal pain and diarrhea. The patient has had recurrent episodes of C. difficile colitis, last treated roughly 1 month ago according to the family. She has been having some more problems agitation at the intermediate facility in 3 days ago started on Ativan when she has been more tired and out of it since that time. Apparently today she started having increasing heart rates, with tachycardia at the intermediate facility, and started complaining of severe abdominal pain and started having profound diarrhea again. The granddaughter states this is just like when she has had C. difficile in the past but she does seem more confused and out of it but she states that this may also be related to recently starting Ativan. She has not complained of any new headache. She has had a little bit of a cough, she felt that the patient was breathing faster over the last couple of days but this was attributed to some of her anxiety and she has not complained of shortness of breath today. The family reports that she is in hospice care but reports that she is still full code. She has had no urinary changes but has an indwelling Luevano catheter. She has had no black or bloody stool and the loose diarrhea has all been green and foul-smelling. 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 The patient has had no documented fever but the grandmother states she felt hot. She seems deftly more lethargic than her baseline. Patient had an IV placed, an EKG performed. EKG is a sinus rhythm sinus tachycardia, frequent PVCs but no evidence of runs of PVCs, and no evidence of acute ST elevation or ST depression, no significant abnormal intervals with a QTC of 490. Patient was started on 2 L bolus of fluids, family reports that she is having pain and they want her to have some pain medication she was given 2 mg of IV morphine, as she does seem to take daily Vicodin, so will avoid Nubain, and has an allergy to meperidine so we will avoid fentanyl. Basic laboratory studies were ordered, CT scan of the abdomen and pelvis was ordered, patient will be collected for C. difficile. Secondary to altered mental status, as well as family reporting some possible cough and shortness of breath, as well as abdominal pain, with history of C. difficile colitis and on my exam having tenderness of her abdomen, CT head was ordered for altered mental status, CT abdomen and pelvis was ordered for evaluation of colitis or acute intra-abdominal process, secondary to patient already going over to CT scan for multiple other images, with increased cough and shortness of breath and a history of recurrent C. difficile colitis, with also risk for aspiration, with recently being started on Ativan, a CT scan of the chest was also ordered to define any intrathoracic process. Basic laboratory studies reveal leukocytosis, otherwise within acceptable limits Head CT showed no acute abnormality, large old stroke. CT chest showed interval resolution of pleural effusions no acute findings. CT of the abdomen and pelvis showed evidence of pseudomembranous colitis. Lactic acid was normal. She was continued on IV hydration, initial 2 L bolus with improvement of tachycardia, without hypotension, blood cultures were sent, patient was started on IV fidoxamin, as she has already been on vancomycin 4 times for C. difficile colitis within the last 4 months, and this was per rectum urination of pharmacy. Patient was admitted to the hospital for further evaluation and management. Total critical care time as provided by myself excluding any procedures performed was 30 minutes.
--- NOTE | 2019-06-08 17:47 | Emergency Department Note ---
Disposition Clinical Impression: C. difficile colitis, Pseudomembranous colitis Sepsis Qualifiers: Sepsis type: sepsis due to unspecified organism Sepsis acute organ dysfunction status: unspecified Qualified Code(s): A41.9 - Sepsis, unspecified organism Diarrhea Qualifiers: Diarrhea type: unspecified type Qualified Code(s): R19.7 - Diarrhea, unspecified Abdominal pain Qualifiers: Abdominal location: unspecified location Qualified Code(s): R10.9 - Unspecified abdominal pain Disposition: Admitted As Inpatient Condition: Serious Referrals: NONE,PCP [Primary Care Provider] - Forms: ED Satisfaction Letter, Work/School Release Time of Disposition: 19:32 General Adult HPI - General Chief complaint: ED Abdominal Pain Stated complaint: abdominal/vaginal pain Time Seen by Provider: 06/08/19 16:57 Source: family, EMS Mode of arrival: EMS Limitations: altered mental status Nursing Notes Reviewed: Yes Vital Signs Reviewed: Yes - History of Present Illness HPI Narrative: Patient is an 83 year old female on hospice care for dementia and granddaughter states she believes patient is dnr/dni, presenting with CC of abdominal pain. Patient has history of UTI, C.Diff in the past 2 months, CVA with left sided weakness. [facility] at bedside states the patient recently was started on ativan in the evening to help sleep. Last month patient was on an antibiotic for a left ingrown thumbnail and infection. She developed C.Diff and completed a course of vancomycin. Grandaughter states she has decreased appetite since Friday. She is also compaining of generalized abdominal pain, unable to localize, moaning and crying. She has had several episodes of nonbloody diarrhea starting today. No nausea or vomiting. Denies chest pain or shortness of breath. Patient has a chronic estrella for urinary retention. She has no new neurologic deficits per grand daughter. Grand daughter believes she is less alert than usual, has more energy but patient is alert and oriented to person and place, not time. No documented fevers. Pain Scale: 10 - Related Data Home Medications Medication Instructions Recorded Confirmed Acetaminophen [Tylenol] 500 mg PO Q6HR PRN 04/07/17 01/23/19 Allopurinol [Zyloprim] 300 mg PO DAILY 04/07/17 01/23/19 Atorvastatin [Lipitor] 10 mg PO HS 04/07/17 01/23/19 Lisinopril [Zestril] 20 mg PO BID 09/22/17 01/23/19 Fluticasone Propionate Nasal 1 spray NS Q12H PRN 01/22/19 01/23/19 [Flonase] Nystatin POWDER [Nystop] 1 appl TP Q12H PRN 01/22/19 01/23/19 Potassium Chloride [Klor-Con 10] 10 meq PO DAILY 01/22/19 01/23/19 Esomeprazole Magnesium [Nexium 20 mg PO Q24H PRN 01/23/19 01/23/19 24Hr] Melatonin 6 mg PO HS 01/23/19 01/23/19 Oxybutynin [Ditropan] 5 mg PO TID 01/23/19 01/23/19 risperiDONE [Risperidone Odt] 0.25 mg PO HS 01/23/19 01/23/19 Previous Rx's Medication Instructions Recorded Ferrous Sulfate 325 mg PO BIDWM tablet 01/26/19 Ondansetron [Zofran] 4 mg IVP Q8HR PRN vial 01/26/19 Allergies Allergy/AdvReac Type Severity Reaction Status Date / Time Amoxicillin [From Augmentin] Allergy Rash Verified 06/12/18 08:34 cephalexin [From Keflex] Allergy Rash Verified 06/12/18 08:34 clavulanic acid Allergy Rash Verified 06/12/18 08:34 [From Augmentin] diphenhydramine Allergy See Verified 06/12/18 08:34 [From Benadryl] Comments meperidine [From Demerol] Allergy See Verified 06/12/18 08:34 Comments phenytoin [From Dilantin] Allergy See Verified 06/12/18 08:34 Comments Limitations: ROS unobtainable due to patients medical condition (altered mental status) Past Medical History - Past Medical History Attestation: Yes The following information was validated with the patient. Source: patient Medical history: Reports: CVA, diabetes, hyperlipidemia, hypertension, other Surgical history: Reports: cholecystectomy, FALGUNI/BSO Psychiatric history: Reports: no psych history BRIM BLOCKER history: Reports: no BRIM BLOCKER history - Social History Smoking Status: Never smoker Smokeless Tobacco Status: No Alcohol use: Reports: none Drug use: Reports: none Physical Exam - General Limitations: altered mental status General appearance: alert, in no apparent distress - Head Head exam: atraumatic, normocephalic - Eye Eye exam: Present: normal appearance, EOMI - ENT ENT exam: normal exam, normal oropharynx - Neck Neck exam: Present: normal inspection, trachea midline - Chest Chest inspection: Present: normal inspection, symmetric chest wall rise - Respiratory Respiratory exam: Present: normal lung sounds bilaterally. Absent: respiratory distress, wheezes - Cardiovascular Cardiovascular exam: Present: normal rhythm, tachycardia - Abdominal Exam Abdominal exam: Present: soft, other (generalized abdominal tenderness to light palpation without rebound or guarding). Absent: distention - Extremities Exam Extremities exam: Present: normal capillary refill. Absent: calf tenderness - Neurological Exam Neurological exam: Present: alert, other (oriented to person and place, not time. Baseline per grand daughter. ) - Psychiatric Psychiatric exam: Present: normal affect, normal mood - Skin Skin exam: Present: warm, dry Course Vital Signs Temperature 98.4 F 06/08/19 16:26 Pulse Rate 127 06/08/19 16:26 Respiratory Rate 16 06/08/19 16:26 Blood Pressure 145/73 06/08/19 16:26 O2 Sat by Pulse Oximetry 97 06/08/19 16:26 Temperature 98.4 F 06/08/19 16:26 Pulse Rate 121 06/08/19 18:30 Respiratory Rate 16 06/08/19 18:30 Blood Pressure 115/91 06/08/19 18:30 O2 Sat by Pulse Oximetry 98 06/08/19 18:30 Oxygen Delivery Oxygen Delivery Room Air Medical Decision Making - [facility] Narrative Medical decision making narrative: Patient has history of dementia, on hospice care and granddaughter believes that the patient is DNR/DNI. She has been presenting since Friday with decreased appetite, generalized abdominal pain and today with nonbloody diarrhea. She has history of C. difficile and most recently finished a course of vancomycin couple weeks ago. No recent antibiotics since then. No fevers. She is afebrile here however is tachycardic, normotensive blood pressure. We will obtain septic workup, CT abd pelvis and give the patient 2 L IV fluid bolus. Her most recent admission with C. difficile, patient was discharged home on oral vancomycin for an additional 14 days which the patient finished. 18:[address] imaging and has not received her pain medicine or IV fluids. She remains tachycardic with heart rate 115, sinus, normotensive blood pressure. She is still moaning and groaning in the room. White blood count is 19,000. Patient also has a respiratory alkalosis with metabolic compensation. If patient has C.diff, patient has had 4 recurrences. Discussed with Gerard Castellanos, pharmacy, extended taper of vancomycin, fidaxomicin 200mg BID. CT results pending. 19:00 CT results reviewed. There is diffuse colonic wall thickening most pronounced in the left colon extending into the rectum with pericolonic stranding consistent with pseudomembranous colitis. There is also a masslike diffuse thickening of the cecum with marked surrounding peritoneal fat stranding that may be part of the colitis but it could also be a neoplasm and would need to be worked up as an inpatient. The fidaxomicin was started. Chest CT shows resolution of pleural effusions and some interstitial changes at the lung bases. CT head shows an old stroke but no acute or new intracranial pathology. Patient will be admitted for sepsis due to C. difficile colitis. Hospitalist paged. 19:30 Discussed with admitting hospitalist, Dr. Zaidi, who accepts admission. UA and c.diff is pending. - Medical Records Medical records reviewed: Yes I reviewed the patient's medical records. - Lab Data Lab results reviewed: Yes I reviewed the patient's lab results. Result diagrams: 06/08/19 17:36 06/08/19 17:36 Lab Results 06/08/19 06/08/19 06/08/19 Range/Units 17:36 17:36 17:36 WBC 19.5 H (4.3-11.1) K/mcL RBC 4.16 (3.82-4.97) M/mcL Hgb 12.5 (11.5-15.4) g/dL Hct 38.0 (35.3-44.9) % MCV 91.3 (83.0-100.0) fL MCH 30.0 (28.0-33.3) pg MCHC 32.9 (31.6-35.5) g/dL RDW 18.3 H (11.5-14.5) % Plt Count 344 (140-400) K/mcL MPV 9.1 L (9.4-12.4) fL Immature Gran % 2.0 (0-4) % Seg Neutrophils % 77.0 % Lymphocytes % 6.9 % Monocytes % 13.5 % Eosinophils % 0.1 % Basophils % 0.5 % Neutrophils # 15.0 H (1.6-8.9) K/mcL Lymphocytes # 1.4 (0.6-4.6) K/mcL Monocytes # 2.6 H (0.0-1.3) K/mcL Eosinophils # 0.0 (0.0-0.6) K/mcL Basophils # 0.1 (0.0-0.2) K/mcL Platelet Estimate Normal (Normal) Anisocytosis 1+ A (Not Present) VBG pH (7.32-7.42) pH Units VBG pCO2 (41-51) mmHg VBG pO2 (25-50) mmHg VBG HCO3 (21-27) mEq/L Sodium 131 L (136-145) mEq/L Potassium 4.1 (3.5-5.1) mEq/L Chloride 101 (98-107) mEq/L Carbon Dioxide 22 L (23-29) mEq/L BUN 37 H (8-23) mg/dL Creatinine 0.65 (0.60-1.20) mg/dL Est GFR ( Amer) > 60 (> 60) Est GFR (Non-Af Amer) > 60 (> 60) BUN/Creatinine Ratio 57 H (6-26) Glucose 290 H (70-105) mg/dL Calculated Osmolality 291 (280-300) Lactic Acid 1.8 (0.5-2.2) mmol/L Calcium 8.4 L (8.6-10.3) mg/dL Magnesium 2.1 (1.6-2.6) mg/dL Total Bilirubin 0.3 (0.3-1.0) mg/dL Direct Bilirubin 0.1 (0.0-0.2) mg/dL Indirect Bilirubin 0.2 (0.0-1.2) mg/dL AST 7 L (13-39) Units/L ALT 5 L (7-52) Units/L Alkaline Phosphatase 68 (34-104) Units/L Ammonia (16-53) mcmol/L Troponin I < 0.03 (< 0.04) ng/mL Serum Total Protein 5.7 L (6.4-8.9) g/dL Albumin 2.7 L (3.5-5.7) g/dL Globulin 3.0 (2.4-3.5) g/dL Albumin/Globulin Ratio 0.9 L (1.1-2.2) Lipase < 3 L (11-82) Units/L 06/08/19 06/08/19 Range/Units 17:36 17:48 WBC (4.3-11.1) K/mcL RBC (3.82-4.97) M/mcL Hgb (11.5-15.4) g/dL Hct (35.3-44.9) % MCV (83.0-100.0) fL MCH (28.0-33.3) pg MCHC (31.6-35.5) g/dL RDW (11.5-14.5) % Plt Count (140-400) K/mcL MPV (9.4-12.4) fL Immature Gran % (0-4) % Seg Neutrophils % % Lymphocytes % % Monocytes % % Eosinophils % % Basophils % % Neutrophils # (1.6-8.9) K/mcL Lymphocytes # (0.6-4.6) K/mcL Monocytes # (0.0-1.3) K/mcL Eosinophils # (0.0-0.6) K/mcL Basophils # (0.0-0.2) K/mcL Platelet Estimate (Normal) Anisocytosis (Not Present) VBG pH 7.51 H (7.32-7.42) pH Units VBG pCO2 24 L (41-51) mmHg VBG pO2 146 H (25-50) mmHg VBG HCO3 19 L (21-27) mEq/L Sodium (136-145) mEq/L Potassium (3.5-5.1) mEq/L Chloride (98-107) mEq/L Carbon Dioxide (23-29) mEq/L BUN (8-23) mg/dL Creatinine (0.60-1.20) mg/dL Est GFR ( Amer) (> 60) Est GFR (Non-Af Amer) (> 60) BUN/Creatinine Ratio (6-26) Glucose (70-105) mg/dL Calculated Osmolality (280-300) Lactic Acid (0.5-2.2) mmol/L Calcium (8.6-10.3) mg/dL Magnesium (1.6-2.6) mg/dL Total Bilirubin (0.3-1.0) mg/dL Direct Bilirubin (0.0-0.2) mg/dL Indirect Bilirubin (0.0-1.2) mg/dL AST (13-39) Units/L ALT (7-52) Units/L Alkaline Phosphatase (34-104) Units/L Ammonia 39 (16-53) mcmol/L Troponin I (< 0.04) ng/mL Serum Total Protein (6.4-8.9) g/dL Albumin (3.5-5.7) g/dL Globulin (2.4-3.5) g/dL Albumin/Globulin Ratio (1.1-2.2) Lipase (11-82) Units/L - Radiology Data Radiology results reviewed: Yes I reviewed the patient's radiology results. Abdomen/Pelvis CT 06/08/19 18:22 IMPRESSION: 1. Interval resolution of bilateral pleural effusions with some residual reticular interstitial changes at the posterior lung bases. 2. Diffuse colonic wall thickening most pronounced in the left colon. Thickening extends into the rectum. There is significant surrounding pericolonic stranding. Findings most compatible with colitis likely pseudomembranous colitis. 3. A pronounced masslike diffuse thickening of the cecum with marked surrounding peritoneal fat stranding may be part of the colitis but separate pathology such as neoplasm would be difficult to exclude. Follow-up to resolution advised. 4. Collapsed urinary bladder around Estrella catheter with wall thickening which could be due to the underdistention but component of cystitis other pathology not excluded. Perivesical stranding may be part of inflammatory changes of colitis or separate. There is mild to moderate right hydronephrosis and hydroureter down to the urinary bladder without obstructing ureteric lesion. D/ / Homer Miles MD / Homer Miles MD Interpreting Provider: Homer Miles MD Chest CT 06/08/19 18:22 IMPRESSION: 1. Interval resolution of bilateral pleural effusions with some residual reticular interstitial changes at the posterior lung bases. 2. Diffuse colonic wall thickening most pronounced in the left colon. Thickening extends into the rectum. There is significant surrounding pericolonic stranding. Findings most compatible with colitis likely pseudomembranous colitis. 3. A pronounced masslike diffuse thickening of the cecum with marked surrounding peritoneal fat stranding may be part of the colitis but separate pathology such as neoplasm would be difficult to exclude. Follow-up to resolution advised. 4. Collapsed urinary bladder around Estrella catheter with wall thickening which could be due to the underdistention but component of cystitis other pathology not excluded. Perivesical stranding may be part of inflammatory changes of colitis or separate. There is mild to moderate right hydronephrosis and hydroureter down to the urinary bladder without obstructing ureteric lesion. 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 No acute intracranial hemorrhage. No evidence of mass, mass effect or midline shift. D/ / 06/08/2019 18:28:45 [facility] Provider: Sp Means MD - EKG Data EKG #1 EKG attestation: Yes I reviewed and interpreted this EKG. EKG results narrative: EKG obtained at 1649. An shira tachycardia with heart rate 119, HI interval 110, QRS duration 77, QTC 491, multiple PVCs, [address] depression in V3 and V4, no ST elevation, compared to old EKG on 02/03/2019 which shows no new changes.
[2019-06-08 17:52] LABS: VBG HCO3 19 mEq/L (21-27); VBG PCO2 24 mmHg (41-51); VBG PH 7.51 pH Units (7.32-7.42); VBG PO2 146 mmHg (25-50)
[2019-06-08 17:53] LABS: Basophils # 0.1 K/mcL (0.0-0.2); Basophils % 0.5 %; Eosinophils % 0.1 %; Hemoglobin 12.5 g/dL (11.5-15.4); Lymphocytes % 6.9 %; Mean Corpuscular HGB Conc 32.9 g/dL (31.6-35.5); Mean Corpuscular Volume 91.3 fL (83.0-100.0); Mean Platelet Volume 9.1 fL (9.4-12.4); Monocytes # 2.6 K/mcL (0.0-1.3); Monocytes % 13.5 %; Platelet Count 344 K/mcL (140-400); Red Blood Count 4.16 M/mcL (3.82-4.97); Red Cell Distribution Width 18.3 % (11.5-14.5); White Blood Count 19.5 K/mcL (4.3-11.1)
[2019-06-08 17:54] LABS: Lymphocytes # 1.4 K/mcL (0.6-4.6)
[2019-06-08 18:12] LABS: Anisocytosis 1+ (Not Present); Platelet Estimate Normal (Normal)
[2019-06-08 18:16] LABS: Alanine Aminotransferase 5 Units/L (7-52); Albumin 2.7 g/dL (3.5-5.7); Albumin/Globulin Ratio 0.9 (1.1-2.2); Alkaline Phosphatase 68 Units/L (34-104); Aspartate Amino Transferase 7 Units/L (13-39); BUN/Creatinine Ratio 57 (6-26); Bilirubin,Direct 0.1 mg/dL (0.0-0.2); Bilirubin,Indirect 0.2 mg/dL (0.0-1.2); Bilirubin,Total 0.3 mg/dL (0.3-1.0); Blood Urea Nitrogen 37 mg/dL (8-23); Calcium 8.4 mg/dL (8.6-10.3); Carbon Dioxide 22 mEq/L (23-29); Chloride 101 mEq/L (98-107); Glucose 290 mg/dL (70-105); Lipase < 3 Units/L (11-82); Magnesium 2.1 mg/dL (1.6-2.6); Osmolality,Calculated 291 (280-300); Potassium 4.1 mEq/L (3.5-5.1); Sodium 131 mEq/L (136-145); Total Protein 5.7 g/dL (6.4-8.9); Troponin I < 0.03 ng/mL (< 0.04); eGFR For African Americans > 60 (> 60); eGFR For Non-African Americans > 60 (> 60)
[2019-06-08] MEDS ORDERED: Fidaxomicin 200 MG TABLET PO STA (19:03)
--- NOTE | 2019-06-08 19:46 | Internal Med History&Physical ---
<Padmini Pastor - Last Filed: 06/08/19 22:53> Date of Encounter: 06/08/19 Time of Encounter: 19:46 Internal Medicine - H&P: HPI Chief complaint: Abdominal pain Admitted From: Emergency Dept Plans for Post Hospital Care: Transfer Jail Facility History of present illness: Ms. Chong is a 83 year old female with past medical history of diabetes, hypertension, C diff, CVA who presented to [facility] from the long term complaining of abdominal pain. The patient's granddaughter was at the bedside. The patient is a poor historian. The patient has chronic abdominal pain however last Friday about 5 days ago granddaughter noticed the patient was having slightly increased abdominal pain. When she visited her today the pain was worsened and she was moaning in pain. The patient reported having diarrhea of 3 watery stools. Additionally, she was having dysuria. She denied fever, chills, chest pain, shortness of breath, melena, hematechezia. Of note, in January 2019 the patient was treated for 1st episode of C diff secondary to antibiotics for a UTI with 2 weeks of vancomycin. She had improved but then a month and a half ago she was again treated with 10 days of antibiotics for hangnail after which she had developed C diff again and was treated with 14 days vancomycin. The patient does not believe she completely got better after that 2nd course of antibiotics. The patient denied smoking, alcohol, drug use. She is a DNR [employer] DNI as the patient's granddaughter stated that she is on hospice at the long term. Initial vitals in the ED were temperature 98.4F, HR 127, BP 145/73, SpO2 77% on room air. WBC 19.5, sodium 131, potassium 4.1, calcium 8.4. Lipase <3, troponin <0.03, total bilirubin 0.3. VBG: pH 7.51, pCO2 24, pO2 146, pHCO3 19. -Head CT showing No acute intracranial changes. -Chest and Abd/pelvis CT showing diffuse colonic wall thickening most pronounced in the left colon and extending into the rectum. With some pericolonic stranding. 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 Pronounced masslike diffuse thickening of the cecum with surrounding peritoneal fat stranding that may be part colitis but separate pathology such as neoplasm may be difficult exclude. Collapsed urinary bladder and Luevano catheter with wall thickening. Mild to moderate right hydronephrosis and hydroureter down to urinary bladder without obstructing ureteric lesion. -In the ED patient was given 2L IVF, Fidaxomicin, morphine, blood cultures collected. Past Med Surg Social Fam HX - Past Medical History Attestation: Yes The following information was validated with the patient. Source: patient Medical history: CVA, diabetes, hyperlipidemia, hypertension, other Additional medical history: RLS Psychiatric history: no psych history - Past Surgical History Surgical History: cholecystectomy, FALGUNI/BSO Additional surgical history: carpel tunnel surgery. rectocel surgery - Social History Smoking Status: Never smoker Smokeless Tobacco Status: No Alcohol use: none Drug use: none - Family History Mother Living Status: Hx Family Cardiac Disorders: No Hx Family Endocrine Disorder: Yes (DM) Father Living Status: Hx Family Cardiac Disorders: Yes ([place]) Internal Medicine - H&P: Meds Allopurinol [Zyloprim] 300 mg PO DAILY 04/07/17 [History] Atorvastatin [Lipitor] 10 mg PO HS 04/07/17 [History] Lisinopril [Zestril] 20 mg PO BID 09/22/17 [History] Fluticasone Propionate Nasal [Flonase] 1 spray NS Q12H PRN 01/22/19 [History] Potassium Chloride [Klor-Con 10] 10 meq PO DAILY 01/22/19 [History] Melatonin 6 mg PO HS 01/23/19 [History] Oxybutynin [Ditropan] 5 mg PO TID 01/23/19 [History] Ferrous Sulfate 325 mg PO BIDWM tablet 01/26/19 [Rx] Acetaminophen [Tylenol] 650 mg PO Q6HR PRN 06/08/19 [History] Bisacodyl [Gentle Laxative] 10 mg RC Q24H PRN 06/08/19 [History] HYDROcodone/Acet 10/325 mg [[place] 10-325 mg] 1 tab PO Q6HR 06/08/19 [History] LORazepam [Ativan] 0.5 mg PO Q8H 06/08/19 [History] Lactobacillus [Culturelle] 2 cap PO DAILY 06/08/19 [History] Lidocaine [Aspercreme] 1 each TP DAILY 06/08/19 [History] Omeprazole [PriLOSEC] 20 mg PO Q24H PRN 06/08/19 [History] Promethazine [Phenergan] 25 mg PO Q6HR PRN 06/08/19 [History] Sennosides [Senna] 8.6 mg PO DAILY 06/08/19 [History] risperiDONE [Risperidone] 0.5 mg PO BID 06/08/19 [History] Allergy/AdvReac Type Severity Reaction Status Date / Time Amoxicillin [From Augmentin] Allergy Rash Verified 06/08/19 20:07 cephalexin [From Keflex] Allergy Rash Verified 06/08/19 20:07 clavulanic acid Allergy Rash Verified 06/08/19 20:07 [From Augmentin] diphenhydramine Allergy See Verified 06/08/19 20:07 [From Benadryl] Comments meperidine [From Demerol] Allergy See Verified 06/08/19 20:07 Comments phenytoin [From Dilantin] Allergy See Verified 06/08/19 20:07 Comments All Systems PM: A 10-system review of systems was performed and is negative for pertinent findings except as documented above in the HPI. - Constitutional Constitutional: no chills, no fever(s), no falls - EENT Eyes: no blurry vision, no change in vision - Cardiovascular Cardiovascular ROS IM: no chest pain, no edema, no palpitations - Respiratory Respiratory: no cough, no dyspnea, no wheezing - Gastrointestinal Gastrointestinal: abdominal pain, diarrhea, loose stools, no hematochezia, no melena, no nausea, no vomiting - Genitourinary Genitourinary: dysuria - Musculoskeletal Musculoskeletal ROS IM: no muscle weakness, no myalgias - Integumentary Integumentary IM: no rash, no skin ulcer - Constitutional Vitals: Temp Pulse Resp BP Pulse Ox 98.4 F 121 16 115/91 98 06/08/19 16:26 06/08/19 18:30 06/08/19 18:30 06/08/19 18:30 06/08/19 18:30 Exam: Gen.: Vitals noted. No acute distress. AAOx3 HEENT: oropharynx clear, Normocephalic, atraumatic Cardiac: RRR, no murmur, +S1/S2 Pulmonary: CTA bilaterally, no wheezes, rales or rhonchi, equal chest expansion Abdomen: soft, generalized tender, Bowel sounds noted, no guarding MSK: ROM intact, no joint swelling noted Extremities: no BLE edema, nontender calf, no cyanosis or clubbing Neuro: A&Ox3, moves all extremities, no focal deficits Psych: Appropriate mood and behavior Internal Med - H&P Results - Labs CBC & Chem 7: 06/08/19 17:36 06/08/19 17:36 Labs: Short CBC 06/08/19 Range/Units 17:36 WBC 19.5 H (4.3-11.1) K/mcL Hgb 12.5 (11.5-15.4) g/dL Hct 38.0 (35.3-44.9) % Plt Count 344 (140-400) K/mcL Neutrophils # 15.0 H (1.6-8.9) K/mcL BMP 06/08/19 17:36 Sodium 131 L Potassium 4.1 Chloride 101 Carbon Dioxide 22 L BUN 37 H Creatinine 0.65 Glucose 290 H Calcium 8.4 L Cardiac Enzymes 06/08/19 Range/Units 17:36 Troponin I < 0.03 (< 0.04) ng/mL Liver Function 06/08/19 Range/Units 17:36 Total Bilirubin 0.3 (0.3-1.0) mg/dL Direct Bilirubin 0.1 (0.0-0.2) mg/dL AST 7 L (13-39) Units/L ALT 5 L (7-52) Units/L Alkaline Phosphatase 68 (34-104) Units/L Albumin 2.7 L (3.5-5.7) g/dL - ABG Interpretation ABG results: 06/08/19 17:48 VBG pH 7.51 H VBG pCO2 24 L VBG pO2 146 H VBG HCO3 19 L - Impressions ITS Impressions Abdomen/Pelvis CT 06/08/19 18:22 IMPRESSION: 1. Interval resolution of bilateral pleural effusions with some residual reticular interstitial changes at the posterior lung bases. 2. Diffuse colonic wall thickening most pronounced in the left colon. Thickening extends into the rectum. There is significant surrounding pericolonic stranding. Findings most compatible with colitis likely pseudomembranous colitis. 3. A pronounced masslike diffuse thickening of the cecum with marked surrounding peritoneal fat stranding may be part of the colitis but separate pathology such as neoplasm would be difficult to exclude. Follow-up to resolution advised. 4. Collapsed urinary bladder around Luevano catheter with wall thickening which could be due to the underdistention but component of cystitis other pathology not excluded. Perivesical stranding may be part of inflammatory changes of colitis or separate. There is mild to moderate right hydronephrosis and hydroureter down to the urinary bladder without obstructing ureteric lesion. D/ / Homer Miles MD / Homer Miles MD Interpreting Provider: Homer Miles MD Chest CT 06/08/19 18:22 IMPRESSION: 1. Interval resolution of bilateral pleural effusions with some residual reticular interstitial changes at the posterior lung bases. 2. Diffuse colonic wall thickening most pronounced in the left colon. Thickening extends into the rectum. There is significant surrounding pericolonic stranding. Findings most compatible with colitis likely pseudomembranous colitis. 3. A pronounced masslike diffuse thickening of the cecum with marked surrounding peritoneal fat stranding may be part of the colitis but separate pathology such as neoplasm would be difficult to exclude. Follow-up to resolution advised. 4. Collapsed urinary bladder around Luevano catheter with wall thickening which could be due to the underdistention but component of cystitis other pathology not excluded. Perivesical stranding may be part of inflammatory changes of colitis or separate. There is mild to moderate right hydronephrosis and hydroureter down to the urinary bladder without obstructing ureteric lesion. 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 No acute intracranial hemorrhage. No evidence of mass, mass effect or midline shift. D/ / 06/08/2019 18:28:45 Sp Means MD / [facility] Interpreting Provider: Sp Means MD - Assessment and Plan (1) Sepsis Current Visit: Yes Status: Acute Assessment and plan: Patient presented meeting sepsis criteria with 2 SIRS: HR 127, WBC 19.5. -Etiology is likely severe C diff and urinary tract infection. Symptoms and history concerning for 2nd recurrence of C diff infection. Patient has had C.diff in the past with the 1st episode in January after antibiotics treatment for UTI and she completed 2 weeks of vancomycin with resolution of symptoms. Month and a half ago she had 1st recurrence after antibiotic treatment for hangnail, however, during last episode she received vancomycin for 2 weeks rather than taper dosing. She also has symptoms concerning for UTI. CT showed masslike diffuse thickening of the cecum with surrounding peritoneal fat stranding that may be part colitis but separate pathology such as neoplasm could be possible. This was discussed with the granddaughter. -In the ED patient was given 2L IVF, Fidaxomicin, morphine, blood cultures collected. -Afebrile, hemodynamically stable. -Lactic acid 1.8 -Urinalysis: pH 9.0, protein > 300, nitrite positive, large leukocyte esterase, WBC 50-100 -Chest and Abd/pelvis CT showing diffuse colonic wall thickening most pronounced in the left colon and extending into the rectum. With some pericolonic stranding. 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 Pronounced masslike diffuse thickening of the cecum with surrounding peritoneal fat stranding that may be part colitis but separate pathology such as neoplasm may be difficult exclude. Collapsed urinary bladder and Luevano catheter with wall thickening. Mild to moderate right hydronephrosis and hydroureter down to urinary bladder without obstructing ureteric lesion. plan: -C diff stool test pending -urine culture pending -blood culture pending -continue Fidaxomicin 200mg for 10 days for presumed C diff -continue nitrofurantoin for UTI Qualifiers: Sepsis type: sepsis due to unspecified organism Sepsis acute organ dysfunction status: unspecified Qualified Code(s): A41.9 - Sepsis, unspecified organism (2) Urinary tract infection Current Visit: No Status: Acute Assessment and plan: Patient presenting with symptoms concerning for UTI with dysuria and concerning urinalysis. She has history of UTI in the past. -Patient may have urinary tract infection secondary to diarrhea and bacteria entering the urethra -Urinalysis: pH 9.0, protein > 300, nitrite positive, large leukocyte esterase, WBC 50-100 -Abd/pelvis CT showing collapsed urinary bladder and Luevano catheter with wall thickening. Mild to moderate right hydronephrosis and hydroureter down to urinary bladder without obstructing ureteric lesion. -based on UA pH concern for Proteus possibly plan: -based on past urine sensitivities and antibiotic allergies will start and antibiotic treatment with nitrofurantoin 100mg BID and will await urine culture sensitivity. -Urine culture pending Qualifiers: Urinary tract infection type: catheter-associated UTI Indwelling urinary catheter type: indwelling urethral catheter Encounter type: sequela Qualified Code(s): T83.511S - Infection and inflammatory reaction due to indwelling urethral catheter, sequela; N39.0 - Urinary tract infection, site not specified (3) C. difficile colitis Current Visit: Yes Status: Acute Assessment and plan: Presumed Severe C diff. Patient has history of C diff having 1st episode in January and treated with 2 weeks of vancomycin with complete resolution. 1st recurrence a month and a half ago for which she was treated with vancomycin for 2 weeks. Concerned that this is a 2nd recurrence of C diff. Suspect that the patient did not have complete resolution of C diff as she should have had pulse tapered dosing of vancomycin rather than 2 weeks. Patient reports increased abdominal pain for the past 5 days with 3 watery bowel movements a day. In the ED patient was given Fidaxomicin. -WBC 19.5 -Chest and Abd/pelvis CT showing diffuse colonic wall thickening most pronounced in the left colon and extending into the rectum. With some pericolonic stranding. 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 Pronounced masslike diffuse thickening of the cecum with surrounding peritoneal fat stranding that may be part colitis but separate pathology such as neoplasm may be difficult exclude. Collapsed urinary bladder and Luevano catheter with wall thickening. Mild to moderate right hydronephrosis and hydroureter down to urinary bladder without obstructing ureteric lesion. -Patient has diffuse abdominal pain on examination. Soft, not peritoneal. plan: -C diff stool test pending -continue Fidaxomicin 200mg for 10 days -continue probiotic -continue contact precautions (4) Abdominal pain Current Visit: Yes Status: Acute Assessment and plan: Abdominal pain is likely secondary to 2nd recurrence of C diff. CT imaging demonstrates colonic thickening consistent with colitis. No evidence of megacolon. No evidence of pancreatitis, cholecystitis. -She has diffuse generalized abdominal tenderness. Abdomen is soft and non peritoneal. -Chest and Abd/pelvis CT showing diffuse colonic wall thickening most pronounced in the left colon and extending into the rectum. With some pericolonic stranding. 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 Pronounced masslike diffuse thickening of the cecum with surrounding peritoneal fat stranding that may be part colitis but separate pathology such as neoplasm may be difficult exclude. Collapsed urinary bladder and Luevano catheter with wall thickening. Mild to moderate right hydronephrosis and hydroureter down to urinary bladder without obstructing ureteric lesion. -CT showed masslike diffuse thickening of the cecum with surrounding peritoneal fat stranding that may be part colitis but separate pathology such as neoplasm could be possible. This was discussed with the granddaughter. -plan as above Qualifiers: Abdominal location: generalized Qualified Code(s): R10.84 - Generalized abdominal pain (5) Type 2 diabetes mellitus Current Visit: No Status: Chronic Assessment and plan: History of type II diabetes. 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 BP stable. Holding lisinopril in the presence of sepsis. Will resume later. Qualifiers: Hypertension type: essential hypertension Qualified Code(s): I10 - Essential (primary) hypertension (7) DVT prophylaxis Current Visit: No Status: Acute Assessment and plan: Heparin SQ - Time Spent With Patient Total time spent is greater than 50% in coordination of care (as documented) at patient's floor/unit and/or counseling patient: <DejuanEnochtomasz De Jesus - Last Filed: 06/09/19 05:11> Date of Encounter: 06/09/19 Internal Medicine - H&P: HPI History of present illness: Ms. Chong is a 83 year old female All Systems PM: A 10-system review of systems was performed and is negative for pertinent findings except as documented above in the HPI. - Constitutional Vitals: Temp Pulse Resp BP Pulse Ox 98.6 F 102 18 106/55 95 06/08/19 23:31 06/08/19 23:31 06/08/19 23:31 06/08/19 23:31 06/08/19 23:31 Internal Med - H&P Results - Labs CBC & Chem 7: 06/08/19 17:36 06/08/19 17:36 Labs: Short CBC 06/08/19 Range/Units 17:36 WBC 19.5 H (4.3-11.1) K/mcL Hgb 12.5 (11.5-15.4) g/dL Hct 38.0 (35.3-44.9) % Plt Count 344 (140-400) K/mcL Neutrophils # 15.0 H (1.6-8.9) K/mcL BMP 06/08/19 17:36 Sodium 131 L Potassium 4.1 Chloride 101 Carbon Dioxide 22 L BUN 37 H Creatinine 0.65 Glucose 290 H Calcium 8.4 L Cardiac Enzymes 06/08/19 Range/Units 17:36 Troponin I < 0.03 (< 0.04) ng/mL Liver Function 06/08/19 Range/Units 17:36 Total Bilirubin 0.3 (0.3-1.0) mg/dL Direct Bilirubin 0.1 (0.0-0.2) mg/dL AST 7 L (13-39) Units/L ALT 5 L (7-52) Units/L Alkaline Phosphatase 68 (34-104) Units/L Albumin 2.7 L (3.5-5.7) g/dL Urine 06/08/19 Range/Units 19:38 Urine Color Yellow (Yellow) Urine Clarity Slightly Cloudy A (Clear) Urine pH >=9.0 H (5.0-8.0) pH Units Ur Specific [place] 1.010 (1.010-1.025) Urine Protein >=300 H (Neg-Trace) mg/dL Urine Glucose (UA) Normal (Normal) mg/dL - ABG Interpretation ABG results: 06/08/19 17:48 VBG pH 7.51 H VBG pCO2 24 L VBG pO2 146 H VBG HCO3 19 L - Impressions ITS Impressions Abdomen/Pelvis CT 06/08/19 18:22 IMPRESSION: 1. Interval resolution of bilateral pleural effusions with some residual reticular interstitial changes at the posterior lung bases. 2. Diffuse colonic wall thickening most pronounced in the left colon. Thickening extends into the rectum. There is significant surrounding pericolonic stranding. Findings most compatible with colitis likely pseudomembranous colitis. 3. A pronounced masslike diffuse thickening of the cecum with marked surrounding peritoneal fat stranding may be part of the colitis but separate pathology such as neoplasm would be difficult to exclude. Follow-up to resolution advised. 4. Collapsed urinary bladder around Luevano catheter with wall thickening which could be due to the underdistention but component of cystitis other pathology not excluded. Perivesical stranding may be part of inflammatory changes of colitis or separate. There is mild to moderate right hydronephrosis and hydroureter down to the urinary bladder without obstructing ureteric lesion. D/ / Homer Miles MD / Homer Miles MD Interpreting Provider: Homer Miles MD Chest CT 06/08/19 18:22 IMPRESSION: 1. Interval resolution of bilateral pleural effusions with some residual reticular interstitial changes at the posterior lung bases. 2. Diffuse colonic wall thickening most pronounced in the left colon. Thickening extends into the rectum. There is significant surrounding pericolonic stranding. Findings most compatible with colitis likely pseudomembranous colitis. 3. A pronounced masslike diffuse thickening of the cecum with marked surrounding peritoneal fat stranding may be part of the colitis but separate pathology such as neoplasm would be difficult to exclude. Follow-up to resolution advised. 4. Collapsed urinary bladder around Luevano catheter with wall thickening which could be due to the underdistention but component of cystitis other pathology not excluded. Perivesical stranding may be part of inflammatory changes of colitis or separate. There is mild to moderate right hydronephrosis and hydroureter down to the urinary bladder without obstructing ureteric lesion. 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 No acute intracranial hemorrhage. No evidence of mass, mass effect or midline shift. D/ / 06/08/2019 18:28:45 Sp Means MD / [facility] Interpreting Provider: Sp Means MD - Assessment and Plan (1) Sepsis Current Visit: Yes Status: Acute Qualifiers: Sepsis type: sepsis due to unspecified organism Sepsis acute organ dysfunction status: unspecified Qualified Code(s): A41.9 - Sepsis, unspecified organism (2) Urinary tract infection Current Visit: No Status: Acute Qualifiers: Urinary tract infection type: catheter-associated UTI Indwelling urinary catheter type: indwelling urethral catheter Encounter type: sequela Qualified Code(s): T83.511S - Infection and inflammatory reaction due to indwelling urethral catheter, sequela; N39.0 - Urinary tract infection, site not specified (3) C. difficile colitis Current Visit: Yes Status: Acute (4) Abdominal pain Current Visit: Yes Status: Acute Qualifiers: Abdominal location: generalized Qualified Code(s): R10.84 - Generalized abdominal pain (5) Type 2 diabetes mellitus Current Visit: No Status: Chronic Qualifiers: Diabetes mellitus nursing home insulin use: without nursing home use Diabetes mellitus complication status: without complication Qualified Code(s): E11.9 - Type 2 diabetes mellitus without complications (6) Hypertension Current Visit: No Status: Chronic Qualifiers: Hypertension type: essential hypertension Qualified Code(s): I10 - Essential (primary) hypertension (7) DVT prophylaxis Current Visit: No Status: Acute - Time Spent With Patient Total time spent is greater than 50% in coordination of care (as documented) at patient's floor/unit and/or counseling patient: - Attending Attestation Patient seen and examined independently, including review of objective data including labs. 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 Patient has had 2 episodes of UTI where she was given antibiotics [unknown per family what type], and on chronic PPI with recurrent C. difficile infection being treated with oral vancomycin. The second episode was treated with 14 days of vancomycin without pulse dose. Per family patient is on aware of what is causing the recurrent UTI, and has been also complaining of left thumb pain that is progressively worse with straining and more red. On exam patient showing left thumb paronychia with drainage and surrounding erythema is blanchable and tender, vaginal showing erythema, edema and tender. Patient will be admitted for sepsis with multiple sources with infectious disease consultation. IV vancomycin for cellulitis and macrobid for suspected UTI, we will await culture. Hand surgeon consulted for left thumb paronychia.
[2019-06-08 20:23] LABS: Bilirubin,Urine Negative (Negative); Blood,Urine Trace-lysed (Negative); Clarity,Urine Slightly Cloudy (Clear); Color,Urine Yellow (Yellow); Glucose,Urine (UA) Normal (Normal); Ketones,Urine Negative (Negative); Leukocyte Esterase,Urine Large (Negative); Nitrite,Urine Positive (Negative); PH,Urine >=9.0 pH Units (5.0-8.0); Protein,Urine >=300 mg/dL (Neg-Trace); Urobilinogen,Urine Normal (Normal)
[2019-06-08 20:39] LABS: WBC,Urine 50-100 per hpf (0-3)
[2019-06-08 20:40] LABS: Bacteria,Urine Many per hpf (None-Few); Triple Phosphate Crystal,Urine Present
[2019-06-08] MEDS ORDERED: Naloxone 0.4 MG/ML INJ IVP PRN (20:49)
[2019-06-08] MEDS ORDERED: Dextrose Gel 15 GM/37.5 ML TUBE PO PRN ×2 (20:52)
[2019-06-08] MEDS ORDERED: D5% in Water 1,000 ML IVC PRN (20:52)
[2019-06-08] MEDS ORDERED: *HR* Dextrose 50 % in Water (Syg) 50 ML SYRINGE IVP PRN (20:52)
[2019-06-08] MEDS ORDERED: Lactobacillus 1 EACH CAP.SPRINK PO SCH (21:00)
[2019-06-08] MEDS: *HR* Heparin 5,000 UNIT/ML VIAL SQ SCH (23:07)
[2019-06-08] MEDS: Nitrofurantoin (BID) 100 MG CAPSULE PO SCH (23:07)
[2019-06-08] MEDS: Insulin LISPRO 300 UNITS/3 ML VIAL SQ SCH (23:29)
[2019-06-09] MEDS ORDERED: Bisacodyl 10 MG RECTAL SUPPOSITORY RC PRN (05:07)
[2019-06-09] MEDS ORDERED: Acetaminophen 325 MG TABLET PO PRN (05:07)
[2019-06-09] MEDS: *HR* LORazepam 0.5 MG TABLET PO SCH ×3 (06:00→21:09)
[2019-06-09] MEDS: *HR* HYDROcodone/Acet 10/325 mg TABLET PO SCH ×3 (06:01→18:47)
[2019-06-09] MEDS: *HR* Heparin 5,000 UNIT/ML VIAL SQ SCH ×3 (06:01→21:09)
[2019-06-09 07:23] LABS: Basophils % 0.3 %; Eosinophils # 0.1 K/mcL (0.0-0.6); Eosinophils % 0.8 %; Hematocrit 31.9 % (35.3-44.9); Lymphocytes % 18.4 %; Mean Corpuscular HGB Conc 32.6 g/dL (31.6-35.5); Mean Corpuscular Volume 91.9 fL (83.0-100.0); Mean Platelet Volume 9.5 fL (9.4-12.4); Monocytes % 13.6 %; Platelet Count 288 K/mcL (140-400); Red Blood Count 3.47 M/mcL (3.82-4.97); Red Cell Distribution Width 18.2 % (11.5-14.5); Segmented Neutrophils % 64.9 %; White Blood Count 14.4 K/mcL (4.3-11.1)
[2019-06-09 07:39] LABS: BUN/Creatinine Ratio 56 (6-26); Blood Urea Nitrogen 25 mg/dL (8-23); Calcium 7.5 mg/dL (8.6-10.3); Carbon Dioxide 21 mEq/L (23-29); Chloride 105 mEq/L (98-107); Glucose 130 mg/dL (70-105); Osmolality,Calculated 278 (280-300); Potassium 3.4 mEq/L (3.5-5.1); Sodium 131 mEq/L (136-145); eGFR For African Americans > 60 (> 60); eGFR For Non-African Americans > 60 (> 60)
[2019-06-09 07:52] LABS: Anisocytosis 1+ (Not Present)
[2019-06-09 07:53] LABS: Platelet Estimate Normal (Normal); Poikilocytosis 1+ (Not Present)
[2019-06-09 07:54] LABS: Lymphocytes # 2.7 K/mcL (0.6-4.6); Neutrophils # 9.4 K/mcL (1.6-8.9)
[2019-06-09 07:57] LABS: Hemoglobin 10.4 g/dL (11.5-15.4)
[2019-06-09] MEDS: Insulin LISPRO 300 UNITS/3 ML VIAL SQ SCH ×4 (08:21→21:10)
[2019-06-09] MEDS: Lactobacillus 1 EACH CAP.SPRINK PO SCH (08:27)
[2019-06-09] MEDS: Nitrofurantoin (BID) 100 MG CAPSULE PO SCH ×2 (08:27→16:51)
[2019-06-09] MEDS ORDERED: Fidaxomicin 200 MG TABLET PO SCH (09:00)
--- NOTE | 2019-06-09 09:07 | Internal Med Progress Note ---
<Michael Rogers - Last Filed: 06/09/19 12:26> Hospitalist Progress Note - Encounter Date of Encounter: 06/09/19 Time of Encounter: 10:00 - Subjective Interval History: Patient lying down in bed. Complains of pain all over. Continues to have episodes of diarrhea. No fever reported overnight. No shortness of breath. No nausea or vomiting. - Exam Vitals: Temp Pulse Resp BP Pulse Ox 97.8 F 95 17 122/64 96 06/09/19 10:47 06/09/19 10:47 06/09/19 10:47 06/09/19 10:47 06/09/19 10:47 Exam: General: Patient is alert, moderate distress, oriented x2 Respiratory: Good respiratory effort. Normal breath sounds. No wheezing or crackles. Cardiovascular: Regular rate and rhythm. s1 and s2 normal No clicks, rubs, gallops, or murmurs. No pedal edema Abdomen: Abdomen is soft, generalized tenderness present. Bowel sounds are present Musculoskeletal: Spontaneously moving all extremities Skin: warm, dry, intact. Neuro: Alert oriented x2 normal cranial nerves, no focal deficits - Assessment and Plan (1) Sepsis Current Visit: Yes Status: Acute (2) C. difficile colitis Current Visit: Yes Status: Acute (3) Urinary tract infection Current Visit: No Status: Acute (4) Abdominal pain Current Visit: Yes Status: Acute (5) Type 2 diabetes mellitus Current Visit: No Status: Chronic (6) Hypertension Current Visit: No Status: Chronic (7) DVT prophylaxis Current Visit: No Status: Acute - Summary of Assessment and Plan Summary of Assessment and Plan: Sepsis due to C. difficile colitis and possible urinary tract infection: Continue fidoxamicin. Await infectious disease input. Supportive care with kimber n control and IV fluids as needed. WBC count is trending down. Acute cystitis: Continue Macrobid. Await urine culture results and infectious disease recommendations. Diabetes mellitus type 2: Blood sugars are well controlled. Continue current insulin regimen. Essential hypertension: Well controlled. DVT prophylaxis with subcutaneous heparin Moderate risk for complications. - Time Spent with Patient Total time spent is greater than 50% in coordination of care (as documented) at patient's floor/unit and/or counseling patient: Internal Medicine: Result - Labs CBC & Chem 7: 06/09/19 06:56 06/09/19 06:56 Labs: Short CBC 06/08/19 06/09/19 Range/Units 17:36 06:56 WBC 19.5 H 14.4 H (4.3-11.1) K/mcL Hgb 12.5 10.4 L D (11.5-15.4) g/dL Hct 38.0 31.9 L (35.3-44.9) % Plt Count 344 288 (140-400) K/mcL Neutrophils # 15.0 H 9.4 H (1.6-8.9) K/mcL BMP 06/08/1918 17:36 06:56 Sodium 131 L 131 L Potassium 4.1 3.4 L Chloride 101 105 Carbon Dioxide 22 L 21 L BUN 37 H 25 H Creatinine 0.65 0.45 L Glucose 290 H 130 H Calcium 8.4 L 7.5 L Cardiac Enzymes 06/08/19 Range/Units 17:36 Troponin I < 0.03 (< 0.04) ng/mL Liver Function 06/08/19 Range/Units 17:36 Total Bilirubin 0.3 (0.3-1.0) mg/dL Direct Bilirubin 0.1 (0.0-0.2) mg/dL AST 7 L (13-39) Units/L ALT 5 L (7-52) Units/L Alkaline Phosphatase 68 (34-104) Units/L Albumin 2.7 L (3.5-5.7) g/dL Urine 06/08/19 Range/Units 19:38 Urine Color Yellow (Yellow) Urine Clarity Slightly Cloudy A (Clear) Urine pH >=9.0 H (5.0-8.0) pH Units Ur Specific [place] 1.010 (1.010-1.025) Urine Protein >=300 H (Neg-Trace) mg/dL Urine Glucose (UA) Normal (Normal) mg/dL - Impressions Impressions Abdomen/Pelvis CT 06/08/19 18:22 IMPRESSION: 1. Interval resolution of bilateral pleural effusions with some residual reticular interstitial changes at the posterior lung bases. 2. Diffuse colonic wall thickening most pronounced in the left colon. Thickening extends into the rectum. There is significant surrounding pericolonic stranding. Findings most compatible with colitis likely pseudomembranous colitis. 3. A pronounced masslike diffuse thickening of the cecum with marked surrounding peritoneal fat stranding may be part of the colitis but separate pathology such as neoplasm would be difficult to exclude. Follow-up to resolution advised. 4. Collapsed urinary bladder around Luevano catheter with wall thickening which could be due to the underdistention but component of cystitis other pathology not excluded. Perivesical stranding may be part of inflammatory changes of colitis or separate. There is mild to moderate right hydronephrosis and hydroureter down to the urinary bladder without obstructing ureteric lesion. D/ / Homer Miles MD / Homer Miles MD Interpreting Provider: Homer Miles MD Chest CT 06/08/19 18:22 IMPRESSION: 1. Interval resolution of bilateral pleural effusions with some residual reticular interstitial changes at the posterior lung bases. 2. Diffuse colonic wall thickening most pronounced in the left colon. Thickening extends into the rectum. There is significant surrounding pericolonic stranding. Findings most compatible with colitis likely pseudomembranous colitis. 3. A pronounced masslike diffuse thickening of the cecum with marked surrounding peritoneal fat stranding may be part of the colitis but separate pathology such as neoplasm would be difficult to exclude. Follow-up to resolution advised. 4. Collapsed urinary bladder around Luevano catheter with wall thickening which could be due to the underdistention but component of cystitis other pathology not excluded. Perivesical stranding may be part of inflammatory changes of colitis or separate. There is mild to moderate right hydronephrosis and hydroureter down to the urinary bladder without obstructing ureteric lesion. 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 No acute intracranial hemorrhage. No evidence of mass, mass effect or midline shift. D/ / 06/08/2019 18:28:45 Sp Means MD / earnold Interpreting Provider: Sp Means MD Consult Discharge Plan - Plan Referrals: NONE,PCP [Primary Care Provider] - <Juan Ramon Pizano R - Last Filed: 06/09/19 17:25> Hospitalist Progress Note - Encounter Date of Encounter: 06/09/19 Time of Encounter: 09:38 - Subjective Interval History: Patient reports no acute events overnight. Patient reports diffuse pain in the chest, abdominal pain, tail bone, and extremities. States that she has been continuing to have diarrhea. Denies any SOB, light headedness, nausea, vomiting. - Exam Vitals: Temp Pulse Resp BP Pulse Ox 97.9 F 91 16 133/75 96 06/09/19 06:57 06/09/19 06:57 06/09/19 06:57 06/09/19 06:57 06/09/19 06:57 Exam: Gen: AOx2 to self and place Eyes: KAYLIE EOMI with no conjunctivitis present Throat: Mucous membranes moist with no ulcers, or erythema CV: RRR with no murmur Resp: CTA in all lung filds with no wheeze or crackles Abdomen: Soft, tender abdomen that is unable to be localized. No masses or organomegally palpated : Luevano Catheter placed Ext: DP 2/4 sherman with no LE edema Neuro: CN II-CNXII intact with no focal deficits Derm: No rashes or abrasions present on exam - Assessment and Plan (1) Sepsis Current Visit: Yes Status: Acute Assessment and Plan: -presented meeting sepsis criteria with 2 SIRS: HR 127, WBC 19.5 on 06/09 - Presenting symtoms of dysuria - Etiology is likely severe C diff and urinary tract infection - Previous C Diff in January receiving 2 weeks oral Vancomycin - C diff 1st recurrence one and a half months ago after abx for hangnail. Vancomycin was given for 2 weeks rather than taper dosing - CT scan chest/abdomen 06/08 showed diffuse colonic wall thickening most pronounced in the left colon and extending into the rectum. With some pericolonic stranding. 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 Pronounced masslike diffuse thickening of the cecum with surrounding peritoneal fat stranding that may be part colitis but separate pathology such as neoplasm may be difficult exclude. Collapsed urinary bladder and Luevano catheter with wall thickening. Mild to moderate right hydronephrosis and hydroureter down to urinary bladder without obstructing ureteric lesion - Lactic acid 06/08 1.8 - U/A 06/08 positive nitrites, large leukocyte esterase, and pyuria - ID consulted - Ortho consulted to evaluate finger infection Plan - Cont Fidaxomicin 200 mg 10 days for days for suspected C diff. - cont Nitrofurantoin for UTI - C diff stool test pending - Urine culture pending - Blood culture pending (2) UTI (urinary tract infection) Current Visit: No Status: Acute Assessment and Plan: -Patient presenting with dysuria and recent UTI - Urinalysis on 06/08: pH 9.0, protein > 300, nitrite positive, large leukocyte esterase, WBC 50-100 - Abd/pelvis CT on 06/08 showing collapsed urinary bladder and Luevano catheter w ith wall thickening. Mild to moderate right hydronephrosis and hydroureter down to urinary bladder without obstructing ureteric lesion Plan - nitrofurantoin 100mg BID day 2 of 5 -Urine culture pending - ID consult pending (3) C. difficile colitis Current Visit: Yes Status: Acute Assessment and Plan: - Presented with diffuse abdominal pain for the past 5 days with 3 watery bowel movements a day -Previous C diff in January treated with 2 weeks of Vancomycin with complete resolu tion of symptoms - 1st reoccurrence a month and a half ago treated with vancomycin for 2 weeks without tapered dosing. Patient does't beleive she had full resolutin of symptoms - Chest and Abd/pelvis CT on 06/08 showing diffuse colonic wall thickening most pronounced in the left colon and extending into the rectum. With some pericolonic stranding. 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 Pronounced mass-like diffuse thickening of the cecum with surrounding peritoneal fat stranding that may be part colitis but separate pathology such as neoplasm may be difficult exclude. Collapsed urinary bladder and Luevano catheter with wall thickening. Mild to moderate right hydronephrosis and hydroureter down to urinary bladder without obstructing ureteric lesion. - WBC 14.4 today down from 19.5 on 06/08 plan: -C diff stool test pending -Cont Fidaxomicin 200mg for 10 days - ID consulted - continue probiotic -continue contact precautions (4) Abdominal pain Current Visit: Yes Status: Acute Assessment and Plan: - Present with diffuse abdominal pain likely 2/2 second C diff reoccurrence -Chest and Abd/pelvis CT on 06/08 showing diffuse colonic wall thickening most pronounced in the left colon and extending into the rectum. With some pericolonic stranding. 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 Pronounced masslike diffuse thickening of the cecum with surrounding peritoneal fat stranding that may be part colitis but separate pathology such as neoplasm may be difficult exclude. Collapsed urinary bladder and Luevano catheter with w all thickening. Mild to moderate right hydronephrosis and hydroureter down to urinary bladder without obstructing ureteric lesion. plan - as above (5) Hypertension Current Visit: No Status: Chronic Assessment and Plan: Chronic HTN on lisinopril - BP stable Plan -Hold Lisinopril due to sepsis (6) Type 2 diabetes mellitus Current Visit: No Status: Chronic Assessment and Plan: - Chronic DM II - POC 154 today Plan: - cont low dose sliding scale - Diabetic diet DVT Prophylaxis: sub cutaneous heparin - Time Spent with Patient Total time spent is greater than 50% in coordination of care (as documented) at patient's floor/unit and/or counseling patient: Internal Medicine: Result - Labs CBC & Chem 7: 06/09/19 06:56 06/09/19 06:56 Labs: Short CBC 06/08/19 06/09/19 Range/Units 17:36 06:56 WBC 19.5 H 14.4 H (4.3-11.1) K/mcL Hgb 12.5 10.4 L D (11.5-15.4) g/dL Hct 38.0 31.9 L (35.3-44.9) % Plt Count 344 288 (140-400) K/mcL Neutrophils # 15.0 H 9.4 H (1.6-8.9) K/mcL BMP 06/08/19 06/09/19 17:36 06:56 Sodium 131 L 131 L Potassium 4.1 3.4 L Chloride 101 105 Carbon Dioxide 22 L 21 L BUN 37 H 25 H Creatinine 0.65 0.45 L Glucose 290 H 130 H Calcium 8.4 L 7.5 L Cardiac Enzymes 06/08/19 Range/Units 17:36 Troponin I < 0.03 (< 0.04) ng/mL Liver Function 06/08/19 Range/Units 17:36 Total Bilirubin 0.3 (0.3-1.0) mg/dL Direct Bilirubin 0.1 (0.0-0.2) mg/dL AST 7 L (13-39) Units/L ALT 5 L (7-52) Units/L Alkaline Phosphatase 68 (34-104) Units/L Albumin 2.7 L (3.5-5.7) g/dL Urine 06/08/19 Range/Units 19:38 Urine Color Yellow (Yellow) Urine Clarity Slightly Cloudy A (Clear) Urine pH >=9.0 H (5.0-8.0) pH Units Ur Specific [place] 1.010 (1.010-1.025) Urine Protein >=300 H (Neg-Trace) mg/dL Urine Glucose (UA) Normal (Normal) mg/dL - Impressions Impressions Abdomen/Pelvis CT 06/08/19 18:22 IMPRESSION: 1. Interval resolution of bilateral pleural effusions with some residual reticular interstitial changes at the posterior lung bases. 2. Diffuse colonic wall thickening most pronounced in the left colon. Thickening extends into the rectum. There is significant surrounding pericolonic stranding. Findings most compatible with colitis likely pseudomembranous colitis. 3. A pronounced masslike diffuse thickening of the cecum with marked surrounding peritoneal fat stranding may be part of the colitis but separate pathology such as neoplasm would be difficult to exclude. Follow-up to resolution advised. 4. Collapsed urinary bladder around Luevano catheter with wall thickening which could be due to the underdistention but component of cystitis other pathology not excluded. Perivesical stranding may be part of inflammatory changes of colitis or separate. There is mild to moderate right hydronephrosis and hydroureter down to the urinary bladder without obstructing ureteric lesion. D/ / Homer Miles MD / Homer Miles MD Interpreting Provider: Homer Miles MD Chest CT 06/08/19 18:22 IMPRESSION: 1. Interval resolution of bilateral pleural effusions with some residual reticular interstitial changes at the posterior lung bases. 2. Diffuse colonic wall thickening most pronounced in the left colon. Thickening extends into the rectum. There is significant surrounding pericolonic stranding. Findings most compatible with colitis likely pseudomembranous colitis. 3. A pronounced masslike diffuse thickening of the cecum with marked surrounding peritoneal fat stranding may be part of the colitis but separate pathology such as neoplasm would be difficult to exclude. Follow-up to resolution advised. 4. Collapsed urinary bladder around Luevano catheter with wall thickening which could be due to the underdistention but component of cystitis other pathology not excluded. Perivesical stranding may be part of inflammatory changes of colitis or separate. There is mild to moderate right hydronephrosis and hydroureter down to the urinary bladder without obstructing ureteric lesion. 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 No acute intracranial hemorrhage. No evidence of mass, mass effect or midline shift. D/ / 06/08/2019 18:28:45 Sp Means MD / rosibel Interpreting Provider: Sp Means MD <Michael Rogers - Last Filed: 06/09/19 12:26> (1) Sepsis Qualifiers: Sepsis type: sepsis due to unspecified organism Sepsis acute organ dysfunction status: unspecified Qualified Code(s): A41.9 - Sepsis, unspecified organism (3) Urinary tract infection Qualifiers: Urinary tract infection type: catheter-associated UTI Indwelling urinary catheter type: indwelling urethral catheter Encounter type: sequela Qualified Code(s): T83.511S - Infection and inflammatory reaction due to indwelling urethral catheter, sequela; N39.0 - Urinary tract infection, site not specified (4) Abdominal pain Qualifiers: Abdominal location: generalized Qualified Code(s): R10.84 - Generalized abdominal pain (5) Type 2 diabetes mellitus Qualifiers: Diabetes mellitus jail insulin use: without terminal press operator use Diabetes mellitus complication status: without complication Qualified Code(s): E11.9 - Type 2 diabetes mellitus without complications (6) Hypertension Qualifiers: Hypertension type: essential hypertension Qualified Code(s): I10 - Essential (primary) hypertension <Juan Ramon Pizano R - Last Filed: 06/09/19 17:25> (1) Sepsis Qualifiers: Sepsis type: sepsis due to unspecified organism Sepsis acute organ dysfunction status: unspecified Qualified Code(s): A41.9 - Sepsis, unspecified organism (2) UTI (urinary tract infection) Qualifiers: Urinary tract infection type: acute cystitis Hematuria presence: without hematuria Qualified Code(s): N30.00 - Acute cystitis without hematuria (4) Abdominal pain Qualifiers: Abdominal location: generalized Qualified Code(s): R10.84 - Generalized abdominal pain (5) Hypertension Qualifiers: Hypertension type: essential hypertension Qualified Code(s): I10 - Essential (primary) hypertension (6) Type 2 diabetes mellitus Qualifiers: Diabetes mellitus jail insulin use: without terminal press operator use Diabetes mellitus complication status: without complication Qualified Code(s): E11.9 - Type 2 diabetes mellitus without complications
--- NOTE | 2019-06-09 10:52 | Infectious Disease Consult ---
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 Need antibiotic assitance and management." Consult date: 06/09/19 Requesting Physician: Michael Rogers MD Primary Care Provider: PCP NONE - HPI HPI: Ms. Chong is a 83-year-old female with past medical history of CVA, diabetes, hyperlipidemia, hypertension, and recurrent C. difficile. The patient was admitted to the hospital 06/08/19 for C. difficile, sepsis, and diarrhea. We are consulted 06/09/19 for further workup and treatment recommendations for sepsis, C. difficile colitis, recurrent UTI, and left thumb paronychia. Briefly, the patient is 83-year-old female past medical history as stated above. The patient presented to the emergency department on the day of admission with complaints of a 5 day history of abdominal pain with a one-day history of diarrhea. Upon arrival, she was afebrile. She is tachycardic, but was otherwise hemodynamically stable. She had leukocytosis with neutrophilic predominance. Renal function, LFTs, troponin, and lipase were normal. Urinalysis was positive for nitrates, large leukocyte esterase, and many bacteria. Urine cultures pending. Blood cultures were obtained 2 sets are pending. Flu H and swab was negative. She was CT of the chest, abdomen and pelvis that showed interval resolution of bilateral pleural effusions with some residual reticular interstitial changes at the posterior lung bases. There was diffuse colonic wall thickening most pronounced in the left colon with thickening extending into the rectum with significant surrounding pericolonic stranding most compatible with colitis, likely pseudomembranous colitis. There is a pronounced masslike diffuse thickening of the cecum with marked surrounding peritoneal fat stranding which may be part of the colitis, but separate pathology such as neoplasm would be difficult to exclude. There was a collapsed urinary bladder around the Estrella catheter with wall thickening which could be due to under distention, but component of cystitis or other pathology could not be excluded. There is perivesical stranding which may be part of inflammatory changes of the colitis or separate and mild to moderate hydroureteronephrosis down to the urinary bladder without obstructing ureteral lesion. CT of the head that showed a large area of right frontal encephalomalacia, but no acute abnormality. She was given a dose of oral deficit and was admitted to the hospital for further evaluation. Since admission, the patient has been afebrile. Her tachycardia has improved. Her white blood cell count is trending down. The primary team noted that her right thumb was erythematous with a draining paronychia and orthopedics has been consulted. There is concern for UTI, so the patient was started on oral Macr obid. She received 1 dose of IV vancomycin. She is currently on oral deficit. C. difficile testing is still pending as the patient's diarrhea is so watery that it is uncollectable. We have been asked to evaluate and make further recommendations. During my exam today, the patient states she hurts "all over." She is unable to provide me with details regarding the events leading up to her hospitalization. She reports some intermittent shortness of breath and intermittent dry cough. States she does feel nauseated and has no appetite. She complains of diffuse abdominal pain. Denies oral thrush or skin rashes. States her left thumb is painful as well. The patient currently resides at a local extended care facility where she was on hospice. She denies tobacco, alcohol, or illicit drug use. She is bedbound and does not ambulate. She has a chronic indwelling Estrella catheter. She denies any chronic infectious diseases. - ROS Review of Systems: All systems reviewed and no additional remarkable complaints except as stated. - Results CBC & Chem 7: 06/10/19 04:35 06/10/19 04:35 - Exam Vitals: Temp Pulse Resp BP Pulse Ox 97.9 F 91 16 133/75 96 06/09/19 06:57 06/09/19 06:57 06/09/19 06:57 06/09/19 06:57 06/09/19 06:57 Exam: Head: Atraumatic, normal inspection, normocephalic. Eye: EOMI, PERRLA, no scleral icterus noted. ENT: Mucous membranes dry. No odontogenic infection noted. Neck: Normal inspection, no meningismus. Respiratory: Clear to auscultation. No rales, respiratory distress, rhonchi, or wheezes noted. Cardiovascular: Regular rate and rhythm, S1 and S2 audible. No murmurs, rubs, or gallops. GI: Soft, distended, normal bowel sounds. Generalized tenderness noted. Estrella catheter draining cola-colored urine. Extremities:No joint swelling, pedal edema, or tenderness noted. Left UE contrac ture noted with left LE foot drop. Left thumb nail noted to be ingrown with a small amount of crusted drainage. No shawna erythema or fluctuance noted. Back: Deferred per patient request. Neurological: Alert, oriented 3, no focal deficits. Psychiatric: normal affect, normal mood. Skin: Dry, intact, warm. Pale. No rashes. Allopurinol [Zyloprim] 300 mg PO DAILY 04/07/17 [History] Atorvastatin [Lipitor] 10 mg PO HS 04/07/17 [History] Lisinopril [Zestril] 20 mg PO BID 09/22/17 [History] Fluticasone Propionate Nasal [Flonase] 1 spray NS Q12H PRN 01/22/19 [History] Potassium Chloride [Klor-Con 10] 10 meq PO DAILY 01/22/19 [History] Melatonin 6 mg PO HS 01/23/19 [History] Oxybutynin [Ditropan] 5 mg PO TID 01/23/19 [History] Ferrous Sulfate 325 mg PO BIDWM tablet 01/26/19 [Rx] Acetaminophen [Tylenol] 650 mg PO Q6HR PRN 06/08/19 [History] Bisacodyl [Gentle Laxative] 10 mg RC Q24H PRN 06/08/19 [History] HYDROcodone/Acet 10/325 mg [Potrero 10-325 mg] 1 tab PO Q6HR 06/08/19 [History] LORazepam [Ativan] 0.5 mg PO Q8H 06/08/19 [History] Lactobacillus [Culturelle] 2 cap PO DAILY 06/08/19 [History] Lidocaine [Aspercreme] 1 each TP DAILY 06/08/19 [History] Omeprazole [PriLOSEC] 20 mg PO Q24H PRN 06/08/19 [History] Promethazine [Phenergan] 25 mg PO Q6HR PRN 06/08/19 [History] Sennosides [Senna] 8.6 mg PO DAILY 06/08/19 [History] risperiDONE [Risperidone] 0.5 mg PO BID 06/08/19 [History] Allergy/AdvReac Type Severity Reaction Status Date / Time Amoxicillin [From Augmentin] Allergy Rash Verified 06/08/19 20:07 cephalexin [From Keflex] Allergy Rash Verified 06/08/19 20:07 clavulanic acid Allergy Rash Verified 06/08/19 20:07 [From Augmentin] diphenhydramine Allergy See Verified 06/08/19 20:07 [From Benadryl] Comments meperidine [From Demerol] Allergy See Verified 06/08/19 20:07 Comments phenytoin [From Dilantin] Allergy See Verified 06/08/19 20:07 Comments - Assessment and Plan (1) Sepsis Current Visit: Yes Status: Acute The patient had 2 sepsis criteria on admission. Likely secondary to colitis. Improved. White blood cell count trending down. Tachycardia improved. Blood cultures drawn 06/08/19 are pending 2 sets. Qualifiers: Sepsis type: sepsis due to unspecified organism Sepsis acute organ dysfunction status: unspecified Qualified Code(s): A41.9 - Sepsis, unspecified organism SNOMED Code(s): 11037128 (2) Colitis Current Visit: Yes Status: Acute CT of the abdomen and pelvis shows diffuse colonic wall thickening most pronounced in the left colon with thickening extending into the rectum with significant surrounding pericolonic stranding most compatible with colitis and likely pseudomembranous colitis. Etiology: Unclear. C. difficile certainly on the differential given the patient's recent history of C. difficile. Stool for C. difficile has not been collected due to the stool being very watery and absorbs into the pad and is unable to be collected and sent. Currently on Dificid. SNOMED Code(s): 68178293 (3) UTI (urinary tract infection) Current Visit: No Status: Acute Causative organism: Unclear. Urine culture pending. Urinalysis positive for nitrites, large leukocyte esterase, and many bacteria. Chronic estrella. Currently on macrobid. Qualifiers: Urinary tract infection type: acute cystitis Hematuria presence: without hematuria Qualified Code(s): N30.00 - Acute cystitis without hematuria SNOMED Code(s): 43548129 (4) Abdominal pain Current Visit: Yes Status: Acute Likely secondary to colitis. Pain management per the primary team. Qualifiers: Abdominal location: generalized Qualified Code(s): R10.84 - Generalized abdominal pain SNOMED Code(s): 12186904 (5) Diarrhea Current Visit: Yes Status: Acute Secondary to colitis. Consider insertion of fecal management system, but will defer to the hospitalist. 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 Management per the primary team. Qualifiers: Diabetes mellitus mcfp insulin use: without mcfp use Diabetes mellitus complication status: without complication Qualified Code(s): E11.9 - Type 2 diabetes mellitus without complications SNOMED Code(s): 00153147 - Recommendations Recommendations: Await urine culture to finalize. Await blood cultures to finalize. Send stool for C. diff when able. Consider fecal management system to aid in collection of stool and to help prevent skin breakdown. Recommend GI to evaluate. Recommend ortho to evaluate. Continue macrobid 100mg PO daily (CrCl ~40). Discontinue dificid. Start Vancomycin 125mg PO QID. Duration of treatment depends on the clinical picture, but likely a 6 week tape r. Monitor renal function and dose-adjust antibiotics. Past Med Surg Social Fam HX - Past Medical History Source: old records reviewed, nursing notes reviewed Medical history: CVA, diabetes, hyperlipidemia, hypertension, other Additional medical history: RLS Psychiatric history: no psych history - Past Surgical History Surgical History: cholecystectomy, FALGUNI/BSO Additional surgical history: carpel tunnel surgery. rectocel surgery - Social History Smoking Status: Never smoker Smokeless Tobacco Status: No Alcohol use: none Drug use: none Occupational status: retired Current living situation: ECF Activity Level: Bed bound Recent Out of Country Travel Within the Last 8 Weeks: No Exposure or Possible Exposure to Illness During Travel: No - Family History Mother Living Status: Hx Family Cardiac Disorders: No Hx Family Endocrine Disorder: Yes (DM) Father Living Status: Hx Family Cardiac Disorders: Yes ([place]) Consult Discharge Plan - Plan Referrals: NONE,PCP [Primary Care Provider] - - Attending Attestation I have personally performed a face to face evaluation on this patient. I have reviewed and agree with the care plan. This is an addendum to original report dictated by Sabiha Schmidt CNP. Please refer to Sabiha's note for full detail. Agree with above history of present illness, review of system and physical exam findings. Assessment and plan: Sepsis Year tract infection Abdominal pain Diarrhea with concern for C. difficile colitis Multiple elbow allergies to antibiotics Hemiparesis due to old cerebrovascular accident Diabetes mellitus type 2 Recommendations Await urine culture to finalize. Await blood cultures to finalize. Send stool for C. diff when able. Consider fecal management system to aid in collection of stool and to help prevent skin breakdown. Recommend GI to evaluate. Recommend ortho to evaluate. Continue macrobid 100mg PO daily (CrCl ~40). Discontinue dificid. Start Vancomycin 125mg PO QID. Duration of treatment depends on the clinical picture, but likely a 6 week taper. Monitor renal function and dose-adjust antibiotics.
[2019-06-09] MEDS: Vancomycin Oral Soln 125 MG/2.5 ML UDC PO SCH ×2 (16:52→21:10)
[2019-06-09] MEDS: Melatonin 3 MG TABLET PO SCH (21:09)
[2019-06-10] MEDS: *HR* HYDROcodone/Acet 10/325 mg TABLET PO SCH ×4 (00:13→15:59)
[2019-06-10] MEDS: *HR* Heparin 5,000 UNIT/ML VIAL SQ SCH ×3 (05:02→21:20)
[2019-06-10 05:39] LABS: Hematocrit 32.9 % (35.3-44.9); Hemoglobin 10.7 g/dL (11.5-15.4); Mean Corpuscular HGB Conc 32.5 g/dL (31.6-35.5); Mean Corpuscular Hemoglobin 30.7 pg (28.0-33.3); Mean Corpuscular Volume 94.3 fL (83.0-100.0); Mean Platelet Volume 9.7 fL (9.4-12.4); Platelet Count 334 K/mcL (140-400); Red Blood Count 3.49 M/mcL (3.82-4.97); Red Cell Distribution Width 18.2 % (11.5-14.5)
[2019-06-10 06:04] LABS: BUN/Creatinine Ratio 46 (6-26); Blood Urea Nitrogen 18 mg/dL (8-23); Calcium 7.9 mg/dL (8.6-10.3); Carbon Dioxide 20 mEq/L (23-29); Chloride 107 mEq/L (98-107); Glucose 108 mg/dL (70-105); Osmolality,Calculated 280 (280-300); Sodium 134 mEq/L (136-145); eGFR For African Americans > 60 (> 60); eGFR For Non-African Americans > 60 (> 60)
--- NOTE | 2019-06-10 06:38 | Electrocardiograph Report ---
[facility] [employer] Test Date: 2019-06-08 Pat Name: China Chong Department: [id number] Room: 2NE20 Gender: F [employer] System: : 1935 Requested By: Rosa Schneider Order Number: [id number] Reading MD: Robert Ha Measurements Intervals [place] Rate: 119 P: 59 [place]: 110 QRS: 45 QRSD: 77 T: -32 QT: 349 QTc: 491 Interpretive Statements Sinus tachycardia Multiform ventricular premature complexes Electronically Signed On 06-10-2019 6:36:54 EDT by Robert Ha
[2019-06-10 06:51] LABS: Monocytes # 0.3 K/mcL (0.0-1.3); Neutrophils # 12.7 K/mcL (1.6-8.9); Platelet Estimate Normal (Normal)
--- NOTE | 2019-06-10 07:51 | Internal Med Progress Note ---
<Michael Rogers - Last Filed: 06/10/19 13:53> Hospitalist Progress Note - Encounter Date of Encounter: 06/10/19 Time of Encounter: 10:00 - Subjective Interval History: Patient continues to complain of generalized body aches all over. Continues to have diarrhea. No fever or chills reported overnight. Granddaughter present at bedside states the patient is on hospice and palliative care. She was not previously aware of any mass in her intestine. Patient continues to have poor appetite. - Exam Vitals: Temp Pulse Resp BP Pulse Ox 97.8 F 98 16 127/69 98 06/10/19 12:15 06/10/19 12:15 06/10/19 12:15 06/10/19 12:15 06/10/19 12:15 - Assessment and Plan (1) Sepsis Current Visit: Yes Status: Acute (2) C. difficile colitis Current Visit: Yes Status: Acute (3) Urinary tract infection Current Visit: Yes Status: Acute (4) Abdominal pain Current Visit: Yes Status: Acute (5) Type 2 diabetes mellitus Current Visit: No Status: Chronic (6) Hypertension Current Visit: No Status: Chronic (7) DVT prophylaxis Current Visit: No Status: Acute - Time Spent with Patient Total time spent is greater than 50% in coordination of care (as documented) at patient's floor/unit and/or counseling patient: Internal Medicine: Result - Labs CBC & Chem 7: 06/10/19 04:35 06/10/19 04:35 Labs: Short CBC 06/10/19 Range/Units 04:35 WBC 14.0 H (4.3-11.1) K/mcL Hgb 10.7 L (11.5-15.4) g/dL Hct 32.9 L (35.3-44.9) % Plt Count 334 (140-400) K/mcL Neutrophils # 12.7 H (1.6-8.9) K/mcL BMP 06/10/19 04:35 Sodium 134 L Potassium 5.0 D Chloride 107 Carbon Dioxide 20 L BUN 18 Creatinine 0.39 L Glucose 108 H Calcium 7.9 L Consult Discharge Plan - Plan Referrals: NONE,PCP [Primary Care Provider] - - Attending Attestation Sepsis due to C. difficile colitis and urinary tract infection: Infectious disease has evaluated patient. She has been placed on vancomycin 125 mg 4 times a day. Recommend 6 weeks course of this medication to treat her C. difficile infection. Acute cystitis due to indwelling Luevano catheter: Urine culture is growing Proteus and another gram-negative negro. Persistent to Macrobid. Will change antibiotics after discussing with infectious disease Possible cecal mass: We will consult gastroenterology. Patient's granddaughter unsure if she would want to undergo colonoscopy but would like GI input prior to deciding. Generalized body aches: Could be exacerbated due to acute illness. We will consult palliative care to help manage her pain. Diabetes mellitus type 2: Blood sugars remain well controlled. Continue current insulin regimen. Essential hypertension: Well controlled. Septic encephalopathy with underlying dementia: Improved. Patient continues to have some confusion but improved overall according to discussion with family. DVT prophylaxis with subcutaneous heparin Moderate risk for complications. <Juan Ramon Pizano - Last Filed: 06/10/19 15:57> Hospitalist Progress Note - Encounter Date of Encounter: 06/10/19 Time of Encounter: 09:20 - Subjective Interval History: Nursing reports no acute events overnight. Patient is diffusely tender all over complaining of pain. Unable to obtain a ROS due to patient impaired mentation that is at her baseline. - Exam Vitals: Temp Pulse Resp BP Pulse Ox 98.1 F 100 18 128/63 98 06/10/19 05:15 06/10/19 05:15 06/10/19 05:15 06/10/19 05:15 06/10/19 05:15 Exam: Gen: mild distress due to pain Eyes: Patient only opens eyes intermittently. No evidence of conjunctivitis. Throat: moist mucous membranes. No pharyngeal erythema. CV: RRR with no murmur Resp; CTA in all lung griffith Akbar GI: soft, diffusely tender abdomen. No organomegally or masses palpated Ext: DP 2/4 with no pedal edema Neuro: Not cooperative with exam. Appears to be at her baseline Derm: Left thumb lesion just below the nail bed draining purulent fluid. - Assessment and Plan (1) Sepsis Current Visit: Yes Status: Acute Assessment and Plan: -presented meeting sepsis criteria with 2 SIRS: HR 127, WBC 19.5 on 06/09 - Presenting symptoms of dysuria - Etiology is likely severe C diff and urinary tract infection - Previous C Diff in January receiving 2 weeks oral Vancomycin - C diff 1st recurrence one and a half months ago after abx for hangnail. Vancomycin was given for 2 weeks rather than taper dosing - CT scan chest/abdomen 06/08 showed diffuse colonic wall thickening most pronounced in the left colon and extending into the rectum. With some pericolonic stranding. 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 Pronounced masslike diffuse thickening of the cecum with surrounding peritoneal fat stranding that may be part colitis but separate pathology such as neoplasm may be difficult exclude. Collapsed urinary bladder and Luevano catheter with wall thickening. Mild to moderate right hydronephrosis and hydroureter down to urinary bladder without obstructing ureteric lesion - Lactic acid 06/08 1.8 - U/A 06/08 positive nitrites, large leukocyte esterase, and pyuria - ID recommendation to stop Dificid, and transition to Vancomycin - Ortho consulted to evaluate finger infection - Urine culture preliminary report 06/08 growing proteus mirabilis resistant to macrobid. Also growing second gram neg negro species - C diff toxin A and B test 06/09 Positive Plan - Cont Vancomycin 125 mg PO QID per ID recommendation - Start bactrim day 1 - Discontinue macrobid - Blood culture pending (2) UTI (urinary tract infection) Current Visit: No Status: Acute Assessment and Plan: -Patient presenting with dysuria and recent UTI - Urinalysis on 06/08: pH 9.0, protein > 300, nitrite positive, large leukocyte esterase, WBC 50-100 - Abd/pelvis CT on 06/08 showing collapsed urinary bladder and Luevano catheter with wall thickening. Mild to moderate right hydronephrosis and hydroureter down to urinary bladder without obstructing ureteric lesion - Urine culture preliminary report 06/08 growing proteus mirabilis resistant to nitrofuraotin. Growing second shirley neg negro species. Plan - nitrofurantoin stopped. Transition to bactrim. -ID consult pending (3) C. difficile colitis Current Visit: Yes Status: Acute Assessment and Plan: - Presented with diffuse abdominal pain for the past 5 days with 3 watery bowel movements a day -Previous C diff in January treated with 2 weeks of Vancomycin with complete resolution of symptoms - 1st reoccurrence a month and a half ago treated with vancomycin for 2 weeks without tapered dosing. Patient does't beleive she had full resolutin of symptoms - Chest and Abd/pelvis CT on 06/08 showing diffuse colonic wall thickening most pronounced in the left colon and extending into the rectum. With some pericolonic stranding. 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 Pronounced mass-like diffuse thickening of the cecum with surrounding peritoneal fat stranding that may be part colitis but separate pathology such as neoplasm may be difficult exclude. Collapsed urinary bladder and Luevano catheter with wall thickening. Mild to moderate right hydronephrosis and hydroureter down to urinary bladder without obstructing ureteric lesion. - WBC 14.4 today down from 19.5 on 06/08 - C diff toxin A and B test 06/09 Positive - ID Consulted and recommend to stop Dificid, and transition to Vancomycin plan: - Cont Vancomycin 125 mg PO QID per ID recommendation - continue probiotic -continue contact precautions (4) Abdominal pain Current Visit: Yes Status: Acute Assessment and Plan: - Present with diffuse abdominal pain likely 2/2 second C diff reoccurrence -Chest and Abd/pelvis CT on 06/08 showing diffuse colonic wall thickening most pronounced in the left colon and extending into the rectum. With some pericolonic stranding. 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 Pronounced masslike diffuse thickening of the cecum with surrounding peritoneal fat stranding that may be part colitis but separate pathology such as neoplasm may be difficult exclude. Collapsed urinary bladder and Luevano catheter with wall thickening. Mild to moderate right hydronephrosis and hydroureter down to urinary bladder without obstructing ureteric lesion. plan - as above (5) Finger abrasion Current Visit: Yes Status: Acute Assessment and Plan: - Paronychia draining purulent fluid on the left thumb Plan - Orthopedics consulted (6) Hypertension Current Visit: No Status: Chronic Assessment and Plan: -Chronic HTN on lisinopril - BP stable Plan -Hold Lisinopril due to sepsis (7) Type 2 diabetes mellitus Current Visit: No Status: Chronic Assessment and Plan: - Chronic DM II - Glucose elevated but remains within the acceptable range Plan: - cont low dose sliding scale - Diabetic diet DVT Prophylaxis: sub cutaneous heparin - Time Spent with Patient Total time spent is greater than 50% in coordination of care (as documented) at patient's floor/unit and/or counseling patient: Internal Medicine: Result - Labs CBC & Chem 7: 06/10/19 04:35 06/10/19 04:35 Labs: Short CBC 06/09/19 06/10/19 Range/Units 06:56 04:35 WBC 14.4 H 14.0 H (4.3-11.1) K/mcL Hgb 10.4 L D 10.7 L (11.5-15.4) g/dL Hct 31.9 L 32.9 L (35.3-44.9) % Plt Count 288 334 (140-400) K/mcL Neutrophils # 9.4 H 12.7 H (1.6-8.9) K/mcL [facility] 06/10/19 04:35 Sodium 134 L Potassium 5.0 D Chloride 107 Carbon Dioxide 20 L BUN 18 Creatinine 0.39 L Glucose 108 H Calcium 7.9 L <Michael Rogers - Last Filed: 06/10/19 13:53> (1) Sepsis Qualifiers: Sepsis type: sepsis due to unspecified organism Sepsis acute organ dysfunction status: unspecified Qualified Code(s): A41.9 - Sepsis, unspecified organism (3) Urinary tract infection Qualifiers: Urinary tract infection type: catheter-associated UTI Indwelling urinary catheter type: indwelling urethral catheter Encounter type: sequela Qualified Code(s): T83.511S - Infection and inflammatory reaction due to indwelling urethral catheter, sequela; N39.0 - Urinary tract infection, site not specified (4) Abdominal pain Qualifiers: Abdominal location: generalized Qualified Code(s): R10.84 - Generalized abdominal pain (5) Type 2 diabetes mellitus Qualifiers: Diabetes mellitus penitentiary insulin use: without penitentiary use Diabetes mellitus complication status: without complication Qualified Code(s): E11.9 - Type 2 diabetes mellitus without complications (6) Hypertension Qualifiers: Hypertension type: essential hypertension Qualified Code(s): I10 - Essential (primary) hypertension <Juan Ramon Pizano R - Last Filed: 06/10/19 15:57> (1) Sepsis Qualifiers: Sepsis type: sepsis due to unspecified organism Sepsis acute organ dysfunction status: unspecified Qualified Code(s): A41.9 - Sepsis, unspecified organism (2) UTI (urinary tract infection) Qualifiers: Urinary tract infection type: acute cystitis Hematuria presence: without hematuria Qualified Code(s): N30.00 - Acute cystitis without hematuria (4) Abdominal pain Qualifiers: Abdominal location: generalized Qualified Code(s): R10.84 - Generalized abdominal pain (6) Hypertension Qualifiers: Hypertension type: essential hypertension Qualified Code(s): I10 - Essential (primary) hypertension (7) Type 2 diabetes mellitus Qualifiers: Diabetes mellitus penitentiary insulin use: without penitentiary use Diabetes mellitus complication status: without complication Qualified Code(s): E11.9 - Type 2 diabetes mellitus without complications
[2019-06-10] MEDS: Insulin LISPRO 300 UNITS/3 ML VIAL SQ SCH ×4 (09:33→21:20)
[2019-06-10] MEDS: Lactobacillus 1 EACH CAP.SPRINK PO SCH (09:43)
[2019-06-10] MEDS: Vancomycin Oral Soln 125 MG/2.5 ML UDC PO SCH ×4 (09:43→21:18)
[2019-06-10] MEDS: Nitrofurantoin (BID) 100 MG CAPSULE PO SCH (09:43)
--- NOTE | 2019-06-10 09:51 | Infectious Disease Progress No ---
ID Progress Note Date of Encounter: 06/10/19 Time of Encounter: 09:49 - Subjective Subjective: Patient seen and examined. No acute events noted overnight. Seen with nursing at the bedside. Patient appears uncomfortable and is tearful this morning and states she hurts all over. She specifically complains of pain in her bilateral shoulders, lower back, and bilateral lower extremities. She also complains of abdominal pain. She is incontinent of stool during my exam. She denies any chest pain or shortness of breath or cough. Denies any nausea, but states her appetite is pretty poor. Per nursing, she did not eat any breakfast this morning. She denies oral thrush or skin rashes. - Objective CBC & Chem 7: 06/10/19 04:35 06/10/19 04:35 - Line Documentation Line Documentation: Estrella Catheter - Exam Vitals: Temp Pulse Resp BP Pulse Ox 97.8 F 86 16 112/63 96 06/10/19 07:13 06/10/19 07:13 06/10/19 07:13 06/10/19 07:13 06/10/19 07:13 Exam: Head: Atraumatic, normal inspection, normocephalic. Eye: EOMI, PERRLA, no scleral icterus noted. ENT: Mucous membranes dry. No odontogenic infection noted. Neck: Normal inspection, no meningismus. Respiratory: Clear to auscultation. No rales, respiratory distress, rhonchi, or wheezes noted. Cardiovascular: Regular rate and rhythm, S1 and S2 audible. No murmurs, rubs, or gallops. GI: Soft, distended, normal bowel sounds. Generalized tenderness noted. Estrella catheter draining dark yellow urine. Extremities: No joint swelling, pedal edema, or tenderness noted. Left UE contracture noted with left LE foot drop. Left thumb nail noted to be ingrown wi th a small amount of crusted drainage. No shawna erythema or fluctuance noted. Neurological: Alert, oriented 3, no focal deficits. Psychiatric: normal affect, tearful. Skin: Dry, intact, warm. Pale. No rashes. - Assessment and Plan (1) Sepsis Current Visit: Yes Status: Acute The patient had 2 sepsis criteria on admission. Likely secondary to colitis. Improved. White blood cell count stable. Tachycardia improved. Blood cultures drawn 9/17/19 are NGTD 2 sets. Qualifiers: Sepsis type: sepsis due to unspecified organism Sepsis acute organ dysfunction status: unspecified Qualified Code(s): A41.9 - Sepsis, unspecified organism SNOMED Code(s): 99806905 (2) Colitis Current Visit: Yes Status: Acute CT of the abdomen and pelvis shows diffuse colonic wall thickening most pronounced in the left colon with thickening extending into the rectum with significant surrounding pericolonic stranding most compatible with colitis and likely pseudomembranous colitis. Secondary to C. diff. Per nursing, stools are less watery and less frequent. Currently on PO Vanc. SNOMED Code(s): 78195314 (3) UTI (urinary tract infection) Current Visit: No Status: Acute Causative organism: Proteus, resistant to macrobid, and GNR #2. Urinalysis positive for nitrites, large leukocyte esterase, and many bacteria. Chronic estrella. Unclear if the patient is truly symptomatic. Currently on macrobid. Qualifiers: Urinary tract infection type: acute cystitis Hematuria presence: without hematuria Qualified Code(s): N30.00 - Acute cystitis without hematuria SNOMED Code(s): 47418856 (4) Abdominal pain Current Visit: Yes Status: Acute Likely secondary to colitis. CT abdomen and pelvis showed a masslike thickening of the cecum. Consider GI to evaluate. Pain management per the primary team. Qualifiers: Abdominal location: generalized Qualified Code(s): R10.84 - Generalized abdominal pain SNOMED Code(s): 17240363 (5) Diarrhea Current Visit: Yes Status: Acute Secondary to colitis. Consider insertion of fecal management system, but will defer to the hospitalist. 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 Management per the primary team. Qualifiers: Diabetes mellitus continuous churn buttermaker insulin use: without shelter use Diabetes mellitus complication status: without complication Qualified Code(s): E11.9 - Type 2 diabetes mellitus without complications SNOMED Code(s): 71555663 - Recommendations Recommendations: Await urine culture to finalize. Await blood cultures to finalize. Consider fecal management system to aid in collection of stool and to help prevent skin breakdown. Recommend GI to evaluate. Recommend ortho to evaluate. Discontinue macrobid. Start bactrim DS 1 tab PO BID (CrCl ~80). Continue Vancomycin 125mg PO QID. Duration of treatment depends on the clinical picture, but likely a 6 week taper. Monitor renal function and dose-adjust antibiotics. C. diff precautions per hospital policy. Consult Discharge Plan - Plan Referrals: NONE,PCP [Primary Care Provider] - - Attending Attestation I have personally performed a face to face evaluation on this patient. I have reviewed and agree with the care plan. History and Exam by me shows: Assessment and plan: Sepsis Urinary tract infection Abdominal pain Diarrhea with concern for C. 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 Start bactrim DS 1 tab PO BID (CrCl ~80). Continue Vancomycin 125mg PO QID. Duration of treatment depends on the clinical picture, but likely a 6 week taper. Monitor renal function and dose-adjust antibiotics. C. diff precautions per hospital policy.
[2019-06-10] MEDS: *HR* LORazepam 0.5 MG TABLET PO SCH ×2 (12:37→21:18)
--- NOTE | 2019-06-10 14:30 | Palliative - Consult Note ---
Date of Encounter: 06/10/19 Time of Encounter: 13:00 - Assessment and Plan (1) Chronic pain Current Visit: Yes Status: Acute Assessment and plan: Patient with complaints of abdominal cramping in the setting of colitis and left thumb pain. Left thumb and hand are contractured and tender to touch. Pain with palpation. Patient rating pain 6/10. No active ROM to left hand. Medication list from [facility] reviewed. Plan: Lido patch to left hand for comfort Add additional [place] to 2 tabs every 6 hrs. Ortho consult pending Qualifiers: Chronic pain type: other chronic pain Qualified Code(s): G89.29 - Other chronic pain (2) Insomnia Current Visit: Yes Status: Acute Assessment and plan: Patient states Melatonin effective for sleep. Continue 3 mg dose at bedtime. 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 Obtained history of illness. Patient also has granddaughters involved in her care. Patient currently resides at [facility]. Currently enrolled in [facility] [place] [facility]. I called [facility] [place] [facility] and spoke with Bonita Gentile RN. Patient is enrolled for terminal illness of dementia and physical decline. Patient verbalized desires to have medical interventions and antibiotics to improve condition. Patient aware of condition and agrees to diagnostic testing, labs, and medications. (5) UTI (urinary tract infection) Current Visit: No Status: Acute Qualifiers: Urinary tract infection type: acute cystitis Hematuria presence: without hematuria Qualified Code(s): N30.00 - Acute cystitis without hematuria (6) Diarrhea Current Visit: Yes Status: Acute Assessment and plan: Patient with C-diff. ID consulted and following. Plan: Consider rectal tube Maintain hygiene after BMs I&O Qualifiers: Diarrhea type: unspecified type Qualified Code(s): R19.7 - Diarrhea, unspecified (7) Colitis Current Visit: Yes Status: Acute (8) C. difficile colitis Current Visit: Yes Status: Acute Assessment and plan: Treatment per ID team Palliative-CN HPI - Data of Consult Patient: new to practice Consult date: 06/10/19 Requesting Physician: Nadir Manrique Primary Care Provider: PCP NONE - Consult Narrative Palliative Care/Comfort Measures: Palliative care Reason for consult: Goals of care History of present illness: Ms. Chong is a 83 year old female admitted from [facility] for abdominal pain. Patient with PMH of DM, HTN, C-diff, CVA, Gout, and chronic pain syndrome. Upon this consult, the patient opens her eyes and moans. She verbalizes clearly and is oriented to person and place. The patient was found to have C-diff and abdominal CT reveals colitis. Patient with hx of C-diff in January 2019. + leukocytosis with ID consultation. Daughter Jazmin is at the patients bedside and is assisting with providing history of illness. [facility] Transfer forms reviewed. Patient was enrolled in [facility] care at [facility]. Patient verbalizes desires to have C-diff managed. This palliative care consult is for goals of care discussion and sympt om management in the setting of chronic pain syndrome. CC: Michael Rogers MD - Time Spent with Patient Time: Total time spent is greater than 50% in coordination of care (as documented) at patient's floor/unit and/or counseling patient: Time with patient: 45 minutes Past Med Surg Social Fam HX - Past Medical History Source: patient, obtained from family, nursing notes reviewed Medical history: CVA, diabetes, hyperlipidemia, hypertension, other Additional medical history: RLS Psychiatric history: no psych history - Past Surgical History Surgical History: cholecystectomy, FALGUNI/BSO Additional surgical history: carpel tunnel surgery. rectocel surgery - Social History Smoking Status: Never smoker Smokeless Tobacco Status: No Alcohol use: none Drug use: none Occupational status: retired Current living situation: [facility] Activity Level: Bed bound Recent Out of Country Travel Within the Last 8 Weeks: No Exposure or Possible Exposure to Illness During Travel: No - Family History Mother Living Status: Hx Family Cardiac Disorders: No Hx Family Endocrine Disorder: Yes (DM) Father Living Status: Hx Family Cardiac Disorders: Yes ([place]) Medications and Allergies Allopurinol [Zyloprim] 300 mg PO DAILY 04/07/17 [History] Atorvastatin [Lipitor] 10 mg PO HS 04/07/17 [History] Lisinopril [Zestril] 20 mg PO BID 09/22/17 [History] Fluticasone Propionate Nasal [Flonase] 1 spray NS Q12H PRN 01/22/19 [History] Potassium Chloride [Klor-Con 10] 10 meq PO DAILY 01/22/19 [History] Melatonin 6 mg PO HS 01/23/19 [History] Oxybutynin [Ditropan] 5 mg PO TID 01/23/19 [History] Ferrous Sulfate 325 mg PO BIDWM tablet 01/26/19 [Rx] Acetaminophen [Tylenol] 650 mg PO Q6HR PRN 06/08/19 [History] Bisacodyl [Gentle Laxative] 10 mg RC Q24H PRN 06/08/19 [History] HYDROcodone/Acet 10/325 mg [[place] 10-325 mg] 1 tab PO Q6HR 06/08/19 [History] LORazepam [Ativan] 0.5 mg PO Q8H 06/08/19 [History] Lactobacillus [Culturelle] 2 cap PO DAILY 06/08/19 [History] Lidocaine [Aspercreme] 1 each TP DAILY 06/08/19 [History] Omeprazole [PriLOSEC] 20 mg PO Q24H PRN 06/08/19 [History] Promethazine [Phenergan] 25 mg PO Q6HR PRN 06/08/19 [History] Sennosides [Senna] 8.6 mg PO DAILY 06/08/19 [History] risperiDONE [Risperidone] 0.5 mg PO BID 06/08/19 [History] Allergy/AdvReac Type Severity Reaction Status Date / Time Amoxicillin [From Augmentin] Allergy Rash Verified 06/08/19 20:07 cephalexin [From Keflex] Allergy Rash Verified 06/08/19 20:07 clavulanic acid Allergy Rash Verified 06/08/19 20:07 [From Augmentin] diphenhydramine Allergy See Verified 06/08/19 20:07 [From Benadryl] Comments meperidine [From Demerol] Allergy See Verified 06/08/19 20:07 Comments phenytoin [From Dilantin] Allergy See Verified 06/08/19 20:07 Comments Review of systems: C/O left thumb pain, generalized abdominal pain - Constitutional Constitutional ROS PAL: fatigue - EENT Eyes: requires corrective lenses - Gastrointestinal Gastrointestinal: abdominal pain, cramping, loose stools - Genitourinary Palliative ROS female: dysuria - Musculoskeletal Musculoskeletal ROS IM: arthralgias, joint swelling Additional comments: Left thumb contracture and tenderness to touch - Neurological Neurological ROS: behavioral changes Palliative Care-Exam - Constitutional Vitals: Temp Pulse Resp BP Pulse Ox 97.8 F 98 16 127/69 98 06/10/19 12:15 06/10/19 12:15 06/10/19 12:15 06/10/19 12:15 06/10/19 12:15 General appearance: Present: cooperative, no acute distress - Head Head Exam: Present: atraumatic, normal inspection - Eye Eye exam: Present: PERRL Pupils: Present: PERRL - ENT ENT exam: Present: mucous membranes moist - Expanded ENT Exam Mouth Exam: Present: moist - Respiratory Respiratory exam: Present: decreased breath sounds - Expanded Respiratory Exam Location: decreased breath sounds: Left, Right, Lower - Cardiovascular Cardiovascular exam: Present: RRR, +S1, +S2 - Expanded Cardiovascular Exam Peripheral pulses: 1+: Femoral (L) PM, Femoral (R) PM, Posterior Tibialis (L), Posterior Tibialis (R), 2+: Carotid (L) PM, Carotid (R) PM, Radial (L), Radial (R), Dorsalis Pedis (L) PM, Dorsalis Pedis (R) PM - GI/Abdominal Exam GI/Abdominal exam: Present: normal bowel sounds additional comments: Tenderness - Rectal Rectal exam: Present: deferred - Catheter Type: Urethral (Luevano) - Extremities Exam Extremities exam: Present: tenderness Additional comments: Left hand and thumb contractures and tender to touch. Rates pain to left thumb is 6/10. - Neurological Exam Neurological exam: Present: alert - Expanded Neurological Exam Patient oriented to: Present: person, place Coma Scale Eye Opening: To Voice Coma Scale Motor Response: Obeys Commands Coma Scale Verbal Response: Oriented Coma Scale Total: 14 - Psychiatric Psychiatric exam: Present: flat affect - Skin Skin exam: Present: pallor, warm Internal Medicine - CN: Reslt - Labs CBC & Chem 7: 06/10/19 04:35 06/10/19 04:35 Labs: Short CBC 06/10/19 Range/Units 04:35 WBC 14.0 H (4.3-11.1) K/mcL Hgb 10.7 L (11.5-15.4) g/dL Hct 32.9 L (35.3-44.9) % Plt Count 334 (140-400) K/mcL Neutrophils # 12.7 H (1.6-8.9) K/mcL BMP 06/10/19 04:35 Sodium 134 L Potassium 5.0 D Chloride 107 Carbon Dioxide 20 L BUN 18 Creatinine 0.39 L Glucose 108 H Calcium 7.9 L Consult Discharge Plan - Plan Referrals: NONE,PCP [Primary Care Provider] - Palliative Quality Palliative Quality: Screen for Code Status: Yes, Screen for Goals of Care: Yes, Screen for Pain: Yes, If Pain Regimen Started, Initiate Bowel Regimen: No (C- diff diarrhea), Screen for Nausea/Vomitting: Yes Code Status: 06/08/19 19:31 Resuscitation Status: Active [RES] Routine Comment: Resuscitation Status: [id number]
[2019-06-10] MEDS ORDERED: Ibuprofen 200 MG TABLET PO PRN (15:08)
[2019-06-10] MEDS: Sulfamethoxazole/Trimeth DS 1 EACH TABLET PO SCH (21:18)
[2019-06-10] MEDS: Melatonin 3 MG TABLET PO SCH (21:18)
[2019-06-11] MEDS: *HR* HYDROcodone/Acet 10/325 mg TABLET PO SCH ×4 (00:30→18:41)
[2019-06-11 05:18] LABS: Basophils % 0.3 %; Eosinophils # 0.2 K/mcL (0.0-0.6); Eosinophils % 1.3 %; Hematocrit 31.1 % (35.3-44.9); Hemoglobin 10.1 g/dL (11.5-15.4); Immature Granulocytes % 1.3 % (0-4); Lymphocytes # 2.1 K/mcL (0.6-4.6); Lymphocytes % 16.3 %; Mean Corpuscular HGB Conc 32.5 g/dL (31.6-35.5); Mean Corpuscular Hemoglobin 30.7 pg (28.0-33.3); Mean Corpuscular Volume 94.5 fL (83.0-100.0); Monocytes % 7.7 %; Neutrophils # 9.5 K/mcL (1.6-8.9); Platelet Count 333 K/mcL (140-400); Red Blood Count 3.29 M/mcL (3.82-4.97); Red Cell Distribution Width 18.1 % (11.5-14.5); Segmented Neutrophils % 73.1 %
[2019-06-11 05:38] LABS: BUN/Creatinine Ratio 29 (6-26); Blood Urea Nitrogen 11 mg/dL (8-23); Calcium 7.9 mg/dL (8.6-10.3); Carbon Dioxide 22 mEq/L (23-29); Chloride 102 mEq/L (98-107); Glucose 106 mg/dL (70-105); Osmolality,Calculated 276 (280-300); Potassium 4.5 mEq/L (3.5-5.1); Sodium 133 mEq/L (136-145); eGFR For African Americans > 60 (> 60); eGFR For Non-African Americans > 60 (> 60)
[2019-06-11] MEDS: *HR* Heparin 5,000 UNIT/ML VIAL SQ SCH ×3 (06:32→22:17)
[2019-06-11] MEDS: *HR* LORazepam 0.5 MG TABLET PO SCH ×3 (06:32→22:17)
--- NOTE | 2019-06-11 08:33 | Internal Med Progress Note ---
<Michael Rogers - Last Filed: 06/11/19 12:26> Hospitalist Progress Note - Encounter Date of Encounter: 06/11/19 Time of Encounter: 10:00 - Subjective Interval History: Patient lying down in bed. She was somnolent and resting peacefully when I entered the room but when I woke her up and has to she was in pain she described pain everywhere. Nursing staff have noted that she has been intermittently moaning in pain but has been calm otherwise. No fever or chills reported overnight. Continues to have diarrhea but reduced frequency. - Exam Vitals: Temp Pulse Resp BP Pulse Ox 98 F 96 16 115/66 96 06/11/19 08:34 06/11/19 08:34 06/11/19 08:34 06/11/19 08:34 06/11/19 08:34 Exam: General: Patient is alert, mild distress, oriented x 2 Respiratory: Diminished breath sounds at both bases Cardiovascular: Regular rate and rhythm. s1 and s2 normal No clicks, rubs, gallops, or murmurs. No pedal edema Abdomen: Abdomen is soft, generalized tenderness present without guarding or rigidity. Bowel sounds are present Musculoskeletal: Spontaneously moving all extremities Skin: warm, dry, intact. Neuro: Alert oriented x 2 normal cranial nerves, no focal deficits - Assessment and Plan (1) Sepsis Current Visit: Yes Status: Acute (2) C. difficile colitis Current Visit: Yes Status: Acute (3) Urinary tract infection Current Visit: Yes Status: Acute (4) Abdominal pain Current Visit: Yes Status: Acute (5) Type 2 diabetes mellitus Current Visit: No Status: Chronic (6) Hypertension Current Visit: No Status: Chronic (7) DVT prophylaxis Current Visit: No Status: Acute - Time Spent with Patient Total time spent is greater than 50% in coordination of care (as documented) at patient's floor/unit and/or counseling patient: Internal Medicine: Result - Labs CBC & Chem 7: 06/11/19 04:53 06/11/19 04:53 Labs: Short CBC 06/11/19 Range/Units 04:53 WBC 13.0 H (4.3-11.1) K/mcL Hgb 10.1 L (11.5-15.4) g/dL Hct 31.1 L (35.3-44.9) % Plt Count 333 (140-400) K/mcL Neutrophils # 9.5 H (1.6-8.9) K/mcL BMP 06/11/19 04:53 Sodium 133 L Potassium 4.5 Chloride 102 Carbon Dioxide 22 L BUN 11 Creatinine 0.38 L Glucose 106 H Calcium 7.9 L - Impressions Impressions Head CT 06/08/19 18:24 IMPRESSION: Large area of encephalomalacia within the right frontal lobe likely representing sequela of chronic remote infarct. No acute intracranial hemorrhage. No evidence of mass, mass effect or midline shift. D/ / 06/08/2019 18:28:45 Sp Means MD / eartoribio Interpreting Provider: Sp Means MD Consult Discharge Plan - Plan Referrals: NONE,PCP [Primary Care Provider] - - Attending Attestation I saw evaluated and examined this patient and reviewed objective data including labs and my medical decision-making was reviewed with the Medical Student. I agree with the documented findings, disposition and treatment plan as described except to any changes set forth below. We independently had [id number] contact with the patient. Sepsis due to C. difficile colitis and urinary tract infection: Continue vancomycin 125 mg 4 times a day orally for her C. difficile infection. UTI being managed as below. Acute cystitis due to indwelling Luevano catheter: Urine culture is growing Proteus and ESBL Escherichia coli. Resistant to Macrobid. Patient has been placed on Bactrim instead. Escherichia coli also sensitive to Bactrim. Patient does have a chronic Luevano catheter and this could also be colonization. We will follow infectious disease recommendations Possible cecal mass: Gastroenterology has been consulted. Plan to do colonoscopy on Friday. Generalized body aches: Could be exacerbated due to acute illness. Palliative care consulted. Appreciate assistance with helping manage her pain. Diabetes mellitus type 2: Remains well controlled. Patient does have poor appetite. Essential hypertension: Well controlled. Septic encephalopathy with underlying dementia: Improved. Appears to be at baseline although she does continue to moan in pain and describes having pain all over. DVT prophylaxis with subcutaneous heparin Moderate risk for complications. <Juan Ramon Pizano R - Last Filed: 06/11/19 15:30> Hospitalist Progress Note - Encounter Date of Encounter: 06/11/19 - Subjective Interval History: Nursing reports no acute events overnight. Reports that she is in diffuse pain all over, that is unchanged. Unable to perform a ROS due to mentation. Nursing reports no further diarrhea overnight or this morning. - Exam Vitals: Temp Pulse Resp BP Pulse Ox 98 F 79 16 107/66 94 06/11/19 05:11 06/11/19 05:11 06/11/19 05:11 06/11/19 05:11 06/11/19 05:11 Exam: Gen: AOX1 in mild distress due to pain Eyes: uncooperative to exam Throat: Moist mucous membranes with no pharyngeal erythema or tonsilar exudate CV: RRR with no murmur Lungs: CTA in all lung griffith with no wheeze or crackles . GI: soft, diffusely tender abdomen. No organomegally or masses palpated Ext: DP 2/4. No LE edema present. Derm: Draining lesion on left thumb base near the nail bed. No other rashes or lesions present Neuro: uncoooperative with exam but appears to be at baseline - Assessment and Plan (1) Sepsis Current Visit: Yes Status: Acute Assessment and Plan: -presented meeting sepsis criteria with 2 SIRS: HR 127, WBC 19.5 on 06/09 - Presenting symptoms of dysuria - Etiology is likely severe C diff and urinary tract infection - Previous C Diff in January receiving 2 weeks oral Vancomycin - C diff 1st recurrence one and a half months ago after abx for hangnail. Vancomycin was given for 2 weeks rather than taper dosing - CT scan chest/abdomen 06/08 showed diffuse colonic wall thickening most pronounced in the left colon and extending into the rectum. With some pericolonic stranding. 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 Pronounced masslike diffuse thickening of the cecum with surrounding peritoneal fat stranding that may be part colitis but separate pathology such as neoplasm may be difficult exclude. Collapsed urinary bladder and Luevano catheter with wall thickening. Mild to moderate right hydronephrosis and hydroureter down to urinary bladder without obstructing ureteric lesion - Lactic acid 06/08 1.8 - U/A 06/08 positive nitrites, large leukocyte esterase, and pyuria - ID recommendation to stop Dificid, and transition to Vancomycin - Ortho consulted to evaluate finger infection - Urine culture preliminary report 06/08 growing proteus mirabilis resistant to macrobid. Also growing second gram neg negro species - C diff toxin A and B test 06/09 Positive Plan - Cont Vancomycin 125 mg PO QID per ID recommendation, likely 6 week taper - Cont bactrim day 2 of 7 - Blood culture pending (2) UTI (urinary tract infection) Current Visit: No Status: Acute Assessment and Plan: -Patient presenting with dysuria and recent UTI - Urinalysis on 06/08: pH 9.0, protein > 300, nitrite positive, large leukocyte esterase, WBC 50-100 - Abd/pelvis CT on 06/08 showing collapsed urinary bladder and Luevano catheter with wall thickening. Mild to moderate right hydronephrosis and hydroureter down to urinary bladder without obstructing ureteric lesion - Urine culture preliminary report 06/08 growing proteus mirabilis resistant to nitrofuraotin. Growing second species of E Coli ESBL -ID consulted Plan -Cont bactrim day 2 of 7 (3) C. difficile colitis Current Visit: Yes Status: Acute Assessment and Plan: - Presented with diffuse abdominal pain for the past 5 days with 3 watery bowel movements a day -Previous C diff in January treated with 2 weeks of Vancomycin with complete resolution of symptoms - 1st reoccurrence a month and a half ago treated with vancomycin for 2 weeks without tapered dosing. Patient does't beleive she had full resolutin of sy mptoms - Chest and Abd/pelvis CT on 06/08 showing diffuse colonic wall thickening most pronounced in the left colon and extending into the rectum. With some pericolonic stranding. 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 Pronounced mass-like diffuse thickening of the cecum with surrounding peritoneal fat stranding that may be part colitis but separate pathology such as neoplasm may be difficult exclude. Collapsed urinary bladder and Luevano catheter with wall thickening. Mild to moderate right hydronephrosis and hydroureter down to urinary bladder without obstructing ureteric lesion. - WBC 14.4 today down from 19.5 on 06/08 - C diff toxin A and B test 06/09 Positive - ID Consulted and recommend to stop Dificid, and transition to Vancomycin plan: - Cont Vancomycin 125 mg PO QID per ID recommendation, likely 6 week taper - continue probiotic -continue contact precautions (4) Abdominal pain Current Visit: Yes Status: Acute Assessment and Plan: Present with diffuse abdominal pain likely 2/2 second C diff reoccurrence -Chest and Abd/pelvis CT on 06/08 showing diffuse colonic wall thickening most pronounced in the left colon and extending into the rectum. With some pericolonic stranding. 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 Pronounced masslike diffuse thickening of the cecum with surrounding peritoneal fat stranding that may be part colitis but separate pathology such as neoplasm may be difficult exclude. Collapsed urinary bladder and Luevano catheter with wall thickening. Mild to moderate right hydronephrosis and hydroureter down to urinary bladder without obstructing ureteric lesion. - Palliative care consulted recommended adding lidoderm patch and increasing [place] to 2 tabs Q6. Patient verbalized desire for the antiobiotics to improve condition plan - see plan above - Follow palliative care recommendations for symptom management (5) Finger abrasion Current Visit: Yes Status: Acute Assessment and Plan: - Paronychia draining purulent fluid on the left thumb Plan - Orthopedics consult pending (6) Hypertension Current Visit: No Status: Chronic Assessment and Plan: -Chronic HTN on lisinopril - BP stable Plan -Hold Lisinopril due to sepsis (7) Type 2 diabetes mellitus Current Visit: No Status: Chronic Assessment and Plan: - Chronic DM II - Glucose elevated but remains within the acceptable range Plan: - cont low dose sliding scale - Diabetic diet (8) Colonic thickening Current Visit: Yes Status: Acute Assessment and Plan: -Chest and Abd/pelvis CT on 06/08 showing diffuse colonic wall thickening most pronounced in the left colon and extending into the rectum. With some pericolonic stranding. 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 Pronounced masslike diffuse thickening of the cecum with surrounding peritoneal fat stranding that may be part colitis but separate pathology such as neoplasm may be difficult exclude. Collapsed urinary bladder and Luevano catheter with wall thickening. Mild to moderate right hydronephrosis and hydroureter down to urinary bladder without obstructing ureteric lesion. Plan - Colonoscopy scheduled for Friday DVT Prophylaxis: sub cutaneous heparin - Time Spent with Patient Total time spent is greater than 50% in coordination of care (as documented) at patient's floor/unit and/or counseling patient: Internal Medicine: Result - Labs CBC & Chem 7: 06/11/19 04:53 06/11/19 04:53 Labs: Short CBC 06/11/19 Range/Units 04:53 WBC 13.0 H (4.3-11.1) K/mcL Hgb 10.1 L (11.5-15.4) g/dL Hct 31.1 L (35.3-44.9) % Plt Count 333 (140-400) K/mcL Neutrophils # 9.5 H (1.6-8.9) K/mcL BMP 06/11/19 04:53 Sodium 133 L Potassium 4.5 Chloride 102 Carbon Dioxide 22 L BUN 11 Creatinine 0.38 L Glucose 106 H Calcium 7.9 L - Impressions Impressions Head CT 06/08/19 18:24 IMPRESSION: Large area of encephalomalacia within the right frontal lobe likely representing sequela of chronic remote infarct. No acute intracranial hemorrhage. No evidence of mass, mass effect or midline shift. D/ / 06/08/2019 18:28:45 Sp Means MD / rosibel Interpreting Provider: Sp Means MD <Juan Ramon Pizano R - Last Filed: 06/11/19 15:30> (1) Sepsis Qualifiers: Sepsis type: sepsis due to unspecified organism Sepsis acute organ dysfunction status: unspecified Qualified Code(s): A41.9 - Sepsis, unspecified organism (2) UTI (urinary tract infection) Qualifiers: Urinary tract infection type: acute cystitis Hematuria presence: without hematuria Qualified Code(s): N30.00 - Acute cystitis without hematuria (4) Abdominal pain Qualifiers: Abdominal location: generalized Qualified Code(s): R10.84 - Generalized abdominal pain (6) Hypertension Qualifiers: Hypertension type: essential hypertension Qualified Code(s): I10 - Essential (primary) hypertension (7) Type 2 diabetes mellitus Qualifiers: Diabetes mellitus halfway insulin use: without exterminator helper use Diabetes mellitus complication status: without complication Qualified Code(s): E11.9 - Type 2 diabetes mellitus without complications
[2019-06-11] MEDS: Insulin LISPRO 300 UNITS/3 ML VIAL SQ SCH ×4 (09:02→22:16)
[2019-06-11] MEDS: Sulfamethoxazole/Trimeth DS 1 EACH TABLET PO SCH ×2 (10:22→22:17)
[2019-06-11] MEDS: Lactobacillus 1 EACH CAP.SPRINK PO SCH (10:22)
[2019-06-11] MEDS: Vancomycin Oral Soln 125 MG/2.5 ML UDC PO SCH ×4 (10:23→22:17)
--- NOTE | 2019-06-11 10:54 | Infectious Disease Progress No ---
ID Progress Note Date of Encounter: 06/11/19 Time of Encounter: 10:10 - Subjective Subjective: Patient seen and examined. No acute events noted overnight. Patient resting with eyes closed upon my entrance into the room. Upon awakening, the patient becomes tearful and states she hurts all over. She does specifically deny abdominal pain. She states she feels intermittently short of breath. She states her appetite is poor. She is unsure if the diarrhea is changed. - Objective CBC & Chem 7: 06/11/19 04:53 06/11/19 04:53 - Line Documentation Line Documentation: Estrella Catheter - Exam Vitals: Temp Pulse Resp BP Pulse Ox 98 F 96 16 115/66 96 06/11/19 08:34 06/11/19 08:34 06/11/19 08:34 06/11/19 08:34 06/11/19 08:34 Exam: Head: Atraumatic, normal inspection, normocephalic. Eye: EOMI, PERRLA, no scleral icterus noted. ENT: Mucous membranes dry. No odontogenic infection noted. Neck: Normal inspection, no meningismus. Respiratory: Clear to auscultation. No rales, respiratory distress, rhonchi, or wheezes noted. Cardiovascular: Regular rate and rhythm, S1 and S2 audible. No murmurs, rubs, o r gallops. GI: Soft, distended, normal bowel sounds. Generalized tenderness noted, but improved. Estrella catheter draining dark yellow urine. Extremities: No joint swelling, pedal edema, or tenderness noted. Left UE contracture noted with left LE foot drop. Left thumb nail noted to be ingrown with a small amount of crusted drainage. No shawna erythema or fluctuance noted. Neurological: Alert, oriented 3, no focal deficits. Psychiatric: normal affect, tearful. Skin: Dry, intact, warm. Pale. No rashes. - Assessment and Plan (1) Sepsis Current Visit: Yes Status: Acute The patient had 2 sepsis criteria on admission. Likely secondary to colitis. Improved. White blood cell count trending down. Tachycardia resolved. Blood cultures drawn 06/08/19 are NGTD 2 sets. Qualifiers: Sepsis type: sepsis due to unspecified organism Sepsis acute organ dysfunction status: unspecified Qualified Code(s): A41.9 - Sepsis, unspecified organism SNOMED Code(s): 72031375 (2) Colitis Current Visit: Yes Status: Acute CT of the abdomen and pelvis shows diffuse colonic wall thickening most pronounced in the left colon with thickening extending into the rectum with significant surrounding pericolonic stranding most compatible with colitis and likely pseudomembranous colitis. Secondary to C. diff. Per nursing, stools are less watery and less frequent. Only one stool documented yesterday. None so far today. Currently on PO Vanc. SNOMED Code(s): 61129796 (3) UTI (urinary tract infection) Current Visit: No Status: Acute Causative organism: Proteus mirabilis and Escherichia coli ESBL. Urinalysis positive for nitrites, large leukocyte esterase, and many bacteria. Chronic estrella. Unclear if the patient is truly symptomatic. Currently on Bactrim. Qualifiers: Urinary tract infection type: acute cystitis Hematuria presence: without hematuria Qualified Code(s): N30.00 - Acute cystitis without hematuria SNOMED Code(s): 81669962 (4) Abdominal pain Current Visit: Yes Status: Acute Likely secondary to colitis. CT abdomen and pelvis showed a masslike thickening of the cecum. Consider GI to evaluate. Pain management per the primary team. Qualifiers: Abdominal location: generalized Qualified Code(s): R10.84 - Generalized abdominal pain SNOMED Code(s): 03428310 (5) Diarrhea Current Visit: Yes Status: Acute Secondary to colitis. Consider insertion of fecal management system, but will defer to the hospi talist. 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 Management per the primary team. Qualifiers: Diabetes mellitus continuous churn buttermaker insulin use: without continuous churn buttermaker use Diabetes mellitus complication status: without complication Qualified Code(s): E11.9 - Type 2 diabetes mellitus without complications SNOMED Code(s): 37861997 - Recommendations Recommendations: Await blood cultures to finalize. Consider fecal management system to aid in collection of stool and to help prevent skin breakdown. Recommend GI to evaluate. Recommend ortho to evaluate. Continue bactrim DS 1 tab PO BID (CrCl ~80). Continue Vancomycin 125mg PO QID. Duration of treatment depends on the clinical picture, but likely a 6 week taper of oral vancomycin and 7 days of oral Bactrim. Monitor renal function and dose-adjust antibiotics. C. diff precautions per hospital policy. Consult Discharge Plan - Plan Referrals: NONE,PCP [Primary Care Provider] -
--- NOTE | 2019-06-11 12:00 | Gastroenterology Consult Note ---
<Guillermo Howard Shawn - Last Filed: 06/11/19 11:57> Date of Encounter: 06/11/19 Time of Encounter: 09:30 - Assessment and plan (1) C. difficile colitis Current Visit: No Status: Acute Assessment and plan: Agree with lactobacillus and PO Vancomycin. Treatment per ID. (2) Abdominal pain Current Visit: Yes Status: Acute Assessment and plan: CT A/P 06/08/2019 showed diffuse colonic wall thickening and left colon extending to rectum, pericolonic stranding compatible with colitis likely pseudomembranous colitis, pronounced masslike diffuse thickening of the cecum with marked surrounding peritoneal fat stranding may be part of the colitis but separate pathology such as neoplasm difficult to exclude. Recommend colonoscopy on Friday. Attempted to contact granddaughter Bianca Chen at [phone] to obtain consent, no answer. If consent obtained for colonoscopy: - Clear liquid diet Friday, no red or purple. - NPO at midnight, Friday night. - If unable tolerate NuLytely please use MiraLAX prep. - If not clear by 6 AM Friday, give 2 tap water enemas. Qualifiers: Abdominal location: generalized Qualified Code(s): R10.84 - Generalized abdominal pain - Time Spent With Patient Total time spent is greater than 50% in coordination of care (as documented) at patient's floor/unit and/or counseling patient: GI History of Present Illness - Data of Consult Patient: new to practice Consult date: 06/11/19 Requesting Physician: Michael Rogers MD - Consult Narrative Reason for consult: Cecal thickening History of present illness: Ms. Chong is a 83 year old female with PMHx of CVA, DM, Cdiff, HTN who presented to [facility] from the [facility] complaining of abdominal pain. History obtain from chart review. Patient is poor historian and no family at bedside. Patient was diagnosed with C. difficile in January 2019 secondary to antibiotics for UTI and completed 2 weeks of vancomycin. Approximately one and a half months ago she was being treated with antibiotics again and developed C. difficile and was treated with another 14 days of vancomycin. She continues to have diarrhea and C. difficile PCR was positive on admission. CT A/P 06/08/2019 showed diffuse colonic wall thickening and left colon extending to rectum, pericolonic stranding compatible with colitis likely pseudomembranous colitis, pronounced masslike diffuse thickening of the cecum with marked surrounding peritoneal fat stranding may be part of the colitis but separate pathology such as neoplasm difficult to exclude. We were consulted to evaluate this cecal thickening. Procedures: Colonoscopy 11/26/2017 Dr. Vaughn: Normal, benign biopsy. EGD 11/26/2017 Dr. Vaughn: Normal NSAIDs: None Anticoagulation: None Past Med Surg Social Fam HX - Past Medical History Medical history: CVA, diabetes, hyperlipidemia, hypertension, other Additional medical history: RLS Psychiatric history: no psych history - Past Surgical History Surgical History: cholecystectomy, FALGUNI/BSO Additional surgical history: carpel tunnel surgery. rectocel surgery - Social History Smoking Status: Never smoker Smokeless Tobacco Status: No Alcohol use: none Drug use: none - Family History Mother Living Status: Hx Family Cardiac Disorders: No Hx Family Endocrine Disorder: Yes (DM) Father Living Status: Hx Family Cardiac Disorders: Yes (MT) ROS unobtainable: due to mental status - Constitutional Vitals: Temp Pulse Resp BP Pulse Ox 98 F 96 16 115/66 96 06/11/19 08:34 06/11/19 08:34 06/11/19 08:34 06/11/19 08:34 06/11/19 08:34 General appearance: Present: cooperative, A&O X 1 (oriented to name only), no acute distress. Absent: answers questions appropriately - Head Head exam: Present: atraumatic, normocephalic - Eye Eye exam: Present: normal appearance, sclera anicteric - ENT ENT exam: Present: mucous membranes dry - Neck Neck exam general surgery: Present: normal inspection, trachea midline - Respiratory Respiratory exam: Present: decreased breath sounds, CTAB. Absent: rales, rhonchi - Cardiovascular Cardiovascular exam: Present: RRR, +S1, +S2 - GI/Abdominal GI/Abdominal exam: Present: soft, tenderness (mild generalized), no peritoneal signs. Absent: distended, firm, guarding - Rectal Rectal exam: Present: deferred - Extremities Exam Extremities exam: Present: warm - Neurological Exam Neurological exam: Present: altered - Psychiatric Psychiatric exam: Present: normal affect, normal mood - Skin Skin exam: Present: dry, intact, normal color, warm Results - Labs CBC & Chem 7: 06/11/19 04:53 06/11/19 04:53 Labs: Last Result 06/11/19 04:53 Calcium 7.9 L Entire Visit 06/11/19 04:53 Hgb 10.1 L Hct 31.1 L - Impressions Impressions Head CT 06/08/19 18:24 IMPRESSION: Large area of encephalomalacia within the right frontal lobe likely representing sequela of chronic remote infarct. No acute intracranial hemorrhage. No evidence of mass, mass effect or midline shift. D/ / 06/08/2019 18:28:45 Sp Means MD / earnold Interpreting Provider: Sp Means MD Consult Discharge Plan - Plan Referrals: NONE,PCP [Primary Care Provider] - <Lucy Lui - Last Filed: 06/11/19 16:21> Date of Encounter: 06/11/19 Time of Encounter: 13:00 - Time Spent With Patient Total time spent is greater than 50% in coordination of care (as documented) at patient's floor/unit and/or counseling patient: GI History of Present Illness - Data of Consult Requesting Physician: Michael Rogers MD - Consult Narrative History of present illness: Ms. Chong is a 83 year old female - Constitutional Vitals: Temp Pulse Resp BP Pulse Ox 98 F 91 16 107/59 96 06/11/19 12:55 06/11/19 12:55 06/11/19 12:55 06/11/19 12:55 06/11/19 12:55 Results - Labs CBC & Chem 7: 06/11/19 04:53 06/11/19 04:53 Labs: Last Result 06/11/19 04:53 Calcium 7.9 L Entire Visit 06/11/19 04:53 Hgb 10.1 L Hct 31.1 L - Impressions Impressions Head CT 06/08/19 18:24 IMPRESSION: Large area of encephalomalacia within the right frontal lobe likely representing sequela of chronic remote infarct. No acute intracranial hemorrhage. No evidence of mass, mass effect or midline shift. D/ / 06/08/2019 18:28:45 Sp Means MD / rosibel Interpreting Provider: Sp Means MD - Attending Attestation I have personally performed a face to face evaluation on this patient. I have reviewed and agree with the care plan. History and Exam by me shows: Pt seen, not in acute distress. O/E: Abd soft. A; Pt with C-diff with diffuse colon thickening ?? cecal mass, most prob colitis. Rec: D/W Daughter and will consult with family members about w/u such as colonoscopy.
--- NOTE | 2019-06-11 12:21 | Palliative Progress Note ---
Date of Encounter: 06/11/19 Time of Encounter: 12:00 - Assessment and plan (1) Chronic pain Current Visit: Yes Status: Acute Assessment and plan: Continues with scheduled [place] every 6 hours. Has SL Oxycodone for breakthrough pain, utilized x 2 last 24 hours. Monitor. She is comfortable at rest, still has pain with movement, turning. Qualifiers: Chronic pain type: other chronic pain Qualified Code(s): G89.29 - Other chronic pain (2) Physical deconditioning Current Visit: No Status: Acute (3) Urinary tract infection Current Visit: Yes Status: Acute Assessment and plan: Continues treatment per primary team. Qualifiers: Urinary tract infection type: catheter-associated UTI Indwelling urinary catheter type: indwelling urethral catheter Encounter type: sequela Qualified Code(s): T83.511S - Infection and inflammatory reaction due to indwelling urethral catheter, sequela; N39.0 - Urinary tract infection, site not specified (4) C. difficile colitis Current Visit: Yes Status: Acute Assessment and plan: Continues treatment with Firvanz. ID following. GI consulted for cecum thickening - possible colonoscopy Friday. (5) Goals of care, counseling/discussion Current Visit: Yes Status: Acute Assessment and plan: No family present during my visit. According to yesterday's meeting - contin uing atb therapy. She will return to [facility] with [facility] upon discharge. Palliative will f/u on Friday. - Time Spent With Patient Total time spent is greater than 50% in coordination of care (as documented) at patient's floor/unit and/or counseling patient: 25 - 35 minutes - Constitutional Vitals: Abnormal lab results WBC 13.0 K/mcL (4.3-11.1) H 06/11/19 04:53 RBC 3.29 M/mcL (3.82-4.97) L 06/11/19 04:53 Hgb 10.1 g/dL (11.5-15.4) L 06/11/19 04:53 Hct 31.1 % (35.3-44.9) L 06/11/19 04:53 RDW 18.1 % (11.5-14.5) H 06/11/19 04:53 MPV 9.0 fL (9.4-12.4) L 06/11/19 04:53 Band Neutrophils % 11.0 % (0-4) H 06/10/19 04:35 Neutrophils # 9.5 K/mcL (1.6-8.9) H 06/11/19 04:53 Monocytes # 2.0 K/mcL (0.0-1.3) H 06/09/19 06:56 Poikilocytosis 1+ (Not Present) A 06/09/19 06:56 Anisocytosis 1+ (Not Present) A 06/09/19 06:56 VBG pH 7.51 pH Units (7.32-7.42) H 06/08/19 17:48 VBG pCO2 24 mmHg (41-51) L 06/08/19 17:48 VBG pO2 146 mmHg (25-50) H 06/08/19 17:48 VBG HCO3 19 mEq/L (21-27) L 06/08/19 17:48 Sodium 133 mEq/L (136-145) L 06/11/19 04:53 Potassium 3.4 mEq/L (3.5-5.1) L 06/09/19 06:56 Carbon Dioxide 22 mEq/L (23-29) L 06/11/19 04:53 BUN 25 mg/dL (8-23) H 06/09/19 06:56 Creatinine 0.38 mg/dL (0.60-1.20) L 06/11/19 04:53 BUN/Creatinine Ratio 29 (6-26) H 06/11/19 04:53 Glucose 106 mg/dL (70-105) H 06/11/19 04:53 POC Glucose 101 mg/dL (70-99) H 06/10/19 21:15 Calculated Osmolality 276 (280-300) L 06/11/19 04:53 Calcium 7.9 mg/dL (8.6-10.3) L 06/11/19 04:53 AST 7 Units/L (13-39) L 06/08/19 17:36 ALT 5 Units/L (7-52) L 06/08/19 17:36 Serum Total Protein 5.7 g/dL (6.4-8.9) L 06/08/19 17:36 Albumin 2.7 g/dL (3.5-5.7) L 06/08/19 17:36 Albumin/Globulin Ratio 0.9 (1.1-2.2) L 06/08/19 17:36 Lipase < 3 Units/L (11-82) L 06/08/19 17:36 Urine Clarity Slightly Cloudy (Clear) A 06/08/19 19:38 Urine pH >=9.0 pH Units (5.0-8.0) H 06/08/19 19:38 Urine Protein >=300 mg/dL (Neg-Trace) H 06/08/19 19:38 Urine Blood Trace-lysed (Negative) H 06/08/19 19:38 Urine Nitrite Positive (Negative) A 06/08/19 19:38 Ur Leukocyte Esterase Large (Negative) H 06/08/19 19:38 Urine Microscopic WBC 50-100 per hpf (0-3) H 06/08/19 19:38 Urine Bacteria Many per hpf (None-Few) H 06/08/19 19:38 Ur Culture Indicated? YES (NO) A 06/08/19 19:38 Stl C. diff Tox B Gene Positive (Negative) A 06/09/19 15:05 General appearance: Present: no acute distress - Respiratory Respiratory exam: Present: decreased breath sounds, CTAB - Cardiovascular Cardiovascular exam: Present: +S1, +S2 - GI/Abdominal GI/Abdominal exam: Present: normal bowel sounds, soft - Additional comments: Urine cloudy/yellow - Extremities Exam Additional comments: Left hand contracture, painful to touch - Neurological Exam Neurological exam: Present: alert Additional comments: Oriented to name only, would not follow commands. - Skin Skin exam: Present: dry, pallor, warm Palliative Quality Palliative Quality: Screen for Code Status: Yes, Screen for Goals of Care: Yes, Screen for Pain: Yes, If Pain Regimen Started, Initiate Bowel Regimen: No (C- diff diarrhea), Screen for Nausea/Vomitting: Yes Code Status: 06/08/19 19:31 Resuscitation Status: Active [RES] Routine Comment: Resuscitation Status: [id number] - Labs CBC & Chem 7: 06/11/19 04:53 06/11/19 04:53 Labs: Laboratory Results - last 24 hr 06/10/19 06/10/19 06/10/19 07:32 12:06 16:30 WBC RBC Hgb Hct MCV MCH MCHC RDW Plt Count MPV Immature Gran % Seg Neutrophils % Lymphocytes % Monocytes % Eosinophils % Basophils % Neutrophils # Lymphocytes # Monocytes # Eosinophils # Basophils # Sodium Potassium Chloride Carbon Dioxide BUN Creatinine Est GFR ( Amer) Est GFR (Non-Af Amer) BUN/Creatinine Ratio Glucose POC Glucose 99 104 H 104 H Calculated Osmolality Calcium 06/10/19 06/11/19 06/11/19 21:15 04:53 04:53 WBC 13.0 H RBC 3.29 L Hgb 10.1 L Hct 31.1 L MCV 94.5 MCH 30.7 MCHC 32.5 RDW 18.1 H Plt Count 333 MPV 9.0 L Immature Gran % 1.3 Seg Neutrophils % 73.1 Lymphocytes % 16.3 Monocytes % 7.7 Eosinophils % 1.3 Basophils % 0.3 Neutrophils # 9.5 H Lymphocytes # 2.1 Monocytes # 1.0 Eosinophils # 0.2 Basophils # 0.0 Sodium 133 L Potassium 4.5 Chloride 102 Carbon Dioxide 22 L BUN 11 Creatinine 0.38 L Est GFR ( Amer) > 60 Est GFR (Non-Af Amer) > 60 BUN/Creatinine Ratio 29 H Glucose 106 H POC Glucose 101 H Calculated Osmolality 276 L Calcium 7.9 L - Impressions Impressions Head CT 06/08/19 18:24 IMPRESSION: Large area of encephalomalacia within the right frontal lobe likely representing sequela of chronic remote infarct. No acute intracranial hemorrhage. No evidence of mass, mass effect or midline shift. D/ / 06/08/2019 18:28:45 Sp Means MD / [email or web address] Interpreting Provider: Sp Means MD Consult Discharge Plan - Plan Referrals: NONE,PCP [Primary Care Provider] -
--- NOTE | 2019-06-11 17:02 | Orthopedic Consult Note ---
Date of Encounter: 06/11/19 Time of Encounter: 17:02 Assessment and Plan (1) Spasticity Current Visit: Yes Status: Acute I did have a long discussion with the patient's daughter, Lida over the phone. The daughter currently resides in [place]. I do feel that the left thumb nail is ingrown and causing significant pain in the paronychial tissues. My s uspicion is low for actual traction in this area and my recommendation is for nail removal and exploration. I did obtain consent over the phone from Lida and under sterile technique I anesthetized the left thumb with 5 mL of 1% lidocaine with epinephrine. I set up a sterile field about the left thumb. I then elevated and removed the nail plate decompressing the paronychial tissues. There is no drainage from underneath the nail. I then made a small incision along the ulnar paronychial tissues which did not decompress any fluid. The nail bed and wound was copiously irrigated and a soft dressing was applied. Regarding the digital contractures, this is causing a problem with hygiene and apparently infection in the past. The cyst is quite tight and I did discuss surgical options and I feel given the patient's significantly low functional demand I feel she would benefit most from superficialis to profundus transfer to functionally lengthen the tendons and get the digits out of the palm. The family wishes to think about this over the weekend and I will discuss this with him again on Friday to see how they wish to proceed. In the meantime daily dressing changes to left thumb. I have reviewed each of the pertinent components of this chart and any other pertinent medical component(s) including but not limited to pertinent application of the chief complaint, history of present illness, current medication, medical history, allergies, family history, medical history, surgical history, social history, review of systems, vital signs, and any other portion of the pertinent patient medical record directly or indirectly involved with this patient care that is pertinent based on my medical decision process. CHELSIE Whitman History of Present Illness HPI: Ms. 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 She is currently admitted to the hospitalist due to C. difficile colitis with sepsis. She is being managed by GI, ID, and the palliative care team. I was asked to evaluate the left upper extremity. This is particularly in regard to left thumb with there is concern for paronychial infection. The patient is noncommunicative and most of the history is gleaned through the patient's daughter Lida and granddaughter Bianca. For the past year the patient has had significant spasticity of the digits which have led to issues of maceration twin the digits and issues with hygiene. There apparently has been infection in the past. Over the course of the last month the patient has apparently had pain in the thumb and overgrowth of the nail causing pain. No recent or prior trauma. No other associated signs or symptoms and I am unable to obtain any modifying factors. Past Med Surg Social Fam HX - Past Medical History Medical history: CVA, diabetes, hyperlipidemia, hypertension, other Additional medical history: RLS Psychiatric history: no psych history - Past Surgical History Surgical History: cholecystectomy, FALGUNI/BSO Additional surgical history: carpel tunnel surgery. rectocel surgery - Social History Smoking Status: Never smoker Smokeless Tobacco Status: No Alcohol use: none Drug use: none - Family History Mother Living Status: Hx Family Cardiac Disorders: No Hx Family Endocrine Disorder: Yes (DM) Father Living Status: Hx Family Cardiac Disorders: Yes ([place]) Medications and Allergies Allopurinol [Zyloprim] 300 mg PO DAILY 04/07/17 [History] Atorvastatin [Lipitor] 10 mg PO HS 04/07/17 [History] Lisinopril [Zestril] 20 mg PO BID 09/22/17 [History] Fluticasone Propionate Nasal [Flonase] 1 spray NS Q12H PRN 01/22/19 [History] Potassium Chloride [Klor-Con 10] 10 meq PO DAILY 01/22/19 [History] Melatonin 6 mg PO HS 01/23/19 [History] Oxybutynin [Ditropan] 5 mg PO TID 01/23/19 [History] Ferrous Sulfate 325 mg PO BIDWM tablet 01/26/19 [Rx] Acetaminophen [Tylenol] 650 mg PO Q6HR PRN 06/08/19 [History] Bisacodyl [Gentle Laxative] 10 mg RC Q24H PRN 06/08/19 [History] HYDROcodone/Acet 10/325 mg [[place]ins 10-325 mg] 1 tab PO Q6HR 06/08/19 [History] LORazepam [Ativan] 0.5 mg PO Q8H 06/08/19 [History] Lactobacillus [Culturelle] 2 cap PO DAILY 06/08/19 [History] Lidocaine [Aspercreme] 1 each TP DAILY 06/08/19 [History] Omeprazole [PriLOSEC] 20 mg PO Q24H PRN 06/08/19 [History] Promethazine [Phenergan] 25 mg PO Q6HR PRN 06/08/19 [History] Sennosides [Senna] 8.6 mg PO DAILY 06/08/19 [History] risperiDONE [Risperidone] 0.5 mg PO BID 06/08/19 [History] Allergy/AdvReac Type Severity Reaction Status Date / Time Amoxicillin [From Augmentin] Allergy Rash Verified 06/08/19 20:07 cephalexin [From Keflex] Allergy Rash Verified 06/08/19 20:07 clavulanic acid Allergy Rash Verified 06/08/19 20:07 [From Augmentin] diphenhydramine Allergy See Verified 06/08/19 20:07 [From Benadryl] Comments meperidine [From Demerol] Allergy See Verified 06/08/19 20:07 Comments phenytoin [From Dilantin] Allergy See Verified 06/08/19 20:07 Comments All Systems Reviewed: Unable to obtain any meaningful review of systems due to the patient's mental status. Physical Exam - Constitutional Vitals: Temp Pulse Resp BP Pulse Ox 98.2 F 91 16 117/62 96 06/11/19 16:52 06/11/19 16:52 06/11/19 16:52 06/11/19 16:52 06/11/19 16:52 CONSTITUTIONAL -Vitals reviewed -The patient is well developed, well nourished, well groomed PSYCHIATRIC -Confused and noncommunicative LEFT UPPER EXTREMITY Significant digital contractures over a 4 x 4 with maceration, and she holds the hand in a tight fist. The left thumb has moderate swelling of the ulnar paronychial tissues. The nail was growing into this area and it is quite inflamed. No purulence. No cellulitis. It is quite tender to the patient as she grimaces. I am unable to extend the digits passively given her spasticity. The fingertips are all well perfused. I am unable to obtain any meaningful neurologic exam due to her mental status. General appearance IM: cooperative, A&O X 1 (oriented to name only), no acute distress Results - Labs Result Diagrams: 06/11/19 04:53 06/11/19 04:53 Labs: Abnormal lab results WBC 13.0 K/mcL (4.3-11.1) H 06/11/19 04:53 RBC 3.29 M/mcL (3.82-4.97) L 06/11/19 04:53 Hgb 10.1 g/dL (11.5-15.4) L 06/11/19 04:53 Hct 31.1 % (35.3-44.9) L 06/11/19 04:53 RDW 18.1 % (11.5-14.5) H 06/11/19 04:53 MPV 9.0 fL (9.4-12.4) L 06/11/19 04:53 Band Neutrophils % 11.0 % (0-4) H 06/10/19 04:35 Neutrophils # 9.5 K/mcL (1.6-8.9) H 06/11/19 04:53 Monocytes # 2.0 K/mcL (0.0-1.3) H 06/09/19 06:56 Poikilocytosis 1+ (Not Present) A 06/09/19 06:56 Anisocytosis 1+ (Not Present) A 06/09/19 06:56 VBG pH 7.51 pH Units (7.32-7.42) H 06/08/19 17:48 VBG pCO2 24 mmHg (41-51) L 06/08/19 17:48 VBG pO2 146 mmHg (25-50) H 06/08/19 17:48 VBG HCO3 19 mEq/L (21-27) L 06/08/19 17:48 Sodium 133 mEq/L (136-145) L 06/11/19 04:53 Potassium 3.4 mEq/L (3.5-5.1) L 06/09/19 06:56 Carbon Dioxide 22 mEq/L (23-29) L 06/11/19 04:53 BUN 25 mg/dL (8-23) H 06/09/19 06:56 Creatinine 0.38 mg/dL (0.60-1.20) L 06/11/19 04:53 BUN/Creatinine Ratio 29 (6-26) H 06/11/19 04:53 Glucose 106 mg/dL (70-105) H 06/11/19 04:53 POC Glucose 101 mg/dL (70-99) H 06/10/19 21:15 Calculated Osmolality 276 (280-300) L 06/11/19 04:53 Calcium 7.9 mg/dL (8.6-10.3) L 06/11/19 04:53 AST 7 Units/L (13-39) L 06/08/19 17:36 ALT 5 Units/L (7-52) L 06/08/19 17:36 Serum Total Protein 5.7 g/dL (6.4-8.9) L 06/08/19 17:36 Albumin 2.7 g/dL (3.5-5.7) L 06/08/19 17:36 Albumin/Globulin Ratio 0.9 (1.1-2.2) L 06/08/19 17:36 Lipase < 3 Units/L (11-82) L 06/08/19 17:36 Urine Clarity Slightly Cloudy (Clear) A 06/08/19 19:38 Urine pH >=9.0 pH Units (5.0-8.0) H 06/08/19 19:38 Urine Protein >=300 mg/dL (Neg-Trace) H 06/08/19 19:38 Urine Blood Trace-lysed (Negative) H 06/08/19 19:38 Urine Nitrite Positive (Negative) A 06/08/19 19:38 Ur Leukocyte Esterase Large (Negative) H 06/08/19 19:38 Urine Microscopic WBC 50-100 per hpf (0-3) H 06/08/19 19:38 Urine Bacteria Many per hpf (None-Few) H 06/08/19 19:38 Ur Culture Indicated? YES (NO) A 06/08/19 19:38 Stl C. diff Tox B Gene Positive (Negative) A 06/09/19 15:05 H & H 06/11/19 Range/Units 04:53 Hgb 10.1 L (11.5-15.4) g/dL Hct 31.1 L (35.3-44.9) % All other labs normal. Consult Discharge Plan - Plan Referrals: NONE,PCP [Primary Care Provider] -
[2019-06-11] MEDS: Melatonin 3 MG TABLET PO SCH (22:17)
[2019-06-12] MEDS: *HR* HYDROcodone/Acet 10/325 mg TABLET PO SCH ×2 (01:07→06:31)
[2019-06-12 04:31] LABS: Basophils # 0.1 K/mcL (0.0-0.2); Basophils % 0.2 %; Eosinophils # 0.1 K/mcL (0.0-0.6); Eosinophils % 0.2 %; Hematocrit 30.8 % (35.3-44.9); Hemoglobin 9.9 g/dL (11.5-15.4); Immature Granulocytes % 0.9 % (0-4); Lymphocytes % 7.2 %; Mean Corpuscular HGB Conc 32.1 g/dL (31.6-35.5); Mean Corpuscular Volume 93.3 fL (83.0-100.0); Mean Platelet Volume 9.1 fL (9.4-12.4); Monocytes # 1.4 K/mcL (0.0-1.3); Monocytes % 5.7 %; Neutrophils # 20.8 K/mcL (1.6-8.9); Platelet Count 392 K/mcL (140-400); Segmented Neutrophils % 85.8 %
[2019-06-12 04:33] LABS: Lymphocytes # 1.7 K/mcL (0.6-4.6); White Blood Count 24.2 K/mcL (4.3-11.1)
[2019-06-12 04:52] LABS: BUN/Creatinine Ratio 31 (6-26); Blood Urea Nitrogen 13 mg/dL (8-23); Calcium 7.8 mg/dL (8.6-10.3); Carbon Dioxide 23 mEq/L (23-29); Chloride 101 mEq/L (98-107); Glucose 118 mg/dL (70-105); Osmolality,Calculated 273 (280-300); Potassium 4.7 mEq/L (3.5-5.1); Sodium 131 mEq/L (136-145); eGFR For African Americans > 60 (> 60); eGFR For Non-African Americans > 60 (> 60)
[2019-06-12] MEDS: *HR* LORazepam 0.5 MG TABLET PO SCH ×3 (06:31→20:22)
[2019-06-12] MEDS: *HR* Heparin 5,000 UNIT/ML VIAL SQ SCH ×2 (06:31→13:56)
[2019-06-12] MEDS: Lactobacillus 1 EACH CAP.SPRINK PO SCH (09:04)
[2019-06-12] MEDS: Sulfamethoxazole/Trimeth DS 1 EACH TABLET PO SCH (09:04)
[2019-06-12] MEDS: Vancomycin Oral Soln 125 MG/2.5 ML UDC PO SCH ×2 (09:04→13:06)
[2019-06-12] MEDS: Insulin LISPRO 300 UNITS/3 ML VIAL SQ SCH ×2 (09:12→12:58)
--- NOTE | 2019-06-12 09:27 | Internal Med Progress Note ---
<Michael Rogers - Last Filed: 06/12/19 11:56> Hospitalist Progress Note - Encounter Date of Encounter: 06/12/19 Time of Encounter: 10:10 - Exam Vitals: Temp Pulse Resp BP Pulse Ox 98.3 F 111 12 105/66 94 06/12/19 10:37 06/12/19 10:37 06/12/19 10:37 06/12/19 10:37 06/12/19 10:37 - Assessment and Plan (1) Sepsis Current Visit: Yes Status: Acute (2) C. difficile colitis Current Visit: Yes Status: Acute (3) Urinary tract infection Current Visit: Yes Status: Acute (4) Abdominal pain Current Visit: Yes Status: Acute (5) Type 2 diabetes mellitus Current Visit: No Status: Chronic (6) Hypertension Current Visit: No Status: Chronic (7) DVT prophylaxis Current Visit: No Status: Acute - Time Spent with Patient Total time spent is greater than 50% in coordination of care (as documented) at patient's floor/unit and/or counseling patient: Internal Medicine: Result - Labs CBC & Chem 7: 06/12/19 03:52 06/12/19 03:52 Labs: Short CBC 06/12/19 Range/Units 03:52 WBC 24.2 H D (4.3-11.1) K/mcL Hgb 9.9 L (11.5-15.4) g/dL Hct 30.8 L (35.3-44.9) % Plt Count 392 (140-400) K/mcL Neutrophils # 20.8 H (1.6-8.9) K/mcL BMP 06/12/19 03:52 Sodium 131 L Potassium 4.7 Chloride 101 Carbon Dioxide 23 BUN 13 Creatinine 0.42 L Glucose 118 H Calcium 7.8 L Consult Discharge Plan - Plan Referrals: NONE,PCP [Primary Care Provider] - - Attending Attestation I saw evaluated and examined this patient and reviewed objective data including labs and my medical decision-making was reviewed with the Resident Physician, Nadir Manrique. I agree with the documented findings, disposition and treatment plan as described except to any changes set forth below. We independently had [id number] contact with the patient. Patient lying down in bed and continues to moan in pain intermittently. Granddaughter present at bedside. Discussed patient's condition with her. Patient developed worsening leukocytosis and has been tachycardic this morning. She continues to have poor appetite and has not eaten much at all since a dmission. Given that she has not had much improvement in her overall condition and appears to be in persistent pain, discussed with family about potentially transitioning her to comfort care measures only. Granddaughter to discuss with family and the POA and let us know later today. In the meantime, we will continue current management with supportive care. Continue medications as tolerated. Pain control with [place] and sublingual oxycodone as needed. <Nadir Manrique - Last Filed: 06/12/19 17:51> Hospitalist Progress Note - Encounter Date of Encounter: 06/12/19 - Subjective Interval History: Pt seen and examined at bedside. Nurse reports pt complained of increased pain overnight. Pt continues to moan in pain during encounter. Refuses to respond to questions. Will not follow commands. - Exam Vitals: Temp Pulse Resp BP Pulse Ox 97.8 F 98 16 115/68 94 06/12/19 05:01 06/12/19 05:01 06/12/19 05:01 06/12/19 05:01 06/12/19 05:01 Exam: General: A&Ox0 Head: NCAT Eyes: PERRL, EOMI, sclera anicteric, conjunctiva pink Neck: supple, trachea midline Lungs: CTA bilaterally. Mildly labored breathing related to discomfort. No wheezes, rales, or rhonchi Heart: Tachycardic +S1 +S2 No murmurs, clicks, or rubs GI: abdomen soft, non-tender, non-distended Extremities: warm, arms contracted on chest. Pt refuses to let this provider examine her UE furthers Neuro: A&Ox0. Unable to evaluate further due to pt's mental status Skin: warm, dry, intact, dressing in place over left thumb - Assessment and Plan (1) Goals of care, counseling/discussion Current Visit: Yes Status: Acute Assessment and Plan: This provider spoke on the phone with the pt's daughter and POA Lida as she resides in [place]. Discussed the pt's current clinical status and overall poor prognosis. Discussed increase in WBC today and increased need for pain medication. Also discussed that pt is current refusing to eat and take po meds. Lida had spoken with her siblings prior to phone call with this provider. She requested transition to comfort care with no further abx, lab draws, or injections. Also requested removal from telemetry. Discussed CODE STATUS and changed to DNR-CC. State form filled out and placed in chart. Increased pain medication regimen and will continue to monitor closely. Family requested [employer]. (2) Sepsis Current Visit: Yes Status: Acute Assessment and Plan: - Presented meeting sepsis criteria with 2 SIRS: HR 127, WBC 19.5 on 06/09 - Presenting symptoms of dysuria - Etiology is likely severe C diff and urinary tract infection - Previous C Diff in January receiving 2 weeks oral Vancomycin - C diff 1st recurrence one and a half months ago after abx for hangnail. Vancomycin was given for 2 weeks rather than taper dosing - CT scan chest/abdomen 06/08 showed diffuse colonic wall thickening most pronounced in the left colon and extending into the rectum. With some pericolonic stranding. 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 Pronounced masslike diffuse thickening of the cecum with surrounding peritoneal fat stranding that may be part colitis but separate pathology such as neoplasm may be difficult exclude. Collapsed urinary bladder and Luevano catheter with wall thickening. Mild to moderate right hydronephrosis and hydroureter down to urinary bladder without obstructing ureteric lesion - Lactic acid 06/08 1.8 - U/A 06/08 positive nitrites, large leukocyte esterase, and pyuria - ID recommendation to stop Dificid, and transitioned to Vancomycin - Urine culture 06/08 growing P mirabilus and ESBL - currently on day 3 of Bactri m per ID recs - C diff toxin A and B test 06/09 Positive Plan - Comfort care as above (3) C. difficile colitis Current Visit: Yes Status: Acute Assessment and Plan: as above (4) Urinary tract infection Current Visit: Yes Status: Acute Assessment and Plan: as above (5) Type 2 diabetes mellitus Current Visit: Yes Status: Chronic Assessment and Plan: MATTHIEU Hilton requested no further injections and fingersticks Comfort care as above (6) Hypertension Current Visit: Yes Status: Chronic - Summary of Assessment and Plan Summary of Assessment and Plan: Transition to comfort care - Time Spent with Patient Total time spent is greater than 50% in coordination of care (as documented) at patient's floor/unit and/or counseling patient: Internal Medicine: Result - Labs CBC & Chem 7: 06/12/19 03:52 06/12/19 03:52 Labs: Short CBC 06/12/19 Range/Units 03:52 WBC 24.2 H D (4.3-11.1) K/mcL Hgb 9.9 L (11.5-15.4) g/dL Hct 30.8 L (35.3-44.9) % Plt Count 392 (140-400) K/mcL Neutrophils # 20.8 H (1.6-8.9) K/mcL BMP 06/12/19 03:52 Sodium 131 L Potassium 4.7 Chloride 101 Carbon Dioxide 23 BUN 13 Creatinine 0.42 L Glucose 118 H Calcium 7.8 L <Michael Rogers - Last Filed: 06/12/19 11:56> (1) Sepsis Qualifiers: Sepsis type: sepsis due to unspecified organism Sepsis acute organ dysfunction status: unspecified Qualified Code(s): A41.9 - Sepsis, unspecified organism (3) Urinary tract infection Qualifiers: Urinary tract infection type: catheter-associated UTI Indwelling urinary catheter type: indwelling urethral catheter Encounter type: sequela Qualified Code(s): T83.511S - Infection and inflammatory reaction due to indwelling urethral catheter, sequela; N39.0 - Urinary tract infection, site not specified (4) Abdominal pain Qualifiers: Abdominal location: generalized Qualified Code(s): R10.84 - Generalized abdominal pain (5) Type 2 diabetes mellitus Qualifiers: Diabetes mellitus longterm insulin use: without long term care pharmacist use Diabetes mellitus complication status: without complication Qualified Code(s): E11.9 - Type 2 diabetes mellitus without complications (6) Hypertension Qualifiers: Hypertension type: essential hypertension Qualified Code(s): I10 - Essential (primary) hypertension <Nadir Manrique - Last Filed: 06/12/19 17:51> (2) Sepsis Qualifiers: Sepsis type: sepsis due to unspecified organism Sepsis acute organ dysfunction status: unspecified Qualified Code(s): A41.9 - Sepsis, unspecified organism (4) Urinary tract infection Qualifiers: Urinary tract infection type: catheter-associated UTI Indwelling urinary catheter type: indwelling urethral catheter Encounter type: sequela Qualified Code(s): T83.511S - Infection and inflammatory reaction due to indwelling urethral catheter, sequela; N39.0 - Urinary tract infection, site not specified (5) Type 2 diabetes mellitus Qualifiers: Diabetes mellitus long term care pharmacist insulin use: without long term care pharmacist use Diabetes mellitus complication status: without complication Qualified Code(s): E11.9 - Type 2 diabetes mellitus without complications (6) Hypertension Qualifiers: Hypertension type: essential hypertension Qualified Code(s): I10 - Essential (primary) hypertension
[2019-06-12] MEDS ORDERED: Acetaminophen 325 MG TABLET PO PRN (09:56)
[2019-06-12 10:44] VITALS: BP 105/66
[2019-06-12] MEDS ORDERED: *HR* OxyCODONE Immed Rel 15 MG TABLET PO PRN (13:32)
[2019-06-12] MEDS ORDERED: Atropine Sulfate 1% 40 DROP/2 ML BOTTLE SL PRN (14:23)
[2019-06-12] MEDS ORDERED: Ondansetron 4 MG/2 ML VIAL IVP PRN (14:23)
[2019-06-12] MEDS ORDERED: *HR* LORazepam 0.5 MG TABLET PO PRN (14:23)
[2019-06-12] MEDS: Melatonin 3 MG TABLET PO SCH (20:22)
[2019-06-13] MEDS ORDERED: *HR* LORazepam 2 MG/ML VIAL IVP ONE (03:32)
[2019-06-13] MEDS: *HR* LORazepam 0.5 MG TABLET PO SCH (05:01)
--- NOTE | 2019-06-13 07:30 | Internal Med Progress Note ---
<Nadir Manrique - Last Filed: 06/13/19 10:33> Hospitalist Progress Note - Encounter Date of Encounter: 06/13/19 Time of Encounter: 09:00 - Subjective Interval History: Patient seen and examined at bedside. Patient continuing to have pain. Required IV Ativan overnight. One of the patient's daughters is at bedside - Exam Vitals: Temp Pulse Resp BP Pulse Ox 98.3 F 111 12 105/66 94 06/12/19 10:37 06/12/19 10:37 06/12/19 10:37 06/12/19 10:37 06/12/19 10:37 Exam: General: A&Ox0 Head: NCAT Eyes: PERRL, EOMI, sclera anicteric, conjunctiva pink Neck: supple, trachea midline Lungs: CTA bilaterally. Mildly labored breathing related to discomfort. d Heart: Tachycardic +S1 +S2 No murmurs, clicks, or rubs GI: abdomen soft, non-distended Extremities: warm, arms contracted on chest. Pt refuses to let this provider examine her UE furthers Neuro: A&Ox0. Unable to evaluate further due to pt's mental status Skin: warm, dry, intact, dressing in place over left thumb - Assessment and Plan (1) Goals of care, counseling/discussion Current Visit: Yes Status: Acute Assessment and Plan: Remains DNR-CC. Increased pain medication regimen and will continue to monitor closely. One of pt's daughters remains at bedside (2) Sepsis Current Visit: Yes Status: Acute Assessment and Plan: - Presented meeting sepsis criteria with 2 SIRS: HR 127, WBC 19.5 on 06/09 - Presenting symptoms of dysuria - Etiology is likely severe C diff and urinary tract infection - Previous C Diff in January receiving 2 weeks oral Vancomycin - C diff 1st recurrence one and a half months ago after abx for hangnail. Vancomycin was given for 2 weeks rather than taper dosing - CT scan chest/abdomen 06/08 showed diffuse colonic wall thickening most pronounced in the left colon and extending into the rectum. With some pericolonic stranding. 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 Pronounced masslike diffuse thickening of the cecum with surrounding peritoneal fat stranding that may be part colitis but separate pathology such as neoplasm may be difficult exclude. Collapsed urinary bladder and Luevano catheter with wall thickening. Mild to moderate right hydronephrosis and hydroureter down to urinary bladder without obstructing ureteric lesion - Lactic acid 06/08 1.8 - U/A 06/08 positive nitrites, large leukocyte esterase, and pyuria - ID recommendation to stop Dificid, and transitioned to Vancomycin - Urine culture 06/08 growing P mirabilus and ESBL - C diff toxin A and B test 06/09 Positive Plan - Comfort care as above (3) C. difficile colitis Current Visit: Yes Status: Acute Assessment and Plan: as above (4) Urinary tract infection Current Visit: Yes Status: Acute Assessment and Plan: as above (5) Type 2 diabetes mellitus Current Visit: Yes Status: Chronic Assessment and Plan: POA Lida requested no further injections and fingersticks Comfort care as above - Time Spent with Patient Total time spent is greater than 50% in coordination of care (as documented) at patient's floor/unit and/or counseling patient: Internal Medicine: Result - Labs CBC & Chem 7: 06/12/19 03:52 06/12/19 03:52 Consult Discharge Plan - Plan Referrals: NONE,PCP [Primary Care Provider] - <Michael Rogers - Last Filed: 06/13/19 11:46> Hospitalist Progress Note - Encounter Date of Encounter: 06/13/19 Time of Encounter: 10:20 - Exam Vitals: Temp Pulse Resp BP Pulse Ox 98.3 F 111 12 105/66 94 06/12/19 10:37 06/12/19 10:37 06/12/19 10:37 06/12/19 10:37 06/12/19 10:37 - Assessment and Plan (1) Goals of care, counseling/discussion Current Visit: Yes Status: Acute (2) Sepsis Current Visit: Yes Status: Acute (3) C. difficile colitis Current Visit: Yes Status: Acute (4) Urinary tract infection Current Visit: Yes Status: Acute (5) Type 2 diabetes mellitus Current Visit: Yes Status: Chronic - Time Spent with Patient Total time spent is greater than 50% in coordination of care (as documented) at patient's floor/unit and/or counseling patient: Internal Medicine: Result - Labs CBC & Chem 7: 06/12/19 03:52 06/12/19 03:52 - Attending Attestation I saw evaluated and examined this patient and reviewed objective data including labs and my medical decision-making was reviewed with the Resident Physician, Nadir Manrique. I agree with the documented findings, disposition and treatment plan as described except to any changes set forth below. We independently had [id number] contact with the patient. Patient lying down in bed. Has been made comfort care per discussion with power of attorney lawyer yesterday. We will continue comfort measures. Appears to be in pain. Will increase pain medication regimen. Also not able to take any oral medications. Will switch medications to intravenous dosing. Continue supportive care. Poor prognosis overall. Antibiotics have been stopped. _ <Nadir Manrique - Last Filed: 06/13/19 10:33> (2) Sepsis Qualifiers: Sepsis type: sepsis due to unspecified organism Sepsis acute organ dysfunction status: unspecified Qualified Code(s): A41.9 - Sepsis, unspecified organism (4) Urinary tract infection Qualifiers: Urinary tract infection type: catheter-associated UTI Indwelling urinary c atheter type: indwelling urethral catheter Encounter type: sequela Qualified Code(s): T83.511S - Infection and inflammatory reaction due to indwelling urethral catheter, sequela; N39.0 - Urinary tract infection, site not specified (5) Type 2 diabetes mellitus Qualifiers: Diabetes mellitus usp insulin use: without usp use Diabetes mellitus complication status: without complication Qualified Code(s): E11.9 - Type 2 diabetes mellitus without complications <Michael Rogers - Last Filed: 06/13/19 11:46> (2) Sepsis Qualifiers: Sepsis type: sepsis due to unspecified organism Sepsis acute organ dysfunction status: unspecified Qualified Code(s): A41.9 - Sepsis, unspecified organism (4) Urinary tract infection Qualifiers: Urinary tract infection type: catheter-associated UTI Indwelling urinary catheter type: indwelling urethral catheter Encounter type: sequela Qualified Code(s): T83.511S - Infection and inflammatory reaction due to indwelling urethral catheter, sequela; N39.0 - Urinary tract infection, site not specified (5) Type 2 diabetes mellitus Qualifiers: Diabetes mellitus usp insulin use: without intermediate manager use Diabetes mellitus complication status: without complication Qualified Code(s): E11.9 - Type 2 diabetes mellitus without complications
[2019-06-13] MEDS: *HR* LORazepam 2 MG/ML VIAL IVP PRN (10:23)
[2019-06-13] MEDS ORDERED: *HR* FentaNYL (PF) 100 MCG/2 ML VIAL IVP PRN (11:44)
[2019-06-13] MEDS: *HR* LORazepam 2 MG/ML VIAL IVP SCH ×2 (15:30→19:24)
--- NOTE | 2019-06-13 21:34 | Orthopedics Progress Note ---
Date of Encounter: 06/13/19 Time of Encounter: 21:28 Subjective Principal diagnosis: Left thumb infection Interval history: The patient is noncommunicative. Daughter in room and acting as historian. Afebrile vital signs are stable. Incision is clean dry and intact. Nail removed. Left hand contracted. Good capillary refill. Assessment :stable. Plan mobilize ,continue analgesics, discharge planning.The family notes improvement with nail removal and does not desire further surgical intervention just comfort measures/analgesics alone. Dr. Boyle to continue additional questions/discussion tomorrow. Objective Vital signs: Intake and Output 06/13/19 06/13/19 06/13/19 07:59 15:59 23:59 Intake Total 0 / 0 Output Total 800 / 800 Balance 0 / -800 -800 / -800 Intake: Oral 0 / 0 Output: Catheter 800 / 800 Other: Meal Breakfast Percent of Meal Consumed 0% - Labs CBC & BMP: 06/12/19 03:52 06/12/19 03:52 Labs: Abnormal lab results WBC 24.2 K/mcL (4.3-11.1) H D 06/12/19 03:52 RBC 3.30 M/mcL (3.82-4.97) L 06/12/19 03:52 Hgb 9.9 g/dL (11.5-15.4) L 06/12/19 03:52 Hct 30.8 % (35.3-44.9) L 06/12/19 03:52 RDW 18.0 % (11.5-14.5) H 06/12/19 03:52 MPV 9.1 fL (9.4-12.4) L 06/12/19 03:52 Band Neutrophils % 11.0 % (0-4) H 06/10/19 04:35 Neutrophils # 20.8 K/mcL (1.6-8.9) H 06/12/19 03:52 Monocytes # 1.4 K/mcL (0.0-1.3) H 06/12/19 03:52 Poikilocytosis 1+ (Not Present) A 06/09/19 06:56 Anisocytosis 1+ (Not Present) A 06/09/19 06:56 VBG pH 7.51 pH Units (7.32-7.42) H 06/08/19 17:48 VBG pCO2 24 mmHg (41-51) L 06/08/19 17:48 VBG pO2 146 mmHg (25-50) H 06/08/19 17:48 VBG HCO3 19 mEq/L (21-27) L 06/08/19 17:48 Sodium 131 mEq/L (136-145) L 06/12/19 03:52 Potassium 3.4 mEq/L (3.5-5.1) L 06/09/19 06:56 Carbon Dioxide 22 mEq/L (23-29) L 06/11/19 04:53 BUN 25 mg/dL (8-23) H 06/09/19 06:56 Creatinine 0.42 mg/dL (0.60-1.20) L 06/12/19 03:52 BUN/Creatinine Ratio 31 (6-26) H 06/12/19 03:52 Glucose 118 mg/dL (70-105) H 06/12/19 03:52 POC Glucose 145 mg/dL (70-99) H 06/11/19 16:41 Calculated Osmolality 273 (280-300) L 06/12/19 03:52 Calcium 7.8 mg/dL (8.6-10.3) L 06/12/19 03:52 AST 7 Units/L (13-39) L 06/08/19 17:36 ALT 5 Units/L (7-52) L 06/08/19 17:36 Serum Total Protein 5.7 g/dL (6.4-8.9) L 06/08/19 17:36 Albumin 2.7 g/dL (3.5-5.7) L 06/08/19 17:36 Albumin/Globulin Ratio 0.9 (1.1-2.2) L 06/08/19 17:36 Lipase < 3 Units/L (11-82) L 06/08/19 17:36 Urine Clarity Slightly Cloudy (Clear) A 06/08/19 19:38 Urine pH >=9.0 pH Units (5.0-8.0) H 06/08/19 19:38 Urine Protein >=300 mg/dL (Neg-Trace) H 06/08/19 19:38 Urine Blood Trace-lysed (Negative) H 06/08/19 19:38 Urine Nitrite Positive (Negative) A 06/08/19 19:38 Ur Leukocyte Esterase Large (Negative) H 06/08/19 19:38 Urine Microscopic WBC 50-100 per hpf (0-3) H 06/08/19 19:38 Urine Bacteria Many per hpf (None-Few) H 06/08/19 19:38 Ur Culture Indicated? YES (NO) A 06/08/19 19:38 Stl C. diff Tox B Gene Positive (Negative) A 06/09/19 15:05 Consult Discharge Plan - Plan Referrals: NONE,PCP [Primary Care Provider] -
[2019-06-14] MEDS: *HR* LORazepam 2 MG/ML VIAL IVP PRN (01:25)
--- NOTE | 2019-06-14 07:15 | Orthopedics Progress Note ---
Date of Encounter: 06/14/19 Time of Encounter: 07:12 - Assessment and Plan (1) Spasticity Current Visit: Yes Status: Acute Subjective Principal diagnosis: Left thumb infection Interval history: S: Patient sleeping bed comfortably. There is a daughter, Jazmin, at the bedside who indicates her thumb pain has been improving over the weekend after nail plate removal O: Afebrile on the vital signs are stable Left thumb nailbed with good appearance No redness or concern for infection Continued spasticity of the digital flexors There is a 4 x 4 in the palm The fingertips are well perfused A: No plate removal Digital spasticity on the left P: I did discuss superficialis to profundus transfer with the family on Friday in order to relieve the spasticity and improve hygiene and reduce the risk of infection in the palm. The family did discuss that over the weekend and they declined surgery and will institute palliative measures. I will be available for reconsultation for any new issues or if the family changes their mind. Objective Vital signs: Intake and Output 06/13/19 06/13/19 06/14/19 15:59 23:59 07:59 Intake Total 0 / 0 Output Total 800 / 800 Balance 0 / -800 -800 / -800 Intake: Oral 0 / 0 Output: Catheter 800 / 800 Other: Meal Breakfast Percent of Meal Consumed 0% - Labs CBC & BMP: 06/12/19 03:52 06/12/19 03:52 Labs: Abnormal lab results WBC 24.2 K/mcL (4.3-11.1) H D 06/12/19 03:52 RBC 3.30 M/mcL (3.82-4.97) L 06/12/19 03:52 Hgb 9.9 g/dL (11.5-15.4) L 06/12/19 03:52 Hct 30.8 % (35.3-44.9) L 06/12/19 03:52 RDW 18.0 % (11.5-14.5) H 06/12/19 03:52 MPV 9.1 fL (9.4-12.4) L 06/12/19 03:52 Band Neutrophils % 11.0 % (0-4) H 06/10/19 04:35 Neutrophils # 20.8 K/mcL (1.6-8.9) H 06/12/19 03:52 Monocytes # 1.4 K/mcL (0.0-1.3) H 06/12/19 03:52 Poikilocytosis 1+ (Not Present) A 06/09/19 06:56 Anisocytosis 1+ (Not Present) A 06/09/19 06:56 VBG pH 7.51 pH Units (7.32-7.42) H 06/08/19 17:48 VBG pCO2 24 mmHg (41-51) L 06/08/19 17:48 VBG pO2 146 mmHg (25-50) H 06/08/19 17:48 VBG HCO3 19 mEq/L (21-27) L 06/08/19 17:48 Sodium 131 mEq/L (136-145) L 06/12/19 03:52 Potassium 3.4 mEq/L (3.5-5.1) L 06/09/19 06:56 Carbon Dioxide 22 mEq/L (23-29) L 06/11/19 04:53 BUN 25 mg/dL (8-23) H 06/09/19 06:56 Creatinine 0.42 mg/dL (0.60-1.20) L 06/12/19 03:52 BUN/Creatinine Ratio 31 (6-26) H 06/12/19 03:52 Glucose 118 mg/dL (70-105) H 06/12/19 03:52 POC Glucose 145 mg/dL (70-99) H 06/11/19 16:41 Calculated Osmolality 273 (280-300) L 06/12/19 03:52 Calcium 7.8 mg/dL (8.6-10.3) L 06/12/19 03:52 AST 7 Units/L (13-39) L 06/08/19 17:36 ALT 5 Units/L (7-52) L 06/08/19 17:36 Serum Total Protein 5.7 g/dL (6.4-8.9) L 06/08/19 17:36 Albumin 2.7 g/dL (3.5-5.7) L 06/08/19 17:36 Albumin/Globulin Ratio 0.9 (1.1-2.2) L 06/08/19 17:36 Lipase < 3 Units/L (11-82) L 06/08/19 17:36 Urine Clarity Slightly Cloudy (Clear) A 06/08/19 19:38 Urine pH >=9.0 pH Units (5.0-8.0) H 06/08/19 19:38 Urine Protein >=300 mg/dL (Neg-Trace) H 06/08/19 19:38 Urine Blood Trace-lysed (Negative) H 06/08/19 19:38 Urine Nitrite Positive (Negative) A 06/08/19 19:38 Ur Leukocyte Esterase Large (Negative) H 06/08/19 19:38 Urine Microscopic WBC 50-100 per hpf (0-3) H 06/08/19 19:38 Urine Bacteria Many per hpf (None-Few) H 06/08/19 19:38 Ur Culture Indicated? YES (NO) A 06/08/19 19:38 Stl C. diff Tox B Gene Positive (Negative) A 06/09/19 15:05 Consult Discharge Plan - Plan Referrals: NONE,PCP [Primary Care Provider] -
--- NOTE | 2019-06-14 08:08 | Internal Med Progress Note ---
Hospitalist Progress Note - Encounter Date of Encounter: 06/14/19 Time of Encounter: 08:08 - Subjective Interval History: Patient was seen and examined at bedside this morning. Accompanied by daughter at bedside. She is transitioned to DNR comfort care over the weekend. Patient did not awake on my examination, but daughter reports that patient has been resting comfortably. No acute complaints at this time. Overnight, patient had one instance of increased agitation, and was given Ativan as needed. Per family request, patient allowed to rest comfortably without any further interventions aside from palliative measures. - Exam Vitals: Temp Pulse Resp BP Pulse Ox 98.3 F 111 12 105/66 94 06/12/19 10:37 06/12/19 10:37 06/12/19 10:37 06/12/19 10:37 06/12/19 10:37 Exam: GEN: AOx0, no acute distress, Vitals reviewed and stable HEAD: Atraumatic, Normocephalic NECK: Supple. Full ROM. No anterior cervical lymphadenopathy HEART: RRR, S1/S2 present. No murmurs, rubs, gallops LUNGS: CTAB. Decreased breath sounds. no wheezes, rhonchi, rales, crackles ABD: Soft, mildly tender, non distended. Bowel sounds present. No rebound, guarding, rigidity. No RLQ tenderness EXT: No lower extremity edema noted NEURO: Does not awake to stimulation; Grimacing, agitated with stimulation - Assessment and Plan (1) Goals of care, counseling/discussion Status: Acute Assessment and Plan: Over the weekend, patient was transitioned to DNR comfort care - Family desires no further interventions PLAN: - Discharge to inpatient hospice - Continue with comfort care measures (2) Sepsis Status: Acute Assessment and Plan: Patient was initially septic on presentation - On presentation, patient had elevated heart rate, leukocytosis (06/09/19) - Likely etiology was severe Clostridium difficile colitis and urinary tract infection - History of previous C. difficile infection in January 2019 and April 2019 - CT of the abdomen (06/08/19) did show diffuse colonic wall thickening in the left colon and extending into the rectum. Likely colitis (likely pseudomembranous colitis). - UA (06/08/19) showed positive nitrates, large leukocyte esterase, pyuria - Ucx (06/08/19): + Proteus Mirabilis and ESBL - C Diff toxin A and B Positive (06/09/19) PLAN: - Transition to DNR comfort care - We will discharge to inpatient hospice (3) C. difficile colitis Status: Acute Assessment and Plan: By mouth vancomycin discontinued. (4) Urinary tract infection Status: Acute Assessment and Plan: Antibiotic therapy also discontinued (5) Type 2 diabetes mellitus Status: Chronic Assessment and Plan: Family no longer desiring any fingersticks for blood draws. PLAN: - Continue comfort care measures - Time Spent with Patient Total time spent is greater than 50% in coordination of care (as documented) at patient's floor/unit and/or counseling patient: less than 15 minutes Plan of Care Discussed with: family Internal Medicine: Result - Labs CBC & Chem 7: 06/12/19 03:52 06/12/19 03:52 Consult Discharge Plan - Plan Referrals: NONE,PCP [Primary Care Provider] - ___ (2) Sepsis Qualifiers: Sepsis type: sepsis due to unspecified organism Sepsis acute organ dysfunction status: unspecified Qualified Code(s): A41.9 - Sepsis, unspecified organism (4) Urinary tract infection Qualifiers: Urinary tract infection type: catheter-associated UTI Indwelling urinary catheter type: indwelling urethral catheter Encounter type: sequela Qualified Code(s): T83.511S - Infection and inflammatory reaction due to indwelling urethral catheter, sequela; N39.0 - Urinary tract infection, site not specified (5) Type 2 diabetes mellitus Qualifiers: 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
[2019-06-14] MEDS: *HR* LORazepam 2 MG/ML VIAL IVP SCH (09:33)
--- NOTE | 2019-06-14 10:21 | Palliative Progress Note ---
Date of Encounter: 06/14/19 Time of Encounter: 10:00 - Assessment and plan (1) Chronic pain Current Visit: Yes Status: Acute Qualifiers: Chronic pain type: other chronic pain Qualified Code(s): G89.29 - Other chronic pain (2) Physical deconditioning Current Visit: No Status: Acute (3) Urinary tract infection Current Visit: Yes Status: Acute Assessment and plan: ATB therapy has been discontinued Qualifiers: Urinary tract infection type: catheter-associated UTI Indwelling urinary catheter type: indwelling urethral catheter Encounter type: sequela Qualified Code(s): T83.511S - Infection and inflammatory reaction due to indwelling urethral catheter, sequela; N39.0 - Urinary tract infection, site not specified (4) C. difficile colitis Current Visit: Yes Status: Acute Assessment and plan: Oral Vancomycin has been discontinued (5) Goals of care, counseling/discussion Current Visit: Yes Status: Acute Assessment and plan: D/W daughter and granddaughter at bedside. She has already been transitioned to comfort care. She still appears in distress despite increase in Oxycodone over the weekend. Crying out at intervals, and whenever touched. Grimacing noted as well. D/W family, patient primary nurse Gm and Dr. Rogers - will transition pt to inpatient hospice for symptom control. - Time Spent With Patient Total time spent is greater than 50% in coordination of care (as documented) at patient's floor/unit and/or counseling patient: - Subjective Interval history: Patient crying out at intervals and with any tactile stimulation. She appears uncomfortable. Daughter and granddaughter at bedside. Weekend events noted - had increasing leukocytosis and pain after family discussion, all atb therapy was discontinued and she was transitioned to comfort care. - Constitutional Vitals: Abnormal lab results WBC 24.2 K/mcL (4.3-11.1) H D 06/12/19 03:52 RBC 3.30 M/mcL (3.82-4.97) L 06/12/19 03:52 Hgb 9.9 g/dL (11.5-15.4) L 06/12/19 03:52 Hct 30.8 % (35.3-44.9) L 06/12/19 03:52 RDW 18.0 % (11.5-14.5) H 06/12/19 03:52 MPV 9.1 fL (9.4-12.4) L 06/12/19 03:52 Band Neutrophils % 11.0 % (0-4) H 06/10/19 04:35 Neutrophils # 20.8 K/mcL (1.6-8.9) H 06/12/19 03:52 Monocytes # 1.4 K/mcL (0.0-1.3) H 06/12/19 03:52 Poikilocytosis 1+ (Not Present) A 06/09/19 06:56 Anisocytosis 1+ (Not Present) A 06/09/19 06:56 VBG pH 7.51 pH Units (7.32-7.42) H 06/08/19 17:48 VBG pCO2 24 mmHg (41-51) L 06/08/19 17:48 VBG pO2 146 mmHg (25-50) H 06/08/19 17:48 VBG HCO3 19 mEq/L (21-27) L 06/08/19 17:48 Sodium 131 mEq/L (136-145) L 06/12/19 03:52 Potassium 3.4 mEq/L (3.5-5.1) L 06/09/19 06:56 Carbon Dioxide 22 mEq/L (23-29) L 06/11/19 04:53 BUN 25 mg/dL (8-23) H 06/09/19 06:56 Creatinine 0.42 mg/dL (0.60-1.20) L 06/12/19 03:52 BUN/Creatinine Ratio 31 (6-26) H 06/12/19 03:52 Glucose 118 mg/dL (70-105) H 06/12/19 03:52 POC Glucose 145 mg/dL (70-99) H 06/11/19 16:41 Calculated Osmolality 273 (280-300) L 06/12/19 03:52 Calcium 7.8 mg/dL (8.6-10.3) L 06/12/19 03:52 AST 7 Units/L (13-39) L 06/08/19 17:36 ALT 5 Units/L (7-52) L 06/08/19 17:36 Serum Total Protein 5.7 g/dL (6.4-8.9) L 06/08/19 17:36 Albumin 2.7 g/dL (3.5-5.7) L 06/08/19 17:36 Albumin/Globulin Ratio 0.9 (1.1-2.2) L 06/08/19 17:36 Lipase < 3 Units/L (11-82) L 06/08/19 17:36 Urine Clarity Slightly Cloudy (Clear) A 06/08/19 19:38 Urine pH >=9.0 pH Units (5.0-8.0) H 06/08/19 19:38 Urine Protein >=300 mg/dL (Neg-Trace) H 06/08/19 19:38 Urine Blood Trace-lysed (Negative) H 06/08/19 19:38 Urine Nitrite Positive (Negative) A 06/08/19 19:38 Ur Leukocyte Esterase Large (Negative) H 06/08/19 19:38 Urine Microscopic WBC 50-100 per hpf (0-3) H 06/08/19 19:38 Urine Bacteria Many per hpf (None-Few) H 06/08/19 19:38 Ur Culture Indicated? YES (NO) A 06/08/19 19:38 Stl C. diff Tox B Gene Positive (Negative) A 06/09/19 15:05 General appearance: Present: mild distress - Respiratory Respiratory exam: Present: decreased breath sounds, CTAB - Cardiovascular Cardiovascular exam: Present: +S1, +S2, tachycardia - GI/Abdominal GI/Abdominal exam: Present: normal bowel sounds, soft - Additional comments: [place] with cloudy yellow urine - Extremities Exam Additional comments: Left sided hemiparesis - Neurological Exam Additional comments: Keeps eyes squeezed shut. Does not follow commands. + facial grimacing and cries out with any stimulation - Skin Skin exam: Present: dry, pallor, warm Palliative Quality Palliative Quality: Screen for Code Status: Yes, Screen for Goals of Care: Yes, Screen for Pain: Yes, If Pain Regimen Started, Initiate Bowel Regimen: No (C- diff diarrhea), Screen for Nausea/Vomitting: Yes Code Status: 06/08/19 19:31 Resuscitation Status: Active [RES] Routine Comment: Resuscitation Status: [id number] 06/12/19 14:22 Resuscitation Status: Active [RES] Routine Comment: Resuscitation Status: DNR-Comfort Care - Labs CBC & Chem 7: 06/12/19 03:52 06/12/19 03:52 Consult Discharge Plan - Plan Referrals: NONE,PCP [Primary Care Provider] -
--- NOTE | 2019-06-14 10:31 | Discharge Summary ---
<Alisa Montoya - Last Filed: 06/14/19 13:51> - NOTES TO OUTPATIENT PROVIDER Notes to Outpatient Provider: Patient discharged to inpatient hospice Date of Encounter: 06/14/19 Time of Encounter: 10:31 - Discharge Diagnosis (1) Sepsis Priority: Primary Status: Acute Qualifiers: Sepsis type: sepsis due to unspecified organism Sepsis acute organ dysfunction status: unspecified Qualified Code(s): A41.9 - Sepsis, unspecified organism (2) C. difficile colitis Priority: Secondary Status: Acute (3) Urinary tract infection Priority: Secondary Status: Acute Qualifiers: Urinary tract infection type: catheter-associated UTI Indwelling urinary catheter type: indwelling urethral catheter Encounter type: sequela Qualified Code(s): T83.511S - Infection and inflammatory reaction due to indwelling urethral catheter, sequela; N39.0 - Urinary tract infection, site not specified Hospital course: Ms. Chong is a 83 year old female with past medical history significant for diabetes, hypertension, CVA, previous history of C. difficile colitis who initially presented from the longterm complaining of abdominal pain. Had been having multiple days of watery diarrhea, dysuria prior to presentation. Patient has history of C. difficile infection in January 2019 treated with 2 weeks of vancomycin, and then repeat C. difficile infection in April 2019 also treated with 2 weeks of vancomycin. In the ED, patient was noted early septic with elevated heart rate and elevated white count. CT of abdomen and pelvis did show diffuse colonic wall thickening in the left colon and into the rectum compatible with colitis (likely pseudomembranous colitis). She was given 2 L of IV fluids, blood cultures were collected, and dose of Fidaxomicin in the ED. while admitted, C. difficile toxin a and B was found to be positive. Also urine culture grew Proteus mirabilis and ESBL. She continued to have abdominal pain and watery diarrhea. Patient has been admitted to [facility], and was enrolled in [facility] hospice care due to terminal dementia and physical decline. Palliative care was consulted, and discussion with family initially resulted in desired to have medical intervention antibiotics given to improve condition, but no procedures. GI was consulted and did recommend colonoscopy to further evaluate diffuse thickening of the cecum, which they stated could be related to patient's colitis but could be related to other pathology such as a neoplasm. With patient's worsening condition, poor prognosis, and dementia, discussion was had between primary team and family of patient. Patient's CODE STATUS was transitioned to DNR CC after discussion. Comfort care measures were taken. Patient was then transitioned and discharged to inpatient hospice. Discharge discussed with: family - Time Spent with Patient Total time spent providing and/or coordinating discharge services: Time spent: Less than 30 minutes - Discharge Medications Prescriptions: No Action Atorvastatin [Lipitor] 10 mg PO HS Allopurinol [Zyloprim] 300 mg PO DAILY Lisinopril [Zestril] 20 mg PO BID Potassium Chloride [Klor-Con 10] 10 meq PO DAILY Fluticasone Propionate Nasal [Flonase] 1 spray NS Q12H PRN PRN Reason: Congestion Melatonin 6 mg PO HS Oxybutynin [Ditropan] 5 mg PO TID Ferrous Sulfate 325 mg PO BIDWM tablet Acetaminophen [Tylenol] 650 mg PO Q6HR PRN PRN Reason: Pain Bisacodyl [Gentle Laxative] 10 mg RC Q24H PRN PRN Reason: Constipation HYDROcodone/Acet 10/325 mg [[place] 10-325 mg] 1 tab PO Q6HR Lactobacillus [Culturelle] 2 cap PO DAILY Lidocaine [Aspercreme] 1 each TP DAILY LORazepam [Ativan] 0.5 mg PO Q8H Omeprazole [PriLOSEC] 20 mg PO Q24H PRN PRN Reason: Heartburn Promethazine [Phenergan] 25 mg PO Q6HR PRN PRN Reason: Nausea And Vomiting risperiDONE [Risperidone] 0.5 mg PO BID Sennosides [Senna] 8.6 mg PO DAILY Home Medications: Allopurinol [Zyloprim] 300 mg PO DAILY 04/07/17 [History] Atorvastatin [Lipitor] 10 mg PO HS 04/07/17 [History] Lisinopril [Zestril] 20 mg PO BID 09/22/17 [History] Fluticasone Propionate Nasal [Flonase] 1 spray NS Q12H PRN 01/22/19 [History] Potassium Chloride [Klor-Con 10] 10 meq PO DAILY 01/22/19 [History] Melatonin 6 mg PO HS 01/23/19 [History] Oxybutynin [Ditropan] 5 mg PO TID 01/23/19 [History] Ferrous Sulfate 325 mg PO BIDWM tablet 01/26/19 [Rx] Acetaminophen [Tylenol] 650 mg PO Q6HR PRN 06/08/19 [History] Bisacodyl [Gentle Laxative] 10 mg RC Q24H PRN 06/08/19 [History] HYDROcodone/Acet 10/325 mg [[place] 10-325 mg] 1 tab PO Q6HR 06/08/19 [History] LORazepam [Ativan] 0.5 mg PO Q8H 06/08/19 [History] Lactobacillus [Culturelle] 2 cap PO DAILY 06/08/19 [History] Lidocaine [Aspercreme] 1 each TP DAILY 06/08/19 [History] Omeprazole [PriLOSEC] 20 mg PO Q24H PRN 06/08/19 [History] Promethazine [Phenergan] 25 mg PO Q6HR PRN 06/08/19 [History] Sennosides [Senna] 8.6 mg PO DAILY 06/08/19 [History] risperiDONE [Risperidone] 0.5 mg PO BID 06/08/19 [History] Allergies/Adverse Reactions: Allergy/AdvReac Type Severity Reaction Status Date / Time Amoxicillin [From Augmentin] Allergy Rash Verified 06/08/19 20:07 cephalexin [From Keflex] Allergy Rash Verified 06/08/19 20:07 clavulanic acid Allergy Rash Verified 06/08/19 20:07 [From Augmentin] diphenhydramine Allergy See Verified 06/08/19 20:07 [From Benadryl] Comments meperidine [From Demerol] Allergy See Verified 06/08/19 20:07 Comments phenytoin [From Dilantin] Allergy See Verified 06/08/19 20:07 Comments Date of admission: 06/10/19 14:57 Primary care physician: PCP NONE Consults: 06/09/19 01:49 Consult to Infectious Diseases [CONS] Routine Consulting Provider: Infect[facility] Reason for Consult: Sepsis source C.diff colitis, recurrent UTI, 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 Need antibiotic assitance and management. Call Completed: Yes 06/09/19 06:00 Consult to Orthopedic Surgery [CONS] Routine Consulting Provider: [facility] Reason for Consult: left thumb paronychia with cellulitis Call Completed: No 06/09/19 09:41 Consult to Senior Production Supervisor [CONS] Routine Reason for SW Consult: Patient from ECF with hospice 06/10/19 11:14 Consult to Palliative Care [CONS] Routine Comment: Consulting Provider: Palliative Care [facility] Reason for Consult: pt's daughter reports the pt has hospice at SNF. goals of care Call Completed: No 06/11/19 08:33 Consult to Gastroenterology [CONS] Routine Consulting Provider: Gastroenterology [facility] Reason for Consult: CT ab/pelvis showed masslike diffuse thickening of the cecum Call Completed: Yes 06/12/19 10:45 Consult to Pastoral Services [CONS] Stat Comment: Discharging clinician: Alisa Montoya Anticipated date of discharge: 06/14/19 - Constitutional Vitals: Temp Pulse Resp BP Pulse Ox 98.3 F 111 12 105/66 94 06/12/19 10:37 06/12/19 10:37 06/12/19 10:37 06/12/19 10:37 06/12/19 10:37 General appearance: Present: A&O X 0, mild distress, answers questions appropriately Exam: GEN: AOx0, no acute distress, Vitals reviewed and stable HEAD: Atraumatic, Normocephalic NECK: Supple. Full ROM. No anterior cervical lymphadenopathy HEART: RRR, S1/S2 present. No murmurs, rubs, gallops LUNGS: CTAB. Decreased breath sounds. no wheezes, rhonchi, rales, crackles ABD: Soft, mildly tender, non distended. Bowel sounds present. No rebound, guarding, rigidity. No RLQ tenderness EXT: No lower extremity edema noted NEURO: Does not awake to stimulation; Grimacing, agitated with stimulation - Head Head exam: Present: atraumatic, normal inspection, normocephalic - ENT ENT exam: Present: mucous membranes moist - Neck Neck exam general surgery: Present: full ROM, supple - Respiratory Respiratory exam: Present: decreased breath sounds, CTAB. Absent: respiratory distress, wheezes - Cardiovascular Cardiovascular exam: Present: RRR, +S1, +S2. Absent: irregular rhythm - GI/Abdominal GI/Abdominal exam: Present: soft, tenderness, no peritoneal signs. Absent: firm, guarding, rebound, rigid - Skin Skin exam: Present: dry, intact, warm - Patient Status Disposition: Hospice - Medical Facility Condition: Serious Overall status at discharge: patient is not back to baseline - Discharge Instructions Follow Up With: NONE,PCP [Primary Care Provider] - <Michael Rogers - Last Filed: 06/14/19 15:40> Date of Encounter: 06/14/19 Time of Encounter: 10:40 - Discharge Diagnosis (1) Goals of care, counseling/discussion Status: Acute (2) Sepsis Status: Acute Qualifiers: Sepsis type: sepsis due to unspecified organism Sepsis acute organ dysfunction status: unspecified Qualified Code(s): A41.9 - Sepsis, unspecified organism (3) C. difficile colitis Status: Acute (4) Urinary tract infection Status: Acute Qualifiers: Urinary tract infection type: catheter-associated UTI Indwelling urinary catheter type: indwelling urethral catheter Encounter type: sequela Qualified Code(s): T83.511S - Infection and inflammatory reaction due to indwelling urethral catheter, sequela; N39.0 - Urinary tract infection, site not specified (5) Type 2 diabetes mellitus Status: Chronic Qualifiers: Diabetes mellitus [facility] insulin use: without [facility] use Diabetes me llitus complication status: without complication Qualified Code(s): E11.9 - Type 2 diabetes mellitus without complications Hospital course: Ms. 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 Need antibiotic assitance and management. Call Completed: Yes 06/09/19 06:00 Consult to Orthopedic Surgery [CONS] Routine Consulting Provider: [facility] Reason for Consult: left thumb paronychia with cellulitis Call Completed: No 06/09/19 09:41 Consult to Senior Production Supervisor [CONS] Routine Reason for SW Consult: Patient from ECF with hospice 06/10/19 11:14 Consult to Palliative Care [CONS] Routine Comment: Consulting Provider: Palliative [facility] [place] Reason for Consult: pt's daughter reports the pt has hospice at [facility]. goals of care Call Completed: No 06/11/19 08:33 Consult to Gastroenterology [CONS] Routine Consulting Provider: Sofia Hall Reason for Consult: CT ab/pelvis showed masslike diffuse thickening of the cecum Call Completed: Yes 06/12/19 10:45 Consult to Pastoral Services [CONS] Stat Comment: - Constitutional Vitals: Temp Pulse Resp BP Pulse Ox 98.3 F 111 12 105/66 94 06/12/19 10:37 06/12/19 10:37 06/12/19 10:37 06/12/19 10:37 06/12/19 10:37 - Attending Attestation I saw evaluated and examined this patient and reviewed objective data including labs and my medical decision-making was reviewed with the Resident Physician, Alisa Montoya. I agree with the documented findings, disposition and discharge plan as described except to any changes set forth below. We independently had [id number] contact with the patient. Patient with a history of diabetes, hypertension, CVA and prior C. difficile was hospitalized here with acute on chronic abdominal pain along with diarrhea. She was again found to have C. difficile and CT scan of the abdomen showed pseudomembranes colitis. Patient was treated initially with fidoxamicin and then transition to oral vancomycin per infectious disease recommendations. However patient did not respond well to this treatment so far. She has continued to have poor appetite and continues to complain of pain all over. She also had acute UTI with Proteus and Escherichia coli but this could also be an infection or chronic colonization. She has had persistent leukocytosis. After discussing with family, patient has been transitioned to comfort care and will now be discharged to inpatient hospice. Time spent on discharge: 7 min
== END 2019-06-14 11:36 | disposition hospice, inpatient (51) | DRG 698 ==
LOC: EMEROOARM 16:22 → 2NENU 16:22 → SUATTDRO 21:59 → 2NENU 22:30
PROVIDERS: ADMIT Internal Medicine; ATTEND Internal Medicine

== ENCOUNTER 2019-06-14 10:20 | Inpatient (IN) ==
[2019-06-14] MEDS ORDERED: Bisacodyl 10 MG RECTAL SUPPOSITORY RC PRN (10:49)
[2019-06-14] MEDS ORDERED: *HR* FentaNYL (PF) 100 MCG/2 ML VIAL IVP PRN (10:53)
--- NOTE | 2019-06-14 13:07 | Pallative History & Physical ---
Date of Encounter: 06/14/19 Time of Encounter: 13:00 Assessment and Plan (1) Hospice care Status: Acute Admit to general inpatient hospice care for pain and symptom management (2) Anxiety Status: Acute Continue IV scheduled Lorazepam today as previous, likely transition to oral tomorrow. MOnitor. (3) Abdominal pain Status: Acute Will have Oxycodone 10mg scheduled as well as PRN for breakthrough pain. MOnitor and titrate as needed. 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 difficile colitis Status: Acute (7) Sepsis Status: Acute Qualifiers: Sepsis type: sepsis due to unspecified organism Sepsis acute organ dysfunction status: unspecified Qualified Code(s): A41.9 - Sepsis, unspecified organism Internal Medicine - H&P: HPI Admitted From: Intrahospital Transfer Plans for Post Hospital Care: Hospice - Medical Facility History of present illness: Ms. Chong is a 83 year old female originally admitted to [facility] from [facility] for abdominal pain. Patient with PMH of DM, HTN, C-diff, CVA, Gout, and chronic pain syndrome. . The patient was found to have C-diff and abdominal CT reveals colitis, as well as sepsis and urinary tract infection. She was treated with IV fluids/atb therapy, however, condition did not improve and she had increasing leukocytosis and decreased mental status despite appropriate atb therapy. Discussions were held with family, including daughter in [place] that is power of litigation attorney associate and decision was made to transition to comfort care only. Treatment for infection was discontinued, however, patient continued to have increasing pain requiring around the clock pain medication. Upon my visit this am, she is crying out at intervals, and yelling whenever touched. She appears uncomfortable and grimacing. Vitals stable. Daughter Jazmin and granddaughter is at the bedside. Past Med Surg Social Fam HX - Past Medical History Medical history: CVA, diabetes, hyperlipidemia, hypertension, other Additional medical history: RLS Psychiatric history: no psych history - Past Surgical History Surgical History: cholecystectomy, FALGUNI/BSO Additional surgical history: carpel tunnel surgery. rectocel surgery - Social History Smoking Status: Never smoker Smokeless Tobacco Status: No Alcohol use: none Drug use: none - Family History Mother Living Status: Hx Family Cardiac Disorders: No Hx Family Endocrine Disorder: Yes (DM) Father Living Status: Hx Family Cardiac Disorders: Yes (CA) Internal Medicine - H&P: Meds Allopurinol [Zyloprim] 300 mg PO DAILY 04/07/17 [History] Atorvastatin [Lipitor] 10 mg PO HS 04/07/17 [History] Lisinopril [Zestril] 20 mg PO BID 09/22/17 [History] Fluticasone Propionate Nasal [Flonase] 1 spray NS Q12H PRN 01/22/19 [History] Potassium Chloride [Klor-Con 10] 10 meq PO DAILY 01/22/19 [History] Melatonin 6 mg PO HS 01/23/19 [History] Oxybutynin [Ditropan] 5 mg PO TID 01/23/19 [History] Ferrous Sulfate 325 mg PO BIDWM tablet 01/26/19 [Rx] Acetaminophen [Tylenol] 650 mg PO Q6HR PRN 06/08/19 [History] Bisacodyl [Gentle Laxative] 10 mg RC Q24H PRN 06/08/19 [History] HYDROcodone/Acet 10/325 mg [[place] 10-325 mg] 1 tab PO Q6HR 06/08/19 [History] LORazepam [Ativan] 0.5 mg PO Q8H 06/08/19 [History] Lactobacillus [Culturelle] 2 cap PO DAILY 06/08/19 [History] Lidocaine [Aspercreme] 1 each TP DAILY 06/08/19 [History] Omeprazole [PriLOSEC] 20 mg PO Q24H PRN 06/08/19 [History] Promethazine [Phenergan] 25 mg PO Q6HR PRN 06/08/19 [History] Sennosides [Senna] 8.6 mg PO DAILY 06/08/19 [History] risperiDONE [Risperidone] 0.5 mg PO BID 06/08/19 [History] Allergy/AdvReac Type Severity Reaction Status Date / Time Amoxicillin [From Augmentin] Allergy Rash Verified 06/08/19 20:07 cephalexin [From Keflex] Allergy Rash Verified 06/08/19 20:07 clavulanic acid Allergy Rash Verified 06/08/19 20:07 [From Augmentin] diphenhydramine Allergy See Verified 06/08/19 20:07 [From Benadryl] Comments meperidine [From Demerol] Allergy See Verified 06/08/19 20:07 Comments phenytoin [From Dilantin] Allergy See Verified 06/08/19 20:07 Comments Palliative Care-Exam - Constitutional General appearance: Present: thin - Head Head Exam: Present: normal inspection, normocephalic - Respiratory Respiratory exam: Present: decreased breath sounds Additional comments: Shallow inspiratory effort - Cardiovascular Cardiovascular exam: Present: +S1, +S2 - GI/Abdominal Exam GI/Abdominal exam: Present: normal bowel sounds, soft - Catheter Type: Urethral ([place]) Additional comments: Urine cloudy yellow - Neurological Exam Additional comments: Does not follow commands. Cries out with assessment. - Skin Skin exam: Present: dry, pallor, warm Palliative Quality Palliative Quality: Screen for Code Status: Yes, Screen for Goals of Care: Yes, Screen for Pain: Yes, If Pain Regimen Started, Initiate Bowel Regimen: NA (C- diff), Screen for Nausea/Vomitting: Yes Code Status: 06/14/19 10:49 Resuscitation Status: Active [RES] Routine Comment: Resuscitation Status: DNR-Comfort Care
[2019-06-14] MEDS: *HR* LORazepam 2 MG/ML VIAL IVP SCH ×2 (13:47→18:17)
[2019-06-15] MEDS: *HR* LORazepam 2 MG/ML VIAL IVP SCH ×4 (00:17→18:26)
--- NOTE | 2019-06-15 09:40 | Palliative Progress Note ---
Date of Encounter: 06/15/19 Time of Encounter: 09:30 - Assessment and plan (1) Abdominal pain Current Visit: No Status: Acute Assessment and plan: She appears uncomfortable this am and occasionally crying out, even with no stimulation. Patient will increase Oxycodone dose to 15mg. Qualifiers: Abdominal location: generalized Qualified Code(s): R10.84 - Generalized abdominal pain (2) Anxiety Current Visit: Yes Status: Acute Assessment and plan: Continue IV Lorazepam today and change to oral conc tomorrow. (3) Hospice care Current Visit: Yes Status: Acute Assessment and plan: Continue GIP care for symptom management. 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 difficile colitis Current Visit: No Status: Acute (7) Sepsis Current Visit: No Status: Acute Qualifiers: Sepsis type: sepsis due to unspecified organism Sepsis acute organ dysfunction status: unspecified Qualified Code(s): A41.9 - Sepsis, unspecified organism - Time Spent With Patient Total time spent is greater than 50% in coordination of care (as documented) at patient's floor/unit and/or counseling patient: - Subjective Interval history: Patient crying out "God help me" on arrival. Daughter at bedside states that she has been worse since about 0300. Febrile and more hypotensive this am. - Constitutional General appearance: Present: no acute distress - Respiratory Respiratory exam: Present: decreased breath sounds, CTAB - Cardiovascular Cardiovascular exam: Present: +S1, +S2, tachycardia - GI/Abdominal GI/Abdominal exam: Present: diminished bowel sounds, soft - Extremities Exam Extremities exam: Present: normal capillary refill, normal inspection - Neurological Exam Additional comments: Yelling out intermittently, however keeps eyes closed shut. Does not follow commands. - Skin Skin exam: Present: dry, pallor, warm Palliative Quality Palliative Quality: Screen for Code Status: Yes, Screen for Goals of Care: Yes, Screen for Pain: Yes, If Pain Regimen Started, Initiate Bowel Regimen: NA (C- diff), Screen for Nausea/Vomitting: Yes Code Status: 06/14/19 10:49 Resuscitation Status: Active [RES] Routine Comment: Resuscitation Status: DNR-Comfort Care Consult Discharge Plan - Plan Referrals: Robert Ha MD [Primary Care Provider] -
[2019-06-15] MEDS ORDERED: *HR* LORazepam 2 MG/ML VIAL IVP PRN (12:42)
[2019-06-15] MEDS: Atropine Sulfate 1% 40 DROP/2 ML BOTTLE SL PRN ×2 (18:26→22:38)
[2019-06-16] MEDS: *HR* LORazepam 2 MG/ML VIAL IVP SCH ×4 (00:09→18:15)
[2019-06-16] MEDS: Atropine Sulfate 1% 40 DROP/2 ML BOTTLE SL PRN ×3 (05:45→22:02)
--- NOTE | 2019-06-16 09:55 | Palliative Progress Note ---
Date of Encounter: 06/16/19 Time of Encounter: 09:45 - Assessment and plan (1) Abdominal pain Current Visit: No Status: Acute Assessment and plan: Continue scheduled Oxycodone 15mg every 4 hours with every 2 PRN for breakthrough pain. She has only utilized 1 breakthrough dose last 24 hours and appears very comfortable. Continue current regimen. Qualifiers: Abdominal location: generalized Qualified Code(s): R10.84 - Generalized abdominal pain (2) Anxiety Current Visit: Yes Status: Acute Assessment and plan: Continue scheduled Lorazepam, has been less restless since dose was increased to 1mg yesterday. Monitor (3) Hospice care Current Visit: Yes Status: Acute Assessment and plan: Patient appears to be imminent. PPS 10%. Family at bedside please with her care and comfort level. Discussed that she could likely pass away at any time. Verbalized understanding. Emotional support given. 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 difficile colitis Current Visit: No Status: Acute (7) Sepsis Current Visit: No Status: Acute Qualifiers: Sepsis type: sepsis due to unspecified organism Sepsis acute organ dysfunction status: unspecified Qualified Code(s): A41.9 - Sepsis, unspecified organism - Time Spent With Patient Total time spent is greater than 50% in coordination of care (as documented) at patient's floor/unit and/or counseling patient: 25 - 35 minutes - Subjective Interval history: Patient resting comfortable this am. Minimally responsive to touch. Daughter and granddaughter at bedside states she has been comfortable since medications were increased yesterday and pleased with current regimen. Febrile - temp 100.9. - Constitutional General appearance: Present: no acute distress - Respiratory Additional comments: Rhonchi noted to anterior chest - Cardiovascular Cardiovascular exam: Present: irregular rhythm, tachycardia - GI/Abdominal GI/Abdominal exam: Present: hypoactive bowel sounds, soft - Additional comments: [place] with cloudy dk yellow urine - Extremities Exam Extremities exam: Present: normal capillary refill, normal inspection - Neurological Exam Additional comments: Patient minimally responsive. - Skin Skin exam: Present: dry, pallor, warm Palliative Quality Palliative Quality: Screen for Code Status: Yes, Screen for Goals of Care: Yes, Screen for Pain: Yes, If Pain Regimen Started, Initiate Bowel Regimen: NA (C- diff), Screen for Nausea/Vomitting: Yes Code Status: 06/14/19 10:49 Resuscitation Status: Active [RES] Routine Comment: Resuscitation Status: DNR-Comfort Care Consult Discharge Plan - Plan Referrals: Robert Ha MD [Primary Care Provider] -
[2019-06-17] MEDS: *HR* LORazepam 2 MG/ML VIAL IVP SCH ×5 (00:05→17:33)
[2019-06-17] MEDS: Atropine Sulfate 1% 40 DROP/2 ML BOTTLE SL PRN ×3 (05:44→21:48)
--- NOTE | 2019-06-17 09:35 | Palliative Progress Note ---
Date of Encounter: 06/17/19 Time of Encounter: 09:20 - Assessment and plan (1) Abdominal pain Current Visit: No Status: Acute Assessment and plan: Continue scheduled Oxycodone. Has not required any PRN doses. She appears comfortable. Qualifiers: Abdominal location: generalized Qualified Code(s): R10.84 - Generalized abdominal pain (2) Anxiety Current Visit: Yes Status: Acute Assessment and plan: Continue scheduled Lorazepam. Has not required any PRN doses. If she loses IV access, will transition to po. (3) Hospice care Current Visit: Yes Status: Acute Assessment and plan: Patient appears imminent. Continue GIP care. Anticipate she will likely pass within the next 24 hours. Family aware. 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 difficile colitis Current Visit: No Status: Acute (7) Sepsis Current Visit: No Status: Acute Qualifiers: Sepsis type: sepsis due to unspecified organism Sepsis acute organ dysfunction status: unspecified Qualified Code(s): A41.9 - Sepsis, unspecified organism - Time Spent With Patient Total time spent is greater than 50% in coordination of care (as documented) at patient's floor/unit and/or counseling patient: - Subjective Interval history: Patient resting comfortable this am. Unresponsive, appears comfortable. Oxygen saturations in 70's. Febrile with temp up to 103. Daughter and granddaughter remain at bedside and aware of current status. - Constitutional General appearance: Present: no acute distress - Respiratory Additional comments: SHallow, irregular respiration with 7-10 sec periods of apnea - Cardiovascular Cardiovascular exam: Present: tachycardia - GI/Abdominal GI/Abdominal exam: Present: normal bowel sounds, soft - Additional comments: [place] with dk yellow urine with sediment - Extremities Exam Extremities exam: Present: normal capillary refill, normal inspection - Neurological Exam Additional comments: Unresponsive to verbal/tactile stimuli - Skin Skin exam: Present: dry, pallor, warm Palliative Quality Palliative Quality: Screen for Code Status: Yes, Screen for Goals of Care: Yes, Screen for Pain: Yes, If Pain Regimen Started, Initiate Bowel Regimen: NA (C- diff), Screen for Nausea/Vomitting: Yes Code Status: 06/14/19 10:49 Resuscitation Status: Active [RES] Routine Comment: Resuscitation Status: DNR-Comfort Care Consult Discharge Plan - Plan Referrals: Robert Ha MD [Primary Care Provider] -
[2019-06-17] MEDS: *HR* LORazepam Oral Conc 2 MG/ML SL SCH (17:50)
[2019-06-18] MEDS: *HR* LORazepam Oral Conc 2 MG/ML SL SCH ×4 (00:11→17:28)
[2019-06-18] MEDS: Atropine Sulfate 1% 40 DROP/2 ML BOTTLE SL PRN ×4 (06:06→21:31)
--- NOTE | 2019-06-18 09:18 | Palliative Progress Note ---
Date of Encounter: 06/18/19 Time of Encounter: 13:52 - Assessment and plan (1) Agitation Current Visit: Yes Status: Acute Assessment and plan: Start Haldol 1mg SL Q4hr PRN for agitation. (2) Generalized pain Current Visit: Yes Status: Acute Assessment and plan: Continue scheduled oxycodone. Has not required any additional PRN doses. (3) Anxiety Current Visit: Yes Status: Acute Assessment and plan: Continue scheduled Ativan. Pt has not required any additional PRN doses. (4) Hospice care Current Visit: Yes Status: Acute Assessment and plan: Patient appears to be imminently dying. Continue GIP care. Family present and aware that patient will likely pass soon. (5) Palliative care encounter Current Visit: Yes Status: Acute (6) C. difficile colitis Current Visit: No Status: Acute (7) Sepsis Current Visit: No Status: Acute Qualifiers: Sepsis type: sepsis due to unspecified organism Sepsis acute organ dysfunction status: unspecified Qualified Code(s): A41.9 - Sepsis, unspecified organism - Time Spent With Patient Total time spent is greater than 50% in coordination of care (as documented) at patient's floor/unit and/or counseling patient: 35 minutes - Subjective Interval history: First Visit: Pt is lying in bed, NAD, appears comfortable. She remains unresponsive, brief periods of apnea noted. Oxygen saturations in 70's. Remains febrile wiht temp at 102.5. Daughter at bedside during visit. She feels patient has remained comfortable on the current medications. Family denies any further needs at this time. Second Visit: Called to room by RN as concerns for discomfort. Pt's daughter at bedside. Pt appears moderately comfortable but slightly restless during my second visit with slight furrowing of her brow. Requested RN give PRN dose of oxycodone. Also discussed with family that we would add PRN Haldol to ensure she does not become restless. Family denies further needs at this time. railways assistant Court ernandezted pt this afternoon at bedside, pt appears comfortable per her report. Palliative Care will continue to follow pt closely. - Constitutional Exam: CONSTITUTIONAL/GENERAL: Non-responsive, NAD, lying in bed. Ear/Nose/Mouth/Throat (EMNT): Patent, atraumatic. CARDIOVASCULAR: Tachycardia; No edema. No cyanosis/ischemia. RESPIRATORY: Unlabored, shallow with periods of apnea noted. GASTROINTESTINAL: Soft, non-distended. NEUROLOGIC: Unresponsive to stimuli. PSYCHIATRY: Unable to assess d/t mental status. Palliative Quality Palliative Quality: Screen for Code Status: Yes, Screen for Goals of Care: Yes, Screen for Pain: Yes, If Pain Regimen Started, Initiate Bowel Regimen: NA (C- diff), Screen for Nausea/Vomitting: Yes Code Status: 06/14/19 10:49 Resuscitation Status: Active [RES] Routine Comment: Resuscitation Status: DNR-Comfort Care Consult Discharge Plan - Plan Referrals: Robert Ha MD [Primary Care Provider] -
[2019-06-18] MEDS ORDERED: Haloperidol Oral Conc 10 MG/5 ML UDC PO PRN (13:01)
[2019-06-19] MEDS: *HR* LORazepam Oral Conc 2 MG/ML SL SCH ×4 (00:01→17:45)
[2019-06-19] MEDS: Atropine Sulfate 1% 40 DROP/2 ML BOTTLE SL PRN ×4 (01:50→20:02)
[2019-06-19] MEDS: *HR* LORazepam Oral Conc 2 MG/ML SL PRN ×2 (20:03→22:38)
--- NOTE | 2019-06-19 20:57 | Palliative Progress Note ---
Date of Encounter: 06/19/19 Time of Encounter: 17:30 - Assessment and plan (1) Hospice care Current Visit: Yes Status: Acute Assessment and plan: Patient continues to require hospice GIP for worsening dypnea. She appears imminently dying, family aware. (2) Anxiety Current Visit: Yes Status: Acute Assessment and plan: scheduled and prn ativan (3) Agitation Current Visit: Yes Status: Acute Assessment and plan: continue Haldol 1 mg SL q4hrs prn (4) Generalized pain Current Visit: Yes Status: Acute Assessment and plan: contine scheduled and prn Oxycodone. (5) Sepsis Current Visit: No Status: Acute Qualifiers: Sepsis type: sepsis due to unspecified organism Sepsis acute organ dysfunction status: unspecified Qualified Code(s): A41.9 - Sepsis, unspecified organism (6) C. difficile colitis Current Visit: No Status: Acute - Time Spent With Patient Total time spent is greater than 50% in coordination of care (as documented) at patient's floor/unit and/or counseling patient: 25 - 35 minutes - Subjective Interval history: Patient remains unresponsive, but displaying laboured breathing, had again spike of fever today. today received 1 dose of haldol and 2 prn doses of oxycodone. Instructed nurse to evaluate frequently for meds needs. Family at the bedside. - Constitutional Exam: Vitals reviewed General appearance: unresponsive Chest: shallow breaths, tachypnea Cardiovascular: regular rate and rhythm, no murmur, rub, gallop Gastrointestinal: soft Extremities: no edema, mottling of lower legs Musculoskeletal: no deformities Neurologic: comatose Palliative Quality Palliative Quality: Screen for Code Status: Yes, Screen for Goals of Care: Yes, Screen for Pain: Yes, If Pain Regimen Started, Initiate Bowel Regimen: NA (C- diff), Screen for Nausea/Vomitting: Yes Code Status: 06/14/19 10:49 Resuscitation Status: Active [RES] Routine Comment: Resuscitation Status: DNR-Comfort Care Consult Discharge Plan - Plan Referrals: Robert Ha MD [Primary Care Provider] -
[2019-06-20] MEDS: Atropine Sulfate 1% 40 DROP/2 ML BOTTLE SL PRN ×8 (00:44→22:39)
[2019-06-20] MEDS: *HR* LORazepam Oral Conc 2 MG/ML SL SCH ×5 (00:46→20:53)
[2019-06-20] MEDS: *HR* LORazepam Oral Conc 2 MG/ML SL PRN ×7 (02:33→22:39)
[2019-06-20] MEDS ORDERED: Scopolamine Patch 1.5 MG PATCH.TD72 TD SCH (17:00)
--- NOTE | 2019-06-20 18:40 | Palliative Progress Note ---
Date of Encounter: 06/20/19 Time of Encounter: 18:38 - Assessment and plan (1) Copious oral secretions Current Visit: Yes Status: Acute Assessment and plan: Increased frequency of atropine to q1h, and added scopolamine patch. (2) Hospice care Current Visit: Yes Status: Acute Assessment and plan: Patient continues to require hospice GIP for worsening dypnea. She appears imminently dying, family aware. (3) Anxiety Current Visit: Yes Status: Acute Assessment and plan: scheduled and prn ativan (4) Agitation Current Visit: Yes Status: Acute Assessment and plan: continue Haldol 1 mg SL q4hrs prn (5) Generalized pain Current Visit: Yes Status: Acute Assessment and plan: contine scheduled and prn Oxycodone. (6) Sepsis Current Visit: No Status: Acute Qualifiers: Sepsis type: sepsis due to unspecified organism Sepsis acute organ dysfunction status: unspecified Qualified Code(s): A41.9 - Sepsis, unspecified organism (7) C. difficile colitis Current Visit: No Status: Acute - Time Spent With Patient Total time spent is greater than 50% in coordination of care (as documented) at patient's floor/unit and/or counseling patient: Greater than 35 minutes - Subjective Interval history: Patient remains unresponsive, but displaying laboured breathing, Patient has been having increased secretions, atropine drops increased to q1hr, and scopolamine patch placed. Terminal fever continued. Now receiving xycodone about q2hrs and haldol. Family at the bedside, aware that patient is actively dying, reassured tat pt secretions do not seam to affect pt's comfort. Emotional support provided. - Constitutional Exam: Vitals reviewed General appearance: unresponsive Chest: shallow breaths, tachypnea, gurgling sound Cardiovascular: regular rate and rhythm, no murmur, rub, gallop Gastrointestinal: soft Extremities: no edema, mottling of lower legs Musculoskeletal: no deformities Neurologic: comatose Palliative Quality Palliative Quality: Screen for Code Status: Yes, Screen for Goals of Care: Yes, Screen for Pain: Yes, If Pain Regimen Started, Initiate Bowel Regimen: NA (C- diff), Screen for Nausea/Vomitting: Yes Code Status: 06/14/19 10:49 Resuscitation Status: Active [RES] Routine Comment: Resuscitation Status: DNR-Comfort Care Consult Discharge Plan - Plan Referrals: Robert Ha MD [Primary Care Provider] -
[2019-06-20 19:36] VITALS: BP 76/52
[2019-06-21] MEDS: Atropine Sulfate 1% 40 DROP/2 ML BOTTLE SL PRN ×3 (00:45→04:56)
[2019-06-21] MEDS: *HR* LORazepam Oral Conc 2 MG/ML SL PRN ×3 (00:45→04:57)
--- NOTE | 2019-06-21 10:19 | Death Note ---
Discharge Sum: Summary - Date and Time Date of admission: 06/14/19 13:00 Date of : 06/21/19 Time of : 05:05 - Summary Details: Ms. Chong is a 83 year old female originally admitted to hospital from [facility] for abdominal pain. Patient with PMH of DM, HTN, C-diff, CVA, Gout, and chronic pain syndrome. The patient was found to have C-diff and abdominal CT reveals colitis, as well as sepsis and urinary tract infection. She was treated with IV fluids/atb therapy, however, condition did not improve and she had increasing leukocytosis and decreased mental status despite appropriate atb therapy. Discussions were held with family, including daughter in [place] that is power of senior compensation consultant and decision was made to transition to comfort care only. Treatment for infection was discontinued, however, patient continued to have increasing pain requiring around the clock pain medication. Patient was admitted to [facility] for pain and end-of-life care, and peacefully this morning. - Additional Data Confirmation of as documented by pronouncing clinician: no pulse, no respirations, no heart sounds, pupils fixed and dilated Family: at bedside Attending/PCP notified?: Yes Attending physician: Desirae Villanueva MD Was code activated?: No Autopsy requested?: No budget examiner notified?: No Organ bank notified?: Yes Advance directives: Yes Hospice patient?: Yes Discharge Sum: Diag - PCOD Probable Cause of : Respiratory arrest Discharge Sum: Prov - Provider Primary care physician: Robert Ha MD Admitting clinician: Desirae Villanueva Attending physician on admission: Desirae Villanueva Consults: 06/14/19 10:49 Consult to Palliative Care [CONS] Routine Comment: Consulting Provider: Palliative Care Isabel Reason for Consult: [facility] Call Completed: No
== END 2019-06-21 05:05 | disposition expired | DRG 872 ==
LOC: 2ANU 13:00
PROVIDERS: ADMIT Internal Medicine Hospice and Palliative Medicine; ATTEND Internal Medicine Hospice and Palliative Medicine